=== PATIENT | male | born 1965 | race African-American/Black ===

== ENCOUNTER 2023-06-02 10:10 | Inpatient (IN) | payer OTHER, SELFPAY ==
[2023-06-02] VITALS (14 sets, daily range): BP systolic 104–148; BP diastolic 61–82; PULSE 98–107; RESP 15–21; TEMP 36.7–36.8; O2SAT 100; BMI 34.0
--- NOTE | ~2023-06-02 | CT_ITS ---
CT Scan of the Chest without Contrast: Clinical Indication: Aspiration Technique: Contiguous sections were acquired throughout the chest without intravenous contrast. Dose reduction technique was used on this scan by utilizing automated exposure control and iterative recon struction technique. The dose-length product (DLP) was 802.48 mGy-cm. Findings: There is no evidence of any significant mediastinal, hilar or axillary lymphadenopathy. The mediastin al soft tissues appear normal. There is no evidence of pleural or pericardial effusion. The lungs are clear. No pulmonary nodules or infiltrates are noted. Images through the upper abdomen reveal no abnormalities. Impression: No significant abnormalities seen. Reviewed, dictated and finalized at location . BUSTER HELPER Impression: No significant abnormalities seen.
--- NOTE | ~2023-06-02 | CT_ITS ---
EXAMINATION: CT abdomen pelvis w con DATE: 06/02/2023 14:28 INDICATION: Vomiting . Transaminitis. TECHNIQUE: Computed tomography (CT) of the abdomen and pelvis was performed with 100 mL Omnipaque-350 intravenous contrast. Automated exposure control and iterative reconstruction technique were employe d. The dose-length product was 1647.87 mGy-cm. COMPARISON: None FINDINGS: Lung bases are clear. Mild cardiomegaly. Atherosclerotic coronary artery calcification. No pericardia l or pleural effusion. Ventriculoperitoneal shunt extends caudally along the visualized anterior righ t chest wall with distal tip in the right lower quadrant. Liver, gallbladder, spleen, pancreas, bilat eral adrenal glands and bilateral kidneys are normal. Bowels including the appendix are normal. Small to moderate-sized fat-containing umbilical hernia. Ill-defined subcutaneous nodules and stranding al lj the anterior abdominal wall with location and appearance suggesting sequela of subcutaneous injec tions. Bladder is normal. No free intraperitoneal gas or fluid. No pathologically enlarged abdominal or pelvic lymphadenopathy. There are there are bridging osteophytes at multiple levels consistent wit h diffuse idiopathic skeletal hyperostosis (DISH). IMPRESSION: 1. No acute intra-abdominal/pelvic process. 2. Distal tip of a ventriculoperitoneal shunt in the right lower quadrant. 2. Small to moderate-sized fat-containing umbilical hernia. Reviewed, dictated and finalized at location A. INSPECTOR
--- NOTE | ~2023-06-02 | XR_ITS ---
XR chest 1V portable 06/02/2023 10:53 Indication: Weakness Procedure: AP portable chest Comparison: No prior studies for comparison. Findings: Heart size normal. No focal air space disease, pulmonary edema, pleural effusion or suspect ed pneumothorax. There is a catheter overlying the right chest wall. Impression: 1: No acute cardiopulmonary disease. Reviewed, dictated and finalized at location L. R RUNNER Impression: 1: No acute cardiopulmonary disease.
--- NOTE | ~2023-06-02 | XR_ITS ---
EXAMINATION: XR chest 1V portable DATE: 06/03/2023 21:32 INDICATION: Increased shortness of breath. TECHNIQUE: A single frontal view of the chest was obtained. COMPARISON: Chest single view 06/02/2023, chest CT 06/02/2023 FINDINGS: There are airspace opacities at left lung base. No pleural effusion or pneumothorax. The he art size is normal. A right-sided ventriculoperitoneal shunt is noted. A gastrostomy tube is noted. IMPRESSION: 1. Worsened airspace opacities at left lung base, consistent with atelectasis versus pneumonia. Reviewed, dictated and finalized at location E. DING SERVICES COORDINATOR IMPRESSION: 1. Worsened airspace opacities at left lung base, consistent with atelectasis v ersus pneumonia.
--- NOTE | ~2023-06-02 | CT_ITS ---
EXAMINATION: CT brain wo con DATE: 06/02/2023 10:59 INDICATION: Altered mental status. TECHNIQUE: Computed tomography (CT) of the head was performed without intravenous contrast. The dose- length product was 605.33 mGy-cm. Automated exposure control and iterative reconstruction technique w ere employed. COMPARISON: None FINDINGS: Generalized atrophy. There is a right posterior parietal ventriculostomy catheter, tip of t he catheter at the midline of the ventricles. Adjacent to the catheter tract there is a geographic ar ea of hypodensity which may relate to encephalomalacia or infarction, age indeterminate. There are sc attered moderate periventricular and subcortical white matter changes, most likely related to small v essel ischemic disease (microangiopathy). There is a chronic right frontal lobe infarction. There is intracranial atherosclerosis. There is a chronic left occipital lobe infarction. There is a chronic r ight lacunar infarction. IMPRESSION: 1. Geographic hypodensity along the right posterior parietal ventriculostomy tract which may relate t o encephalomalacia or age-indeterminate infarction. Recommend comparison to previous outside CT exami nations if available. 2: Chronic right frontal lobe, right lacunar and left occipital lobe infarctions. 3: Chronic age-related findings. 4: Mild sinus disease. Reviewed, dictated and finalized at location L. E OPERATOR IMPRESSION: 1. Geographic hypodensity along the right posterior parietal ventriculostomy tr act which may relate to encephalomalacia or age-indeterminate infarction. Recom mend comparison to previous outside CT examinations if available. 2: Chronic right frontal lobe, right lacunar and left occipital lobe infarction s. 3: Chronic age-related findings. 4: Mild sinus disease.
--- NOTE | ~2023-06-02 | XR_ITS ---
EXAMINATION: XR chest 2V Exam Date/Time: 06/06/2023 17:10 CREEL OPERATOR HISTORY: F/U on portable chest x-ray, rule out pneumonia Comparison: 06/03/2023. RESULT: Lines, tubes, and devices: None. Lungs and pleura: Nondiagnostic lateral views, limited by difficulty positioning, low volumes, and p ortable technique. Increased left basilar/retrocardiac opacities. Cardiomediastinal silhouette: Stable. Other: No acute osseous or upper abdominal finding. IMPRESSION: Increasing left basilar airspace disease may represent increasing atelectasis or pneumonia. Reviewed, dictated and finalized at location K. L OPERATOR IMPRESSION: Increasing left basilar airspace disease may represent increasing atelectasis o r pneumonia.
--- NOTE | 2023-06-02 10:22 | ECG_ITS ---
Measurements Intervals [place] Rate: 96 P: 42 WV: 140 QRS: 31 QRSD: 101 T: 27 QT: 343 QTc: 435 Interpretive Statements SINUS RHYTHM CONSIDER INFERIOR INFARCT, AGE INDETERMINATE BORDERLINE T WAVE ABNORMALITY- HIGH LATERAL LEADS ABNORMAL ECG NO PREVIOUS ECG AVAILABLE FOR COMPARISON Electronically Signed On 06-02-2023 11:25:39 ANESTHESIOLOGISTS' ASSISTANT by Ferdinand Begum D.O.
--- NOTE | 2023-06-02 10:41 | ED.GENADULT ---
HPI - General Adult General Chief complaint: Unspecified <Veronika Thakkar PA-C - Last Filed: 06/02/23 15:59> Stated complaint: weak <Veronika Thakkar PA-C - Last Filed: 06/02/23 15:59> Time Seen by Provider: 06/02/23 10:21 <Veronika Thakkar PA-C - Last Filed: 06/02/23 15:59> Source: family and EMS <Veronika Thakkar PA-C - Last Filed: 06/02/23 15:59> Mode of arrival: EMS <Veronika Thakkar PA-C - Last Filed: 06/02/23 15:59> Limitations: other (history of CVA, patient is nonverbal) <Veronika Thakkar PA-C - Last Filed: 06/02/23 15:59> History of Present Illness HPI narrative: This is a 57-year-old male that presents to the emergency department for altered mental status. Patient has history of CVA and is nonverbal. Reported the patient communicates by blinking and nodding yes or no. He has been more lethargic since last night and is no longer doing this. He also vomited this morning. <Veronika Thakkar PA-C - Last Filed: 06/02/23 15:59> Related Data Allergies/adverse reactions: Allergies Allergy/AdvReac Type Severity Reaction Status Date / Time No Known Allergies Allergy Verified 06/02/23 10:48 <Veronika Thakkar PA-C - Last Filed: 06/02/23 15:59> Review of Systems Review of Systems: ROS unobtainable: Yes unobtainable due to medical condition <Veronika Thakkar PA-C - Last Filed: 06/02/23 15:59> [facility] Past Medical History Medical History: Medical History (Updated 06/02/23 @ 15:54 by Veronika Thakkar PA-C) History of CVA (cerebrovascular accident) History of diabetes mellitus History of hypertension <Veronika Thakkar PA-C - Last Filed: 06/02/23 15:59> Social History Social History: Social History (Updated 06/02/23 @ 10:44 by Veronika Thakkar PA-C) Substance use: never <Veronika Thakkar PA-C - Last Filed: 06/02/23 15:59> Exam Narrative: GENERAL: Lethargic, well-nourished, and in no acute distress. HEAD: Normocephalic, atraumatic. EYES: PERRLA ENT: Nares clear, no rhinorrhea or epistaxis. Mucous membranes dry. Oropharynx without tonsillar hypertrophy exudate or other lesions. Bilateral TMs pearly lynch non-bulging NECK: Supple. No adenopathy or masses. CHEST: No respiratory distress. Expiratory wheezing. No rales or rhonchi HEART: Regular rate and rhythm. No murmur heard. Normal peripheral pulses. ABDOMEN: Soft, nontender, nondistended, normal active bowel sounds. EXTREMITIES: No edema. SKIN: Warm, dry, no rash. NEURO: Lethargic. Oriented x1. Will open eyes when his name is said. Quadriplegia PSYCH: Normal mood and affect RECTAL: Hemoccult negative <Veronika Thakkar PA-C - Last Filed: 06/02/23 15:59> Course PROGRAM MANAGEMENT SPECIALIST/PA Physician Supervision For this patient encounter, I reviewed the PROGRAM MANAGEMENT SPECIALIST or PA documentation, treatment plan, and medical decision making; and I had [id number] time with this patient. <Fidel Vila MD - Last Filed: 06/02/23 18:02> Consultations Consultation #1: Spoke with Dr. Harris about patient and workup, U stroke. Recommends obtaining MRI. If this shows any abnormalities they are happy to take the patient <Veronika Thakkar PA-C - Last Filed: 06/02/23 15:59> Date: 06/02/23 <Veronika Thakkar PA-C - Last Filed: 06/02/23 15:59> Consultation #2: Spoke with hospitalist about patient and workup who accepts admission <Veronika Thakkar PA-C - Last Filed: 06/02/23 15:59> Date: 06/02/23 <Veronika Thakkar PA-C - Last Filed: 06/02/23 15:59> Vital Signs Vital signs: Vital Signs Temperature 98.1 F 06/02/23 10:08 Pulse Rate 106 H 06/02/23 10:08 Respiratory Rate 21 H 06/02/23 10:08 Blood Pressure 123/82 06/02/23 10:08 Pulse Oximetry 100 06/02/23 10:08 Temperature 98.3 F 06/02/23 17:47 Pulse Rate 102 H 06/02/23 17:47 Respiratory Rate 18 06/02/23 17:47 Blood Pressure 148/72 H 06/02/23 17:47 Pulse Oximetry 100 06/02/23 17:47 <Veronika Thakkar PA-C - Last Filed: 0
[2023-06-02] MEDS: IPRATROPIUM 0.5 MG/ALBUTEROL SULFATE 2.5 MG AMPUL.NEB 3 ML INHALATION (11:02)
[2023-06-02 11:03] LABS: Basophils Percent Auto 0.2 % (0.2-1.2); Eosinophils Absolute Auto 0.1 K/mm3 (0-0.3); Eosinophils Percent Auto 0.9 % (0-4.4); Hemoglobin 9.3 g/dL (14.0-18.0); Immature Granulocyte Absolute 0.06 K/mm3 (0.00-0.031); Immature Granulocyte Percent A 0.6 % (0-0.5); Lymphocytes Absolute Auto 2.44 K/mm3 (0.9-3.2); Lymphocytes Percent Auto 23.8 % (18.3-44.2); Mean Corpuscular Hemoglobin 28.8 pg (26-34); Mean Platelet Volume 9.2 fl (7.4-10.4); Monocytes Absolute Auto 1.2 K/mm3 (0.1-0.6); Monocytes Percent Auto 11.2 % (2.6-8.5); Neutrophils Absolute Auto 6.5 K/mm3 (1.3-6.7); Neutrophils Percent Auto 63.3 % (45.5-73.1); Platelet Count Result 286 k/mm3 (150-375); Red Blood Count 3.23 M/mm3 (4.6-6.20); Red Cell Distribution Width 17.2 % (11.5-14.5); White Blood Count 10.3 K/mm3 (4.5-10.0)
[2023-06-02] MEDS: ONDANSETRON INJ 4 MG/2 ML VIAL IV PUSH (11:07)
[2023-06-02 11:12] LABS: INR 1.1; Lactic Acid Reflex 1.7 mmol/L (0.7-2.0); Prothrombin Time 15.1 Seconds (11.1-14.7)
[2023-06-02 11:13] LABS: Partial Thromboplastin Time 34.2 SECONDS (22.3-36.8)
[2023-06-02 11:14] LABS: Alanine Aminotransferase 225 U/L (6-50); Albumin Level 3.5 g/dL (3.5-5.1); Alkaline Phosphatase 104 U/L (38-126); Anion Gap 7 mmol/L (8-16); Aspartate Amino Transferase 137 U/L (17-59); Bilirubin,Total 0.6 mg/dL (0.2-1.3); Blood Urea Nitrogen 62 mg/dL (9-20); Calcium 9.5 mg/dL (8.4-10.2); Carbon Dioxide 32 mmol/L (22-30); Chloride 106 mmol/L (98-107); Estimated CRCL calculation 74 ml/min; Estimated Glomerular Filt Rate > 60; Glucose 202 mg/dL (65-110); Potassium 5.2 mmol/L (3.4-5.0); Sodium 145 mmol/L (137-145)
[2023-06-02 12:02] LABS: Lipase 156 U/L (23-300)
[2023-06-02 12:05] LABS: CRP 22.9 mg/dL (<1.0)
[2023-06-02 12:06] LABS: Influenza A QL RT-PCR Negative (Negative); Influenza B QL RT-PCR Negative (Negative); RSV RNA, RT-PCR Negative (Negative); SARS-CoV-2 RNA PCR Negative (Negative)
[2023-06-02 14:22] LABS: Appearance Urine Cloudy (Clear); Bacteria Urine 1+ /hpf; Bilirubin Urine Negative (Negative); Blood Urine Negative (Negative); Color Urine Yellow (Yellow); Glucose Urine UA Negative (Negative); Ketones Urine Negative (Negative); Leukocyte Esterase Ur 3+ LEU/UL (Negative); Nitrate Urine Negative (Negative); Non Pathogenic Casts 0-2; Protein Urine 1+ mg/dL (Negative); RBC Urine 0-2 /hpf (0-2); Specific Grav Ur 1.018 (1.001-1.035); Squamous Epithelial Cell Urine None seen /hpf (Few); WBC Urine >100 /hpf; pH Urine 7.5 (5.0-9.0)
[2023-06-02 14:28] LABS: Add Urine Microscopic? YES
[2023-06-02] MEDS: SODIUM CHLORIDE 0.9% IV 500 ML 999 ML IV CONT (15:53)
--- NOTE | 2023-06-02 19:21 | PM.IMHP ---
H&P: HPI History of Present Illness Date/Time: 06/02/23 19:30 Chief Complaint: Vomiting. 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 He is unable to provide much in the way of history history and he has never been seen at this facility before and he thus a majority of the following is obtained via a review of his EMR and records obtained from [facility] from his stay in March 2023 with hemorrhagic stroke. He was discharged to [place] on 04/27/2023 and has been at a local nursing facility for less than a week. Staff reports that he was more lethargic last night and he had an episode of vomiting this morning and thus they brought him here for evaluation. He was afebrile on arrival with stable blood pressures. Labs were significant for a hemoglobin of 9.3 (a bit lower than what he had been running), sodium 145, potassium 5.2, carbon dioxide 32, BUN 62, AST 137, ALT 225, CRP 22.9, total protein 9.0. Urine was positive for 3+ leukocyte esterase, greater than 100 wbc's, and 1+ bacteria. He tested negative for influenza, RSV, and COVID. Brain CT showed geographic hypodensity along the right posterior parietal ventriculostomy tract which may be related to encephalomalacia or age-indeterminate infarction. ED provider spoke with the stroke team at [facility] who recommended admitting him at this facility for MRI and if anything new is seen he can be transferred there. In the interim he has been started on IV antibiotics for a urinary tract infection and he is being admitted in this setting. At the time my evaluation he will open his eyes on occasion but does not attempt to track or follow commands. Review of Systems Review of Systems: Unable to obtain given clinical condition. 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 History of cardiac catheterization History of coronary artery stent placement History of percutaneous endoscopic gastrostomy History of tracheostomy Status post ventriculo-peritoneal shunt placement Family History Family History (Updated 06/02/23 @ 19:26 by Kym Holman PA-C) Other Family history unknown Social History Social History (Updated 06/02/23 @ 19:27 by Kym Holman PA-C) Social History: Healthcare power of disability attorney: Ivory Hassan, sister. Code status: Full code. Smoking status: Never smoker Alcohol intake: unknown Substance use: unknown Spiritual care concerns: No Meds Home Medications and Allergies Home Medications Medication Instructions Recorded Confirmed Type Novolog FlexPen U-100 Insulin 10 units subcut TID 06/02/23 06/02/23 History acetaminophen 500 mg capsule 1,000 mg feeding tube Q6H PRN Pain 06/02/23 06/02/23 History artificial tears solution eye drops 1 drp ophthalmic (eye) TID 06/02/23 06/02/23 History aspirin 325 mg tablet 325 mg feeding tube DAILY 06/02/23 06/02/23 History atorvastatin 80 mg tablet 80 mg feeding tube HS 06/02/23 06/02/23 History bisacodyl 10 mg rectal suppository 10 mg RECTAL DAILY PRN Constipation 06/02/23 06/02/23 History carboxymethylcellulose sodium 0.5 1 drp EACH EYE QID 06/02/23 06/02/23 History % eye drops carvedilol 25 mg tablet 50 mg feeding tube BID 06/02/23 06/02/23 History clonidine HCl 0.3 mg tablet 0.3 mg feeding tube TID 06/02/23 06/02/23 History cyclopentolate 1 % eye drops 1 drp EACH EYE BID 06/02/23
[2023-06-02 20:48] LABS: Hematocrit 30.7 % (42.0-52.0)
[2023-06-02 21:16] LABS: Anion Gap 7 mmol/L (8-16); Blood Urea Nitrogen 62 mg/dL (9-20); Calcium 9.2 mg/dL (8.4-10.2); Carbon Dioxide 33 mmol/L (22-30); Chloride 107 mmol/L (98-107); Creatine Kinase 1556 U/L (55-170); Estimated CRCL calculation 77 ml/min; Estimated Glomerular Filt Rate > 60; Glucose 201 mg/dL (65-110); Magnesium 2.5 mg/dL (1.6-2.3); Potassium 5.2 mmol/L (3.4-5.0); Sodium 147 mmol/L (137-145)
[2023-06-02 21:41] LABS: Hemoglobin A1C 7.4 % (<5.7)
[2023-06-02 21:46] LABS: Hepatitis B Surface Antigen Negative (Negative)
[2023-06-02 21:51] LABS: HAV RESULT Negative (Negative); Hepatitis B Core IgM Result Negative (Negative)
[2023-06-02 21:58] LABS: Glucose Point of Care 196 mg/dl (65-105)
[2023-06-02 22:03] LABS: Hepatitis C Virus Antibody Negative (Negative)
[2023-06-02] MEDS: DEXTROSE 5%/0.45% SOD CHL 1,000 ML 100 ML IV CONT (22:42)
[2023-06-02] MEDS: carvediloL 25 MG TABLET 50 MG FEED TUBE (22:49)
[2023-06-02] MEDS: INSULIN GLARGINE (*BKC) 100 UNITS/ML 30 UNITS SUB-Q (22:49)
[2023-06-02] MEDS: SCOPOLAMINE 1 MG PATCH 1 PATCH TRANSDERM (23:03)
[2023-06-03] VITALS (25 sets, daily range): BP systolic 104–135; BP diastolic 50–86; PULSE 95–111; RESP 18–24; TEMP 36.4–38.2; O2SAT 89–98; BMI 34.8
[2023-06-03 00:08] LABS: Glucose Point of Care 218 mg/dl (65-105)
[2023-06-03] MEDS: ACETAMINOPHEN 500 MG TABLET 1000 MG FEED TUBE ×2 (02:21→18:05)
[2023-06-03 05:56] LABS: Alanine Aminotransferase 187 U/L (6-50); Albumin Level 3.3 g/dL (3.5-5.1); Alkaline Phosphatase 81 U/L (38-126); Anion Gap 8 mmol/L (8-16); Aspartate Amino Transferase 100 U/L (17-59); Bilirubin,Total 0.8 mg/dL (0.2-1.3); Blood Urea Nitrogen 70 mg/dL (9-20); Carbon Dioxide 27 mmol/L (22-30); Chloride 108 mmol/L (98-107); Creatine Kinase 1122 U/L (55-170); Estimated CRCL calculation 77 ml/min; Estimated Glomerular Filt Rate > 60; Glucose 234 mg/dL (65-110); Potassium 5.5 mmol/L (3.4-5.0); Sodium 143 mmol/L (137-145)
[2023-06-03 05:58] LABS: Hematocrit 29.9 % (42.0-52.0); Hemoglobin 8.6 g/dL (14.0-18.0); Mean Corpuscular HGB Conc 28.8 g/dl (32-36); Mean Corpuscular Hemoglobin 28.3 pg (26-34); Mean Corpuscular Volume 98.4 fl (80-100); Mean Platelet Volume 9.4 fl (7.4-10.4); Platelet Count Result 261 k/mm3 (150-375); Red Blood Count 3.04 M/mm3 (4.6-6.20); Red Cell Distribution Width 17.2 % (11.5-14.5); White Blood Count 7.5 K/mm3 (4.5-10.0)
[2023-06-03 06:03] LABS: Glucose Point of Care 219 mg/dl (65-105)
[2023-06-03] MEDS: ALBUTEROL SULFATE NEB 2.5 MG/3 ML INH 1.25 MG INHALATION (06:24)
[2023-06-03] MEDS: carvediloL 25 MG TABLET 50 MG FEED TUBE ×2 (09:40→20:18)
[2023-06-03] MEDS: cloNIDine HCL 0.1 MG TABLET 0.3 MG FEED TUBE ×3 (09:40→17:56)
[2023-06-03] MEDS: ASPIRIN 325 MG TABLET FEED TUBE (09:40)
[2023-06-03] MEDS: TAMSULOSIN HCL 0.4 MG CAPSULE 0.8 MG PO (09:46)
[2023-06-03 09:58] LABS: Glucose Point of Care 214 mg/dl (65-105)
[2023-06-03] MEDS: INSULIN ASPART (*BKC) 100 UNITS/ML 10 UNITS SUB-Q ×3 (10:00→18:45)
[2023-06-03] MEDS: INSULIN GLARGINE (*BKC) 100 UNITS/ML 30 UNITS SUB-Q ×2 (10:01→20:26)
[2023-06-03] MEDS: polyethylene glycoL 3350 17 GM POWD.PACK FEED TUBE ×2 (10:02→17:56)
--- NOTE | 2023-06-03 10:02 | WPDNEURCNPN ---
Assessment and Plan Assessment and plan (1) Azotemia: Code(s): R79.89 - Other specified abnormal findings of blood chemistry Status: Acute (2) Abnormal brain CT: Code(s): R90.89 - Other abnormal findings on diagnostic imaging of central nervous system Status: Acute (3) Type 2 diabetes mellitus: Code(s): E11.9 - Type 2 diabetes mellitus without complications Status: Acute (4) Hypertension: Code(s): I10 - Essential (primary) hypertension Status: Acute (5) Acute UTI: Code(s): N39.0 - Urinary tract infection, site not specified Status: Acute Plan 1. UTI as documented and is being treated with the antibiotics 2. Dehydration 3. Status post ventriculostomy with chronic changes around the tract 4. Needs to be treated medically for the general medical problems as documented, no need for the MRI we can always repeat a CT scan of the head later on if necessary. Consult date: 06/03/23 HPI: Mendel Kelly is a 57 year old maleAdmitted to the hospital through the emergency room for the complaints of change in the mental status in addition to the history of him being nonverbal as well as having had previous cerebrovascular accident patient reportedly communicates only by blinking and nodding yes or no. Reportedly he has been lethargic since the last night and has also been vomiting at times. He is not allergic to any medication. He has history of cerebrovascular accident in the past, diabetes mellitus, and hypertension. On initial evaluation his vital signs were with normal temperature pulse of 106 respiration 21 blood pressure 123/82 his CBC was normal basic metabolic panel with blood sugar of 202 and BUN of 62 the creatinine 1.20 routine labs otherwise was negative including the UA and he was also negative for the influenza a influenza B RSV and COVID. Chest x-ray was negative, CT scan of the head documented hypodensity along the right posterior parietal ventriculostomy tract with encephalomalacia and chronic right frontal lobe lacunar and left occipital lobe infarction with mild sinus disease, chest x-ray negative abdomen and pelvic CT scan documenting distal tip of the ventriculoperitoneal shunt in the right lower quadrant with small to moderate size fat containing umbilical hernia. 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 History of cardiac catheterization History of coronary artery stent placement History of percutaneous endoscopic gastrostomy History of tracheostomy Status post ventriculo-peritoneal shunt placement Family History Family History Other Family history unknown Social History Social History Social History: Healthcare power of real estate associate attorney: Ivory Hassan, sister. Code status: Full code. Smoking status: Never smoker Alcohol intake: unknown Substance use: unknown Spiritual care concerns: No Meds Home Medications and Allergies Home Medications Medication Instructions Recorded Confirmed Type Novolog FlexPen U-100 Insulin 10 units subcut TID 06/02/23 06/02/23 History acetaminophen 500 mg capsule 1,000 mg feeding tube Q6H PRN Pain 06/02/23 06/02/23 History artificial tears solution eye drops 1 drp ophthalmic (eye) TID 06/02/23 06/02/23 History aspirin 325 mg tablet 325 mg feeding tube DAILY 06/02/23 06/02/23 History atorvastatin 80 mg tablet 80 mg feeding tube HS 06/02/23
[2023-06-03] MEDS: ARTIFICIAL TEARS OPHTH SOLN 15 ML BOTTLE 1 DROP EACH EYE ×3 (10:03→17:56)
[2023-06-03] MEDS: prednisoLONE ACETATE 1% OPHTH 5 ML 1 DROP RIGHT EYE ×4 (10:03→20:22)
--- NOTE | 2023-06-03 11:46 | PM.IMPN ---
Progress Note: A&P Assessment and Plan (1) Urinary tract infection: Code(s): N39.0 - Urinary tract infection, site not specified Status: Acute Assessment and Plan: Continue Ceftriaxone (2) Abnormal brain CT: Code(s): R90.89 - Other abnormal findings on diagnostic imaging of central nervous system Status: Acute Assessment and Plan: MRI brain on hold due to intra-cranial shunt (3) Altered mental status: Qualifiers: Altered mental status type: unspecified Qualified Code(s): R41.82 - Altered mental status, unspecified Code(s): R41.82 - Altered mental status, unspecified Status: Acute Assessment and Plan: Seems to be baseline Neurology states that the MRI brain is not urgent Will need to be transferred to [facility] for MRI if necessary (4) Azotemia: Code(s): R79.89 - Other specified abnormal findings of blood chemistry Status: Acute (5) Hyperkalemia: Code(s): E87.5 - Hyperkalemia Status: Acute (6) Anemia: Code(s): D64.9 - Anemia, unspecified Status: Acute (7) Type 2 diabetes mellitus: Code(s): E11.9 - Type 2 diabetes mellitus without complications Status: Acute (8) Benign prostatic hyperplasia: Code(s): N40.0 - Benign prostatic hyperplasia without lower urinary tract symptoms Status: Acute (9) Hypertension: Code(s): I10 - Essential (primary) hypertension Status: Acute (10) Rhabdomyolysis: Code(s): M62.82 - Rhabdomyolysis Status: Acute Assessment and Plan: IVFs Plan The patient presented to the emergency department from a local nursing facility for evaluation of vomiting as detailed in HPI. Labs, imaging, EKG, and all reports were personally reviewed. It is my understanding that he had only 1 episode of emesis and that has not recurred since admission. Abdominal exam was benign. He is also reportedly less interactive than he has been for the last 3 days that he has been at that facility though that is difficult to say. Preliminary workup in the ED revealed evidence of urinary tract infection for which he has been started on ceftriaxone, pending urine culture. He looks quite dry on exam and by labs with elevated BUN and mild electrolyte abnormalities. He received a liter of normal saline in the ED with an increase in his sodium thus he has been changed to D5 half-normal saline. He has been started on scheduled free water flushes as well. AST and ALT were elevated and a subsequent CK came back elevated 1556. Urine is already alkalotic thus will continue current IV fluids and trend CK. It is likely the UTI and dehydration are the cause of his change in mental status however brain CT showed an area around the ventriculostomy tract which could represent encephalomalacia for age-indeterminate infarction. [facility] stroke team was consulted by the ED provider and they recommended admitting him here at [place] for brain MRI which has been ordered. Blood pressures were reviewed and they are stable. His antihypertensives will be reviewed and resumed as appropriate. Glucose needs to be monitored closely while receiving half-normal saline with dextrose. Continue basal insulin. Initiate sliding scale insulin, Accu-Cheks, and hypoglycemic protocol. Check hemoglobin A1c. His home medications will be reviewed and resumed as appropriate. Subjective Date/time seen: 06/03/23 11:47 Interval history: Seen and examined; non-verbal; not in painful or respiratory distress Follows commands by nodding or shaking head. Review of Systems Review of Systems: Unable to obtain given clinical condition. Non-verbal Exam Narrative: General: Chronically ill-appearing gentleman in the semi-Najera position in bed. Weight: 13.8 kg. BMI: 34.0. HEENT: PERRL, EOMI. Sclera anicteric. Conjunctiva mildly injected. Dry mucous membranes. Neck: Supple. No obvious br
--- NOTE | 2023-06-03 11:53 | WPDNEUROPN ---
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 with resultant chronic changes on the CT scan at present receiving all his medication as such including ceftriaxone for the UTI and on clinical examination his neuro examination remains essentially unchanged he will be continued on the same treatment Objective Data Vital Signs Vital Signs: Vital Signs - 24 hr 06/02/23 12:16 06/02/23 12:31 06/02/23 12:46 Temperature Pulse Rate 103 H 102 H 102 H Respiratory Rate 15 18 15 Blood Pressure 110/61 104/63 115/71 Pulse Oximetry 100 Oxygen Delivery 06/02/23 13:01 06/02/23 17:47 06/02/23 19:06 Temperature 36.8 C Pulse Rate 104 H 102 H Respiratory Rate 18 18 Blood Pressure 117/63 148/72 H Pulse Oximetry 100 100 Oxygen Delivery Room Air 06/02/23 20:00 06/02/23 20:00 06/02/23 22:49 Temperature Pulse Rate 105 H 107 H Respiratory Rate Blood Pressure Pulse Oximetry Oxygen Delivery Room Air 06/02/23 22:53 06/03/23 00:00 06/03/23 02:13 Temperature 37.8 C H Pulse Rate 102 H Respiratory Rate Blood Pressure 131/73 Pulse Oximetry Oxygen Delivery 06/03/23 02:21 06/03/23 02:15 06/03/23 03:21 Temperature 37.8 C H 37.9 C H Pulse Rate Respiratory Rate Blood Pressure Pulse Oximetry Oxygen Delivery Room Air 06/03/23 04:00 06/03/23 05:44 06/03/23 06:26 Temperature 37.3 C Pulse Rate 101 H 103 H 103 H Respiratory Rate 24 H 18 Blood Pressure 126/69 Pulse Oximetry 95 Oxygen Delivery 06/03/23 09:40 Temperature Pulse Rate 109 H Respiratory Rate Blood Pressure Pulse Oximetry Oxygen Delivery Intake/Output Intake/Output: Intake & Output 05/31/23 06/01/23 06/02/23 06/03/23 23:59 23:59 23:59 23:59 Intake Total 150 150 Output Total 650 625 Balance -500 -475 Meds/Results Medications: Active Medications Generic Name Dose Route Start Last Admin Trade Name Freq PRN Reason Stop Dose Admin Acetaminophen 1,000 mg 06/02/23 21:56 06/03/23 02:21 Acetaminophen 500 Mg Tablet FEED TUBE 1,000 mg Q6H PRN Administration Pain or Fever Artificial Tears 1 drop 06/03/23 09:00 06/03/23 10:03 Artificial Tears Ophth Soln 15 Ml Bottle EACH EYE 1 drop TID RICHARD Administration Aspirin 325 mg 06/03/23 08:00 06/03/23 09:40 Aspirin 325 Mg Tablet FEED TUBE 325 mg DAILY@0800 RICHARD Administration Bisacodyl 10 mg 06/02/23 21:56 Bisacodyl 10 Mg Suppository RECTAL DAILY PRN Constipation Carvedilol 50 mg 06/02/23 22:10 06/03/23 09:40 Carvedilol 25 Mg Tablet FEED TUBE 50 mg Q12HR RICHARD Administration Clonidine HCl 0.3 mg 06/03/23 09:00 06/03/23 09:40 Clonidine Hcl 0.1 Mg Tablet FEED TUBE 0.3 mg TID RICHARD Administration Dextrose 12.5 gm 06/02/23 21:54 Dextrose 50% 25 Gm/50 Ml Syringe IV PUSH PRN PRN Hypoglycemia Protocol Glucagon 1 mg 06/02/23 21:54 Glucagon For Inj 1 Mg Vial IM PRN PRN Hypoglycemia Protocol Glucose 15 gm 06/02/23 21:54 Glucose Oral Gel 15 Gm Of Glucse In 37.5 Gm Tube PO PRN PRN Hypoglycemia Protocol Guaifenesin 200 mg 06/02/23 21:56 Guaifenesin 200 Mg/10 Ml Udc PO Q4H PRN Cough Dextrose 1,000 mls @ 100 mls/hr 06/02/23 21:54 Dextrose 5% 1,000 Ml IVPB PRN PRN Hypoglycemia Protocol Ceftriaxone Sodium 1 gm in 50 mls @ 100 mls/hr 06/03/23 16:00 Rocephin 1 Gm/Ns 50 Ml IVPB Q24H RICHARD Insulin Aspart 10 units 06/03/23 08:00 06/03/23 10:00 Insulin Aspart (*Bkc) 100 Units/Ml SUB-Q 10 units TIDWM RICHARD Administration Insulin Glargine 30 units 06/02/23 22:00 06/03/23 10:01 Insulin Glargine (*Bkc) 100 Units/Ml SUB-Q 30 units Q12HR RICHARD Administration Miconazole Nitrate 1 applic 06/03/23 09:00 06/03/23 10:02 Miconazo
[2023-06-03 12:35] LABS: Glucose Point of Care 211 mg/dl (65-105)
[2023-06-03] MEDS: IPRATROPIUM 0.5 MG/ALBUTEROL SULFATE 2.5 MG AMPUL.NEB 3 ML (16:00)
[2023-06-03 17:29] LABS: Glucose Point of Care 153 mg/dl (65-105)
[2023-06-03] MEDS: SENNA/DOCUSATE SODIUM TABLET 2 TAB PO (20:18)
[2023-06-03] MEDS: IPRATROPIUM 0.5 MG/ALBUTEROL SULFATE 2.5 MG AMPUL.NEB 3 ML INHALATION (20:38)
[2023-06-03 20:47] LABS: Glucose Point of Care 147 mg/dl (65-105)
[2023-06-03] MEDS: SODIUM CHLORIDE 0.9% IV 1,000 ML 500 ML IV CONT (21:23)
[2023-06-03] MEDS: KETOROLAC 15 MG/ML VIAL (*BKC) IV PUSH (21:25)
[2023-06-03] MEDS: PIPERACILLN/TAZ 3.375GM/NS50ML 3.375 GM/50 ML BAG IVPB (21:29)
[2023-06-03] MEDS: VANCOMYCIN 1,250 MG/NS 250 ML 1,250 MG/250 ML BAG 166.67 MG IVPB ×2 (22:01→23:31)
[2023-06-03 22:07] LABS: Basophils Percent Auto 0.3 % (0.2-1.2); Eosinophils Absolute Auto 0.2 K/mm3 (0-0.3); Eosinophils Percent Auto 2.9 % (0-4.4); Hematocrit 27.2 % (42.0-52.0); Hemoglobin 7.8 g/dL (14.0-18.0); Immature Granulocyte Absolute 0.04 K/mm3 (0.00-0.031); Immature Granulocyte Percent A 0.5 % (0-0.5); Lymphocytes Absolute Auto 2.53 K/mm3 (0.9-3.2); Lymphocytes Percent Auto 34.6 % (18.3-44.2); Mean Corpuscular HGB Conc 28.7 g/dl (32-36); Mean Corpuscular Hemoglobin 28.1 pg (26-34); Mean Corpuscular Volume 97.8 fl (80-100); Mean Platelet Volume 9.1 fl (7.4-10.4); Monocytes Percent Auto 13.3 % (2.6-8.5); Neutrophils Absolute Auto 3.5 K/mm3 (1.3-6.7); Neutrophils Percent Auto 48.4 % (45.5-73.1); Nucleated Red Blood Cells Perc 0.3 % (0.0-0.2); Platelet Count Result 234 k/mm3 (150-375); Red Blood Count 2.78 M/mm3 (4.6-6.20); Red Cell Distribution Width 17.1 % (11.5-14.5); White Blood Count 7.3 K/mm3 (4.5-10.0)
[2023-06-03 22:19] LABS: Anion Gap 6 mmol/L (8-16); Blood Urea Nitrogen 78 mg/dL (9-20); Calcium 9.1 mg/dL (8.4-10.2); Carbon Dioxide 31 mmol/L (22-30); Chloride 109 mmol/L (98-107); Estimated CRCL calculation 48 ml/min; Estimated Glomerular Filt Rate 42; Glucose 128 mg/dL (65-110); Lactic Acid Reflex 1.6 mmol/L (0.7-2.0); Potassium 4.6 mmol/L (3.4-5.0); Sodium 146 mmol/L (137-145)
[2023-06-03 22:21] LABS: Anisocytosis 2+ (NORMAL); Hypochromasia 1+ (NORMAL); Platelet Estimate Adequate (Adequate); Schistocytes None Seen (NORMAL)
--- NOTE | 2023-06-03 23:36 | P.PNCROSS_ITS ---
Event Note Event Note Event Note: I was called to come and see this patient admitted UTI and rhabdomyolysis with altered mental status who is said to appear more altered. He is getting Rocephin for UTI and today is day 2, however he continued to spike temperature with most recent 100.7. Patient is on tube feed, bedbound hospice Kin[place] catheter. He is said to be supposed to be using BiPAP machine however he does not have symptoms that [facility] facility., Examination revealed an adult opens eyes with touch, localizes pain and only mumbles. He has good air entry bilaterally however there are transmitted sounds from upper airway secretions, appear dehydrated - has dry oral mucosa, abdomen is obese and nontender gastrostomy tube intact and functional. Based on these findings, CBC, BMP, lactic acid, chest x-ray, when ordered, antibiotic was broadened to vancomycin and Zosyn pending results of inve stigations. 1 L bolus of normal size. Reviewed lab results showed a hemoglobin of 7.8 which is a drop from prior hemoglobin of 8.6 today, creatinine rise from 1.2-2.0 did drop in GFR from some 77 to 48. CK was greater than 1100 initial. Her CO2 level is 31 as it is 27 in the morning. Chest x-ray showed airspace opacity on left lower zone. will repeat CK level and also get ABG. review results and make necessary plans based on finding. ABG and CK level reviewed, no significant finding except mild hypoxemia. CK is trending down, patient said to have made only 250 cc of urine since fire claims adjuster took over. Will bolus 500 mL of NS more and continue on maintenance at 125 ml/hr,. continue close observation.
[2023-06-04] VITALS (18 sets, daily range): BP systolic 109–157; BP diastolic 51–67; PULSE 95–103; RESP 16–22; TEMP 36.9–37.2; O2SAT 98–100
[2023-06-04] LABS: Alveolar/Arterial O2 Gradient 36.1 mmHg; Base Excess ABG 1.1 mEq/l (+/-2.0); Fractional Inspired Oxygen 21 %; Oxygen Content ABG 10.7 %vol (16.0-22.0); Oxygen Saturation ABG 94.8 % (95.0-100.0); Oxyhemoglobin 92.1 % THb (90.0-100.0); PCO2 ABG 36.6 mmHg (35.0-45.0); PO2 ABG 69.8 mmHg (80.0-100.0); PO2 FiO2 Ratio Arterial Blood 3.32 %; Total Hemoglobin 8.2 g/dL (12.0-18.0); pH ABG 7.452 (7.350-7.450)
[2023-06-04 00:01] LABS: Device ROOM AIR; Modified Allen's Test Pass; Site Drawn RIGHT RADIAL
[2023-06-04 00:32] LABS: Glucose Point of Care 97 mg/dl (65-105)
[2023-06-04] MEDS: SODIUM CHLORIDE 0.9% IV 500 ML IV CONT (00:42)
[2023-06-04] MEDS: ACETAMINOPHEN 500 MG TABLET 1000 MG FEED TUBE (00:43)
[2023-06-04] MEDS: SODIUM CHLORIDE 0.9% IV 1,000 ML 125 ML IV CONT (00:44)
[2023-06-04 00:55] LABS: Creatine Kinase 896 U/L (55-170); Phosphorus 5.8 mg/dL (2.5-4.5)
[2023-06-04] MEDS: ALBUTEROL SULFATE NEB 2.5 MG/3 ML INH INHALATION ×3 (01:23→20:37)
[2023-06-04] MEDS: DORNASE ALFA INH SOLN 1 MG/ML 2.5 ML AMP 2.5 MG INHALATION ×3 (01:23→20:38)
[2023-06-04] MEDS: PIPERACILLN/TAZ 3.375GM/NS50ML 3.375 GM/50 ML BAG IVPB ×3 (03:31→15:13)
[2023-06-04 05:56] LABS: Glucose Point of Care 160 mg/dl (65-105)
[2023-06-04 06:18] LABS: Basophils Percent Auto 0.2 % (0.2-1.2); Eosinophils Absolute Auto 0.4 K/mm3 (0-0.3); Eosinophils Percent Auto 5.2 % (0-4.4); Hematocrit 25.2 % (42.0-52.0); Hemoglobin 7.4 g/dL (14.0-18.0); Immature Granulocyte Absolute 0.08 K/mm3 (0.00-0.031); Lymphocytes Absolute Auto 1.96 K/mm3 (0.9-3.2); Mean Corpuscular HGB Conc 29.4 g/dl (32-36); Mean Corpuscular Volume 98.8 fl (80-100); Mean Platelet Volume 9.8 fl (7.4-10.4); Monocytes Absolute Auto 0.8 K/mm3 (0.1-0.6); Monocytes Percent Auto 9.6 % (2.6-8.5); Neutrophils Absolute Auto 4.9 K/mm3 (1.3-6.7); Nucleated Red Blood Cells Perc 0.2 % (0.0-0.2); Platelet Count Result 244 k/mm3 (150-375); Red Blood Count 2.55 M/mm3 (4.6-6.20); Red Cell Distribution Width 17.3 % (11.5-14.5); White Blood Count 8.2 K/mm3 (4.5-10.0)
[2023-06-04 06:28] LABS: Alanine Aminotransferase 296 U/L (6-50); Albumin Level 2.9 g/dL (3.5-5.1); Alkaline Phosphatase 93 U/L (38-126); Anion Gap 9 mmol/L (8-16); Aspartate Amino Transferase 226 U/L (17-59); Bilirubin,Total 0.5 mg/dL (0.2-1.3); Blood Urea Nitrogen 81 mg/dL (9-20); Calcium 8.4 mg/dL (8.4-10.2); Carbon Dioxide 25 mmol/L (22-30); Chloride 111 mmol/L (98-107); Creatine Kinase 850 U/L (55-170); Estimated CRCL calculation 42 ml/min; Estimated Glomerular Filt Rate 35; Glucose 157 mg/dL (65-110); Potassium 4.9 mmol/L (3.4-5.0); Sodium 145 mmol/L (137-145)
[2023-06-04 06:44] LABS: Hypochromasia 1+ (NORMAL); Platelet Estimate Adequate (Adequate); Schistocytes None Seen (NORMAL)
[2023-06-04 08:23] LABS: Glucose Point of Care 187 mg/dl (65-105)
[2023-06-04] MEDS: cloNIDine HCL 0.1 MG TABLET 0.3 MG FEED TUBE ×3 (08:26→16:41)
[2023-06-04] MEDS: carvediloL 25 MG TABLET 50 MG FEED TUBE ×2 (08:26→20:26)
[2023-06-04] MEDS: TAMSULOSIN HCL 0.4 MG CAPSULE 0.8 MG PO (08:26)
[2023-06-04] MEDS: ASPIRIN 325 MG TABLET FEED TUBE (08:29)
[2023-06-04] MEDS: ARTIFICIAL TEARS OPHTH SOLN 15 ML BOTTLE 1 DROP EACH EYE ×3 (08:29→16:41)
[2023-06-04] MEDS: prednisoLONE ACETATE 1% OPHTH 5 ML 1 DROP RIGHT EYE ×4 (08:30→20:21)
[2023-06-04] MEDS: INSULIN GLARGINE (*BKC) 100 UNITS/ML 30 UNITS SUB-Q ×2 (08:37→20:29)
[2023-06-04] MEDS: SODIUM CHLORIDE 0.9% IV 1,000 ML 150 ML IV CONT ×2 (09:35→17:27)
[2023-06-04 12:01] LABS: Glucose Point of Care 186 mg/dl (65-105)
[2023-06-04] MEDS: INSULIN ASPART (*BKC) 100 UNITS/ML 10 UNITS SUB-Q (12:13)
--- NOTE | 2023-06-04 13:25 | PC.NURSE ---
On 06/04/23, the student, [Michelle Rodriguez], provided care and completed [facility] documentation on this patient. I have reviewed the student's documentation and agree with the findings.
--- NOTE | 2023-06-04 13:35 | PM.IMPN ---
Progress Note: A&P Assessment and Plan (1) Urinary tract infection: Code(s): N39.0 - Urinary tract infection, site not specified Status: Acute Assessment and Plan: Continue Zosyn (2) Abnormal brain CT: Code(s): R90.89 - Other abnormal findings on diagnostic imaging of central nervous system Status: Acute Assessment and Plan: MRI brain on hold due to intra-cranial shunt (3) Altered mental status: Qualifiers: Altered mental status type: unspecified Qualified Code(s): R41.82 - Altered mental status, unspecified Code(s): R41.82 - Altered mental status, unspecified Status: Acute Assessment and Plan: Seems to be baseline Neurology states that the MRI brain is not urgent Will need to be transferred to [facility] for MRI if necessary (4) Hyperkalemia: Code(s): E87.5 - Hyperkalemia Status: Acute Assessment and Plan: Improving; Will monitor (5) Anemia: Code(s): D64.9 - Anemia, unspecified Status: Acute (6) Type 2 diabetes mellitus: Code(s): E11.9 - Type 2 diabetes mellitus without complications Status: Acute (7) Benign prostatic hyperplasia: Code(s): N40.0 - Benign prostatic hyperplasia without lower urinary tract symptoms Status: Acute (8) Hypertension: Code(s): I10 - Essential (primary) hypertension Status: Acute (9) Rhabdomyolysis: Code(s): M62.82 - Rhabdomyolysis Status: Acute Assessment and Plan: IVFs (10) IVY (acute kidney injury): Code(s): N17.9 - Acute kidney failure, unspecified Status: Acute Assessment and Plan: On IVFs; will monitor and consult Nephrology if failure to improve. Plan The patient presented to the emergency department from a local nursing facility for evaluation of vomiting as detailed in HPI. Labs, imaging, EKG, and all reports were personally reviewed. It is my understanding that he had only 1 episode of emesis and that has not recurred since admission. Abdominal exam was benign. He is also reportedly less interactive than he has been for the last 3 days that he has been at that facility though that is difficult to say. Preliminary workup in the ED revealed evidence of urinary tract infection for which he has been started on ceftriaxone, pending urine culture. He looks quite dry on exam and by labs with elevated BUN and mild electrolyte abnormalities. He received a liter of normal saline in the ED with an increase in his sodium thus he has been changed to D5 half-normal saline. He has been started on scheduled free water flushes as well. AST and ALT were elevated and a subsequent CK came back elevated 1556. Urine is already alkalotic thus will continue current IV fluids and trend CK. It is likely the UTI and dehydration are the cause of his change in mental status however brain CT showed an area around the ventriculostomy tract which could represent encephalomalacia for age-indeterminate infarction. [facility] stroke team was consulted by the ED provider and they recommended admitting him here at [place] for brain MRI which has been ordered. Blood pressures were reviewed and they are stable. His antihypertensives will be reviewed and resumed as appropriate. Glucose needs to be monitored closely while receiving half-normal saline with dextrose. Continue basal insulin. Initiate sliding scale insulin, Accu-Cheks, and hypoglycemic protocol. Check hemoglobin A1c. His home medications will be reviewed and resumed as appropriate. Nutrition: PEG tube nutrition VTE Prophylaxis. Time Spent With Patient Time with patient: 25 - 35 minutes Subjective Date/time seen: 06/04/23 13:35 Interval history: Seen and examined; non-verbal; not in painful or respiratory distress Follows commands by nodding or shaking head. Review of Systems Review of Systems: Unable to obtain given clinical condition. Non-verbal
[2023-06-04] MEDS: CEFEPIME 1 GM/NS 50 ML 1 GM/50 ML BAG IVPB ×2 (15:45→23:11)
[2023-06-04 16:54] LABS: Glucose Point of Care 153 mg/dl (65-105)
[2023-06-04 20:28] LABS: Glucose Point of Care 140 mg/dl (65-105)
[2023-06-05] VITALS (13 sets, daily range): BP systolic 131–164; BP diastolic 56–69; PULSE 79–105; RESP 16–20; TEMP 36.1–36.7; O2SAT 97–98
[2023-06-05 05:45] LABS: Basophils Percent Auto 0.2 % (0.2-1.2); Eosinophils Absolute Auto 0.6 K/mm3 (0-0.3); Eosinophils Percent Auto 5.5 % (0-4.4); Hematocrit 26.1 % (42.0-52.0); Hemoglobin 7.8 g/dL (14.0-18.0); Immature Granulocyte Absolute 0.12 K/mm3 (0.00-0.031); Immature Granulocyte Percent A 1.1 % (0-0.5); Lymphocytes Absolute Auto 1.92 K/mm3 (0.9-3.2); Lymphocytes Percent Auto 17.7 % (18.3-44.2); Mean Corpuscular HGB Conc 29.9 g/dl (32-36); Mean Corpuscular Hemoglobin 28.7 pg (26-34); Mean Platelet Volume 9.2 fl (7.4-10.4); Monocytes Absolute Auto 0.9 K/mm3 (0.1-0.6); Monocytes Percent Auto 8.2 % (2.6-8.5); Neutrophils Absolute Auto 7.3 K/mm3 (1.3-6.7); Neutrophils Percent Auto 67.3 % (45.5-73.1); Nucleated Red Blood Cells Perc 0.3 % (0.0-0.2); Platelet Count Result 244 k/mm3 (150-375); Red Blood Count 2.72 M/mm3 (4.6-6.20); White Blood Count 10.9 K/mm3 (4.5-10.0)
[2023-06-05 06:17] LABS: Alanine Aminotransferase 268 U/L (6-50); Alkaline Phosphatase 107 U/L (38-126); Anion Gap 8 mmol/L (8-16); Aspartate Amino Transferase 138 U/L (17-59); Bilirubin,Total 0.4 mg/dL (0.2-1.3); Blood Urea Nitrogen 62 mg/dL (9-20); Calcium 8.7 mg/dL (8.4-10.2); Carbon Dioxide 26 mmol/L (22-30); Chloride 114 mmol/L (98-107); Estimated CRCL calculation 60 ml/min; Estimated Glomerular Filt Rate 54; Glucose 160 mg/dL (65-110); Potassium 4.4 mmol/L (3.4-5.0); Sodium 148 mmol/L (137-145)
[2023-06-05 06:27] LABS: Hypochromasia 1+ (NORMAL); Platelet Estimate Adequate (Adequate); Schistocytes None Seen (NORMAL)
[2023-06-05] MEDS: ALBUTEROL SULFATE NEB 2.5 MG/3 ML INH INHALATION ×2 (07:48→21:28)
[2023-06-05 08:15] LABS: Glucose Point of Care 157 mg/dl (65-105)
[2023-06-05 08:54] LABS: Procalcitonin 0.3 ng/mL
[2023-06-05] MEDS: carvediloL 25 MG TABLET 50 MG FEED TUBE ×2 (09:55→20:28)
[2023-06-05] MEDS: ASPIRIN 325 MG TABLET FEED TUBE (09:55)
[2023-06-05] MEDS: cloNIDine HCL 0.1 MG TABLET 0.3 MG FEED TUBE ×3 (09:55→18:35)
[2023-06-05] MEDS: INSULIN GLARGINE (*BKC) 100 UNITS/ML 30 UNITS SUB-Q (09:56)
[2023-06-05] MEDS: prednisoLONE ACETATE 1% OPHTH 5 ML 1 DROP RIGHT EYE ×4 (09:57→20:29)
[2023-06-05] MEDS: SCOPOLAMINE 1 MG PATCH 1 PATCH TRANSDERM (09:58)
--- NOTE | 2023-06-05 09:59 | PCNFU ---
Nutrition Follow-Up Complete: Swallowing Difficulties as related to CVA as evidenced by PEG tube feedings. Goal:Meet estimated nutritional needs. Pt is meeting goal. continue with same goal. Pt current nutrition is Tube feedings: Glucerna 1.2 @ 70ml/hr. Nutrition recommendation: Continue with current plan of care. Last recorded weight is 119.2 kg. Bowel Motility: +BM 06/04 Labs Reviewed: Hgb:7.8, HCT:26.1, Alb:3.0, NA:148, GFR:54, BUN:62, Cr:1.6, Glu:160 Meds Noted: dulcolax, lantus, novolog Skin: friction to buttocks Additional Notes: Pt continues on same tube feeding of Glucerna 1.2 @ 70ml/hr, goal rate. Tube feeding providing 1848 kcals/92 gms protein/1240 ml water. Flush 75 ml q 4 hours. This is sufficient to meet estimated needs. Agree with orders. Will montior weight, labs, meds, tube tube feeding tolerance every Thursday and Thursday.
[2023-06-05] MEDS: ARTIFICIAL TEARS OPHTH SOLN 15 ML BOTTLE 1 DROP EACH EYE ×3 (10:00→18:45)
[2023-06-05] MEDS: INSULIN ASPART (*BKC) 100 UNITS/ML 10 UNITS SUB-Q ×2 (10:00→12:54)
[2023-06-05 12:06] LABS: Glucose Point of Care 151 mg/dl (65-105)
--- NOTE | 2023-06-05 12:29 | PM.IMPN ---
Progress Note: A&P Assessment and Plan (1) Urinary tract infection: Code(s): N39.0 - Urinary tract infection, site not specified Status: Acute Assessment and Plan: Continue Zosyn (2) Abnormal brain CT: Code(s): R90.89 - Other abnormal findings on diagnostic imaging of central nervous system Status: Acute Assessment and Plan: MRI brain on hold due to intra-cranial shunt (3) Altered mental status: Qualifiers: Altered mental status type: unspecified Qualified Code(s): R41.82 - Altered mental status, unspecified Code(s): R41.82 - Altered mental status, unspecified Status: Acute Assessment and Plan: Seems to be baseline Neurology states that the MRI brain is not urgent Will need to be transferred to [facility] for MRI if necessary (4) Hyperkalemia: Code(s): E87.5 - Hyperkalemia Status: Acute Assessment and Plan: Improving; Will monitor (5) Anemia: Code(s): D64.9 - Anemia, unspecified Status: Acute (6) Type 2 diabetes mellitus: Code(s): E11.9 - Type 2 diabetes mellitus without complications Status: Acute (7) Benign prostatic hyperplasia: Code(s): N40.0 - Benign prostatic hyperplasia without lower urinary tract symptoms Status: Acute (8) Hypertension: Code(s): I10 - Essential (primary) hypertension Status: Acute (9) Rhabdomyolysis: Code(s): M62.82 - Rhabdomyolysis Status: Acute Assessment and Plan: IVFs (10) IVY (acute kidney injury): Code(s): N17.9 - Acute kidney failure, unspecified Status: Acute Assessment and Plan: On IVFs; will monitor and consult Nephrology if failure to improve. Plan The patient presented to the emergency department from a local nursing facility for evaluation of vomiting as detailed in HPI. Labs, imaging, EKG, and all reports were personally reviewed. It is my understanding that he had only 1 episode of emesis and that has not recurred since admission. Abdominal exam was benign. He is also reportedly less interactive than he has been for the last 3 days that he has been at that facility though that is difficult to say. Preliminary workup in the ED revealed evidence of urinary tract infection for which he has been started on ceftriaxone, pending urine culture. He looks quite dry on exam and by labs with elevated BUN and mild electrolyte abnormalities. He received a liter of normal saline in the ED with an increase in his sodium thus he has been changed to D5 half-normal saline. He has been started on scheduled free water flushes as well. AST and ALT were elevated and a subsequent CK came back elevated 1556. Urine is already alkalotic thus will continue current IV fluids and trend CK. It is likely the UTI and dehydration are the cause of his change in mental status however brain CT showed an area around the ventriculostomy tract which could represent encephalomalacia for age-indeterminate infarction. [facility] stroke team was consulted by the ED provider and they recommended admitting him here at [place] for brain MRI which has been ordered. Blood pressures were reviewed and they are stable. His antihypertensives will be reviewed and resumed as appropriate. Glucose needs to be monitored closely while receiving half-normal saline with dextrose. Continue basal insulin. Initiate sliding scale insulin, Accu-Cheks, and hypoglycemic protocol. Check hemoglobin A1c. His home medications will be reviewed and resumed as appropriate. Work-up findings: Influenza, COVID, and RSV screens are negative. UA: +LE; +bacteria; >WBC CT head wo contrast: T brain shows a hypodensity along the right posterior parietal ventriculostomy trach which may relate to encephalomalacia versus age-indeterminate infarct. MRI recommended but there is an intracranial shunt; fears of it needing reseting after MRI arose; Neurology was consul
[2023-06-05] MEDS: CEFEPIME 1 GM/NS 50 ML 1 GM/50 ML BAG IVPB ×2 (12:51→23:50)
[2023-06-05 17:09] LABS: Glucose Point of Care 87 mg/dl (65-105)
[2023-06-05] MEDS: SENNA/DOCUSATE SODIUM TABLET 2 TAB PO (20:29)
[2023-06-05 20:56] LABS: Glucose Point of Care 87 mg/dl (65-105)
[2023-06-05] MEDS: DORNASE ALFA INH SOLN 1 MG/ML 2.5 ML AMP 2.5 MG INHALATION (21:29)
[2023-06-06] VITALS (16 sets, daily range): BP systolic 114–154; BP diastolic 64–76; PULSE 90–103; RESP 18–22; TEMP 36.6–37.3; O2SAT 93–99
[2023-06-06 00:04] LABS: Glucose Point of Care 110 mg/dl (65-105)
[2023-06-06 05:15] LABS: Basophils Percent Auto 0.4 % (0.2-1.2); Eosinophils Absolute Auto 0.5 K/mm3 (0-0.3); Eosinophils Percent Auto 4.4 % (0-4.4); Hematocrit 27.4 % (42.0-52.0); Hemoglobin 7.8 g/dL (14.0-18.0); Immature Granulocyte Absolute 0.19 K/mm3 (0.00-0.031); Immature Granulocyte Percent A 1.7 % (0-0.5); Lymphocytes Absolute Auto 2.32 K/mm3 (0.9-3.2); Lymphocytes Percent Auto 21.4 % (18.3-44.2); Mean Corpuscular HGB Conc 28.5 g/dl (32-36); Mean Corpuscular Hemoglobin 28.6 pg (26-34); Mean Corpuscular Volume 100.4 fl (80-100); Monocytes Percent Auto 8.9 % (2.6-8.5); Neutrophils Absolute Auto 6.9 K/mm3 (1.3-6.7); Neutrophils Percent Auto 63.2 % (45.5-73.1); Nucleated Red Blood Cells Perc 0.4 % (0.0-0.2); Platelet Count Result 275 k/mm3 (150-375); Red Blood Count 2.73 M/mm3 (4.6-6.20); Red Cell Distribution Width 17.2 % (11.5-14.5); White Blood Count 10.9 K/mm3 (4.5-10.0)
[2023-06-06 05:42] LABS: Anisocytosis 1+ (NORMAL); Platelet Estimate Adequate (Adequate)
[2023-06-06 05:43] LABS: Macrocytosis 1+ (NORMAL); Schistocytes Rare (NORMAL)
[2023-06-06 05:47] LABS: Glucose Point of Care 149 mg/dl (65-105)
[2023-06-06 06:53] LABS: Alanine Aminotransferase 222 U/L (6-50); Albumin Level 2.9 g/dL (3.5-5.1); Alkaline Phosphatase 109 U/L (38-126); Anion Gap 9 mmol/L (8-16); Aspartate Amino Transferase 96 U/L (17-59); Bilirubin,Total 0.4 mg/dL (0.2-1.3); Blood Urea Nitrogen 46 mg/dL (9-20); Calcium 8.9 mg/dL (8.4-10.2); Carbon Dioxide 27 mmol/L (22-30); Chloride 115 mmol/L (98-107); Estimated CRCL calculation 80 ml/min; Estimated Glomerular Filt Rate > 60; Glucose 149 mg/dL (65-110); Potassium 4.9 mmol/L (3.4-5.0); Sodium 151 mmol/L (137-145)
[2023-06-06] MEDS: ALBUTEROL SULFATE NEB 2.5 MG/3 ML INH INHALATION ×2 (08:24→20:34)
[2023-06-06] MEDS: DORNASE ALFA INH SOLN 1 MG/ML 2.5 ML AMP 2.5 MG INHALATION ×2 (08:40→20:34)
[2023-06-06] MEDS: ACETAMINOPHEN 500 MG TABLET 1000 MG FEED TUBE (09:09)
[2023-06-06] MEDS: ASPIRIN 325 MG TABLET FEED TUBE (09:10)
[2023-06-06] MEDS: carvediloL 25 MG TABLET 50 MG FEED TUBE ×2 (09:10→22:22)
[2023-06-06] MEDS: prednisoLONE ACETATE 1% OPHTH 5 ML 1 DROP RIGHT EYE ×4 (09:14→22:32)
[2023-06-06] MEDS: ARTIFICIAL TEARS OPHTH SOLN 15 ML BOTTLE 1 DROP EACH EYE ×3 (09:14→18:29)
[2023-06-06] MEDS: cloNIDine HCL 0.1 MG TABLET 0.3 MG FEED TUBE ×3 (09:15→18:29)
[2023-06-06] MEDS: INSULIN GLARGINE (*BKC) 100 UNITS/ML 30 UNITS SUB-Q ×2 (09:27→22:23)
[2023-06-06] MEDS: DEXTROSE 5% 1,000 ML 1,000 ML 50 ML IV CONT (11:43)
[2023-06-06 12:12] LABS: Glucose Point of Care 217 mg/dl (65-105)
[2023-06-06] MEDS: CEFEPIME 1 GM/NS 50 ML 1 GM/50 ML BAG IVPB (13:10)
[2023-06-06] MEDS: INSULIN ASPART (*BKC) 100 UNITS/ML SUB-Q ×2 (13:10→18:29)
[2023-06-06 18:00] LABS: Glucose Point of Care 204 mg/dl (65-105)
[2023-06-06] MEDS: AZITHROMYCIN 500 MG/NS 250 ML 500 MG/250 ML BAG 250 MG IVPB (18:29)
[2023-06-06 21:20] LABS: Glucose Point of Care 215 mg/dl (65-105)
[2023-06-06] MEDS: SENNA/DOCUSATE SODIUM TABLET 2 TAB PO (22:22)
[2023-06-06 23:44] LABS: Glucose Point of Care 211 mg/dl (65-105)
[2023-06-07] VITALS (15 sets, daily range): BP systolic 141–158; BP diastolic 68–78; PULSE 84–106; RESP 18–20; TEMP 36.4–36.9; O2SAT 98–100
[2023-06-07] MEDS: CEFEPIME 1 GM/NS 50 ML 1 GM/50 ML BAG IVPB ×3 (00:59→23:57)
[2023-06-07] MEDS: INSULIN ASPART (*BKC) 100 UNITS/ML SUB-Q ×5 (01:01→23:58)
[2023-06-07 05:50] LABS: Basophils Percent Auto 0.3 % (0.2-1.2); Eosinophils Absolute Auto 0.3 K/mm3 (0-0.3); Eosinophils Percent Auto 2.2 % (0-4.4); Hematocrit 26.9 % (42.0-52.0); Hemoglobin 7.9 g/dL (14.0-18.0); Immature Granulocyte Percent A 1.6 % (0-0.5); Lymphocytes Absolute Auto 2.07 K/mm3 (0.9-3.2); Lymphocytes Percent Auto 16.4 % (18.3-44.2); Mean Corpuscular HGB Conc 29.4 g/dl (32-36); Mean Corpuscular Hemoglobin 28.6 pg (26-34); Mean Corpuscular Volume 97.5 fl (80-100); Mean Platelet Volume 9.8 fl (7.4-10.4); Monocytes Percent Auto 7.7 % (2.6-8.5); Neutrophils Percent Auto 71.8 % (45.5-73.1); Nucleated Red Blood Cells Absolute Auto 0.1 K/mm3 (0.0-0.012); Nucleated Red Blood Cells Perc 0.5 % (0.0-0.2); Platelet Count Result 281 k/mm3 (150-375); Red Blood Count 2.76 M/mm3 (4.6-6.20); Red Cell Distribution Width 17.1 % (11.5-14.5); White Blood Count 12.6 K/mm3 (4.5-10.0)
[2023-06-07 06:04] LABS: Alanine Aminotransferase 202 U/L (6-50); Albumin Level 3.3 g/dL (3.5-5.1); Alkaline Phosphatase 108 U/L (38-126); Anion Gap 9 mmol/L (8-16); Aspartate Amino Transferase 92 U/L (17-59); Bilirubin,Total 0.5 mg/dL (0.2-1.3); Blood Urea Nitrogen 37 mg/dL (9-20); Calcium 9.2 mg/dL (8.4-10.2); Carbon Dioxide 26 mmol/L (22-30); Chloride 112 mmol/L (98-107); Estimated CRCL calculation 109 ml/min; Estimated Glomerular Filt Rate > 60; Glucose 247 mg/dL (65-110); Potassium 4.8 mmol/L (3.4-5.0); Sodium 147 mmol/L (137-145)
[2023-06-07 06:18] LABS: Glucose Point of Care 218 mg/dl (65-105)
[2023-06-07 06:41] LABS: Hypochromasia 1+ (NORMAL); Platelet Estimate Adequate (Adequate); Schistocytes None Seen (NORMAL)
[2023-06-07] MEDS: ALBUTEROL SULFATE NEB 2.5 MG/3 ML INH INHALATION ×2 (10:10→22:19)
[2023-06-07] MEDS: DORNASE ALFA INH SOLN 1 MG/ML 2.5 ML AMP 2.5 MG INHALATION ×2 (10:10→22:20)
[2023-06-07] MEDS: INSULIN GLARGINE (*BKC) 100 UNITS/ML 30 UNITS SUB-Q ×2 (10:44→20:52)
[2023-06-07] MEDS: carvediloL 25 MG TABLET 50 MG FEED TUBE ×2 (10:45→20:48)
[2023-06-07] MEDS: ARTIFICIAL TEARS OPHTH SOLN 15 ML BOTTLE 1 DROP EACH EYE ×3 (10:45→17:47)
[2023-06-07] MEDS: ASPIRIN 325 MG TABLET FEED TUBE (10:46)
[2023-06-07] MEDS: prednisoLONE ACETATE 1% OPHTH 5 ML 1 DROP RIGHT EYE ×4 (10:46→20:54)
[2023-06-07] MEDS: cloNIDine HCL 0.1 MG TABLET 0.3 MG FEED TUBE ×3 (10:46→17:46)
[2023-06-07 12:05] LABS: Glucose Point of Care 228 mg/dl (65-105)
[2023-06-07] MEDS: DEXTROSE 5% 50 ML IV CONT (12:35)
--- NOTE | 2023-06-07 14:17 | PC.NURSE ---
Spoke with pharmacy about order for tamsulosin and if other form available to give through g-tube; as per label comment, capsule form is not to be opened.
--- NOTE | 2023-06-07 16:02 | PM.IMPN ---
Progress Note: A&P Assessment and Plan (1) Urinary tract infection: Code(s): N39.0 - Urinary tract infection, site not specified Status: Acute Assessment and Plan: Continue Zosyn (2) Abnormal brain CT: Code(s): R90.89 - Other abnormal findings on diagnostic imaging of central nervous system Status: Acute Assessment and Plan: Patient seen and evaluated by Neurology MRI brain on hold due to intra-cranial shunt as per neurology (3) Altered mental status: Qualifiers: Altered mental status type: unspecified Qualified Code(s): R41.82 - Altered mental status, unspecified Code(s): R41.82 - Altered mental status, unspecified Status: Acute Assessment and Plan: Seems to be baseline Neurology states that the MRI brain is not urgent Will need to be transferred to [facility] for MRI if necessary (4) Hyperkalemia: Code(s): E87.5 - Hyperkalemia Status: Acute Assessment and Plan: Resolved, continue to monitor (5) Anemia: Code(s): D64.9 - Anemia, unspecified Status: Acute (6) Type 2 diabetes mellitus: Code(s): E11.9 - Type 2 diabetes mellitus without complications Status: Acute (7) Benign prostatic hyperplasia: Code(s): N40.0 - Benign prostatic hyperplasia without lower urinary tract symptoms Status: Acute (8) Hypertension: Code(s): I10 - Essential (primary) hypertension Status: Acute (9) Rhabdomyolysis: Code(s): M62.82 - Rhabdomyolysis Status: Acute Assessment and Plan: IVFs (10) IVY (acute kidney injury): Code(s): N17.9 - Acute kidney failure, unspecified Status: Acute Assessment and Plan: On IVFs; will monitor and consult Nephrology if failure to improve. Plan The patient presented to the emergency department from a local nursing facility for evaluation of vomiting as detailed in HPI. Labs, imaging, EKG, and all reports were personally reviewed. It is my understanding that he had only 1 episode of emesis and that has not recurred since admission. Abdominal exam was benign. He is also reportedly less interactive than he has been for the last 3 days that he has been at that facility though that is difficult to say. Preliminary workup in the ED revealed evidence of urinary tract infection for which he has been started on ceftriaxone, pending urine culture. He looks quite dry on exam and by labs with elevated BUN and mild electrolyte abnormalities. He received a liter of normal saline in the ED with an increase in his sodium thus he has been changed to D5 half-normal saline. He has been started on scheduled free water flushes as well. AST and ALT were elevated and a subsequent CK came back elevated 1556. Urine is already alkalotic thus will continue current IV fluids and trend CK. It is likely the UTI and dehydration are the cause of his change in mental status however brain CT showed an area around the ventriculostomy tract which could represent encephalomalacia for age-indeterminate infarction. [facility] stroke team was consulted by the ED provider and they recommended admitting him here at [place] for brain MRI which has been ordered. Blood pressures were reviewed and they are stable. His antihypertensives will be reviewed and resumed as appropriate. Glucose needs to be monitored closely while receiving half-normal saline with dextrose. Continue basal insulin. Initiate sliding scale insulin, Accu-Cheks, and hypoglycemic protocol. Check hemoglobin A1c. His home medications will be reviewed and resumed as appropriate. Work-up findings: Influenza, COVID, and RSV screens are negative. UA: +LE; +bacteria; >WBC CT head wo contrast: T brain shows a hypodensity along the right posterior parietal ventriculostomy trach which may relate to encephalomalacia versus age-indeterminate infarct. MRI recommended but there is an intracranial shunt; fe
[2023-06-07 17:30] LABS: Glucose Point of Care 230 mg/dl (65-105)
[2023-06-07] MEDS: AZITHROMYCIN 500 MG/NS 250 ML 500 MG/250 ML BAG 250 MG IVPB (17:46)
[2023-06-07] MEDS: SENNA/DOCUSATE SODIUM TABLET 2 TAB PO (20:48)
[2023-06-07 21:34] LABS: Glucose Point of Care 220 mg/dl (65-105)
[2023-06-08] VITALS (14 sets, daily range): BP systolic 165–170; BP diastolic 58–74; PULSE 60–97; RESP 12–20; TEMP 36.1–36.9; O2SAT 98–99
[2023-06-08 00:05] LABS: Glucose Point of Care 241 mg/dl (65-105)
[2023-06-08] MEDS: INSULIN ASPART (*BKC) 100 UNITS/ML SUB-Q ×2 (05:33→14:10)
[2023-06-08 05:44] LABS: Glucose Point of Care 225 mg/dl (65-105)
[2023-06-08 08:27] LABS: Basophils Absolute Auto 0.1 K/mm3 (0.0-0.1); Basophils Percent Auto 0.4 % (0.2-1.2); Eosinophils Absolute Auto 0.4 K/mm3 (0-0.3); Eosinophils Percent Auto 2.7 % (0-4.4); Hematocrit 26.4 % (42.0-52.0); Immature Granulocyte Percent A 1.6 % (0-0.5); Lymphocytes Absolute Auto 1.79 K/mm3 (0.9-3.2); Lymphocytes Percent Auto 14.1 % (18.3-44.2); Mean Corpuscular HGB Conc 26.5 g/dl (32-36); Mean Corpuscular Hemoglobin 27.6 pg (26-34); Mean Corpuscular Volume 103.9 fl (80-100); Mean Platelet Volume 9.7 fl (7.4-10.4); Monocytes Absolute Auto 0.9 K/mm3 (0.1-0.6); Monocytes Percent Auto 6.9 % (2.6-8.5); Neutrophils Absolute Auto 9.5 K/mm3 (1.3-6.7); Neutrophils Percent Auto 74.3 % (45.5-73.1); Nucleated Red Blood Cells Absolute Auto 0.1 K/mm3 (0.0-0.012); Nucleated Red Blood Cells Perc 0.5 % (0.0-0.2); Platelet Count Result 260 k/mm3 (150-375); Red Blood Count 2.54 M/mm3 (4.6-6.20); White Blood Count 12.7 K/mm3 (4.5-10.0)
[2023-06-08] MEDS: ALBUTEROL SULFATE NEB 2.5 MG/3 ML INH INHALATION (08:30)
[2023-06-08] MEDS: DORNASE ALFA INH SOLN 1 MG/ML 2.5 ML AMP 2.5 MG INHALATION ×2 (08:30→20:44)
[2023-06-08 08:31] LABS: Alanine Aminotransferase 159 U/L (6-50); Alkaline Phosphatase 98 U/L (38-126); Anion Gap 7 mmol/L (8-16); Aspartate Amino Transferase 69 U/L (17-59); Bilirubin,Total 0.5 mg/dL (0.2-1.3); Blood Urea Nitrogen 32 mg/dL (9-20); Calcium 8.6 mg/dL (8.4-10.2); Carbon Dioxide 26 mmol/L (22-30); Chloride 106 mmol/L (98-107); Estimated CRCL calculation 136 ml/min; Estimated Glomerular Filt Rate > 60; Glucose 237 mg/dL (65-110); Potassium 4.5 mmol/L (3.4-5.0); Sodium 139 mmol/L (137-145)
[2023-06-08] MEDS: ASPIRIN 325 MG TABLET FEED TUBE (09:08)
[2023-06-08] MEDS: carvediloL 25 MG TABLET 50 MG FEED TUBE ×2 (09:08→21:35)
[2023-06-08] MEDS: TAMSULOSIN HCL 0.4 MG CAPSULE 0.8 MG PO (09:08)
[2023-06-08] MEDS: cloNIDine HCL 0.1 MG TABLET 0.3 MG FEED TUBE ×3 (09:08→17:19)
[2023-06-08] MEDS: ARTIFICIAL TEARS OPHTH SOLN 15 ML BOTTLE 1 DROP EACH EYE ×3 (09:09→17:19)
[2023-06-08] MEDS: prednisoLONE ACETATE 1% OPHTH 5 ML 1 DROP RIGHT EYE ×4 (09:10→21:37)
[2023-06-08] MEDS: SCOPOLAMINE 1 MG PATCH 1 PATCH TRANSDERM (09:10)
[2023-06-08] MEDS: INSULIN GLARGINE (*BKC) 100 UNITS/ML 30 UNITS SUB-Q ×2 (09:10→21:36)
[2023-06-08] MEDS: guaiFENesin 200 MG/10 ML UDC PO (09:11)
[2023-06-08] MEDS: CEFEPIME 1 GM/NS 50 ML 1 GM/50 ML BAG IVPB (13:40)
[2023-06-08 14:09] LABS: Glucose Point of Care 221 mg/dl (65-105)
[2023-06-08] MEDS: levoFLOXacin 750 MG TABLET PO (15:15)
[2023-06-08 18:43] LABS: Glucose Point of Care 172 mg/dl (65-105)
[2023-06-08] MEDS: IPRATROPIUM 0.5 MG/ALBUTEROL SULFATE 2.5 MG AMPUL.NEB 3 ML INHALATION (20:44)
[2023-06-08] MEDS: SENNA/DOCUSATE SODIUM TABLET 2 TAB PO (21:35)
[2023-06-08 22:52] LABS: Glucose Point of Care 187 mg/dl (65-105)
[2023-06-09] VITALS (13 sets, daily range): BP systolic 132–153; BP diastolic 63–69; PULSE 64–96; RESP 12–18; TEMP 36.1–36.2; O2SAT 98–100
[2023-06-09 00:08] LABS: Glucose Point of Care 197 mg/dl (65-105)
[2023-06-09] MEDS: INSULIN ASPART (*BKC) 100 UNITS/ML SUB-Q ×2 (05:37→12:32)
[2023-06-09 06:02] LABS: Alanine Aminotransferase 143 U/L (6-50); Alkaline Phosphatase 108 U/L (38-126); Anion Gap 8 mmol/L (8-16); Aspartate Amino Transferase 50 U/L (17-59); Bilirubin,Total 0.5 mg/dL (0.2-1.3); Blood Urea Nitrogen 27 mg/dL (9-20); Carbon Dioxide 23 mmol/L (22-30); Chloride 106 mmol/L (98-107); Estimated CRCL calculation 140 ml/min; Estimated Glomerular Filt Rate > 60; Glucose 208 mg/dL (65-110); Potassium 4.7 mmol/L (3.4-5.0); Sodium 137 mmol/L (137-145)
[2023-06-09 06:11] LABS: Iron 39 ug/dL (49-181)
[2023-06-09 06:14] LABS: Glucose Point of Care 225 mg/dl (65-105)
[2023-06-09 06:20] LABS: Percent Iron Saturation 25 % (20-50)
[2023-06-09 06:52] LABS: Basophils Percent Auto 0.2 % (0.2-1.2); Eosinophils Absolute Auto 0.4 K/mm3 (0-0.3); Eosinophils Percent Auto 3.3 % (0-4.4); Hemoglobin 7.4 g/dL (14.0-18.0); Immature Granulocyte Absolute 0.24 K/mm3 (0.00-0.031); Immature Granulocyte Percent A 2.1 % (0-0.5); Lymphocytes Absolute Auto 1.83 K/mm3 (0.9-3.2); Mean Corpuscular HGB Conc 29.6 g/dl (32-36); Mean Corpuscular Hemoglobin 28.2 pg (26-34); Mean Corpuscular Volume 95.4 fl (80-100); Mean Platelet Volume 9.4 fl (7.4-10.4); Monocytes Absolute Auto 0.7 K/mm3 (0.1-0.6); Monocytes Percent Auto 5.9 % (2.6-8.5); Neutrophils Absolute Auto 8.3 K/mm3 (1.3-6.7); Neutrophils Percent Auto 72.5 % (45.5-73.1); Nucleated Red Blood Cells Absolute Auto 0.1 K/mm3 (0.0-0.012); Nucleated Red Blood Cells Perc 0.6 % (0.0-0.2); Platelet Count Result 278 k/mm3 (150-375); Red Blood Count 2.62 M/mm3 (4.6-6.20); Red Cell Distribution Width 16.5 % (11.5-14.5); White Blood Count 11.4 K/mm3 (4.5-10.0)
[2023-06-09] MEDS: prednisoLONE ACETATE 1% OPHTH 5 ML 1 DROP RIGHT EYE ×4 (08:17→21:57)
[2023-06-09] MEDS: ARTIFICIAL TEARS OPHTH SOLN 15 ML BOTTLE 1 DROP EACH EYE ×3 (08:17→17:52)
[2023-06-09] MEDS: ASPIRIN 325 MG TABLET FEED TUBE (08:17)
[2023-06-09] MEDS: INSULIN GLARGINE (*BKC) 100 UNITS/ML 30 UNITS SUB-Q ×2 (08:17→21:56)
[2023-06-09] MEDS: carvediloL 25 MG TABLET 50 MG FEED TUBE ×2 (08:17→21:56)
[2023-06-09] MEDS: TAMSULOSIN HCL 0.4 MG CAPSULE 0.8 MG PO (08:17)
[2023-06-09] MEDS: guaiFENesin 200 MG/10 ML UDC PO (08:17)
[2023-06-09] MEDS: cloNIDine HCL 0.1 MG TABLET 0.3 MG FEED TUBE ×3 (08:17→17:52)
[2023-06-09] MEDS: polyethylene glycoL 3350 17 GM POWD.PACK FEED TUBE (08:18)
[2023-06-09] MEDS: DORNASE ALFA INH SOLN 1 MG/ML 2.5 ML AMP 2.5 MG INHALATION ×2 (09:58→20:02)
[2023-06-09] MEDS: IPRATROPIUM 0.5 MG/ALBUTEROL SULFATE 2.5 MG AMPUL.NEB 3 ML INHALATION (09:58)
--- NOTE | 2023-06-09 11:42 | PCNFU ---
Nutrition Follow-Up Complete: Swallowing Difficulties as related to CVA as evidenced by PEG tube feedings. goal: Meet estimated nutritional needs. patient is meeting current goal. No new goal. Pt current nutrition is Glucerna 1.2 at 70 ml/hr. Last recorded weight is 137 kg, up from 116.5 kg on admit. unsure of bed scale accuracy. Bowel Motility:+BM reported 06/04-discussed with nurse. Patient is receiving Miralax. Labs Reviewed:Glu 208, BUN 27, Alb 3.0,Hct 25.0,Hgb 7.4 Meds Noted:NovoLog, Lantus, Miralax Skin: Friction noted on left buttock. Additional Notes: patient remains on PEG tube feedings of Glucerna 1.2. at 70 ml/hr and tolerating per nursing. Flush 150 ml q 4hours. Total Nutrition: 1848 kcals/92 gms protein/1240 ml water. Noted last BM 06/04-nursing is aware and monitoring. Agree with diet orders. Will monitor weight, labs, meds, tube tube feeding tolerance every Thursday and Thursday.
[2023-06-09 11:49] LABS: Glucose Point of Care 204 mg/dl (65-105)
--- NOTE | 2023-06-09 13:21 | P.CDI_ITS ---
Yes ... UTI is associated with chronic indwelling catheter. CDI Query Clarification Request Urine culture from 06/02/23 grew > 100,000 Enterobacter cloacae complex. Chronic indwelling catheter documented. Patient started on Cefepime 1 gm Q 12hrs. Currently receiving Levaquin 750 mg daily Clarification request - UTI has been documented, chronic indwelling arshad catheter documented. Please clarify if UTI is: * due to/associated with chronic indwelling arshad catheter * not due to/associated with chronic indwelling arshad catheter * unable to determine
--- NOTE | 2023-06-09 13:21 | WPDCDIQUERY2 ---
CDI Query Clarification Request Urine culture from 06/02/23 grew > 100,000 Enterobacter cloacae complex. Chronic indwelling catheter documented. Patient started on Cefepime 1 gm Q 12hrs. Currently receiving Levaquin 750 mg daily Clarification request - UTI has been documented, chronic indwelling arshad catheter documented. Please clarify if UTI is: due to/associated with chronic indwelling arshad catheter not due to/associated with chronic indwelling arshad catheter unable to determine
--- NOTE | 2023-06-09 13:25 | P.CDI_ITS ---
Patient with metabolic encephalopathy superimposed on residual altered mental due to previous CVA. Pt is s/p ventriculostomy with chronic changes around the right posterior parietal ventriculostomy tract. CDI Query Clarification Request Documentation in the medical record indicates that this patient has been diagnosed as having the symptoms of Altered Mental Status. Additional findings also documented in the medical record Fever noted on 06/03/23 Infection : UTI Dehydration Urine culture from 06/02/23 positive ( Enterobacter cloacae complex) Patient started on cefepime 1 gm Q 12hrs and is currently on Levaquin 750 mg daily. Based on your medical judgement , can you further clarify in the progress notes if known, if these findings associated with altered mental status are due to a definite or suspected underlying neurologic cause such as: * Metabolic Encephalopathy * Toxic Encephalopathy * Altered mental status without encephalopathy * Other condition (please specify) * None of the above/ Not applicable
[2023-06-09] MEDS: levoFLOXacin 750 MG TABLET PO (13:31)
[2023-06-09 18:38] LABS: Glucose Point of Care 180 mg/dl (65-105)
[2023-06-09] MEDS: ALBUTEROL SULFATE NEB 2.5 MG/3 ML INH INHALATION (20:01)
[2023-06-09] MEDS: SENNA/DOCUSATE SODIUM TABLET 2 TAB PO (21:55)
[2023-06-09] MEDS: IRON SUCROSE COMPLEX 300 MG in SODIUM CHLORIDE 0.9% IV 250 ML 176.67 MG IVPB (21:55)
[2023-06-09 22:18] LABS: Glucose Point of Care 183 mg/dl (65-105)
[2023-06-09 23:48] LABS: Glucose Point of Care 182 mg/dl (65-105)
[2023-06-10] VITALS (15 sets, daily range): BP systolic 110–157; BP diastolic 49–69; PULSE 73–104; RESP 14–20; TEMP 36.1–36.9; O2SAT 96–99
[2023-06-10] MEDS: INSULIN ASPART (*BKC) 100 UNITS/ML SUB-Q ×2 (05:29→14:58)
[2023-06-10 05:32] LABS: Glucose Point of Care 206 mg/dl (65-105)
[2023-06-10 06:30] LABS: Hemoglobin 7.8 g/dL (14.0-18.0)
[2023-06-10] MEDS: IRON SUCROSE COMPLEX 300 MG in SODIUM CHLORIDE 0.9% IV 250 ML 176.67 MG IVPB (08:24)
[2023-06-10] MEDS: carvediloL 25 MG TABLET 50 MG FEED TUBE ×2 (08:25→20:29)
[2023-06-10] MEDS: TAMSULOSIN HCL 0.4 MG CAPSULE 0.8 MG PO (08:25)
[2023-06-10] MEDS: ASPIRIN 325 MG TABLET FEED TUBE (08:25)
[2023-06-10] MEDS: guaiFENesin 200 MG/10 ML UDC PO (08:25)
[2023-06-10] MEDS: cloNIDine HCL 0.1 MG TABLET 0.3 MG FEED TUBE ×3 (08:25→18:01)
[2023-06-10] MEDS: ARTIFICIAL TEARS OPHTH SOLN 15 ML BOTTLE 1 DROP EACH EYE ×3 (08:26→18:01)
[2023-06-10] MEDS: prednisoLONE ACETATE 1% OPHTH 5 ML 1 DROP RIGHT EYE ×3 (08:26→18:01)
[2023-06-10] MEDS: INSULIN GLARGINE (*BKC) 100 UNITS/ML 30 UNITS SUB-Q ×2 (08:38→20:50)
[2023-06-10] MEDS: ALBUTEROL SULFATE NEB 2.5 MG/3 ML INH INHALATION ×2 (08:49→20:42)
[2023-06-10] MEDS: DORNASE ALFA INH SOLN 1 MG/ML 2.5 ML AMP 2.5 MG INHALATION ×2 (08:49→20:42)
[2023-06-10] MEDS: IPRATROPIUM 0.5 MG/ALBUTEROL SULFATE 2.5 MG AMPUL.NEB 3 ML INHALATION (08:49)
[2023-06-10 11:53] LABS: IFOB Positive Control Positive; Immunochemical Fecal Occult Bl Positive (N)
[2023-06-10] MEDS: ACETAMINOPHEN 500 MG TABLET 1000 MG FEED TUBE (13:04)
[2023-06-10 14:07] LABS: Glucose Point of Care 214 mg/dl (65-105)
[2023-06-10] MEDS: levoFLOXacin 750 MG TABLET PO (14:58)
[2023-06-10 18:56] LABS: Glucose Point of Care 185 mg/dl (65-105)
[2023-06-10 20:16] LABS: Glucose Point of Care 202 mg/dl (65-105)
[2023-06-10] MEDS: SENNA/DOCUSATE SODIUM TABLET 2 TAB PO (20:29)
[2023-06-11] VITALS (14 sets, daily range): BP systolic 135–158; BP diastolic 63–81; PULSE 96–125; RESP 18; TEMP 36.7–37.3; O2SAT 100
[2023-06-11 00:01] LABS: Glucose Point of Care 196 mg/dl (65-105)
[2023-06-11] MEDS: prednisoLONE ACETATE 1% OPHTH 5 ML 1 DROP RIGHT EYE ×5 (00:20→21:43)
--- NOTE | 2023-06-11 04:34 | PC.NURSE ---
CALLED DURING THE EVENING WITH MULTIPLE QUESTIONS. CONCERNED ABOUT CREAM WE ARE USING FOR BUTTOCKS. NEW CONSULT FOR WOUND CARE TO COME SEE PT.
[2023-06-11] MEDS: INSULIN ASPART (*BKC) 100 UNITS/ML SUB-Q ×3 (06:16→18:08)
[2023-06-11 06:48] LABS: Glucose Point of Care 218 mg/dl (65-105)
[2023-06-11] MEDS: IPRATROPIUM 0.5 MG/ALBUTEROL SULFATE 2.5 MG AMPUL.NEB 3 ML INHALATION (08:52)
[2023-06-11] MEDS: DORNASE ALFA INH SOLN 1 MG/ML 2.5 ML AMP 2.5 MG INHALATION ×2 (08:53→20:35)
[2023-06-11] MEDS: INSULIN GLARGINE (*BKC) 100 UNITS/ML 30 UNITS SUB-Q (09:10)
[2023-06-11] MEDS: ARTIFICIAL TEARS OPHTH SOLN 15 ML BOTTLE 1 DROP EACH EYE ×3 (09:12→18:29)
[2023-06-11] MEDS: SCOPOLAMINE 1 MG PATCH 1 PATCH TRANSDERM (09:12)
[2023-06-11] MEDS: ASPIRIN 325 MG TABLET FEED TUBE (09:13)
[2023-06-11] MEDS: carvediloL 25 MG TABLET 50 MG FEED TUBE ×2 (09:13→21:41)
[2023-06-11] MEDS: cloNIDine HCL 0.1 MG TABLET 0.3 MG FEED TUBE ×3 (09:13→18:11)
[2023-06-11 10:31] LABS: Basophils Percent Auto 0.2 % (0.2-1.2); Eosinophils Absolute Auto 0.2 K/mm3 (0-0.3); Eosinophils Percent Auto 1.7 % (0-4.4); Hematocrit 27.4 % (42.0-52.0); Hemoglobin 8.1 g/dL (14.0-18.0); Immature Granulocyte Absolute 0.22 K/mm3 (0.00-0.031); Immature Granulocyte Percent A 1.7 % (0-0.5); Lymphocytes Absolute Auto 1.77 K/mm3 (0.9-3.2); Lymphocytes Percent Auto 13.7 % (18.3-44.2); Mean Corpuscular HGB Conc 29.6 g/dl (32-36); Mean Corpuscular Hemoglobin 27.9 pg (26-34); Mean Corpuscular Volume 94.5 fl (80-100); Mean Platelet Volume 9.5 fl (7.4-10.4); Monocytes Absolute Auto 0.7 K/mm3 (0.1-0.6); Neutrophils Percent Auto 77.7 % (45.5-73.1); Nucleated Red Blood Cells Perc 0.2 % (0.0-0.2); Platelet Count Result 356 k/mm3 (150-375); Red Cell Distribution Width 16.6 % (11.5-14.5); White Blood Count 12.9 K/mm3 (4.5-10.0)
[2023-06-11 10:42] LABS: Anion Gap 8 mmol/L (8-16); Blood Urea Nitrogen 28 mg/dL (9-20); Carbon Dioxide 27 mmol/L (22-30); Chloride 102 mmol/L (98-107); Estimated CRCL calculation 138 ml/min; Estimated Glomerular Filt Rate > 60; Glucose 245 mg/dL (65-110); Potassium 5.1 mmol/L (3.4-5.0); Sodium 137 mmol/L (137-145)
[2023-06-11] MEDS: IRON SUCROSE COMPLEX 300 MG in SODIUM CHLORIDE 0.9% IV 250 ML 177 MG IVPB (10:46)
[2023-06-11 12:13] LABS: Glucose Point of Care 230 mg/dl (65-105)
[2023-06-11 13:32] LABS: Hypochromasia 1+ (NORMAL); Platelet Estimate Adequate (Adequate); Schistocytes None Seen (NORMAL)
--- NOTE | 2023-06-11 14:08 | WPDGICN ---
Assessment and Plan Assessment and plan (1) Acute on chronic anemia: Code(s): D64.9 - Anemia, unspecified Status: Acute Assessment and Plan: family would like to know source of anemia, no overt gib but noted occult blood in stools we will proceed with egd and colonoscopy he already had egd when G-tube placed last year (2) Occult blood in stools: Code(s): R19.5 - Other fecal abnormalities Status: Acute Assessment and Plan: ? perianal but will proceed with scopes (3) Encephalopathy: Code(s): G93.40 - Encephalopathy, unspecified Status: Acute Assessment and Plan: on admission ? close to baseline now (4) Urinary tract infection: Code(s): N39.0 - Urinary tract infection, site not specified Status: Acute (5) Type 2 diabetes mellitus: Code(s): E11.9 - Type 2 diabetes mellitus without complications Status: Acute (6) Abnormal brain CT: Code(s): R90.89 - Other abnormal findings on diagnostic imaging of central nervous system Status: Acute (7) Hemorrhagic stroke: Onset Date: 03/2023 Code(s): I61.9 - Nontraumatic intracerebral hemorrhage, unspecified Status: Acute GI Consult Note Consult date/time: 06/11/23 14:08 Reason for consult: anemia, fobt HPI: Mendel Kelly is a 57 year old male with history of hemorrhagic stroke in March 2023 and seizures now he has G-tube in place and underwent ANODE ADJUSTER shunt, coronary artery disease with history of stents, hypertension, hyperlipidemia, type 2 diabetes mellitus, and anemia who presented to the emergency department via EMS from a local [facility] for evaluation of vomiting few days ago, also diagnosed with UTI and encephalopathy. CT scan reviewed, ?No acute intra-abdominal/pelvic process. Distal tip of a ventriculoperitoneal shunt in the right lower quadrant. Small to moderate-sized fat-containing umbilical hernia. He also had anemia with hgb 7-8, no obvious GIB with normal stool but occult blood. I talked to BERTHA and she would like to find out reason, agreeable for endoscopy. She could not tell me if he ever had colonoscopy. His tube feeding is working ok now. Review of Systems Review of Systems: ROS unobtainable: Yes unobtainable due to mental status PMFSH Past Medical History Medical History (Updated 06/11/23 @ 14:16 by Jarred Ackerman MD) Acute on chronic anemia Benign prostatic hyperplasia Coronary artery disease Encephalopathy Hemorrhagic stroke (03/2023) Hypertension Intracranial hemorrhage Occult blood in stools Seizure Type 2 diabetes mellitus Vascular dementia Surgical History Surgical History 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 History of cardiac catheterization History of coronary artery stent placement History of percutaneous endoscopic gastrostomy History of tracheostomy Status post ventriculo-peritoneal shunt placement Family History Family History Other Family history unknown Social History Social History Social History: Healthcare power of senior trial attorney: Ivory Hassan, sister. Code status: Full code. Smoking status: Never smoker Alcohol intake: unknown Substance use: unknown Spiritual care concerns: No Meds Home Medications and Allergies Home Medications Medication Instructions Recorded Confirmed Type Novolog FlexPen U-100 Insulin 10 units subcut TID 06/02/23 06/02/23 History acetaminophen 500 mg capsule 1,000 mg feeding tube Q6H PRN Pain 06/02/23 06/02/23 History artificial tears solution eye drops 1 drp ophthalmic (eye) TID 06/02/23 06/02/23 History aspirin 325 mg tablet 325 mg feeding tube DAILY 06/02/23 06/02/23 History atorvastatin 80 mg tablet 80 mg feeding tube HS 06/02/23 06/02/23 History bisacodyl 10 mg rectal suppository 10 mg RECTAL
--- NOTE | 2023-06-11 17:00 | P.PNIM_ITS ---
Progress Note: A&P Assessment and Plan (1) Urinary tract infection: Code(s): N39.0 - Urinary tract infection, site not specified Status: Acute Assessment and Plan: Continue Zosyn (2) Abnormal brain CT: Code(s): R90.89 - Other abnormal findings on diagnostic imaging of central nervous system Status: Acute Assessment and Plan: Patient seen and evaluated by Neurology MRI brain on hold due to intra-cranial shunt as per neurology (3) Altered mental status: Qualifiers: Altered mental status type: unspecified Qualified Code(s): R41.82 - Altered mental status, unspecified Code(s): R41.82 - Altered mental status, unspecified Status: Acute Assessment and Plan: Seems to be baseline Neurology states that the MRI brain is not urgent Will need to be transferred [facility] MRI if necessary (4) Hyperkalemia: Code(s): E87.5 - Hyperkalemia Status: Acute Assessment and Plan: Resolved, continue to monitor (5) Anemia: Code(s): D64.9 - Anemia, unspecified Status: Acute (6) Type 2 diabetes mellitus: Code(s): E11.9 - Type 2 diabetes mellitus without complications Status: Acute (7) Benign prostatic hyperplasia: Code(s): N40.0 - Benign prostatic hyperplasia without lower urinary tract symptoms Status: Acute (8) Hypertension: Code(s): I10 - Essential (primary) hypertension Status: Acute (9) Rhabdomyolysis: Code(s): M62.82 - Rhabdomyolysis Status: Acute Assessment and Plan: IVFs (10) IVY (acute kidney injury): Code(s): N17.9 - Acute kidney failure, unspecified Status: Acute Assessment and Plan: On IVFs; will monitor and consult Nephrology if failure to improve. Plan The patient presented to the emergency department from a local nursing facility for evaluation of vomiting as detailed in HPI. Labs, imaging, EKG, and all reports were personally reviewed. It is my understanding that he had only 1 episode of emesis and that has not recurred since admission. Abdominal exam was benign. He is also reportedly less interactive than he has been for the last 3 days that he has been at that facility though that is difficult to say. Preliminary workup in the ED revealed evidence of urinary tract infection for which he has been started on ceftriaxone, pending urine culture. He looks quite dry on exam and by labs with elevated BUN and mild electrolyte abnormalities. He received a liter of normal saline in the ED with an increase in his sodium thus he has been changed to D5 half-normal saline. He has been started on scheduled free water flushes as well. AST and ALT were elevated and a subsequent CK came back elevated 1556. Urine is already alkalotic thus will continue current IV fluids and trend CK. It is likely the UTI and dehydration are the cause of his change in mental status however brain CT showed an area around the ventriculostomy tract which could represent encephalomalacia for age-indeterminate infarction. [facility] stroke team was consulted by the ED provider and they recommended admitting him here at [facility] for brain MRI which has been ordered. Blood pressures were reviewed and they are stable. His antihypertensives will be reviewed and resumed as appropriate. Glucose needs to be monitored closely while receiving half-normal saline with dextrose. Continue basal insulin. Initiate sliding scale insulin, Accu-Cheks, and hypoglycemic protocol. Check hemoglobin A1c. His home medications will be reviewed an
[2023-06-11 18:11] LABS: Glucose Point of Care 233 mg/dl (65-105)
[2023-06-11] MEDS: BISACODYL 10 MG SUPPOSITORY RECTAL (18:16)
[2023-06-11] MEDS: SODIUM CHLORIDE 0.9% IVPB (18:29)
[2023-06-11] MEDS: IRON SUCROSE COMPLEX IVPB (18:29)
[2023-06-11] MEDS: polyethylene glycoL 3350 238 GM BOTTLE FEED TUBE (20:00)
[2023-06-11] MEDS: ALBUTEROL SULFATE NEB 2.5 MG/3 ML INH INHALATION (20:35)
[2023-06-11 21:20] LABS: Glucose Point of Care 180 mg/dl (65-105)
[2023-06-11] MEDS: INSULIN GLARGINE (*BKC) 100 UNITS/ML 10 UNITS SUB-Q (21:40)
[2023-06-11] MEDS: SENNA/DOCUSATE SODIUM TABLET 2 TAB PO (21:41)
[2023-06-12] VITALS (17 sets, daily range): BP systolic 107–150; BP diastolic 51–81; PULSE 89–107; RESP 16–21; TEMP 35.7–36.8; O2SAT 97–100
[2023-06-12 00:16] LABS: Glucose Point of Care 212 mg/dl (65-105)
[2023-06-12] MEDS: INSULIN ASPART (*BKC) 100 UNITS/ML SUB-Q (00:38)
[2023-06-12] MEDS: MAGNESIUM CITRATE 300 ML BTL PO (01:59)
[2023-06-12 05:25] LABS: Basophils Percent Auto 0.2 % (0.2-1.2); Eosinophils Absolute Auto 0.2 K/mm3 (0-0.3); Eosinophils Percent Auto 1.8 % (0-4.4); Hemoglobin 8.1 g/dL (14.0-18.0); Immature Granulocyte Absolute 0.23 K/mm3 (0.00-0.031); Lymphocytes Absolute Auto 1.77 K/mm3 (0.9-3.2); Lymphocytes Percent Auto 15.6 % (18.3-44.2); Mean Corpuscular Volume 93.4 fl (80-100); Mean Platelet Volume 9.5 fl (7.4-10.4); Monocytes Absolute Auto 0.8 K/mm3 (0.1-0.6); Monocytes Percent Auto 7.4 % (2.6-8.5); Neutrophils Absolute Auto 8.3 K/mm3 (1.3-6.7); Nucleated Red Blood Cells Absolute Auto 0.1 K/mm3 (0.0-0.012); Nucleated Red Blood Cells Perc 0.6 % (0.0-0.2); Platelet Count Result 360 k/mm3 (150-375); Red Blood Count 2.89 M/mm3 (4.6-6.20); Red Cell Distribution Width 16.8 % (11.5-14.5); White Blood Count 11.4 K/mm3 (4.5-10.0)
[2023-06-12 05:38] LABS: Anion Gap 7 mmol/L (8-16); Blood Urea Nitrogen 25 mg/dL (9-20); Calcium 9.2 mg/dL (8.4-10.2); Carbon Dioxide 25 mmol/L (22-30); Chloride 102 mmol/L (98-107); Estimated CRCL calculation 138 ml/min; Estimated Glomerular Filt Rate > 60; Glucose 217 mg/dL (65-110); Potassium 4.6 mmol/L (3.4-5.0); Sodium 134 mmol/L (137-145)
[2023-06-12 06:50] LABS: Glucose Point of Care 207 mg/dl (65-105)
[2023-06-12] MEDS: ALBUTEROL SULFATE NEB 2.5 MG/3 ML INH INHALATION (07:56)
[2023-06-12] MEDS: DORNASE ALFA INH SOLN 1 MG/ML 2.5 ML AMP 2.5 MG INHALATION (07:59)
[2023-06-12] MEDS: prednisoLONE ACETATE 1% OPHTH 5 ML 1 DROP RIGHT EYE ×3 (09:48→22:07)
[2023-06-12] MEDS: ASPIRIN 325 MG TABLET FEED TUBE (09:48)
[2023-06-12] MEDS: ARTIFICIAL TEARS OPHTH SOLN 15 ML BOTTLE 1 DROP EACH EYE ×2 (09:48→18:38)
[2023-06-12] MEDS: carvediloL 25 MG TABLET 50 MG FEED TUBE ×2 (09:48→22:05)
[2023-06-12] MEDS: cloNIDine HCL 0.1 MG TABLET 0.3 MG FEED TUBE ×2 (09:49→18:37)
--- NOTE | 2023-06-12 10:24 | PCNFU ---
Nutrition Follow-Up Complete: Swallowing Difficulties as related to CVA as evidenced by PEG tube feedings. Goal:Meet estimated nutritional needs. Pt current nutrition is Tube feeding - on hold today for endoscopy and colonoscopy. Nutrition recommendation: resume tube feeds when appropriate Last recorded weight is 132.1 kg. Bowel Motility: +BM 2/2 Labs Reviewed: Hgb:8.1, HCt:27, NA:134, BUN:25, Glu:217 Meds Noted: dulcolax, novolog, lantus, miralax Skin: friction to buttocks Additional Notes: Pt was on tube feedings: Glucerna 1.2. at 70 ml/hr and tolerating per nursing. Flush 150 ml q 4hours. Total Nutrition: 1848 kcals/92 gms protein/1240 ml water. Tube feedings on hold today for GI procedures. Resume tube feeds post procedures. Will montior weight, labs, meds, tube tube feeding tolerance every Thursday and Thursday.
[2023-06-12 12:05] LABS: Glucose Point of Care 171 mg/dl (65-105)
[2023-06-12 14:13] LABS: Glucose Point of Care 156 mg/dl (65-105)
[2023-06-12] MEDS: LACTATED RINGERS 1,000 ML 150 ML IV CONT (14:27)
--- NOTE | 2023-06-12 14:45 | WPDANESEPPF ---
Anes - Initial Pre Proc Eval Procedure: Operation Date: 06/12/23 15:00 Proposed Procedures p Esophagogastroduodenoscopy & Colonoscopy - Jarred Ackerman MD Date/Time: 06/12/23 14:45 Surgeon: Esau Barnett MD Pre Op Diagnosis: ams.uti Patient Data Age: 57 Gender: M Height: 1.83 m Weight: 132.1 kg Last Vital Signs Temp 96.2 F L 06/12/23 14:22 Pulse 91 06/12/23 14:22 Resp 16 06/12/23 14:22 BP 118/69 06/12/23 14:22 Pulse Ox 100 06/12/23 14:22 O2 Del Method Room Air 06/12/23 14:22 Allergies Allergy/AdvReac Type Severity Reaction Status Date / Time No Known Allergies Allergy Verified 06/12/23 14:16 Home Medications Medication Instructions Recorded Confirmed Type Novolog FlexPen U-100 Insulin 10 units subcut TID 06/02/23 06/02/23 History acetaminophen 500 mg capsule 1,000 mg feeding tube Q6H PRN Pain 06/02/23 06/02/23 History artificial tears solution eye drops 1 drp ophthalmic (eye) TID 06/02/23 06/02/23 History aspirin 325 mg tablet 325 mg feeding tube DAILY 06/02/23 06/02/23 History atorvastatin 80 mg tablet 80 mg feeding tube HS 06/02/23 06/02/23 History bisacodyl 10 mg rectal suppository 10 mg RECTAL DAILY PRN Constipation 06/02/23 06/02/23 History carboxymethylcellulose sodium 0.5 1 drp EACH EYE QID 06/02/23 06/02/23 History % eye drops carvedilol 25 mg tablet 50 mg feeding tube BID 06/02/23 06/02/23 History clonidine HCl 0.3 mg tablet 0.3 mg feeding tube TID 06/02/23 06/02/23 History cyclopentolate 1 % eye drops 1 drp EACH EYE BID 06/02/23 06/02/23 History guaifenesin 100 mg/5 mL oral liquid 200 mg PO Q4H PRN Cough 06/02/23 06/02/23 History insulin glargine 100 unit/mL 30 unit subcut Q12H 06/02/23 06/02/23 History subcutaneous solution magnesium hydroxide 400 mg/5 mL 30 ml feeding tube HS PRN 06/02/23 06/02/23 History oral suspension (Milk of Magnesia) Constipation ondansetron HCl 4 mg tablet 4 mg feeding tube Q6-8H nausea 06/02/23 06/02/23 History polyethylene glycol 1 ea miscellaneous BID Constipation 06/02/23 06/02/23 History prednisolone acetate 1 % eye 1 drp RIGHT EYE QID 06/02/23 06/02/23 History drops,suspension scopolamine base 1 mg over 3 days 1 patch transdermal Q3D 06/02/23 06/02/23 History transdermal patch senna-docusate sodium tablet 2 tablet PO HS 06/02/23 06/02/23 History tamsulosin 0.4 mg capsule (Flomax) 0.8 mg PO DAILY 06/02/23 06/02/23 History Laboratory Tests 06/11/23 06/11/23 06/12/23 18:06 21:08 00:10 WBC RBC Hgb Hct MCV MCH MCHC RDW Plt Count MPV Immature Gran % (Auto) Neut % (Auto) Lymph % (Auto) [place] % (Auto) Eos % (Auto) Baso % (Auto) Lymph # (Auto) [place] # (Auto) Eos # (Auto) Baso # (Auto) Abs Immat Gran (auto) Absolute Neuts (auto) Absolute Nucleated RBC Nucleated RBC % Sodium Potassium Chloride Carbon Dioxide Anion Gap BUN Creatinine Estim Creat Clear Calc Estimated GFR Glucose POC Capillary Glucose 233 H mg/dl 180 H mg/dl 212 H mg/dl (65-105) (65-105) (65-105) Calcium 06/12/23 06/12/23 06/12/23 05:10 06:29 11:47 WBC 11.4 H K/mm3 (4.5-10.0) RBC 2.89 L M/mm3 (4.6-6.20) Hgb 8.1 L g/dL (14.0-18.0) Hct 27.0 L % (42.0-52.0) MCV 93.4 fl (80-100) MCH 28.0 pg (26-34) MCHC 30.0 L g/dl (32-36) RDW 16.8 H % (11.5-14.5) Plt Count 360 k/mm3 (150-375) MPV 9.5 fl (7.4-10.4) Immature Gran % (Auto) 2.0 H % (0-0.5) Neut % (Auto) 73.0 % (45.5-73.1) L
--- NOTE | 2023-06-12 15:17 | SUR.OPER ---
EGD: [id number] COLON: Start 1519
[2023-06-12 15:50] LABS: Glucose Point of Care 130 mg/dl (65-105)
[2023-06-12 17:36] LABS: Glucose Point of Care 169 mg/dl (65-105)
[2023-06-12] MEDS: SODIUM CHLORIDE 1 GM TABLET PO (18:37)
[2023-06-12 21:01] LABS: Glucose Point of Care 163 mg/dl (65-105)
[2023-06-12] MEDS: SENNA/DOCUSATE SODIUM TABLET 2 TAB PO (22:05)
[2023-06-12] MEDS: INSULIN GLARGINE (*BKC) 100 UNITS/ML 30 UNITS SUB-Q (22:08)
[2023-06-12 23:49] LABS: Glucose Point of Care 183 mg/dl (65-105)
[2023-06-13] VITALS (11 sets, daily range): BP systolic 102–137; BP diastolic 56–63; PULSE 91–102; RESP 16–20; TEMP 36.7–36.8; O2SAT 92–100
[2023-06-13 06:18] LABS: Glucose Point of Care 193 mg/dl (65-105)
[2023-06-13 07:20] LABS: Basophils Percent Auto 0.4 % (0.2-1.2); Eosinophils Absolute Auto 0.2 K/mm3 (0-0.3); Eosinophils Percent Auto 2.8 % (0-4.4); Hemoglobin 8.5 g/dL (14.0-18.0); Immature Granulocyte Absolute 0.15 K/mm3 (0.00-0.031); Immature Granulocyte Percent A 1.8 % (0-0.5); Lymphocytes Absolute Auto 1.49 K/mm3 (0.9-3.2); Lymphocytes Percent Auto 17.6 % (18.3-44.2); Mean Corpuscular HGB Conc 29.3 g/dl (32-36); Mean Corpuscular Hemoglobin 28.1 pg (26-34); Mean Platelet Volume 9.4 fl (7.4-10.4); Monocytes Absolute Auto 0.6 K/mm3 (0.1-0.6); Monocytes Percent Auto 6.7 % (2.6-8.5); Neutrophils Percent Auto 70.7 % (45.5-73.1); Nucleated Red Blood Cells Perc 0.4 % (0.0-0.2); Platelet Count Result 363 k/mm3 (150-375); Red Blood Count 3.02 M/mm3 (4.6-6.20); Red Cell Distribution Width 17.2 % (11.5-14.5); White Blood Count 8.5 K/mm3 (4.5-10.0)
[2023-06-13 07:28] LABS: Anion Gap 6 mmol/L (8-16); Blood Urea Nitrogen 23 mg/dL (9-20); Calcium 9.3 mg/dL (8.4-10.2); Carbon Dioxide 30 mmol/L (22-30); Chloride 102 mmol/L (98-107); Estimated CRCL calculation 137 ml/min; Estimated Glomerular Filt Rate > 60; Glucose 204 mg/dL (65-110); Potassium 4.5 mmol/L (3.4-5.0); Sodium 138 mmol/L (137-145)
[2023-06-13] MEDS: ALBUTEROL SULFATE NEB 2.5 MG/3 ML INH INHALATION ×2 (08:14→20:43)
[2023-06-13] MEDS: DORNASE ALFA INH SOLN 1 MG/ML 2.5 ML AMP 2.5 MG INHALATION ×2 (08:14→20:43)
[2023-06-13] MEDS: ASPIRIN 325 MG TABLET FEED TUBE (08:29)
[2023-06-13] MEDS: ARTIFICIAL TEARS OPHTH SOLN 15 ML BOTTLE 1 DROP EACH EYE ×3 (08:29→17:23)
[2023-06-13] MEDS: cloNIDine HCL 0.1 MG TABLET 0.3 MG FEED TUBE ×3 (08:29→17:23)
[2023-06-13] MEDS: carvediloL 25 MG TABLET 50 MG FEED TUBE ×2 (08:29→20:40)
[2023-06-13] MEDS: SODIUM CHLORIDE 1 GM TABLET PO (08:29)
[2023-06-13] MEDS: TAMSULOSIN HCL 0.4 MG CAPSULE 0.8 MG PO (08:29)
[2023-06-13] MEDS: prednisoLONE ACETATE 1% OPHTH 5 ML 1 DROP RIGHT EYE ×4 (08:30→20:40)
[2023-06-13] MEDS: INSULIN GLARGINE (*BKC) 100 UNITS/ML 30 UNITS SUB-Q ×2 (08:31→20:40)
[2023-06-13 08:45] LABS: Anisocytosis 1+ (NORMAL); Hypochromasia 1+ (NORMAL); Large Platelets Present; Platelet Estimate Adequate (Adequate); Schistocytes None Seen (NORMAL)
--- NOTE | 2023-06-13 10:16 | PM.IMPN ---
Progress Note: A&P Assessment and Plan (1) Abnormal brain CT: Code(s): R90.89 - Other abnormal findings on diagnostic imaging of central nervous system Status: Acute Assessment and Plan: Patient seen and evaluated by Neurology MRI brain on hold due to intra-cranial shunt as per neurology (2) Altered mental status: Qualifiers: Altered mental status type: unspecified Qualified Code(s): R41.82 - Altered mental status, unspecified Code(s): R41.82 - Altered mental status, unspecified Status: Acute Assessment and Plan: Seems to be baseline Neurology states that the MRI brain is not urgent Will need to be transferred to [facility] for MRI if necessary (3) Anemia: Code(s): D64.9 - Anemia, unspecified Status: Acute (4) Type 2 diabetes mellitus: Code(s): E11.9 - Type 2 diabetes mellitus without complications Status: Acute (5) Benign prostatic hyperplasia: Code(s): N40.0 - Benign prostatic hyperplasia without lower urinary tract symptoms Status: Acute Assessment and Plan: Kinney catheter and tamsulosin (6) Hypertension: Code(s): I10 - Essential (primary) hypertension Status: Chronic (7) Rhabdomyolysis: Code(s): M62.82 - Rhabdomyolysis Status: Resolved (8) Hyperkalemia: Code(s): E87.5 - Hyperkalemia Status: Resolved Assessment and Plan: Resolved, continue to monitor (9) IVY (acute kidney injury): Code(s): N17.9 - Acute kidney failure, unspecified Status: Resolved (10) Urinary tract infection: Code(s): N39.0 - Urinary tract infection, site not specified Status: Resolved Plan The patient presented to the emergency department from a local nursing facility for evaluation of vomiting as detailed in HPI. Labs, imaging, EKG, and all reports were personally reviewed. It is my understanding that he had only 1 episode of emesis and that has not recurred since admission. Abdominal exam was benign. He is also reportedly less interactive than he has been for the last 3 days that he has been at that facility though that is difficult to say. Preliminary workup in the ED revealed evidence of urinary tract infection for which he has been started on ceftriaxone, pending urine culture. He looks quite dry on exam and by labs with elevated BUN and mild electrolyte abnormalities. He received a liter of normal saline in the ED with an increase in his sodium thus he has been changed to D5 half-normal saline. He has been started on scheduled free water flushes as well. AST and ALT were elevated and a subsequent CK came back elevated 1556. Urine is already alkalotic thus will continue current IV fluids and trend CK. It is likely the UTI and dehydration are the cause of his change in mental status however brain CT showed an area around the ventriculostomy tract which could represent encephalomalacia for age-indeterminate infarction. [facility] stroke team was consulted by the ED provider and they recommended admitting him here at [facility] for brain MRI which has been ordered. Blood pressures were reviewed and they are stable. His antihypertensives will be reviewed and resumed as appropriate. Glucose needs to be monitored closely while receiving half-normal saline with dextrose. Continue basal insulin. Initiate sliding scale insulin, Accu-Cheks, and hypoglycemic protocol. Check hemoglobin A1c. His home medications will be reviewed and resumed as appropriate. Work-up findings: Influenza, COVID, and RSV screens are negative. UA: +LE; +bacteria; >WBC CT head wo contrast: T brain shows a hypodensity along the right posterior parietal ventriculostomy trach which may relate to encephalomalacia versus age-indeterminate infarct. MRI recommended but there is an intracranial shunt; fears of it needing reseting after MRI arose; Neurology was consulted; advised MRI not urgent, transfer
--- NOTE | 2023-06-13 10:45 | WPDNEUROPN ---
Progress Note: A&P Assessment and Plan (1) Altered mental status: Qualifiers: Altered mental status type: unspecified Qualified Code(s): R41.82 - Altered mental status, unspecified Code(s): R41.82 - Altered mental status, unspecified Status: Acute (2) History of intracranial hemorrhage: Code(s): Z86.79 - Personal history of other diseases of the circulatory system Status: Acute Plan Mr. 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 Work-up was significant for UTI for which he was treated during the admission. Also treated for dehydration with IV fluids. CT head showed hypodensity in the R posterior parietal ventriculostomy tract suggesting encephalomalacia vs age indeterminate infarction. Unfortunatey unable to do MRI brain during this admission due to his shunt. Patient seems to be back to his baseline, so he was not transferred emergently for imaging. I would still recommend MRI brain as outpatient at a facility that can accommodate his shunt, to rule out new infarct, especially since he has had prior infarcts as noted on the CT head. Subjective Date/time seen: 06/13/23 10:45 Interval history: Mr. 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 Work-up was significant for UTI for which he was treated during the admission. Also treated for dehydration with IV fluids. CT head showed hypodensity in the R posterior parietal ventriculostomy tract suggesting encephalomalacia vs age indeterminate infarction, as well as chronic R frontal, R lacunar, and L occipital infarcts. MRI brain was ordered initially but could not be done due to his shunt. It seems that his mental status has improved with treatment of his underlying UTI. Course complicated by anemia, possibly due to GI bleeding (stool guaiac positive). Son is at bedside this morning. He feels that patient is pretty much at baseline currently. Patient had the brain bleed in March 2023. [facility] He is non verbal now, but can nod yes or no to questions when asked. Review of Systems Review of Systems: ROS unobtainable: Yes unobtainable due to medical condition Exam Const: General: comfortable and no acute distress HENMT: Mouth: Yes moist mucous membranes Eyes: Pupils: Equal, round and reactive pupils present Other: dysconjugate gaze Resp: Effort & Inspection: normal respiratory effort Skin: General skin exam: normal color Neuro: Other: Pupils equal and reactive bilaterally, dysconjugate gaze, face symmetric, No spontaneous movements of the extremities, did not follow commands. Objective Data Vital Signs Vital Signs: Vital Signs - 24 hr 06/12/23 14:22 06/12/23 15:31 06/12/23 15:41 Temperature 35.7 C L Pulse Rate 91 89 89 Respiratory Rate 16 21 H 18 Blood Pressure 118/69 124/80 129/79 Pulse Oximetry 100 99 100 Oxygen Delivery Room Air Room Air Room Air 06/12/23 15:51 06/12/23 16:26 06/12/23 12:00 Temperature 35.8 C L Pulse Rate 92 94 95 Respiratory Rate 17 18 Blood Pressure 143/79 H 150/77 H Pulse Oximetry 99 97 Oxygen Delivery Room Air 06/12/23 16:00 06/12/23 20:05 06/12/23 22:05 Temperature 36.6 C Pulse Rate 92 93 93 Respiratory Rate 18 Blood Pressure 142/81 H Pulse Oximetry 99 Oxygen Delivery 06/12/23 20:00 06/12/23 20:00 06/13/23 00:00 Temperature Pulse Rate 93 91 Respiratory Rate Blood Pressure Pulse Oximetry Oxygen Delivery Room Air 06/13/23 04:00 06/13/23 05:50 06/13/23 08:15 Temperature 36.7 C Pulse Rate 95 98 102 H Respiratory Rate 16 20 Blood Pressure 137/63 Pulse Oximetry 100 Oxygen Delivery 06/13/23 08:32 06/13/23 08:00 Temperature Pulse Rate 101 H Respiratory Rate 20 B
[2023-06-13 12:32] LABS: Glucose Point of Care 168 mg/dl (65-105)
[2023-06-13 17:26] LABS: Glucose Point of Care 160 mg/dl (65-105)
[2023-06-13] MEDS: SENNA/DOCUSATE SODIUM TABLET 2 TAB PO (20:40)
[2023-06-13 21:41] LABS: Glucose Point of Care 153 mg/dl (65-105)
[2023-06-14 00:45] LABS: Glucose Point of Care 156 mg/dl (65-105)
[2023-06-14 05:21] LABS: Glucose Point of Care 171 mg/dl (65-105)
[2023-06-14 05:25] VITALS: BP 146/70; PULSE 105; RESP 18; TEMP 36.6; O2SAT 100
[2023-06-14 06:03] LABS: Basophils Percent Auto 0.3 % (0.2-1.2); Eosinophils Absolute Auto 0.3 K/mm3 (0-0.3); Eosinophils Percent Auto 2.6 % (0-4.4); Hematocrit 26.8 % (42.0-52.0); Hemoglobin 7.9 g/dL (14.0-18.0); Immature Granulocyte Absolute 0.13 K/mm3 (0.00-0.031); Immature Granulocyte Percent A 1.4 % (0-0.5); Lymphocytes Absolute Auto 1.94 K/mm3 (0.9-3.2); Lymphocytes Percent Auto 20.3 % (18.3-44.2); Mean Corpuscular HGB Conc 29.5 g/dl (32-36); Mean Corpuscular Hemoglobin 28.1 pg (26-34); Mean Corpuscular Volume 95.4 fl (80-100); Mean Platelet Volume 9.4 fl (7.4-10.4); Monocytes Absolute Auto 0.7 K/mm3 (0.1-0.6); Monocytes Percent Auto 7.5 % (2.6-8.5); Neutrophils Absolute Auto 6.5 K/mm3 (1.3-6.7); Neutrophils Percent Auto 67.9 % (45.5-73.1); Nucleated Red Blood Cells Perc 0.3 % (0.0-0.2); Platelet Count Result 383 k/mm3 (150-375); Red Blood Count 2.81 M/mm3 (4.6-6.20); Red Cell Distribution Width 17.3 % (11.5-14.5); White Blood Count 9.6 K/mm3 (4.5-10.0)
[2023-06-14 06:17] LABS: Alanine Aminotransferase 50 U/L (6-50); Alkaline Phosphatase 101 U/L (38-126); Anion Gap 4 mmol/L (8-16); Aspartate Amino Transferase 34 U/L (17-59); Bilirubin,Total 0.5 mg/dL (0.2-1.3); Blood Urea Nitrogen 23 mg/dL (9-20); Calcium 9.3 mg/dL (8.4-10.2); Carbon Dioxide 29 mmol/L (22-30); Chloride 102 mmol/L (98-107); Estimated CRCL calculation 137 ml/min; Estimated Glomerular Filt Rate > 60; Glucose 181 mg/dL (65-110); Potassium 4.6 mmol/L (3.4-5.0); Sodium 135 mmol/L (137-145)
[2023-06-14 06:44] LABS: Anisocytosis 1+ (NORMAL); Hypochromasia 1+ (NORMAL); Platelet Estimate Adequate (Adequate); Schistocytes None Seen (NORMAL)
--- NOTE | 2023-06-14 07:49 | PM.DS ---
DS: Admitting Diagnosis Discharge Date 06/14/2023 Admitting Diagnosis urinary tract infection, abnormal brain CT, altered mental status, azotemia, hyperkalemia, anemia, type 2 diabetes mellitus, BPH, hypertension DS: Discharge Diagnosis Discharge Diagnosis (1) Abnormal brain CT: Code(s): R90.89 - Other abnormal findings on diagnostic imaging of central nervous system Status: Acute (2) Altered mental status: Qualifiers: Altered mental status type: unspecified Qualified Code(s): R41.82 - Altered mental status, unspecified Code(s): R41.82 - Altered mental status, unspecified Status: Acute (3) Anemia: Code(s): D64.9 - Anemia, unspecified Status: Acute (4) Type 2 diabetes mellitus: Code(s): E11.9 - Type 2 diabetes mellitus without complications Status: Acute (5) Benign prostatic hyperplasia: Code(s): N40.0 - Benign prostatic hyperplasia without lower urinary tract symptoms Status: Acute (6) Hypertension: Code(s): I10 - Essential (primary) hypertension Status: Chronic (7) Rhabdomyolysis: Code(s): M62.82 - Rhabdomyolysis Status: Resolved (8) Hyperkalemia: Code(s): E87.5 - Hyperkalemia Status: Resolved (9) IVY (acute kidney injury): Code(s): N17.9 - Acute kidney failure, unspecified Status: Resolved (10) Urinary tract infection: Code(s): N39.0 - Urinary tract infection, site not specified Status: Resolved DS: Summary Hospital Course Reason for hospitalization: altered LOC and UTI, N/V Hospital Course: Mr. 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 Work-up was significant for UTI for which he was treated during the admission. Also treated for dehydration with IV fluids. CT head showed hypodensity in the R posterior parietal ventriculostomy tract suggesting encephalomalacia vs age indeterminate infarction, as well as chronic R frontal, R lacunar, and L occipital infarcts. MRI brain was ordered initially but could not be done due to his shunt. It seems that his mental status has improved with treatment of his underlying UTI. Course complicated by anemia, possibly due to GI bleeding (stool guaiac positive). Son is at bedside this morning. He feels that patient is pretty much at baseline currently. Patient had the brain bleed in March 2023. [facility] He is non verbal now, but can nod yes or no to questions when asked. Status at Discharge Cognitive/behavioral status at discharge: awake, shakes head yes/no but non verbal Functional status at discharge: bed bound (spastic quadriplegia) Time Spent with Patient Time attestation: Total time spent providing and/or coordinating discharge services: 50 minutes Time spent: Greater than 30 minutes Specific discharge activities: medication reconciliation and chart review for safe discharge Exam Narrative: General: Chronically ill-appearing gentleman in the semi-Najera position in bed. HEENT: PERRL, EOMI. Sclera anicteric. Conjunctiva mildly injected. Dry mucous membranes. Eyes open to voice with dysconjugate gaze that appears chronic Neck: Supple. No obvious bruits, thyromegaly, or JVD. Prior tracheostomy. Respiratory: Respirations are nonlabored. Clear lung sounds to auscultation Cardiovascular: Regular rate and rhythm with S1-S2. Gastrointestinal: Abdomen is soft, obese, nontender, and nondistended with positive bowel sounds. Skin: Warm and dry. Small shallow the buttocks. Extremities: No cyanosis, clubbing, or significant edema. Radial and pedal pulses intact. Neurological: Alert. Does not speak or answer questions. Cranial nerves 2-12 are grossly intact. No obvious facial asymmetry. Shakes head yes/no Psychiatric: Unable to assess accurately. DS: Data Data Completed and Pending Completed studies during hos
[2023-06-14 07:57] VITALS: PULSE 107; RESP 18
[2023-06-14] MEDS: ALBUTEROL SULFATE NEB 2.5 MG/3 ML INH INHALATION (07:57)
[2023-06-14] MEDS: DORNASE ALFA INH SOLN 1 MG/ML 2.5 ML AMP 2.5 MG INHALATION (08:01)
[2023-06-14 08:09] LABS: Glucose Point of Care 198 mg/dl (65-105)
[2023-06-14 08:13] VITALS: PULSE 105; RESP 18
[2023-06-14] MEDS: carvediloL 25 MG TABLET 50 MG FEED TUBE (08:30)
[2023-06-14] MEDS: SODIUM CHLORIDE 1 GM TABLET PO (08:31)
[2023-06-14] MEDS: INSULIN GLARGINE (*BKC) 100 UNITS/ML 30 UNITS SUB-Q (08:31)
[2023-06-14] MEDS: ASPIRIN 325 MG TABLET FEED TUBE (08:31)
[2023-06-14] MEDS: prednisoLONE ACETATE 1% OPHTH 5 ML 1 DROP RIGHT EYE ×2 (08:31→11:56)
[2023-06-14] MEDS: TAMSULOSIN HCL 0.4 MG CAPSULE 0.8 MG PO (08:31)
[2023-06-14] MEDS: SCOPOLAMINE 1 MG PATCH 1 PATCH TRANSDERM (08:31)
[2023-06-14] MEDS: cloNIDine HCL 0.1 MG TABLET 0.3 MG FEED TUBE ×2 (08:31→11:55)
[2023-06-14] MEDS: ARTIFICIAL TEARS OPHTH SOLN 15 ML BOTTLE 1 DROP EACH EYE ×2 (08:31→11:56)
[2023-06-14 11:52] LABS: Glucose Point of Care 169 mg/dl (65-105)
--- NOTE | 2023-06-14 13:42 | PC.NURSE ---
this nurse attempted to called report 4 times. When calling from personal phone facility picked up and stated i have to check to see if pt can still come back, can i get a number and call you back . This nurse gave a phone number for them to call and care coordination was notified. Care coordination called back and told the community arts officer that they just wanted to see if we could send tube feeding with the patient. This nurse attempted to call report again to the facility with no one answering again. Charge nurse made aware, as well as [facility] Ambulance to be notified to transport patient.
[2023-06-14 14:00] VITALS: BP 150/73; PULSE 94; RESP 12; TEMP 36.6; O2SAT 100
[2023-06-14 16:55] LABS: Glucose Point of Care 228 mg/dl (65-105)
== END 2023-06-14 17:15 | DRG 466 ==
LOC: ANHED 15:54 → ANH2MED 16:22
PROVIDERS: Family Medicine; Internal Medicine Gastroenterology; Physician Assistant; Student in an Organized Health Care Education/Training Program; Admitting Provider Internal Medicine; Emergency Provider Physician Assistant; PCP Internal Medicine; Visit Provider Nurse Practitioner
PROC: 0DJ08ZZ Inspection of Upper Intestinal Tract, Via Natural or Artificial Opening Endoscopic (ICD-10-PCS; CPT 43235; principal; 2023-06-12 15:00)
DX: T83.511A Infection and inflammatory reaction due to indwelling urethral catheter, initial encounter (principal); N39.0 Urinary tract infection, site not specified; B96.89 Other specified bacterial agents as the cause of diseases classified elsewhere; I69.320 Aphasia following cerebral infarction; I69.365 Other paralytic syndrome following cerebral infarction, bilateral; G82.50 Quadriplegia, unspecified; D64.9 Anemia, unspecified; E87.5 Hyperkalemia; E11.9 Type 2 diabetes mellitus without complications; E66.9 Obesity, unspecified; E86.0 Dehydration; E78.5 Hyperlipidemia, unspecified; F01.50 Vascular dementia, unspecified severity, without behavioral disturbance, psychotic disturbance, mood disturbance, and anxiety; I10 Essential (primary) hypertension; I25.10 Atherosclerotic heart disease of native coronary artery without angina pectoris; M62.82 Rhabdomyolysis; N40.0 Benign prostatic hyperplasia without lower urinary tract symptoms; R56.9 Unspecified convulsions; Z11.52 Encounter for screening for COVID-19; Z89.422 Acquired absence of other left toe(s); Z93.0 Tracheostomy status; Z98.2 Presence of cerebrospinal fluid drainage device; Z79.4 Long term (current) use of insulin; Z79.82 Long term (current) use of aspirin; Z74.01 Bed confinement status; Z95.5 Presence of coronary angioplasty implant and graft; Z68.35 Body mass index [BMI] 35.0-35.9, adult; Z93.1 Gastrostomy status; N17.9 Acute kidney failure, unspecified; J18.9 Pneumonia, unspecified organism; G93.41 Metabolic encephalopathy; K92.1 Melena; K21.00 Gastro-esophageal reflux disease with esophagitis, without bleeding; K64.8 Other hemorrhoids
CPT/HCPCS: 36415; 36600; 70450; 71045; 71046; 71250; 74177; 80048; 80053; 80074; 81001; 82274; 82550; 82728; 82805; 82948; 83036; 83540; 83550; 83605; 83690; 83735; 84100; 84145; 85014; 85018; 85025; 85027; 85610; 85730; 86140; 87040; 87077; 87086; 87088; 87186; 87637; 93005; 94640; 94669; 96361; 96365; 96366; 96367; 96375; 99285; A9270; G0378; G0379; J0456; J0692; J0696; J1756; J1815; J1885; J2001; J2405; J2543; J2704; J3370; J7030; J7040; J7050; J7070; J7120; Q9967

== ENCOUNTER 2023-06-15 07:18 | Inpatient (IN) | payer OTHER, SELFPAY ==
[2023-06-15] VITALS (17 sets, daily range): BP systolic 108–205; BP diastolic 58–101; PULSE 108–130; RESP 16–23; TEMP 36.4–36.8; O2SAT 92–100; BMI 37.7
--- NOTE | ~2023-06-15 | CT_ITS ---
EXAMINATION: CTA chest PE protocol DATE: 06/21/2023 00:28 INDICATION: Pneumonia. TECHNIQUE: Computed tomography angiography (CTA) of the chest was performed with 100 mL Omnipaque-350 intravenous contrast timed to evaluate the pulmonary arteries. Coronal maximum intensity projection 3D-reconstructions were created by the technologist. Automated exposure control and iterative reconst ruction technique were employed. The dose-length product was 1060.00 mGy-cm. COMPARISON: Chest CT 06/15/2023 FINDINGS: There is centrilobular nodules and airspace opacities in the lower lobes and lingula. No pl eural effusion. Cardiomegaly is noted. The central pulmonary arteries are enlarged, consistent with p ulmonary arterial hypertension. There is no pulmonary embolus. There are gallstones in the gallbladde r, which is normal in size. There are bridging endplate osteophytes at multiple levels in the spine, consistent with diffuse idiopathic skeletal hyperostosis (DISH). IMPRESSION: 1. No pulmonary embolus. Sensitivity is moderately decreased by motion artifact. 2. Centrilobular nodules and airspace opacities in the lower lobes and lingula, stable from 06/15/2023, consistent with pneumonia. Reviewed, dictated and finalized at location A. UME TECHNICIAN IMPRESSION: 1. No pulmonary embolus. Sensitivity is moderately decreased by motion artifact . 2. Centrilobular nodules and airspace opacities in the lower lobes and lingula, stable from 06/15/2023, consistent with pneumonia.
--- NOTE | ~2023-06-15 | XR_ITS ---
XR chest 1V portable DATE: 06/15/2023 15:50 INDICATION: Tachycardia TECHNIQUE: Portable AP chest on June 15, 2023 at 1545 hours COMPARISON: 06/06/2023 2 view chest FINDINGS: There is pulmonary vascular redistribution compared to 06/06/2023 suggesting mild pulmonary venous hypertension. Heart size is not optimally evaluated on AP projection because of magnification. Patchy bilateral lower lobe pulmonary infiltrate, left greater than right, not appreciably changed si nce 06/06/2023. No pleural effusion or pneumothorax. Right-sided ventriculoperitoneal shunt catheter tubing. IMPRESSION: Persistent bilateral lower lobe infiltrate or atelectasis Interval pulmonary vascular redistribution suggesting development of pulmonary venous hypertension si nce 06/06/2023 Reviewed, dictated and finalized at location B. STRIAL TRUCK MECHANIC IMPRESSION: Persistent bilateral lower lobe infiltrate or atelectasis Interval pulmonary vascular redistribution suggesting development of pulmonary venous hypertension since 06/06/2023
--- NOTE | ~2023-06-15 | CT_ITS ---
EXAMINATION: CT brain wo con DATE: 06/15/2023 18:54 INDICATION: ams . TECHNIQUE: Computed tomography (CT) of the head was performed without intravenous contrast. The mA wa s adjusted according to patient size. Iterative reconstruction technique was employed. The dose-lengt h product was 681.00 mGy-cm. COMPARISON: 06/02/2023. FINDINGS: No acute intracranial hemorrhage or extra-axial fluid collection. No hydrocephalus, mass, or herniation. No acute ischemic infarct. Unremarkable dural venous sinus attenuation. No acute osseous abnormality. Bilateral maxillary and ethmoid mucosal thickening, the remaining aerated spaces are clear. Mild atrophy and chronic white matter change. Atherosclerotic intracranial calcification. Stable righ t parietal approach FACILITIES SPECIALIST shunt terminating at the midline. Right frontal encephalomalacia, old shunt tr act. Small focus of left medial occipital encephalomalacia. Old focal right thalamic lacunar infarct. IMPRESSION: No acute intracranial process. Reviewed, dictated and finalized at location K. OR PLANT TECHNICIAN
--- NOTE | ~2023-06-15 | US_ITS ---
EXAMINATION: US venous doppler [facility] DATE: 06/16/2023 18:53 INDICATION: tachycarddic, tachypneic . TECHNIQUE: Grayscale images without and with compression and Doppler images of the bilateral lower ex tremity veins were obtained. COMPARISON: None FINDINGS: The right common femoral vein, profunda (deep) femoral vein, femoral vein, popliteal vein, peroneal v ein, posterior tibial veins, greater saphenous vein are patent. The left deep femoral vein is distended by intraluminal clot, noncompressible, and demonstrates minim al flow. The left common femoral vein, femoral vein, popliteal vein, peroneal vein, posterior tibial veins, gastrocnemius vein, and greater saphenous vein are patent. IMPRESSION: Likely acute nearly occlusive thrombus involving the left deep femoral vein. Otherwise patent bilateral lower extremity veins. Reviewed, dictated and finalized at location K. RACKER
--- NOTE | ~2023-06-15 | CT_ITS ---
EXAMINATION: CT chest abdomen pelvis wo con DATE: 06/15/2023 16:01 INDICATION: Tachycardia. Elevated d-dimer. TECHNIQUE: Computed tomography (CT) of the chest, abdomen and pelvis no thoracic aortic aneurysm. Was performed without intravenous contrast. Automated exposure control and iterative reconstruction tech [employer] were employed. Exam dose: 1934.40 mGy-cm total exam DLP. COMPARISON: June 15, 2023 portable AP chest June 02, 2023 CTA chest FINDINGS: Since 06/02/2023 Bilateral patchy pulmonary infiltrates, most prominent in the left lower lobe, particularly the poste rior basilar area. There is mild infiltrate or atelectasis in the posterior basilar right lower lobe. Bilateral pneumonia or aspiration pneumonitis should be considered. Cardiomegaly. No pericardial or pleural effusion. No hilar or mediastinal mass lesion or lymphadenopathy is detected. Right ventriculoperitoneal shunt catheter. The gallbladder is present. Ultrasound would be more sensitive for detection of cholelithiasis. No pe richolecystic fluid or fat stranding. No bile duct or pancreatic duct dilatation. No hepatic, splenic, pancreatic, and adrenal or renal space-occupying mass lesion is evident on this limited noncontrast examination. No urinary tract calculus or hydroureteronephrosis. Normal caliber of the abdominal aorta. No intraperitoneal or retroperitoneal or pelvic mass lesion or adenopathy or ascites. There is a Kinney catheter in the urinary bladder. Urinary bladder wall appears relatively thick but i s not certain as to whether this is due to the evacuated state or other cause. There is no inflammati on surrounding the urinary bladder. Gastrostomy tube in stomach. Small sliding hiatal hernia. No bowel obstruction, bowel wall thickening, pneumatosis or intraperitoneal free air is detected. Normal caliber of the abdominal aorta. No intraperitoneal or retroperitoneal or pelvic mass lesion or adenopathy or ascites. Up to 2.9 cm wide fat-containing umbilical hernia. No suspicious osteolytic or osteoblastic lesions are noted. Prominent degenerative disc disease in lower cervical spine. Degenerative change spurring of the thor acic and lumbar spine. Bilateral hip osteoarthritis. IMPRESSION: This examination is not sensitive for detection of pulmonary emboli without the use of i odinated contrast material Bilateral lower lobe infiltrates, left greater than right, suggesting bilateral pneumonia or aspirati on pneumonitis Gastrostomy tube in stomach Small sliding hiatal hernia Nonspecific thickening of the urinary bladder wall; Kinney catheter in bladder, with bladder evacuatio n, limiting evaluation Right ventriculoperitoneal shunt Reviewed, dictated and finalized at Location A. Reviewed, dictated and finalized at location B. S TIE CUTTER IMPRESSION: This examination is not sensitive for detection of pulmonary embol i without the use of iodinated contrast material Bilateral lower lobe infiltrates, left greater than right, suggesting bilateral pneumonia or aspiration pneumonitis Gastrostomy tube in stomach Small sliding hiatal hernia Nonspecific thickening of the urinary bladder wall; Kinney catheter in bladder, with bladder evacuation, limiting evaluation Right ventriculoperitoneal shunt
--- NOTE | ~2023-06-15 | NM_ITS ---
EXAMINATION: NM lung vent and perfusion DATE: 06/16/2023 13:52 INDICATION: Tachycardia. TECHNIQUE: 22.7 mCi Xenon-133 was administered for ventilation images. 5.3 mCi Tc-99m MAA was adminis tered intravenously for perfusion images. Scintigraphic images of the chest were obtained. COMPARISON: Chest single view 06/15/2023, chest CT 06/15/2023 FINDINGS: Ventilation images demonstrate small defects at the lung bases. Washout images demonstrate diffuse re tention bilaterally. Perfusion images show large matched defects in the lower lobes. IMPRESSION: 1. Intermediate probability for pulmonary embolism. Reviewed, dictated and finalized at location A. R MECHANIC
--- NOTE | 2023-06-15 07:34 | ED.GENADULT ---
HPI - General Adult General Chief complaint: Nausea/Vomiting/Diarrhea Stated complaint: htn, elevated BS, n/v Time Seen by Provider: 06/15/23 07:19 History of Present Illness HPI narrative: 57-year-old male that is quadriplegic and stays in a care facility presented to the emergency department for evaluation of hyperglycemia, hypertension with nausea and vomiting. Patient did receive Lantus but initially the care facility was unsure if he had received his morning medications or not. After recalling they state that he actually did take his morning medications. Related Data Home Medications Medication Instructions Recorded Confirmed Novolog FlexPen U-100 Insulin 10 units subcut TID 06/02/23 06/02/23 acetaminophen 500 mg capsule 1,000 mg feeding tube Q6H PRN Pain 06/02/23 06/02/23 artificial tears solution eye drops 1 drp ophthalmic (eye) TID 06/02/23 06/02/23 aspirin 325 mg tablet 325 mg feeding tube DAILY 06/02/23 06/02/23 atorvastatin 80 mg tablet 80 mg feeding tube HS 06/02/23 06/02/23 bisacodyl 10 mg rectal suppository 10 mg RECTAL DAILY PRN Constipation 06/02/23 06/02/23 carboxymethylcellulose sodium 0.5 1 drp EACH EYE QID 06/02/23 06/02/23 % eye drops carvedilol 25 mg tablet 50 mg feeding tube BID 06/02/23 06/02/23 clonidine HCl 0.3 mg tablet 0.3 mg feeding tube TID 06/02/23 06/02/23 cyclopentolate 1 % eye drops 1 drp EACH EYE BID 06/02/23 06/02/23 guaifenesin 100 mg/5 mL oral liquid 200 mg PO Q4H PRN Cough 06/02/23 06/02/23 insulin glargine 100 unit/mL 30 unit subcut Q12H 06/02/23 06/02/23 subcutaneous solution magnesium hydroxide 400 mg/5 mL 30 ml feeding tube HS PRN 06/02/23 06/02/23 oral suspension (Milk of Magnesia) Constipation ondansetron HCl 4 mg tablet 4 mg feeding tube Q6-8H nausea 06/02/23 06/02/23 polyethylene glycol 1 ea miscellaneous BID Constipation 06/02/23 06/02/23 prednisolone acetate 1 % eye 1 drp RIGHT EYE QID 06/02/23 06/02/23 drops,suspension scopolamine base 1 mg over 3 days 1 patch transdermal Q3D 06/02/23 06/02/23 transdermal patch senna-docusate sodium tablet 2 tablet PO HS 06/02/23 06/02/23 tamsulosin 0.4 mg capsule (Flomax) 0.8 mg PO DAILY 06/02/23 06/02/23 Allergies Allergy/AdvReac Type Severity Reaction Status Date / Time No Known Allergies Allergy Verified 06/12/23 14:16 Review of Systems Review of Systems: All systems reviewed & are unremarkable except as noted in HPI and below PMFSH Past Medical History Medical History (Updated 06/15/23 @ 18:31 by Fidel Vila MD) Acute on chronic anemia Benign prostatic hyperplasia Coronary artery disease Encephalopathy Hemorrhagic stroke (03/2023) Hypertension Intracranial hemorrhage Occult blood in stools Seizure Type 2 diabetes mellitus Vascular dementia Surgical History Surgical History 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 History of cardiac catheterization History of coronary artery stent placement History of percutaneous endoscopic gastrostomy History of tracheostomy Status post ventriculo-peritoneal shunt placement Family History Family History Other Family history unknown Social History Social History Social History: Healthcare power of trademark attorney: Ivory Hassan, sister. Code status: Full code. Smoking status: Never smoker Alcohol intake: unknown Substance use: unknown Spiritual care concerns: No Exam Narrative: APPEARANCE: Well appearing, and is baseline HEAD: normocephalic, atraumatic. EYES: PERRLA/EOMI, conjunctivae clear. NOSE: Normal no drainage NECK: Supple. No adenopathy, no masses. RESPIRATORY: Airway patent, respirations nonlabored. Clear to auscultation bilaterally, no rales, rhonchi, wheezing. CARDIOVASCULAR: Regular rate and rhythm without murmurs rubs or gallops. ABDOMINAL: Soft, nontender, nondistended, n
[2023-06-15 07:43] LABS: Basophils Percent Auto 0.3 % (0.2-1.2); Eosinophils Absolute Auto 0.2 K/mm3 (0-0.3); Eosinophils Percent Auto 1.7 % (0-4.4); Hematocrit 30.1 % (42.0-52.0); Hemoglobin 8.9 g/dL (14.0-18.0); Lymphocytes Absolute Auto 1.75 K/mm3 (0.9-3.2); Lymphocytes Percent Auto 17.2 % (18.3-44.2); Mean Corpuscular HGB Conc 29.6 g/dl (32-36); Mean Corpuscular Hemoglobin 28.2 pg (26-34); Mean Corpuscular Volume 95.3 fl (80-100); Mean Platelet Volume 8.9 fl (7.4-10.4); Monocytes Absolute Auto 0.5 K/mm3 (0.1-0.6); Monocytes Percent Auto 5.3 % (2.6-8.5); Neutrophils Absolute Auto 7.6 K/mm3 (1.3-6.7); Neutrophils Percent Auto 74.5 % (45.5-73.1); Nucleated Red Blood Cells Perc 0.2 % (0.0-0.2); Platelet Count Result 424 k/mm3 (150-375); Red Blood Count 3.16 M/mm3 (4.6-6.20); Red Cell Distribution Width 17.7 % (11.5-14.5); White Blood Count 10.2 K/mm3 (4.5-10.0)
[2023-06-15 07:54] LABS: Alanine Aminotransferase 55 U/L (6-50); Albumin Level 3.3 g/dL (3.5-5.1); Alkaline Phosphatase 104 U/L (38-126); Anion Gap 5 mmol/L (8-16); Aspartate Amino Transferase 39 U/L (17-59); Bilirubin,Total 0.5 mg/dL (0.2-1.3); Blood Urea Nitrogen 21 mg/dL (9-20); Calcium 9.5 mg/dL (8.4-10.2); Carbon Dioxide 31 mmol/L (22-30); Chloride 102 mmol/L (98-107); Estimated CRCL calculation 120 ml/min; Estimated Glomerular Filt Rate > 60; Glucose 217 mg/dL (65-110); Potassium 4.8 mmol/L (3.4-5.0); Sodium 138 mmol/L (137-145)
[2023-06-15 08:17] LABS: Hypochromasia 1+ (NORMAL); Platelet Estimate Adequate (Adequate); Schistocytes None Seen (NORMAL)
[2023-06-15 08:57] LABS: Influenza A QL RT-PCR Negative (Negative); Influenza B QL RT-PCR Negative (Negative); RSV RNA, RT-PCR Negative (Negative); SARS-CoV-2 RNA PCR Negative (Negative)
--- NOTE | 2023-06-15 09:09 | PC.NURSE ---
This RN called [facility] and spoke swati Menchaca RN and she confirmed pt had received all of his morning medications.
[2023-06-15] MEDS: SODIUM CHLORIDE 0.9% IV 500 ML 999 ML IV CONT ×2 (09:16→11:25)
[2023-06-15] MEDS: METOCLOPRAMIDE HCL INJ 10 MG/2 ML VIAL IV PUSH (09:42)
[2023-06-15] MEDS: hydrALAZINE HCL 20 MG/ML VIAL 10 MG IV PUSH ×2 (10:05→11:26)
[2023-06-15 10:26] LABS: Appearance Urine Clear (Clear); Bacteria Urine None Seen /hpf; Bilirubin Urine Negative (Negative); Blood Urine Negative (Negative); Color Urine Yellow (Yellow); Glucose Urine UA Negative (Negative); Ketones Urine Negative (Negative); Leukocyte Esterase Ur Negative LEU/UL (Negative); Nitrate Urine Negative (Negative); Non Pathogenic Casts 0-2; Protein Urine 2+ mg/dL (Negative); RBC Urine 0-2 /hpf (0-2); Specific Grav Ur 1.018 (1.001-1.035); Squamous Epithelial Cell Urine None seen /hpf (Few); Urobilinogen Urine 0.2 mg/dL (<2.0); WBC Urine 0-5 /hpf; pH Urine 8.5 (5.0-9.0)
[2023-06-15 10:37] LABS: Add Urine Microscopic? YES
[2023-06-15] MEDS: METOPROLOL TARTRATE INJ 5 MG/5 ML VIAL IV PUSH (11:39)
[2023-06-15] MEDS: METOPROLOL TARTRATE 25 MG TABLET PO (12:43)
--- NOTE | 2023-06-15 15:25 | ECG_ITS ---
Measurements Intervals [place] Rate: 127 P: 55 [place]: 137 QRS: 49 QRSD: 112 T: 67 QT: 324 QTc: 471 Interpretive Statements SINUS TACHYCARDIA MODERATE INTRAVENTRICULAR CONDUCTION DELAY [110+ ms QRS DURATION] NONSPECIFIC T-WAVE ABNORMALITY ABNORMAL RHYTHM ECG COMPARED TO ECG 06/02/2023 11:06:28 NO SIGNIFICANT DIFFERENCE Electronically Signed On 06-15-2023 17:06:28 WORKER'S COMPENSATION CLAIMS EXAMINER by Jarred Murry M.D.
[2023-06-15 15:50] LABS: NT Pro B Type Natriuretic Pept 2450 pg/mL (19.9-100)
[2023-06-15 15:53] LABS: D Dimer 1.42 ug/mL (<0.48)
--- NOTE | 2023-06-15 16:53 | PC.NURSE ---
Pt presented to ED w/ PEG tube and arshad catheter in place upon arrival to ED.
[2023-06-15] MEDS: AZITHROMYCIN 500 MG/NS 250 ML 500 MG/250 ML BAG 250 MG IVPB (18:14)
--- NOTE | 2023-06-15 18:35 | PM.IMHP ---
H&P: HPI History of Present Illness Date/Time: 06/15/23 18:35 Chief Complaint: AMS Narrative: Patient is confused, history is taken from ER physician 57-year-old male with history of quadriplegic, hypertension, hyperlipidemia, COPD, brought to ED because of nausea vomiting. Per ER physician report, patient received morning medications, and patient was noticed to have nausea vomiting. Patient is nonverbal. Patient also noticed to have uncontrolled hypertension. Patient was brought to ED for evaluation and treatment. Patient had no abdominal tenderness to palpation.?Patient was negative for influenza RSV and for COVID.? Upon arrival in ED, patient was afebrile, but the patient was found have uncontrolled hypertension blood pressure 205 / 101 tachycardia heart rate 130, tachypnea 22, labs reviewed, patient had mild leukocytosis white blood cell 10.2, hemoglobin 8.9 D-dimer positive, IV BUN creatinine ratio 21/0.7, uncontrolled glucose 270. CT abdomen chest pelvis showed multifocal pneumonia involving both lower lobes, suspected aspiration pneumonia. UA unremarkable. Patient received hydralazine, antibiotics in the ED, V/Q scan was ordered. We admit patient for further issues and management Review of Systems Review of Systems: ROS negative, except above PMFSH Past Medical History Medical History (Updated 06/15/23 @ 18:42 by Pete Bhat MD) Acute on chronic anemia Benign prostatic hyperplasia Coronary artery disease Encephalopathy Hemorrhagic stroke (03/2023) Hypertension Intracranial hemorrhage Occult blood in stools Seizure Type 2 diabetes mellitus Vascular dementia Surgical History Surgical History 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 History of cardiac catheterization History of coronary artery stent placement History of percutaneous endoscopic gastrostomy History of tracheostomy Status post ventriculo-peritoneal shunt placement Family History Family History Other Family history unknown Social History Social History Social History: Healthcare power of consumer attorney: Ivory Hassan, sister. Code status: Full code. Smoking status: Never smoker Alcohol intake: unknown Substance use: unknown Spiritual care concerns: No Meds Home Medications and Allergies Home Medications Medication Instructions Recorded Confirmed Type Novolog FlexPen U-100 Insulin 10 units subcut TID 06/02/23 06/02/23 History acetaminophen 500 mg capsule 1,000 mg feeding tube Q6H PRN Pain 06/02/23 06/02/23 History artificial tears solution eye drops 1 drp ophthalmic (eye) TID 06/02/23 06/02/23 History aspirin 325 mg tablet 325 mg feeding tube DAILY 06/02/23 06/02/23 History atorvastatin 80 mg tablet 80 mg feeding tube HS 06/02/23 06/02/23 History bisacodyl 10 mg rectal suppository 10 mg RECTAL DAILY PRN Constipation 06/02/23 06/02/23 History carboxymethylcellulose sodium 0.5 1 drp EACH EYE QID 06/02/23 06/02/23 History % eye drops carvedilol 25 mg tablet 50 mg feeding tube BID 06/02/23 06/02/23 History clonidine HCl 0.3 mg tablet 0.3 mg feeding tube TID 06/02/23 06/02/23 History cyclopentolate 1 % eye drops 1 drp EACH EYE BID 06/02/23 06/02/23 History guaifenesin 100 mg/5 mL oral liquid 200 mg PO Q4H PRN Cough 06/02/23 06/02/23 History insulin glargine 100 unit/mL 30 unit subcut Q12H 06/02/23 06/02/23 History subcutaneous solution magnesium hydroxide 400 mg/5 mL 30 ml feeding tube HS PRN 06/02/23 06/02/23 History oral suspension (Milk of Magnesia) Constipation ondansetron HCl 4 mg tablet 4 mg feeding tube Q6-8H nausea 06/02/23 06/02/23 History polyethylene glycol 1 ea miscellaneous BID Constipation 06/02/23 06/02/23 History prednisolone acetate 1 % eye 1 drp RIGHT EYE QID 06/02/23 06/02/23 History drops,suspension scopolamine base 1 mg over
--- NOTE | 2023-06-15 19:15 | PC.NURSE ---
This RN attempted to call [facility] to update pt is being admitted to hospital. Unable to get into contact w/anyone at facility at this time.
--- NOTE | 2023-06-15 19:15 | PC.NURSE ---
Nurse report given to Duyen KEY
[2023-06-15] MEDS: cefTRIAXone 2 GM/NS 100 ML 2 GM/100 ML BAG IVPB (19:32)
[2023-06-15] MEDS: SODIUM CHLORIDE 0.9% IV 1,000 ML 100 ML IV CONT (19:32)
[2023-06-15 19:58] LABS: Glucose Point of Care 185 mg/dl (65-105)
[2023-06-15 20:15] LABS: Amphetamine Screen Urine Negative (Negative); Barbiturate Screen Urine Negative (Negative); Benzodiazepines Screen Urine Negative (Negative); Cannabinoid Screen Urine Negative (Negative); Cocaine Screen Urine Negative (Negative); Methadone Screen Urine Negative (Negative); Opiate Screen Urine Negative (Negative); Phencyclidine Screen Urine Negative (Negative)
[2023-06-15] MEDS: metroNIDAZOLE 500 MG/ISO 100ML 500 MG/100 ML BAG 100 MG IVPB (20:44)
[2023-06-15] MEDS: carvediloL 25 MG TABLET 50 MG PO (22:43)
--- NOTE | 2023-06-15 23:27 | ADMGEN ---
This patient, Mendel Kelly, was admitted to IMU Room 205-02. Patient/family oriented to hospital policies and general routines including ID bracelet, bed and alarms, visiting hours, pain management, procedures, bathroom and other care routines, personal items, smoking policy, room service/diet, and visiting hours. Information on how to activate the Rapid Response Team has been discussed. Patient/Family are encouraged to report perceived risks to care and to ask questions if they do not understand what they are told or what they should do.
[2023-06-16] VITALS (20 sets, daily range): BP systolic 94–151; BP diastolic 50–85; PULSE 95–131; RESP 18–22; TEMP 36.1–37.1; O2SAT 97–100; BMI 38.0
--- NOTE | 2023-06-16 | ECHO_ITS ---
Name: Mendel Kelly Age: 57 years : 1965 Gender: Male Ht: 68 in Wt: 250 lbs BSA: 2.38 m? BP: 151 / 85 mmHg HR: 118 bpm Heart Rhythm: Tachycardia Exam Date: 06/16/2023 8:22 AM Admit Date: 06/16/2023 Exam Location: Echo Lab Patient Status: Inpatient Exam Type: CA echo dop color flow w con Technical Quality: Good Gel Coater: Isabela Madsen RDCS Ordering Physician: ePte Bhat MD Attending Provider: Pete Bhat MD Study Info Indications Code Description dizziness Procedure(s) Complete two-dimensional, color flow and Doppler transthoracic echocardiogram is performed with contrast to opacify the left ventricle and to improve the deliniation of the left ventricle endocardial borders. Contrast/Agitated Saline Contrast/Ag. Saline Amount Administered By Existing IV Access IV Access Condition New IV Access Site Condition Summary 1. Left ventricular chamber dimension is normal. 2. Left ventricular systolic function is hyperdynamic, estimated at >70%. 3. There is severely increased left ventricular wall thickness. 4. Right ventricular systolic function is normal. 5. There is trace mitral valve regurgitation. 6. There is trace tricuspid valve regurgitation. 7. There is trivial pericardial effusion. Left Ventricle Left ventricular chamber dimension is normal. Left ventricular systolic function is hyperdynamic, estimated at >70%. There is severely increased left ventricular wall thickness. Right Ventricle Right ventricular chamber dimension is normal. Right ventricular systolic function is normal. Left Atria Left atrial chamber dimension is normal. Right Atria Right atrial chamber dimension is normal. Atrial Septum Intact interatrial septum visualized by color flow imaging. Aortic Valve The aortic valve is trileaflet. There is no aortic valve stenosis. There is no aortic valve regurgitation. There is mild aortic valve calcification. Mitral Valve There is trace mitral valve regurgitation. Tricuspid Valve There is trace tricuspid valve regurgitation. Pulmonic Valve The pulmonic valve is not well visualized. Aorta The aortic root size at the sinus of Valsalva is normal. Inferior Vena Cava Inferior vena cava is not well visualized. Pericardium/Pleural There is trivial pericardial effusion. Ventricles Definity 3.00 ml Isabela Madsen RDCS Yes patent with no signs of infiltration Name Value Normal Name Value Normal LV Dimensions 2D/MM IVS Diastolic Thickness (2D) 1.70 cm 0.60-1.00 LVOT Diameter 2.19 cm LVID Diastole (2D) 4.45 cm 4.20-5.80 LV Mass (2D Cubed) 324.79 g 88.00-224.00 LVIW Diastolic Thickness (2D) 1.67 cm 0.60-1.00 LV Mass Index (2D Cubed) 0.01 g/cm2 0.00-0.01 LVID Systole (2D) 2.73 cm 2.50-4.00 Relative Wall Thickness (2D) 0.75 LV Fractional Shortening/Ejection Fraction 2D/MM LV Fractional Shortening (2D) 39 % 25-43 LV Diastolic Volume Index (BP MOD) 0.03 l/m? 0.03-0.07 LV EF (2D Teicholz) 69 % 52-72 LV Systolic Volume (BP MOD) 19.07 ml 21.00-61.00 LV Diastolic Volume (4C MOD) 92.00 ml LV Systolic Volume Index (BP MOD) 0.01 l/m? 0.01-0.03 LV EF (4C MOD) 84 % LV EF (BP MOD) 75 % 52-72 LV Diastolic Volume (2C MOD) 65.81 ml LV Diastolic Length (4C) 8.88 cm LV EF (2C MOD) 68 % LV Systolic Length (4C) 6.26 cm LV Diastolic Volume (BP MOD) 77.64 ml 62.00-150.00 LV Stroke Volume (4C MOD) 77.36 ml Atria Name Value Normal Name Value Normal LA Dimensions LA Dimension (MM) 4.22 cm 3.00-4.10 LA Volume (BP A-L) 33.73 ml LA Volume (4C A-L) 39.90 ml RA Dimensions RA Area (4C) 8.65 cm? .18.00 Left Ventricular Outflow Tract Name Value Normal Name Value Normal LVOT 2D LVOT Diameter 2.19 cm LVOT Doppler LVOT Peak Gradient 3 mmHg LVOT Stroke Volume 51.90 ml LVO
[2023-06-16] MEDS: IPRATROPIUM 0.5 MG/ALBUTEROL SULFATE 2.5 MG AMPUL.NEB 3 ML INHALATION (01:30)
[2023-06-16] MEDS: SODIUM CHLORIDE 0.9% IV 1,000 ML 100 ML IV CONT (05:18)
[2023-06-16] MEDS: metroNIDAZOLE 500 MG/ISO 100ML 500 MG/100 ML BAG 100 MG IVPB (05:23)
[2023-06-16 08:35] LABS: Glucose Point of Care 212 mg/dl (65-105)
[2023-06-16] MEDS: PERFLUTREN LIPID MICROSPHERES 1.5 ML VIAL DILUTED TO 10 ML TOTAL VOLUME IV PUSH (09:00)
[2023-06-16] MEDS: carvediloL 25 MG TABLET 50 MG PO ×2 (09:41→20:40)
[2023-06-16] MEDS: INSULIN ASPART (*BKC) 100 UNITS/ML SUB-Q (09:42)
[2023-06-16] MEDS: cloNIDine HCL 0.1 MG TABLET 0.3 MG PO ×3 (09:42→17:32)
[2023-06-16] MEDS: INSULIN GLARGINE (*BKC) 100 UNITS/ML 20 UNITS SUB-Q ×2 (09:43→20:42)
[2023-06-16 09:51] LABS: Basophils Percent Auto 0.2 % (0.2-1.2); Eosinophils Percent Auto 0.3 % (0-4.4); Hemoglobin 8.5 g/dL (14.0-18.0); Immature Granulocyte Absolute 0.08 K/mm3 (0.00-0.031); Immature Granulocyte Percent A 0.7 % (0-0.5); Lymphocytes Absolute Auto 1.09 K/mm3 (0.9-3.2); Mean Corpuscular HGB Conc 30.4 g/dl (32-36); Mean Corpuscular Hemoglobin 28.4 pg (26-34); Mean Corpuscular Volume 93.6 fl (80-100); Mean Platelet Volume 8.6 fl (7.4-10.4); Monocytes Absolute Auto 0.8 K/mm3 (0.1-0.6); Monocytes Percent Auto 6.4 % (2.6-8.5); Neutrophils Absolute Auto 10.1 K/mm3 (1.3-6.7); Neutrophils Percent Auto 83.4 % (45.5-73.1); Platelet Count Result 385 k/mm3 (150-375); Red Blood Count 2.99 M/mm3 (4.6-6.20); Red Cell Distribution Width 18.2 % (11.5-14.5); White Blood Count 12.1 K/mm3 (4.5-10.0)
[2023-06-16] MEDS: AMPICILLIN SULB 3 GM/NS 100 ML 3 GM/100 ML VIAL IVPB ×3 (09:57→20:40)
[2023-06-16 10:02] LABS: Alanine Aminotransferase 40 U/L (6-50); Albumin Level 3.3 g/dL (3.5-5.1); Alkaline Phosphatase 94 U/L (38-126); Anion Gap 3 mmol/L (8-16); Aspartate Amino Transferase 29 U/L (17-59); Bilirubin,Total 0.5 mg/dL (0.2-1.3); Blood Urea Nitrogen 18 mg/dL (9-20); Calcium 9.1 mg/dL (8.4-10.2); Carbon Dioxide 30 mmol/L (22-30); Chloride 104 mmol/L (98-107); Estimated CRCL calculation 120 ml/min; Estimated Glomerular Filt Rate > 60; Glucose 211 mg/dL (65-110); Magnesium 1.8 mg/dL (1.6-2.3); Phosphorus 3.6 mg/dL (2.5-4.5); Sodium 137 mmol/L (137-145)
[2023-06-16 10:34] LABS: Procalcitonin 0.1 ng/mL
[2023-06-16 11:54] LABS: Glucose Point of Care 188 mg/dl (65-105)
--- NOTE | 2023-06-16 12:04 | IVDEFINITY ---
Prior to administration of IV Definity the patient was educated on the risks and benefits of the imaging enhancing agent including potential adverse side effects. The patient verbalized understanding. Allergies were verified. No exclusion criteria were identified and at least one of the following inclusion criteria were met: 1) physician request, 2) patient technically difficult to image (per the [place] [employer]ocardi[employer] guidelines of two or more segments not discernable within the apical view), or 3) questionable left ventricular function. ?
[2023-06-16 12:11] LABS: MRSA (PCR) NOT DETECTED (NOT DETECTE)
--- NOTE | 2023-06-16 16:20 | PM.IMPN ---
Progress Note: A&P Assessment and Plan (1) Acute encephalopathy: Code(s): G93.40 - Encephalopathy, unspecified Status: Acute Assessment and Plan: Patient was hospitalized here from 06/02 to 06/14 for vomiting. EGD 06/12 showing reflux esophagitis. Colonoscopy showing internal hemorrhoids. He had a UTI that was treated. He was discharged 06/14. Patietn returns the following day due to n/v. Unclear but may have had altered mental status as well. Head CT showing no acute process. Can not get MR brain due to shunt. Suspect metabolic related to PNA and sepsis Check b12, TSH Continue to monitor (2) Multifocal pneumonia: Code(s): J18.9 - Pneumonia, unspecified organism Status: Acute Assessment and Plan: Patient was negative for influenza, RSV and for COVID.? Upon arrival in ED, patient was afebrile and WBC was 10.2 UA [address]able. BCx collected. CT Ch/A/P showing bilateral lower lobe infiltrates concerning for multifocal pneumonia with suspected aspiration pneumonia. Patient has been having n/v. He was started on abx. (3) Sepsis: Code(s): A41.9 - Sepsis, unspecified organism Status: Acute Assessment and Plan: Sepsis present on admission with tachycardia, tachypnea and leukocytosis Related to above. Monitor WBC. (4) Hypertensive urgency: Code(s): I16.0 - Hypertensive urgency Status: Acute Assessment and Plan: Patient noted to have uncontrolled hypertension on admission. His blood pressure was 205 /101. Patient received hydralazine in [facility] ED Echo showing EF 70% with severely increased LV wall thickness and minimal valve disease. Continue carvedilol 50 mg BID and clonidine 0.3 mg TID Hydralazine IV with parameters BP much better controlled and even soft at times. Follow and adjust medications as needed. (5) Chronic anemia: Code(s): D64.9 - Anemia, unspecified Status: Acute Assessment and Plan: Hgb 8.9 on admission and this runs within his baseline 7-9 range. Iron 39, TIBC 156 with TSat 25% and Ferritin normal. Consistent with anemia of chronic disease. Check B12/folate for completeness. (6) Type 2 diabetes mellitus: Code(s): E11.9 - Type 2 diabetes mellitus without complications Status: Acute Assessment and Plan: The patient's blood glucose was reviewed on 06/16 Glucose reasonably well controlled. Continue AccuCheks covering with sliding scale. Hypoglycemia protocol available as needed. Continue lantus but decrease dose Plan COPD - stable. Continue DuoNeb q.4 hours as needed Positive D-dimer - Patient with tachycardia and tachypnea. VQ scan ordered showing intermedicate probability of PE. Check LE venous dopplers. DVT prophylaxis - SCDs Code status - full Subjective Date/time seen: 06/16/23 16:20 Interval history: 57yo male with hx of quadriplegia, HTN, dysphagia with GTube, hemorrhagic stroke and nonverbal, seizure, DM, chronic encephalopathy and CAD here for altered mental status. Patient with eye open but unable to provide hx. Review of Systems Review of Systems: ROS unobtainable: Yes unobtainable due to mental status Exam Narrative: AF 98.2 116/60 114 18 97% ra Gen - NARD Chest - clear anteriorly and in the flanks, nmlRR CV - RRR S1/S2. Tele showing no acute findings. Abd - Soft, obese, GTube secured with dressing that Ext - No pedal edema Neuro - awake, nonverbal. paralyzed Psych - unable to assess Skin - Warm and dry Objective Data Vital Signs Vital Signs: Vital Signs - 24 hr 06/15/23 17:25 06/15/23 18:42 06/15/23 21:31 Temperature Pulse Rate 130 H 130 H 130 H Respiratory Rate 16 23 H 19 Blood Pressure 141/78 H 108/58 L 154/85 H Pulse Oximetry 96 94 94 Oxygen Delivery 06/15/23 22:15 06/15/23 22:43 06/15/23 22:00 Temperature 98.3 F Pulse Rate 127 H 125 H 124 H Respiratory Rate 20 Blood Pressure 129/61 Puls
[2023-06-16 16:53] LABS: Glucose Point of Care 171 mg/dl (65-105)
[2023-06-16] MEDS: SCOPOLAMINE 1 MG PATCH 1 PATCH TRANSDERM (17:31)
[2023-06-16 20:36] LABS: Glucose Point of Care 165 mg/dl (65-105)
[2023-06-16] MEDS: ATORVASTATIN 40 MG TABLET 80 MG FEED TUBE (20:40)
[2023-06-16] MEDS: SENNA/DOCUSATE SODIUM TABLET 2 TAB FEED TUBE (20:40)
[2023-06-16] MEDS: ARTIFICIAL TEARS OPHTH SOLN 15 ML BOTTLE 1 DROP EACH EYE (20:41)
[2023-06-16] MEDS: prednisoLONE ACETATE 1% OPHTH 5 ML 1 DROP RIGHT EYE (20:41)
[2023-06-17] VITALS (23 sets, daily range): BP systolic 84–166; BP diastolic 38–81; PULSE 84–104; RESP 18–23; TEMP 36.4–36.8; O2SAT 97–100
[2023-06-17] MEDS: AMPICILLIN SULB 3 GM/NS 100 ML 3 GM/100 ML VIAL IVPB ×4 (04:05→20:40)
[2023-06-17 05:29] LABS: Basophils Percent Auto 0.3 % (0.2-1.2); Eosinophils Absolute Auto 0.3 K/mm3 (0-0.3); Hematocrit 26.5 % (42.0-52.0); Hemoglobin 7.7 g/dL (14.0-18.0); Immature Granulocyte Absolute 0.05 K/mm3 (0.00-0.031); Immature Granulocyte Percent A 0.5 % (0-0.5); Lymphocytes Absolute Auto 2.13 K/mm3 (0.9-3.2); Lymphocytes Percent Auto 21.1 % (18.3-44.2); Mean Corpuscular HGB Conc 29.1 g/dl (32-36); Mean Corpuscular Hemoglobin 28.2 pg (26-34); Mean Corpuscular Volume 97.1 fl (80-100); Mean Platelet Volume 8.9 fl (7.4-10.4); Monocytes Absolute Auto 0.9 K/mm3 (0.1-0.6); Monocytes Percent Auto 8.8 % (2.6-8.5); Neutrophils Absolute Auto 6.7 K/mm3 (1.3-6.7); Neutrophils Percent Auto 66.3 % (45.5-73.1); Platelet Count Result 329 k/mm3 (150-375); Red Blood Count 2.73 M/mm3 (4.6-6.20); Red Cell Distribution Width 18.5 % (11.5-14.5); White Blood Count 10.1 K/mm3 (4.5-10.0)
[2023-06-17 06:05] LABS: Anisocytosis 1+ (NORMAL); Hypochromasia 1+ (NORMAL); Ovalocytes 1+ (NORMAL); Platelet Estimate Adequate (Adequate); Schistocytes None Seen (NORMAL)
[2023-06-17 06:37] LABS: Anion Gap 6 mmol/L (8-16); Blood Urea Nitrogen 25 mg/dL (9-20); Calcium 8.7 mg/dL (8.4-10.2); Carbon Dioxide 27 mmol/L (22-30); Chloride 107 mmol/L (98-107); Estimated CRCL calculation 96 ml/min; Estimated Glomerular Filt Rate > 60; Glucose 200 mg/dL (65-110); Potassium 3.7 mmol/L (3.4-5.0); Sodium 140 mmol/L (137-145)
[2023-06-17 08:00] LABS: Glucose Point of Care 170 mg/dl (65-105)
[2023-06-17] MEDS: carvediloL 25 MG TABLET 50 MG PO ×2 (09:26→20:40)
[2023-06-17] MEDS: ASPIRIN 325 MG TABLET FEED TUBE (09:27)
[2023-06-17] MEDS: cloNIDine HCL 0.1 MG TABLET 0.3 MG PO ×3 (09:27→17:13)
[2023-06-17] MEDS: prednisoLONE ACETATE 1% OPHTH 5 ML 1 DROP RIGHT EYE ×4 (09:31→20:41)
[2023-06-17] MEDS: ARTIFICIAL TEARS OPHTH SOLN 15 ML BOTTLE 1 DROP EACH EYE ×3 (09:31→17:12)
[2023-06-17] MEDS: INSULIN GLARGINE (*BKC) 100 UNITS/ML 20 UNITS SUB-Q ×2 (09:32→20:43)
[2023-06-17] MEDS: TAMSULOSIN HCL 0.4 MG CAPSULE 0.8 MG PO (09:37)
[2023-06-17] MEDS: SODIUM CHLORIDE 1 GM TABLET FEED TUBE (09:38)
[2023-06-17 10:55] LABS: Folic Acid 11.8 ng/mL (2.76->20)
[2023-06-17 11:52] LABS: Glucose Point of Care 190 mg/dl (65-105)
[2023-06-17 16:54] LABS: Glucose Point of Care 183 mg/dl (65-105)
--- NOTE | 2023-06-17 17:09 | PM.IMPN ---
Progress Note: A&P Assessment and Plan (1) Acute encephalopathy: Code(s): G93.40 - Encephalopathy, unspecified Status: Acute Assessment and Plan: Patient was hospitalized here from 06/02 to 06/14 for vomiting. EGD 06/12 showing reflux esophagitis. Colonoscopy showing internal hemorrhoids. He had a UTI that was treated. He was discharged 06/14. Patietn returns the following day due to n/v. Unclear but may have had altered mental status as well. Head CT showing no acute process. Can not get MR brain due to shunt. Suspect metabolic related to PNA and sepsis Check b12, TSH Continue to monitor (2) Multifocal pneumonia: Code(s): J18.9 - Pneumonia, unspecified organism Status: Acute Assessment and Plan: Patient was negative for influenza, RSV and for COVID.? Upon arrival in ED, patient was afebrile and WBC was 10.2 UA unremarkable. BCx collected. CT Ch/A/P showing bilateral lower lobe infiltrates concerning for multifocal pneumonia with suspected aspiration pneumonia. Patient has been having n/v. He was started on abx. (3) Sepsis: Code(s): A41.9 - Sepsis, unspecified organism Status: Acute Assessment and Plan: Sepsis present on admission with tachycardia, tachypnea and leukocytosis Related to above. Monitor WBC. (4) Hypertensive urgency: Code(s): I16.0 - Hypertensive urgency Status: Acute Assessment and Plan: Patient noted to have uncontrolled hypertension on admission. His blood pressure was 205 /101. Patient received hydralazine in [facility] ED Echo showing EF 70% with severely increased LV wall thickness and minimal valve disease. Continue carvedilol 50 mg BID and clonidine 0.3 mg TID Hydralazine IV with parameters BP much better controlled and even soft at times. Follow and adjust medications as needed. (5) Chronic anemia: Code(s): D64.9 - Anemia, unspecified Status: Acute Assessment and Plan: Hgb 8.9 on admission and this runs within his baseline 7-9 range. Iron 39, TIBC 156 with TSat 25% and Ferritin normal. Consistent with anemia of chronic disease. Check B12/folate for completeness. (6) Type 2 diabetes mellitus: Code(s): E11.9 - Type 2 diabetes mellitus without complications Status: Acute Assessment and Plan: The patient's blood glucose was reviewed on 06/16 Glucose reasonably well controlled. Continue AccuCheks covering with sliding scale. Hypoglycemia protocol available as needed. Continue lantus but decrease dose Plan COPD - stable. Continue DuoNeb q.4 hours as needed Positive D-dimer - Patient with tachycardia and tachypnea. VQ scan ordered showing intermedicate probability of PE. Check LE venous dopplers. DVT prophylaxis - SCDs Code status - full Disposition: May DC tomorrow Time Spent With Patient Time with patient: 25 - 35 minutes Subjective Date/time seen: 06/17/23 17:09 Interval history: 57yo male with hx of quadriplegia, HTN, dysphagia with GTube, hemorrhagic stroke and nonverbal, seizure, DM, chronic encephalopathy and CAD here for altered mental status. Patient with eye open but unable to provide hx. Review of Systems Review of Systems: ROS negative, except above ROS unobtainable: Yes unobtainable due to mental status Exam Narrative: AF 98.2 116/60 114 18 97% ra Gen - NARD Chest - clear anteriorly and in the flanks, nmlRR CV - RRR S1/S2. Tele showing no acute findings. Abd - Soft, obese, GTube secured with dressing that Ext - No pedal edema Neuro - awake, nonverbal. paralyzed Psych - unable to assess Skin - Warm and dry Objective Data Vital Signs Vital Signs: Vital Signs - 24 hr 06/16/23 18:00 06/16/23 19:52 06/16/23 20:40 Temperature 98.8 F Pulse Rate 95 100 118 H Respiratory Rate 20 Blood Pressure 110/57 L Pulse Oximetry 99 Oxygen Delivery 06/16/23 20:00 06/16/23 20:00 06/16/23 21:52 Temp
[2023-06-17 20:20] LABS: Glucose Point of Care 163 mg/dl (65-105)
[2023-06-17] MEDS: SENNA/DOCUSATE SODIUM TABLET 2 TAB FEED TUBE (20:39)
[2023-06-17] MEDS: ATORVASTATIN 40 MG TABLET 80 MG FEED TUBE (20:40)
[2023-06-18] VITALS (17 sets, daily range): BP systolic 123–180; BP diastolic 51–86; PULSE 88–104; RESP 18–24; TEMP 36.1–37.3; O2SAT 97–100
[2023-06-18] MEDS: AMPICILLIN SULB 3 GM/NS 100 ML 3 GM/100 ML VIAL IVPB ×3 (02:50→15:44)
[2023-06-18] MEDS: IPRATROPIUM 0.5 MG/ALBUTEROL SULFATE 2.5 MG AMPUL.NEB 3 ML INHALATION (03:10)
[2023-06-18 06:04] LABS: Basophils Percent Auto 0.4 % (0.2-1.2); Eosinophils Absolute Auto 0.4 K/mm3 (0-0.3); Eosinophils Percent Auto 3.6 % (0-4.4); Hematocrit 25.6 % (42.0-52.0); Hemoglobin 7.5 g/dL (14.0-18.0); Lymphocytes Absolute Auto 1.83 K/mm3 (0.9-3.2); Lymphocytes Percent Auto 18.4 % (18.3-44.2); Mean Corpuscular HGB Conc 29.3 g/dl (32-36); Mean Corpuscular Hemoglobin 28.3 pg (26-34); Mean Corpuscular Volume 96.6 fl (80-100); Monocytes Percent Auto 9.6 % (2.6-8.5); Neutrophils Absolute Auto 6.7 K/mm3 (1.3-6.7); Nucleated Red Blood Cells Perc 0.2 % (0.0-0.2); Platelet Count Result 315 k/mm3 (150-375); Red Blood Count 2.65 M/mm3 (4.6-6.20); Red Cell Distribution Width 18.4 % (11.5-14.5)
[2023-06-18 06:19] LABS: Alanine Aminotransferase 29 U/L (6-50); Albumin Level 2.8 g/dL (3.5-5.1); Alkaline Phosphatase 101 U/L (38-126); Anion Gap 5 mmol/L (8-16); Aspartate Amino Transferase 22 U/L (17-59); Bilirubin,Total 0.4 mg/dL (0.2-1.3); Blood Urea Nitrogen 26 mg/dL (9-20); Calcium 8.5 mg/dL (8.4-10.2); Carbon Dioxide 29 mmol/L (22-30); Chloride 106 mmol/L (98-107); Estimated CRCL calculation 107 ml/min; Estimated Glomerular Filt Rate > 60; Glucose 172 mg/dL (65-110); Sodium 140 mmol/L (137-145)
[2023-06-18 07:22] LABS: Anisocytosis 1+ (NORMAL); Platelet Estimate Adequate (Adequate); Polychromasia 1+ (NORMAL)
[2023-06-18 07:23] LABS: Hypochromasia 1+ (NORMAL); Poikilocytosis 1+ (NORMAL); Schistocytes None Seen (NORMAL)
[2023-06-18 08:52] LABS: Glucose Point of Care 166 mg/dl (65-105)
[2023-06-18] MEDS: carvediloL 25 MG TABLET 50 MG PO ×2 (08:52→20:54)
[2023-06-18] MEDS: TAMSULOSIN HCL 0.4 MG CAPSULE 0.8 MG PO (08:53)
[2023-06-18] MEDS: ASPIRIN 325 MG TABLET FEED TUBE (08:53)
[2023-06-18] MEDS: hydrALAZINE HCL 20 MG/ML VIAL 10 MG IV PUSH (08:53)
[2023-06-18] MEDS: SODIUM CHLORIDE 1 GM TABLET FEED TUBE (08:53)
[2023-06-18] MEDS: cloNIDine HCL 0.1 MG TABLET 0.3 MG PO ×3 (08:53→17:25)
[2023-06-18] MEDS: ARTIFICIAL TEARS OPHTH SOLN 15 ML BOTTLE 1 DROP EACH EYE ×3 (08:54→17:25)
[2023-06-18] MEDS: prednisoLONE ACETATE 1% OPHTH 5 ML 1 DROP RIGHT EYE ×4 (08:54→20:54)
[2023-06-18] MEDS: INSULIN GLARGINE (*BKC) 100 UNITS/ML 20 UNITS SUB-Q ×2 (08:54→21:57)
[2023-06-18 12:07] LABS: Glucose Point of Care 163 mg/dl (65-105)
--- NOTE | 2023-06-18 15:20 | PM.IMPN ---
Progress Note: A&P Assessment and Plan (1) Acute encephalopathy: Code(s): G93.40 - Encephalopathy, unspecified Status: Acute Assessment and Plan: Patient was hospitalized here from 06/02 to 06/14 for vomiting. EGD 06/12 showing reflux esophagitis. Colonoscopy showing internal hemorrhoids. He had a UTI that was treated. He was discharged 06/14. Patietn returns the following day due to n/v. Unclear but may have had altered mental status as well. Head CT showing no acute process. Can not get MR brain due to shunt. Suspect metabolic related to PNA and sepsis Check b12, TSH Continue to monitor (2) Multifocal pneumonia: Code(s): J18.9 - Pneumonia, unspecified organism Status: Acute Assessment and Plan: Patient was negative for influenza, RSV and for COVID.? Upon arrival in ED, patient was afebrile and WBC was 10.2 UA unremarkable. BCx collected. CT Ch/A/P showing bilateral lower lobe infiltrates concerning for multifocal pneumonia with suspected aspiration pneumonia. Patient has been having n/v. on Unasyn and Doxycycline monitor cultures (3) Sepsis: Code(s): A41.9 - Sepsis, unspecified organism Status: Acute Assessment and Plan: Sepsis present on admission with tachycardia, tachypnea and leukocytosis Related to above. Monitor WBC. (4) Hypertensive urgency: Code(s): I16.0 - Hypertensive urgency Status: Acute Assessment and Plan: Patient noted to have uncontrolled hypertension on admission. His blood pressure was 205 /101. Patient received hydralazine in [facility] ED Echo showing EF 70% with severely increased LV wall thickness and minimal valve disease. Continue carvedilol 50 mg BID, tamsulosin and clonidine 0.3 mg TID started on amlodipine 5mg and monitor blood pressure Hydralazine IV with parameters monitor BP Follow and adjust medications as needed. (5) Chronic anemia: Code(s): D64.9 - Anemia, unspecified Status: Acute Assessment and Plan: Hgb 8.9 on admission, 7.5 and this runs within his baseline 7-9 range. Iron 39, TIBC 156 with TSat 25% and Ferritin normal. Consistent with anemia of chronic disease. Check B12/folate for completeness. (6) Type 2 diabetes mellitus: Code(s): E11.9 - Type 2 diabetes mellitus without complications Status: Acute Assessment and Plan: The patient's blood glucose was reviewed on 06/16 Glucose reasonably well controlled. Continue AccuCheks covering with sliding scale. Hypoglycemia protocol available as needed. Continue lantus but decrease dose Plan COPD - stable. Continue DuoNeb q.4 hours as needed Positive D-dimer - Patient with tachycardia and tachypnea. VQ scan ordered showing intermedicate probability of PE. Check LE venous dopplers. DVT prophylaxis - SCDs Code status - full Disposition: May DC tomorrow Subjective Date/time seen: 06/18/23 15:20 Interval history: 57yo male with hx of quadriplegia, HTN, dysphagia with GTube, hemorrhagic stroke and nonverbal, seizure, DM, chronic encephalopathy and CAD here for altered mental status. Patient with eye open but unable to provide hx. Review of Systems Review of Systems: ROS negative, except above ROS unobtainable: Yes unobtainable due to mental status Exam Narrative: AF 98.2 116/60 114 18 97% ra Gen - NARD Chest - clear anteriorly and in the flanks, nmlRR CV - RRR S1/S2. Tele showing no acute findings. Abd - Soft, obese, GTube secured with dressing that Ext - No pedal edema Neuro - awake, nonverbal. paralyzed Psych - unable to assess Skin - Warm and dry Objective Data Vital Signs Vital Signs: Vital Signs - 24 hr 06/17/23 15:42 06/17/23 16:00 06/17/23 16:00 Temperature 98.0 F Pulse Rate 89 91 Respiratory Rate 23 H Blood Pressure 129/60 Pulse Oximetry 100 Oxygen Delivery Room Air 06/17/23 18:00 06/17/23 19:26 06/17/23 20:40 Temperat
[2023-06-18 16:57] LABS: Glucose Point of Care 144 mg/dl (65-105)
[2023-06-18] MEDS: ATORVASTATIN 40 MG TABLET 80 MG FEED TUBE (20:53)
[2023-06-18] MEDS: AMOXICILLIN/CLAVULANATE K 875-125 MG TAB 1 TABLET PO (20:54)
[2023-06-18] MEDS: DOXYCYCLINE HYCLATE 100 MG TABLET PO (20:54)
[2023-06-18] MEDS: SENNA/DOCUSATE SODIUM TABLET 2 TAB FEED TUBE (20:54)
[2023-06-18 23:45] LABS: Iron 37 ug/dL (49-181)
[2023-06-18 23:54] LABS: Percent Iron Saturation 22 % (20-50)
[2023-06-19] VITALS (11 sets, daily range): BP systolic 129–178; BP diastolic 57–92; PULSE 80–96; RESP 14–21; TEMP 36.1–36.6; O2SAT 99–100
[2023-06-19] LABS: Glucose Point of Care 137 mg/dl (65-105)
[2023-06-19 06:52] LABS: Basophils Absolute Auto 0.1 K/mm3 (0.0-0.1); Basophils Percent Auto 0.6 % (0.2-1.2); Eosinophils Absolute Auto 0.4 K/mm3 (0-0.3); Eosinophils Percent Auto 4.2 % (0-4.4); Hematocrit 25.2 % (42.0-52.0); Hemoglobin 7.5 g/dL (14.0-18.0); Immature Granulocyte Absolute 0.07 K/mm3 (0.00-0.031); Immature Granulocyte Percent A 0.8 % (0-0.5); Lymphocytes Absolute Auto 2.05 K/mm3 (0.9-3.2); Lymphocytes Percent Auto 24.7 % (18.3-44.2); Mean Corpuscular HGB Conc 29.8 g/dl (32-36); Mean Corpuscular Hemoglobin 28.6 pg (26-34); Mean Corpuscular Volume 96.2 fl (80-100); Mean Platelet Volume 8.8 fl (7.4-10.4); Monocytes Absolute Auto 0.9 K/mm3 (0.1-0.6); Monocytes Percent Auto 11.1 % (2.6-8.5); Neutrophils Absolute Auto 4.9 K/mm3 (1.3-6.7); Neutrophils Percent Auto 58.6 % (45.5-73.1); Platelet Count Result 307 k/mm3 (150-375); Red Blood Count 2.62 M/mm3 (4.6-6.20); Red Cell Distribution Width 18.6 % (11.5-14.5); White Blood Count 8.3 K/mm3 (4.5-10.0)
[2023-06-19 07:04] LABS: Lactic Acid Reflex 1.3 mmol/L (0.7-2.0)
[2023-06-19 07:09] LABS: Alanine Aminotransferase 29 U/L (6-50); Albumin Level 2.7 g/dL (3.5-5.1); Alkaline Phosphatase 88 U/L (38-126); Anion Gap 3 mmol/L (8-16); Aspartate Amino Transferase 32 U/L (17-59); Bilirubin,Total 0.4 mg/dL (0.2-1.3); Blood Urea Nitrogen 24 mg/dL (9-20); Calcium 8.5 mg/dL (8.4-10.2); Carbon Dioxide 28 mmol/L (22-30); Chloride 108 mmol/L (98-107); Estimated CRCL calculation 121 ml/min; Estimated Glomerular Filt Rate > 60; Glucose 132 mg/dL (65-110); Potassium 4.2 mmol/L (3.4-5.0); Sodium 139 mmol/L (137-145)
[2023-06-19 08:19] LABS: Glucose Point of Care 153 mg/dl (65-105)
[2023-06-19] MEDS: carvediloL 25 MG TABLET 50 MG PO ×2 (09:22→20:58)
[2023-06-19] MEDS: cloNIDine HCL 0.1 MG TABLET 0.3 MG PO ×3 (09:22→16:51)
[2023-06-19] MEDS: DOXYCYCLINE HYCLATE 100 MG TABLET PO ×2 (09:22→20:58)
[2023-06-19] MEDS: SODIUM CHLORIDE 1 GM TABLET FEED TUBE (09:23)
[2023-06-19] MEDS: AMOXICILLIN/CLAVULANATE K 875-125 MG TAB 1 TABLET PO ×2 (09:23→20:58)
[2023-06-19] MEDS: TAMSULOSIN HCL 0.4 MG CAPSULE 0.8 MG PO (09:23)
[2023-06-19] MEDS: INSULIN GLARGINE (*BKC) 100 UNITS/ML 20 UNITS SUB-Q ×2 (09:23→21:05)
[2023-06-19] MEDS: amLODIPine BESYLATE 5 MG TABLET PO (09:23)
[2023-06-19] MEDS: ASPIRIN 325 MG TABLET FEED TUBE (09:23)
[2023-06-19] MEDS: prednisoLONE ACETATE 1% OPHTH 5 ML 1 DROP RIGHT EYE ×4 (09:24→20:58)
[2023-06-19] MEDS: ARTIFICIAL TEARS OPHTH SOLN 15 ML BOTTLE 1 DROP EACH EYE ×3 (09:24→16:51)
--- NOTE | 2023-06-19 12:09 | PCNFU ---
Nutrition Follow-Up Complete: Swallowing Difficulties as related to CVA as evidenced by PEG tube feedings. Goal: Meet estimated needs Patient is meeting current goal. No new goal. Pt current nutrition is Glucerna 1.2 at 70 ml/hr. Last recorded weight is 116.5 kg, up from 113 kg on admit. Bowel Motility:No BM reported, nursing is aware, Miralax is ordered PRN. Labs Reviewed:Glu 132,BUN 24, Alb 2.7 Meds Noted: Lantus, NovoLog,Miralax, Lipitor. Skin: unstageable on saccum. Additional Notes: Patient current with PEG tube feedings of Glucerna 1.2 at 70 ml/hr and tolerating per nursing. Flush 30 mlm q 4 hours. Tube feedings providing 1848 kcals/92 gms protein/1240 ml water. Meeting 100% of kcal and protein needs. Agree with diet orders. Monitor tube feedings, tolerance, wt, labs. Follow up every Thursday and Thursday.
[2023-06-19] MEDS: polyethylene glycoL 3350 17 GM POWD.PACK FEED TUBE (12:14)
[2023-06-19 12:34] LABS: Glucose Point of Care 147 mg/dl (65-105)
--- NOTE | 2023-06-19 14:15 | PM.IMPN ---
Progress Note: A&P Assessment and Plan (1) Acute encephalopathy: Code(s): G93.40 - Encephalopathy, unspecified Status: Acute Assessment and Plan: Patient was hospitalized here from 06/02 to 06/14 for vomiting. EGD 06/12 showing reflux esophagitis. Colonoscopy showing internal hemorrhoids. He had a UTI that was treated. He was discharged 06/14. Patilawrencen returns the following day due to n/v. Unclear but may have had altered mental status as well. Head CT showing no acute process. Can not get MR brain due to shunt. Suspect metabolic related to PNA and sepsis Check b12, TSH Continue to monitor (2) Multifocal pneumonia: Code(s): J18.9 - Pneumonia, unspecified organism Status: Acute Assessment and Plan: Patient was negative for influenza, RSV and for COVID.? Upon arrival in ED, patient was afebrile and WBC was 10.2 UA unremarkable. BCx collected. CT Ch/A/P showing bilateral lower lobe infiltrates concerning for multifocal pneumonia with suspected aspiration pneumonia. Patient has been having n/v. on Unasyn and Doxycycline monitor cultures Currently switched to Augmentin doxycycline (3) Sepsis: Code(s): A41.9 - Sepsis, unspecified organism Status: Acute Assessment and Plan: Sepsis present on admission with tachycardia, tachypnea and leukocytosis Related to above. Monitor WBC. (4) Hypertensive urgency: Code(s): I16.0 - Hypertensive urgency Status: Acute Assessment and Plan: Patient noted to have uncontrolled hypertension on admission. His blood pressure was 205 /101. Patient received hydralazine in [facility] ED Echo showing EF 70% with severely increased LV wall thickness and minimal valve disease. Continue carvedilol 50 mg BID, tamsulosin and clonidine 0.3 mg TID started on amlodipine 5mg and monitor blood pressure Hydralazine IV with parameters monitor BP Follow and adjust medications as needed. (5) Chronic anemia: Code(s): D64.9 - Anemia, unspecified Status: Acute Assessment and Plan: Hgb 8.9 on admission, 7.5 and this runs within his baseline 7-9 range. Iron 39, TIBC 156 with TSat 25% and Ferritin normal. Consistent with anemia of chronic disease. Check B12/folate for completeness. (6) Type 2 diabetes mellitus: Code(s): E11.9 - Type 2 diabetes mellitus without complications Status: Acute Assessment and Plan: The patient's blood glucose was reviewed on 06/16 Glucose reasonably well controlled. Continue AccuCheks covering with sliding scale. Hypoglycemia protocol available as needed. Continue lantus but decrease dose Plan COPD - stable. Continue DuoNeb q.4 hours as needed Positive D-dimer - Patient with tachycardia and tachypnea. VQ scan ordered showing intermediate probability of PE. Lower extremity Doppler with possible acute left deep femoral vein thrombus Discussed with the family with recent intracranial bleed he might not be a candidate for chronic anticoagulation. Will consult General surgery for potential IVC filter placement. 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 Patient with eye open but unable to provide hx. Discussed with nursing staff. Review of Systems Review of Systems: ROS unobtainable: Yes unobtainable due to mental status Exam Narrative: Gen - NARD Chest - clear anteriorly and in the flanks, nmlRR CV - RRR S1/S2. Tele showing no acute findings. Abd - Soft, obese, GTube secured with dressing th
[2023-06-19] MEDS: SCOPOLAMINE 1 MG PATCH 1 PATCH TRANSDERM (16:53)
[2023-06-19 17:33] LABS: Glucose Point of Care 166 mg/dl (65-105)
[2023-06-19] MEDS: SENNA/DOCUSATE SODIUM TABLET 2 TAB FEED TUBE (20:58)
[2023-06-19] MEDS: ATORVASTATIN 40 MG TABLET 80 MG FEED TUBE (20:58)
[2023-06-19 21:55] LABS: Glucose Point of Care 172 mg/dl (65-105)
[2023-06-20] VITALS (12 sets, daily range): BP systolic 135–154; BP diastolic 71–75; PULSE 85–95; RESP 14–20; TEMP 36.5–36.6; O2SAT 98–100
[2023-06-20 05:56] LABS: Basophils Percent Auto 0.4 % (0.2-1.2); Eosinophils Absolute Auto 0.5 K/mm3 (0-0.3); Eosinophils Percent Auto 5.9 % (0-4.4); Hematocrit 26.3 % (42.0-52.0); Hemoglobin 7.8 g/dL (14.0-18.0); Immature Granulocyte Absolute 0.08 K/mm3 (0.00-0.031); Lymphocytes Absolute Auto 1.71 K/mm3 (0.9-3.2); Lymphocytes Percent Auto 21.8 % (18.3-44.2); Mean Corpuscular HGB Conc 29.7 g/dl (32-36); Mean Corpuscular Hemoglobin 28.3 pg (26-34); Mean Corpuscular Volume 95.3 fl (80-100); Mean Platelet Volume 8.8 fl (7.4-10.4); Monocytes Absolute Auto 0.6 K/mm3 (0.1-0.6); Monocytes Percent Auto 8.2 % (2.6-8.5); Neutrophils Absolute Auto 4.9 K/mm3 (1.3-6.7); Neutrophils Percent Auto 62.7 % (45.5-73.1); Nucleated Red Blood Cells Perc 0.4 % (0.0-0.2); Platelet Count Result 296 k/mm3 (150-375); Red Blood Count 2.76 M/mm3 (4.6-6.20); Red Cell Distribution Width 18.3 % (11.5-14.5); White Blood Count 7.8 K/mm3 (4.5-10.0)
[2023-06-20 06:26] LABS: Alanine Aminotransferase 41 U/L (6-50); Albumin Level 3.1 g/dL (3.5-5.1); Alkaline Phosphatase 91 U/L (38-126); Anion Gap 5 mmol/L (8-16); Aspartate Amino Transferase 47 U/L (17-59); Bilirubin,Total 0.6 mg/dL (0.2-1.3); Blood Urea Nitrogen 24 mg/dL (9-20); Calcium 8.7 mg/dL (8.4-10.2); Carbon Dioxide 29 mmol/L (22-30); Chloride 103 mmol/L (98-107); Estimated CRCL calculation 140 ml/min; Estimated Glomerular Filt Rate > 60; Glucose 183 mg/dL (65-110); Potassium 4.8 mmol/L (3.4-5.0); Sodium 137 mmol/L (137-145)
[2023-06-20 07:05] LABS: Hypochromasia 1+ (NORMAL); Platelet Estimate Adequate (Adequate); Schistocytes Rare (NORMAL)
[2023-06-20 07:06] LABS: Anisocytosis 1+ (NORMAL); Poikilocytosis 1+ (NORMAL)
[2023-06-20] MEDS: ENOXAPARIN 40 MG/0.4 ML SYRINGE SUB-Q (09:35)
[2023-06-20] MEDS: ASPIRIN 325 MG TABLET FEED TUBE (09:35)
[2023-06-20] MEDS: amLODIPine BESYLATE 5 MG TABLET PO (09:35)
[2023-06-20] MEDS: DOXYCYCLINE HYCLATE 100 MG TABLET PO ×2 (09:35→20:46)
[2023-06-20] MEDS: AMOXICILLIN/CLAVULANATE K 875-125 MG TAB 1 TABLET PO ×2 (09:35→20:45)
[2023-06-20] MEDS: cloNIDine HCL 0.1 MG TABLET 0.3 MG PO ×3 (09:35→18:01)
[2023-06-20] MEDS: SODIUM CHLORIDE 1 GM TABLET FEED TUBE (09:35)
[2023-06-20] MEDS: carvediloL 25 MG TABLET 50 MG PO ×2 (09:36→20:46)
[2023-06-20] MEDS: TAMSULOSIN HCL 0.4 MG CAPSULE 0.8 MG PO (09:36)
[2023-06-20] MEDS: INSULIN GLARGINE (*BKC) 100 UNITS/ML 20 UNITS SUB-Q ×2 (10:11→20:47)
[2023-06-20] MEDS: prednisoLONE ACETATE 1% OPHTH 5 ML 1 DROP RIGHT EYE ×4 (10:11→20:45)
[2023-06-20] MEDS: ARTIFICIAL TEARS OPHTH SOLN 15 ML BOTTLE 1 DROP EACH EYE ×3 (10:11→18:03)
--- NOTE | 2023-06-20 11:06 | PM.CNGS ---
Assessment and Plan Assessment and plan (1) Left femoral vein DVT: Code(s): I82.412 - Acute embolism and thrombosis of left femoral vein Status: Acute Assessment and Plan: Patient has a left femoral DVT. CTA of the chest has not been performed, but probably should be before making any further decisions. He is 3 months out from a hemorrhagic stroke which seems likely to be safe for anticoagulation, but I would recommend checking with neurosurgeon prior to initiating any anticoagulation. He is quadriplegic and bed ridden which makes him high risk for recurrent DVTs or PEs. Placing IVC filter will not treat the current DVT or prevent future DVTs, it will only prevent large clots from propagating to the lungs. If hospitalist speaks with neurosurgeon and they do not feel it is safe to anticoagulate, then I could plan to proceed with IVC filter on Thursday. (2) Hypertensive urgency: Code(s): I16.0 - Hypertensive urgency Status: Acute (3) History of intracranial hemorrhage: Code(s): Z86.79 - Personal history of other diseases of the circulatory system Status: Acute (4) Encephalopathy: Code(s): G93.40 - Encephalopathy, unspecified Status: Acute History of Present Illness Consult details Consult date: 06/20/23 Reason for consult: other (DVT/PE) Requesting physician: David Montalvo MD Narrative: This is 57-year-old man who asked to see for possible IVC filter placement. He has encephalopathy after a hemorrhagic stroke therefore history is obtained from the chart. He was admitted to the hospital on 06/15/2023 with hypertensive urgency and pneumonia. He has a history of hemorrhagic stroke in March of 2023. On workup during this hospitalization, he was noted to have a DVT and V/Q scan suggests possible PE. Due to his history of hemorrhagic stroke, hospitalist asked me to see patient for possible IVC filter. Review of Systems Review of Systems: ROS unobtainable: Yes unobtainable due to medical condition and unobtainable due to mental status [facility] Past Medical History Medical History (Updated 06/20/23 @ 11:16 by Santosh Pisano DO) Acute on chronic anemia Benign prostatic hyperplasia Coronary artery disease Encephalopathy Hemorrhagic stroke (03/2023) Hypertension Intracranial hemorrhage Occult blood in stools Seizure Type 2 diabetes mellitus Vascular dementia Surgical History Surgical History 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 History of cardiac catheterization History of coronary artery stent placement History of percutaneous endoscopic gastrostomy History of tracheostomy Status post ventriculo-peritoneal shunt placement Family History Family History Other Family history unknown Social History Social History Social History: Healthcare power of estate attorney: Ivory Hassan, sister. Code status: Full code. Smoking status: Never smoker Alcohol intake: never Substance use: never Substance use type: does not use Spiritual care concerns: No Meds Home Medications and Allergies Home Medications Medication Instructions Recorded Confirmed Type Novolog FlexPen U-100 Insulin 10 units subcut TIDWM 06/02/23 06/15/23 History acetaminophen 500 mg capsule 1,000 mg feeding tube Q6H PRN Pain 06/02/23 06/15/23 History artificial tears solution eye drops 1 drp ophthalmic (eye) TID 06/02/23 06/15/23 History aspirin 325 mg tablet 325 mg feeding tube DAILY 06/02/23 06/15/23 History atorvastatin 80 mg tablet 80 mg feeding tube HS 06/02/23 06/15/23 History bisacodyl 10 mg rectal suppository 10 mg RECTAL DAILY PRN Constipation 06/02/23 06/15/23 History carboxymethylcellulose sodium 0.5 1 drp EACH EYE QID 06/02/23 06/15/23 History % eye drops carvedilol 25 mg tablet 50 mg feeding tube BID
[2023-06-20 11:31] LABS: Glucose Point of Care 191 mg/dl (65-105)
--- NOTE | 2023-06-20 14:33 | PM.IMPN ---
Progress Note: A&P Assessment and Plan (1) Acute encephalopathy: Code(s): G93.40 - Encephalopathy, unspecified Status: Acute Assessment and Plan: Patient was hospitalized here from 06/02 to 06/14 for vomiting. EGD 06/12 showing reflux esophagitis. Colonoscopy showing internal hemorrhoids. He had a UTI that was treated. He was discharged 06/14. Patilawrencen returns the following day due to n/v. Unclear but may have had altered mental status as well. Head CT showing no acute process. Can not get MR brain due to shunt. Suspect metabolic related to PNA and sepsis Check b12, TSH Continue to monitor (2) Multifocal pneumonia: Code(s): J18.9 - Pneumonia, unspecified organism Status: Acute Assessment and Plan: Patient was negative for influenza, RSV and for COVID.? Upon arrival in ED, patient was afebrile and WBC was 10.2 UA unremarkable. BCx collected. CT Ch/A/P showing bilateral lower lobe infiltrates concerning for multifocal pneumonia with suspected aspiration pneumonia. Patient has been having n/v. on Unasyn and Doxycycline monitor cultures Currently switched to Augmentin doxycycline (3) Sepsis: Code(s): A41.9 - Sepsis, unspecified organism Status: Acute Assessment and Plan: Sepsis present on admission with tachycardia, tachypnea and leukocytosis Related to above. Monitor WBC. (4) Hypertensive urgency: Code(s): I16.0 - Hypertensive urgency Status: Acute Assessment and Plan: Patient noted to have uncontrolled hypertension on admission. His blood pressure was 205 /101. Patient received hydralazine in [facility] ED Echo showing EF 70% with severely increased LV wall thickness and minimal valve disease. Continue carvedilol 50 mg BID, tamsulosin and clonidine 0.3 mg TID started on amlodipine 5mg and monitor blood pressure Hydralazine IV with parameters monitor BP Follow and adjust medications as needed. (5) Chronic anemia: Code(s): D64.9 - Anemia, unspecified Status: Acute Assessment and Plan: Hgb 8.9 on admission, 7.5 and this runs within his baseline 7-9 range. Iron 39, TIBC 156 with TSat 25% and Ferritin normal. Consistent with anemia of chronic disease. Check B12/folate for completeness. (6) Type 2 diabetes mellitus: Code(s): E11.9 - Type 2 diabetes mellitus without complications Status: Acute Assessment and Plan: The patient's blood glucose was reviewed on 06/16 Glucose reasonably well controlled. Continue AccuCheks covering with sliding scale. Hypoglycemia protocol available as needed. Continue lantus but decrease dose Plan COPD - stable. Continue DuoNeb q.4 hours as needed Positive D-dimer - Patient with tachycardia and tachypnea. VQ scan ordered showing intermediate probability of PE. Lower extremity Doppler with possible acute left deep femoral vein thrombus Discussed with the family with recent intracranial bleed he might not be a candidate for chronic anticoagulation. Will consult General surgery for potential IVC filter placement. 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 Discussed neurosurgery and suggest to resume anticoagulation if needed for DVT/PE. Also suggested if only DVT be present to proceed with IVC filter placement. Will further evaluate this with CTA to conform PE DVT prophylaxis - SCDs will initiate prophylactic Lovenox discussed with family power energy attorney will switch to full-dose anticoagulation Code status - full Disposition: Await medical stability Subjective Date/time seen: 06/20/23 14:33 Interval history: 57yo male with hx of quadriplegia, HTN, dysphagia with GTube, hemorrhagic stroke and nonverbal, seizure, DM
[2023-06-20 14:34] LABS: Glucose Point of Care 172 mg/dl (65-105)
[2023-06-20 17:55] LABS: Glucose Point of Care 171 mg/dl (65-105)
--- NOTE | 2023-06-20 19:43 | PC.NURSE ---
On 06/20/23, the student, Jaziel Joseph, provided care and completed [facility] documentation on this patient. I have reviewed the student's documentation and agree with the findings.
[2023-06-20] MEDS: ENOXAPARIN 120 MG/0.8 ML SYRINGE 117 MG SUB-Q (20:46)
[2023-06-20] MEDS: SENNA/DOCUSATE SODIUM TABLET 2 TAB FEED TUBE (20:46)
[2023-06-20] MEDS: ATORVASTATIN 40 MG TABLET 80 MG FEED TUBE (20:46)
[2023-06-21] VITALS (11 sets, daily range): BP systolic 131–143; BP diastolic 59–75; PULSE 85–91; RESP 16–20; TEMP 36.3–36.6; O2SAT 95–96
[2023-06-21 00:10] LABS: Glucose Point of Care 173 mg/dl (65-105)
[2023-06-21 06:10] LABS: Basophils Percent Auto 0.5 % (0.2-1.2); Eosinophils Absolute Auto 0.4 K/mm3 (0-0.3); Eosinophils Percent Auto 4.5 % (0-4.4); Hematocrit 26.2 % (42.0-52.0); Hemoglobin 7.9 g/dL (14.0-18.0); Immature Granulocyte Percent A 1.2 % (0-0.5); Lymphocytes Absolute Auto 2.48 K/mm3 (0.9-3.2); Lymphocytes Percent Auto 29.4 % (18.3-44.2); Mean Corpuscular HGB Conc 30.2 g/dl (32-36); Mean Corpuscular Hemoglobin 28.6 pg (26-34); Mean Corpuscular Volume 94.9 fl (80-100); Mean Platelet Volume 8.8 fl (7.4-10.4); Monocytes Absolute Auto 0.8 K/mm3 (0.1-0.6); Monocytes Percent Auto 9.4 % (2.6-8.5); Neutrophils Absolute Auto 4.7 K/mm3 (1.3-6.7); Nucleated Red Blood Cells Perc 0.4 % (0.0-0.2); Platelet Count Result 278 k/mm3 (150-375); Red Blood Count 2.76 M/mm3 (4.6-6.20); Red Cell Distribution Width 18.2 % (11.5-14.5); White Blood Count 8.4 K/mm3 (4.5-10.0)
[2023-06-21 06:24] LABS: Alanine Aminotransferase 37 U/L (6-50); Albumin Level 2.8 g/dL (3.5-5.1); Alkaline Phosphatase 90 U/L (38-126); Anion Gap 4 mmol/L (8-16); Aspartate Amino Transferase 36 U/L (17-59); Bilirubin,Total 0.4 mg/dL (0.2-1.3); Blood Urea Nitrogen 23 mg/dL (9-20); Carbon Dioxide 30 mmol/L (22-30); Chloride 103 mmol/L (98-107); Estimated CRCL calculation 122 ml/min; Estimated Glomerular Filt Rate > 60; Glucose 177 mg/dL (65-110); Magnesium 1.9 mg/dL (1.6-2.3); Potassium 4.5 mmol/L (3.4-5.0); Sodium 137 mmol/L (137-145)
[2023-06-21 06:34] LABS: Glucose Point of Care 166 mg/dl (65-105)
[2023-06-21] MEDS: ENOXAPARIN 120 MG/0.8 ML SYRINGE 117 MG SUB-Q ×2 (08:12→21:26)
[2023-06-21] MEDS: ASPIRIN 325 MG TABLET FEED TUBE (08:12)
[2023-06-21] MEDS: amLODIPine BESYLATE 5 MG TABLET PO (08:13)
[2023-06-21] MEDS: cloNIDine HCL 0.1 MG TABLET 0.3 MG PO ×3 (08:13→17:57)
[2023-06-21] MEDS: carvediloL 25 MG TABLET 50 MG PO ×2 (08:14→21:26)
[2023-06-21] MEDS: AMOXICILLIN/CLAVULANATE K 875-125 MG TAB 1 TABLET PO ×2 (08:15→21:27)
[2023-06-21] MEDS: SODIUM CHLORIDE 1 GM TABLET FEED TUBE (08:15)
[2023-06-21] MEDS: TAMSULOSIN HCL 0.4 MG CAPSULE 0.8 MG PO (08:16)
[2023-06-21] MEDS: ARTIFICIAL TEARS OPHTH SOLN 15 ML BOTTLE 1 DROP EACH EYE ×3 (08:16→17:58)
[2023-06-21] MEDS: INSULIN GLARGINE (*BKC) 100 UNITS/ML 20 UNITS SUB-Q ×2 (08:17→21:25)
[2023-06-21] MEDS: prednisoLONE ACETATE 1% OPHTH 5 ML 1 DROP RIGHT EYE ×4 (08:17→21:26)
[2023-06-21 12:33] LABS: Glucose Point of Care 157 mg/dl (65-105)
--- NOTE | 2023-06-21 12:33 | P.PNIM_ITS ---
Progress Note: A&P Assessment and Plan (1) Acute encephalopathy: Code(s): G93.40 - Encephalopathy, unspecified Status: Acute Assessment and Plan: Patient was hospitalized here from 06/02 to 06/14 for vomiting. EGD 06/12 showing reflux esophagitis. Colonoscopy showing internal hemorrhoids. He had a UTI that was treated. He was discharged 06/14. Patilawrencen returns the following day due to n/v. Unclear but may have had altered mental status as well. Head CT showing no acute process. Can not get MR brain due to shunt. Suspect metabolic related to PNA and sepsis Check b12, TSH Continue to monitor (2) Multifocal pneumonia: Code(s): J18.9 - Pneumonia, unspecified organism Status: Acute Assessment and Plan: Patient was negative for influenza, RSV and for COVID.? Upon arrival in ED, patient was afebrile and WBC was 10.2 UA unremarkable. BCx collected. CT Ch/A/P showing bilateral lower lobe infiltrates concerning for multifocal pneumonia with suspected aspiration pneumonia. Patient has been having n/v. on Unasyn and Doxycycline monitor cultures Currently switched to Augmentin doxycycline (3) Sepsis: Code(s): A41.9 - Sepsis, unspecified organism Status: Acute Assessment and Plan: Sepsis present on admission with tachycardia, tachypnea and leukocytosis Related to above. Monitor WBC. (4) Hypertensive urgency: Code(s): I16.0 - Hypertensive urgency Status: Acute Assessment and Plan: Patient noted to have uncontrolled hypertension on admission. His blood pressure was 205 /101. Patient received hydralazine in [facility] ED Echo showing EF 70% with severely increased LV wall thickness and minimal valve disease. Continue carvedilol 50 mg BID, tamsulosin and clonidine 0.3 mg TID started on amlodipine 5mg and monitor blood pressure Hydralazine IV with parameters monitor BP Follow and adjust medications as needed. (5) Chronic anemia: Code(s): D64.9 - Anemia, unspecified Status: Acute Assessment and Plan: Hgb 8.9 on admission, 7.5 and this runs within his baseline 7-9 range. Iron 39, TIBC 156 with TSat 25% and Ferritin normal. Consistent with anemia of chronic disease. Check B12/folate for completeness. (6) Type 2 diabetes mellitus: Code(s): E11.9 - Type 2 diabetes mellitus without complications Status: Acute Assessment and Plan: The patient's blood glucose was reviewed on 06/16 Glucose reasonably well controlled. Continue AccuCheks covering with sliding scale. Hypoglycemia protocol available as needed. Continue lantus but decrease dose Plan COPD - stable. Continue DuoNeb q.4 hours as needed Positive D-dimer - Patient with tachycardia and tachypnea. VQ scan ordered showing intermediate probability of PE. Lower extremity Doppler with possible acute left deep femoral vein thrombus Discussed with the family with recent intracranial bleed he might not be a candidate for chronic anticoagulation. Will consult General surgery for potential IVC filter placement. 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 Centrilobular nodules and airspace opacities in the lower lung lobes and lingula stable from 06/15/2023 consistent with pneumonia. Discussed with general surgery who suggest to reach out to Neurosurgery if he would be a candidate for resumption of anticoagulation. Discussed neurosurgery and suggest to resume anticoagulation if needed for
[2023-06-21] MEDS: PANTOPRAZOLE SODIUM IV 40 MG VIAL IV PUSH ×2 (12:38→21:26)
--- NOTE | 2023-06-21 12:52 | PM.PNGS ---
Progress Note: A&P Assessment and Plan (1) Left femoral vein DVT: Code(s): I82.412 - Acute embolism and thrombosis of left femoral vein Status: Acute Assessment and Plan: I discussed treatment options with Ivory, patient's power of deputy commonwealth's attorney. He is far enough out from his prior intracranial hemorrhage to be safe to initiate anticoagulation. In general, he is at high risk for future blood clots and anticoagulation would be favorable. There is also however some slight risk of recurrent intracranial hemorrhage or other sources of bleeding. IVC filter placement would prevent a large blood clot from his leg from propagating to his lungs, but would not treat or prevent any recurrent blood clot. There are also risks associated with IVC filter placement including filter migration, IVC thrombosis and small thrombi passing through the filter. This was all discussed with the POA and she will discuss with her family and make a decision together. IVC filter placement can be performed tomorrow or the next day, but would recommend continuing anticoagulation at this time. Continue watching H&H and monitoring for any signs of bleeding. Aspirin could be decreased down to 81 mg at the hospitalist discretion. Will continue GI prophylaxis with Protonix. (2) Chronic anemia: Code(s): D64.9 - Anemia, unspecified Status: Acute (3) Hypertensive urgency: Code(s): I16.0 - Hypertensive urgency Status: Acute (4) History of intracranial hemorrhage: Code(s): Z86.79 - Personal history of other diseases of the circulatory system Status: Acute (5) Encephalopathy: Code(s): G93.40 - Encephalopathy, unspecified Status: Acute Subjective Subjective Date/Time Seen: 06/21/23 12:52 Interval history: No significant changes. Exam GI: Inspection: non-distended, Pannus present and obesity Extrem: General: no pedal edema Objective Data Vital Signs Vital Signs: Vital Signs - 24 hr 06/20/23 13:14 06/20/23 16:13 06/20/23 16:00 Temperature 36.6 C 36.5 C Pulse Rate 89 88 88 Respiratory Rate 14 16 Blood Pressure 148/75 H 150/73 H Pulse Oximetry 100 100 Oxygen Delivery 06/20/23 20:40 06/20/23 20:46 06/20/23 20:00 Temperature 36.6 C Pulse Rate 87 90 91 Respiratory Rate 20 Blood Pressure 135/73 Pulse Oximetry 100 Oxygen Delivery 06/20/23 20:00 06/21/23 00:00 06/21/23 04:00 Temperature Pulse Rate 90 86 85 Respiratory Rate 20 Blood Pressure Pulse Oximetry 100 Oxygen Delivery Room Air 06/21/23 06:11 06/21/23 08:14 06/21/23 08:00 Temperature 36.6 C Pulse Rate 87 91 88 Respiratory Rate 20 Blood Pressure 131/72 Pulse Oximetry 96 Oxygen Delivery 06/21/23 08:00 Temperature Pulse Rate Respiratory Rate Blood Pressure Pulse Oximetry Oxygen Delivery Room Air Intake/Output Intake/Output: Intake & Output 06/18/23 06/19/23 06/20/23 06/21/23 23:59 23:59 23:59 23:59 Intake Total 971 291 7783 787 Output Total 875 7410 1250 950 Balance -675 -1000 -197 -163 Meds/Results Medications: Active Medications Generic Name Dose Route Start Last Admin Trade Name Freq PRN Reason Stop Dose Admin Acetaminophen 1,000 mg 06/16/23 16:56 Acetaminophen 500 Mg Tablet FEED TUBE Q6H PRN Pain Albuterol/Ipratropium 3 ml 06/15/23 18:56 06/18/23 03:10 Ipratropium 0.5 Mg/Albuterol Sulfate 2.5 Mg Ampul.Neb 3 Ml INHALATION 3 ml Q6HRT PRN Administration Wheezing Amlodipine Besylate 5 mg 06/19/23 09:00 06/21/23 08:13 Amlodipine Besylate 5 Mg Tablet PO 5 mg QAM RICHARD Administration Amoxicillin/Clavulanate Potassium 1 tablet 06/18/23 23:00 06/21/23 08:15 Amoxicillin/Clavulanate K 875-125 Mg Tab PO 06/22/23 21:01 1 tablet Q12HR RICHARD Administration Artificial Tears 1 drop 06/16/23 18:00 06/21/23 12:38 Artificial Tears Ophth Soln 15 Ml Bottle EACH EYE 1 drop TID RICHARD Administra
--- NOTE | 2023-06-21 18:24 | PC.NURSE ---
On 06/21/23, the student, Jaziel Joseph, provided care and completed [facility] documentation on this patient. I have reviewed the student's documentation and agree with the findings.
[2023-06-21 18:36] LABS: Glucose Point of Care 150 mg/dl (65-105)
--- NOTE | 2023-06-21 19:18 | PC.NURSE ---
On 06/21/23, the student, Jaziel Joseph, provided care and completed [facility] documentation on this patient. I have reviewed the student's documentation and agree with the findings.
[2023-06-21] MEDS: SENNA/DOCUSATE SODIUM TABLET 2 TAB FEED TUBE (21:27)
[2023-06-21] MEDS: ATORVASTATIN 40 MG TABLET 80 MG FEED TUBE (21:27)
[2023-06-22] VITALS (11 sets, daily range): BP systolic 138–151; BP diastolic 73–89; PULSE 80–97; RESP 18–21; TEMP 36.2–37.1; O2SAT 100
[2023-06-22 03:04] LABS: Glucose Point of Care 128 mg/dl (65-105)
[2023-06-22 05:53] LABS: Basophils Percent Auto 0.5 % (0.2-1.2); Eosinophils Absolute Auto 0.3 K/mm3 (0-0.3); Eosinophils Percent Auto 3.8 % (0-4.4); Hematocrit 27.1 % (42.0-52.0); Immature Granulocyte Absolute 0.13 K/mm3 (0.00-0.031); Immature Granulocyte Percent A 1.7 % (0-0.5); Lymphocytes Absolute Auto 2.09 K/mm3 (0.9-3.2); Lymphocytes Percent Auto 26.8 % (18.3-44.2); Mean Corpuscular HGB Conc 29.5 g/dl (32-36); Mean Corpuscular Hemoglobin 28.3 pg (26-34); Mean Corpuscular Volume 95.8 fl (80-100); Mean Platelet Volume 8.8 fl (7.4-10.4); Monocytes Absolute Auto 0.8 K/mm3 (0.1-0.6); Neutrophils Absolute Auto 4.5 K/mm3 (1.3-6.7); Neutrophils Percent Auto 57.2 % (45.5-73.1); Nucleated Red Blood Cells Perc 0.4 % (0.0-0.2); Platelet Count Result 274 k/mm3 (150-375); Red Blood Count 2.83 M/mm3 (4.6-6.20); Red Cell Distribution Width 18.1 % (11.5-14.5); White Blood Count 7.8 K/mm3 (4.5-10.0)
[2023-06-22 06:11] LABS: Alanine Aminotransferase 66 U/L (6-50); Alkaline Phosphatase 96 U/L (38-126); Anion Gap 3 mmol/L (8-16); Aspartate Amino Transferase 71 U/L (17-59); Bilirubin,Total 0.4 mg/dL (0.2-1.3); Blood Urea Nitrogen 21 mg/dL (9-20); Calcium 9.1 mg/dL (8.4-10.2); Carbon Dioxide 30 mmol/L (22-30); Chloride 104 mmol/L (98-107); Estimated CRCL calculation 108 ml/min; Estimated Glomerular Filt Rate > 60; Glucose 122 mg/dL (65-110); Potassium 4.3 mmol/L (3.4-5.0); Sodium 137 mmol/L (137-145)
[2023-06-22 06:19] LABS: Hypochromasia 2+ (NORMAL); Platelet Estimate Adequate (Adequate); Polychromasia 1+ (NORMAL); Schistocytes None Seen (NORMAL)
[2023-06-22 08:44] LABS: Glucose Point of Care 106 mg/dl (65-105)
[2023-06-22] MEDS: amLODIPine BESYLATE 5 MG TABLET PO (09:06)
[2023-06-22] MEDS: carvediloL 25 MG TABLET 50 MG PO ×2 (09:07→21:47)
[2023-06-22] MEDS: TAMSULOSIN HCL 0.4 MG CAPSULE 0.8 MG PO (09:07)
[2023-06-22] MEDS: ASPIRIN 81 MG CHEWABLE TABLET FEED TUBE (09:07)
[2023-06-22] MEDS: SODIUM CHLORIDE 1 GM TABLET FEED TUBE (09:07)
[2023-06-22] MEDS: AMOXICILLIN/CLAVULANATE K 875-125 MG TAB 1 TABLET PO ×2 (09:07→21:47)
[2023-06-22] MEDS: cloNIDine HCL 0.1 MG TABLET 0.3 MG PO ×3 (09:07→18:06)
[2023-06-22] MEDS: ARTIFICIAL TEARS OPHTH SOLN 15 ML BOTTLE 1 DROP EACH EYE ×3 (09:08→18:06)
[2023-06-22] MEDS: prednisoLONE ACETATE 1% OPHTH 5 ML 1 DROP RIGHT EYE ×4 (09:08→21:48)
--- NOTE | 2023-06-22 12:25 | PC.NURSE ---
Spoke with pt's POA, Ivory, regarding the family's decision to move forward with IVC filter vs. anticoagulation. Ivory states she decided to move forward with anticoagulation. Updated Dr. Pisano and Dr. Montalvo on her decision.
[2023-06-22 12:32] LABS: Glucose Point of Care 96 mg/dl (65-105)
--- NOTE | 2023-06-22 13:24 | PM.IMPN ---
Progress Note: A&P Assessment and Plan (1) Acute encephalopathy: Code(s): G93.40 - Encephalopathy, unspecified Status: Acute Assessment and Plan: Patient was hospitalized here from 06/02 to 06/14 for vomiting. EGD 06/12 showing reflux esophagitis. Colonoscopy showing internal hemorrhoids. He had a UTI that was treated. He was discharged 06/14. Patilawrencen returns the following day due to n/v. Unclear but may have had altered mental status as well. Head CT showing no acute process. Can not get MR brain due to shunt. Suspect metabolic related to PNA and sepsis Check b12, TSH Continue to monitor (2) Multifocal pneumonia: Code(s): J18.9 - Pneumonia, unspecified organism Status: Acute Assessment and Plan: Patient was negative for influenza, RSV and for COVID.? Upon arrival in ED, patient was afebrile and WBC was 10.2 UA unremarkable. BCx collected. CT Ch/A/P showing bilateral lower lobe infiltrates concerning for multifocal pneumonia with suspected aspiration pneumonia. Patient has been having n/v. on Unasyn and Doxycycline monitor cultures Currently switched to Augmentin doxycycline (3) Sepsis: Code(s): A41.9 - Sepsis, unspecified organism Status: Acute Assessment and Plan: Sepsis present on admission with tachycardia, tachypnea and leukocytosis Related to above. Monitor WBC. (4) Hypertensive urgency: Code(s): I16.0 - Hypertensive urgency Status: Acute Assessment and Plan: Patient noted to have uncontrolled hypertension on admission. His blood pressure was 205 /101. Patient received hydralazine in [facility] ED Echo showing EF 70% with severely increased LV wall thickness and minimal valve disease. Continue carvedilol 50 mg BID, tamsulosin and clonidine 0.3 mg TID started on amlodipine 5mg and monitor blood pressure Hydralazine IV with parameters monitor BP Follow and adjust medications as needed. (5) Chronic anemia: Code(s): D64.9 - Anemia, unspecified Status: Acute Assessment and Plan: Hgb 8.9 on admission, 7.5 and this runs within his baseline 7-9 range. Iron 39, TIBC 156 with TSat 25% and Ferritin normal. Consistent with anemia of chronic disease. Check B12/folate for completeness. (6) Type 2 diabetes mellitus: Code(s): E11.9 - Type 2 diabetes mellitus without complications Status: Acute Assessment and Plan: The patient's blood glucose was reviewed on 06/16 Glucose reasonably well controlled. Continue AccuCheks covering with sliding scale. Hypoglycemia protocol available as needed. Continue lantus but decrease dose Plan COPD - stable. Continue DuoNeb q.4 hours as needed Positive D-dimer - Patient with tachycardia and tachypnea. VQ scan ordered showing intermediate probability of PE. Lower extremity Doppler with possible acute left deep femoral vein thrombus Discussed with the family with recent intracranial bleed he might not be a candidate for chronic anticoagulation. Will consult General surgery for potential IVC filter placement. 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 Centrilobular nodules and airspace opacities in the lower lung lobes and lingula stable from 06/15/2023 consistent with pneumonia. Discussed with general surgery who suggest to reach out to Neurosurgery if he would be a candidate for resumption of anticoagulation. Discussed neurosurgery and suggest to resume anticoagulation if needed for DVT/PE. Also suggested if only DVT be present to proceed with IVC filter placement. Currently anticoagulation in place and will plan to switch to Eliquis And adjunctive treatment with placement of IVC filter to be considered with his high risk of recurrent DVT and potential embolization that would be poorly tolerated in case he might need to be off anticoagulation due to risk of bleeding
[2023-06-22] MEDS: ENOXAPARIN 120 MG/0.8 ML SYRINGE 117 MG SUB-Q (13:33)
[2023-06-22] MEDS: PANTOPRAZOLE SODIUM IV 40 MG VIAL IV PUSH ×2 (13:50→21:48)
[2023-06-22 17:20] LABS: Glucose Point of Care 115 mg/dl (65-105)
[2023-06-22] MEDS: SCOPOLAMINE 1 MG PATCH 1 PATCH TRANSDERM (18:06)
[2023-06-22] MEDS: MAGNESIUM HYDROXIDE SUSP 30 ML UDC FEED TUBE (18:06)
[2023-06-22] MEDS: APIXABAN 5 MG TABLET 10 MG PO (21:47)
[2023-06-22] MEDS: SENNA/DOCUSATE SODIUM TABLET 2 TAB FEED TUBE (21:47)
[2023-06-22] MEDS: INSULIN GLARGINE (*BKC) 100 UNITS/ML 20 UNITS SUB-Q (21:47)
[2023-06-22] MEDS: ATORVASTATIN 40 MG TABLET 80 MG FEED TUBE (21:47)
[2023-06-23] VITALS (9 sets, daily range): BP systolic 131–144; BP diastolic 62–84; PULSE 84–96; RESP 18–20; TEMP 36.2–37.1; O2SAT 98–99
[2023-06-23 06:59] LABS: Basophils Percent Auto 0.6 % (0.2-1.2); Eosinophils Absolute Auto 0.2 K/mm3 (0-0.3); Eosinophils Percent Auto 3.3 % (0-4.4); Hematocrit 27.4 % (42.0-52.0); Hemoglobin 8.1 g/dL (14.0-18.0); Immature Granulocyte Absolute 0.09 K/mm3 (0.00-0.031); Immature Granulocyte Percent A 1.3 % (0-0.5); Lymphocytes Absolute Auto 1.85 K/mm3 (0.9-3.2); Lymphocytes Percent Auto 26.4 % (18.3-44.2); Mean Corpuscular HGB Conc 29.6 g/dl (32-36); Mean Corpuscular Hemoglobin 28.2 pg (26-34); Mean Corpuscular Volume 95.5 fl (80-100); Mean Platelet Volume 9.3 fl (7.4-10.4); Monocytes Absolute Auto 0.7 K/mm3 (0.1-0.6); Monocytes Percent Auto 9.7 % (2.6-8.5); Neutrophils Absolute Auto 4.1 K/mm3 (1.3-6.7); Neutrophils Percent Auto 58.7 % (45.5-73.1); Nucleated Red Blood Cells Perc 0.3 % (0.0-0.2); Platelet Count Result 304 k/mm3 (150-375); Red Blood Count 2.87 M/mm3 (4.6-6.20); Red Cell Distribution Width 18.1 % (11.5-14.5)
[2023-06-23 07:00] LABS: Glucose Point of Care 171 mg/dl (65-105)
[2023-06-23 07:11] LABS: Alanine Aminotransferase 74 U/L (6-50); Albumin Level 3.1 g/dL (3.5-5.1); Alkaline Phosphatase 102 U/L (38-126); Anion Gap 4 mmol/L (8-16); Aspartate Amino Transferase 63 U/L (17-59); Bilirubin,Total 0.4 mg/dL (0.2-1.3); Blood Urea Nitrogen 21 mg/dL (9-20); Calcium 8.8 mg/dL (8.4-10.2); Carbon Dioxide 30 mmol/L (22-30); Chloride 103 mmol/L (98-107); Estimated CRCL calculation 122 ml/min; Estimated Glomerular Filt Rate > 60; Glucose 195 mg/dL (65-110); Magnesium 2.1 mg/dL (1.6-2.3); Potassium 4.5 mmol/L (3.4-5.0); Sodium 137 mmol/L (137-145)
[2023-06-23 08:08] LABS: Platelet Estimate Adequate (Adequate)
[2023-06-23 08:09] LABS: Anisocytosis 1+ (NORMAL); Hypochromasia 1+ (NORMAL); Macrocytosis 1+ (NORMAL); Polychromasia 1+ (NORMAL); Schistocytes None Seen (NORMAL)
[2023-06-23] MEDS: SODIUM CHLORIDE 1 GM TABLET FEED TUBE (08:57)
[2023-06-23] MEDS: amLODIPine BESYLATE 5 MG TABLET PO (08:57)
[2023-06-23] MEDS: ASPIRIN 81 MG CHEWABLE TABLET FEED TUBE (08:57)
[2023-06-23] MEDS: carvediloL 25 MG TABLET 50 MG PO (08:57)
[2023-06-23] MEDS: APIXABAN 5 MG TABLET 10 MG PO (08:57)
[2023-06-23] MEDS: cloNIDine HCL 0.1 MG TABLET 0.3 MG PO (08:57)
[2023-06-23] MEDS: ARTIFICIAL TEARS OPHTH SOLN 15 ML BOTTLE 1 DROP EACH EYE ×3 (08:59→17:32)
[2023-06-23] MEDS: PANTOPRAZOLE SODIUM IV 40 MG VIAL IV PUSH (08:59)
[2023-06-23] MEDS: prednisoLONE ACETATE 1% OPHTH 5 ML 1 DROP RIGHT EYE ×3 (09:18→17:36)
[2023-06-23] MEDS: INSULIN GLARGINE (*BKC) 100 UNITS/ML 20 UNITS SUB-Q (09:23)
[2023-06-23] MEDS: BISACODYL 10 MG SUPPOSITORY RECTAL (09:30)
--- NOTE | 2023-06-23 10:25 | PC.NURSE ---
All AM meds given by tube feed route. Patient does not take anything by mouth. Dr. Montalvo aware and order received to change medications to tube feed route.
--- NOTE | 2023-06-23 10:30 | PCNFU ---
Nutrition Follow-Up Complete: Swallowing Difficulties as related to CVA as evidenced by PEG tube feedings. Goal: Meet estimated needs Patient is meeting current goal. No new goal. Pt current nutrition is Glucerna 1.2 at 70 ml/hr. Last recorded weight is 117.3 kg, up from 113 kg on admit. Bowel Motility: No BM reported, discussed with nursing today. Suppository has been ordered PRN. Labs Reviewed:Glu 195, Alb 3.1,BUN 21, Hct 27.4,Hgb 8.1 Meds Noted: Lantus, NovoLog, Milk of Mg, Lipitor, Miralax, Senokot Skin: unstageable-pressure ulcer saccum. Additional Notes: Patient remains on PEG tube feedings of Glucerna 1.2 at 70 ml/hr and tolerating per nursing. Tube feedings providing 1848 kcals/92 gms protein/1240 ml water. Meeting 100% kcal needs at 16 kcal/kg ABW and 81% protein needs at 1.0 gm/kg of IBW. Flush 30 ml q 4 hours. Discussed no bowel movements reported x 8 days. Suppository ordered PRN. Agree with diet orders. Monitor tube feedings, tolerance, wt, labs. Follow up every Thursday and Thursday
[2023-06-23] MEDS: cloNIDine HCL 0.1 MG TABLET 0.3 MG FEED TUBE ×2 (12:22→17:32)
[2023-06-23 12:33] LABS: Glucose Point of Care 191 mg/dl (65-105)
--- NOTE | 2023-06-23 12:42 | P.PNIM_ITS ---
Progress Note: A&P Assessment and Plan (1) Acute encephalopathy: Code(s): G93.40 - Encephalopathy, unspecified Status: Acute Assessment and Plan: Patient was hospitalized here from 06/02 to 06/14 for vomiting. EGD 06/12 showing reflux esophagitis. Colonoscopy showing internal hemorrhoids. He had a UTI that was treated. He was discharged 06/14. Patilawrencen returns the following day due to n/v. Unclear but may have had altered mental status as well. Head CT showing no acute process. Can not get MR brain due to shunt. Suspect metabolic related to PNA and sepsis Check b12, TSH Continue to monitor (2) Multifocal pneumonia: Code(s): J18.9 - Pneumonia, unspecified organism Status: Acute Assessment and Plan: Patient was negative for influenza, RSV and for COVID.? Upon arrival in ED, patient was afebrile and WBC was 10.2 UA unremarkable. BCx collected. CT Ch/A/P showing bilateral lower lobe infiltrates concerning for multifocal pneumonia with suspected aspiration pneumonia. Patient has been having n/v. on Unasyn and Doxycycline monitor cultures Currently switched to Augmentin doxycycline Finished the course of antibiotics (3) Sepsis: Code(s): A41.9 - Sepsis, unspecified organism Status: Acute Assessment and Plan: Sepsis present on admission with tachycardia, tachypnea and leukocytosis Related to above. Monitor WBC. (4) Hypertensive urgency: Code(s): I16.0 - Hypertensive urgency Status: Acute Assessment and Plan: Patient noted to have uncontrolled hypertension on admission. His blood pressure was 205 /101. Patient received hydralazine in [facility] ED Echo showing EF 70% with severely increased LV wall thickness and minimal valve disease. Continue carvedilol 50 mg BID, tamsulosin and clonidine 0.3 mg TID started on amlodipine 5mg and monitor blood pressure Hydralazine IV with parameters monitor BP Follow and adjust medications as needed. (5) Chronic anemia: Code(s): D64.9 - Anemia, unspecified Status: Acute Assessment and Plan: Hgb 8.9 on admission, 7.5 and this runs within his baseline 7-9 range. Iron 39, TIBC 156 with TSat 25% and Ferritin normal. Consistent with anemia of chronic disease. Check B12/folate for completeness. (6) Type 2 diabetes mellitus: Code(s): E11.9 - Type 2 diabetes mellitus without complications Status: Acute Assessment and Plan: The patient's blood glucose was reviewed on 06/16 Glucose reasonably well controlled. Continue AccuCheks covering with sliding scale. Hypoglycemia protocol available as needed. Continue lantus but decrease dose Plan COPD - stable. Continue DuoNeb q.4 hours as needed Positive D-dimer - Patient with tachycardia and tachypnea. VQ scan ordered showing intermediate probability of PE. Lower extremity Doppler with possible acute left deep femoral vein thrombus Discussed with the family with recent intracranial bleed he might not be a candidate for chronic anticoagulation. Will consult General surgery for potential IVC filter placement. 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 Centrilobular nodules and airspace opacities in the lower lung lobes and lingula stable from 06/15/2023 consistent with pneumonia. Discussed with general surgery who suggest to reach out to Neurosurgery if he would be a candidate for resumption of anticoagulation. Discussed neurosurgery and suggest
--- NOTE | 2023-06-23 13:33 | PCCCNOTE ---
On 06/23/23, the student, [Nereida Rodríguez ], provided care and completed [facility] documentation on this patient. I have reviewed the student's documentation and agree with the findings.
--- NOTE | 2023-06-23 15:25 | PM.DS ---
DS: Admitting Diagnosis Discharge Date 06/23/2023 Admitting Diagnosis Sepsis DS: Discharge Diagnosis Discharge Diagnosis (1) Acute encephalopathy: Code(s): G93.40 - Encephalopathy, unspecified Status: Acute (2) Multifocal pneumonia: Code(s): J18.9 - Pneumonia, unspecified organism Status: Acute (3) Sepsis: Code(s): A41.9 - Sepsis, unspecified organism Status: Acute (4) Hypertensive urgency: Code(s): I16.0 - Hypertensive urgency Status: Acute (5) Chronic anemia: Code(s): D64.9 - Anemia, unspecified Status: Acute (6) Type 2 diabetes mellitus: Code(s): E11.9 - Type 2 diabetes mellitus without complications Status: Acute DS: Summary Hospital Course Hospital Course: # acute encephalopathy: patient was hospitalized here from 06/02 to 06/14 for vomiting. EGD 06/12 showing reflux esophagitis. Colonoscopy showing internal hemorrhoids. He had a UTI that was treated. He was discharged 06/14. Patietn returns the following day due to n/v. Unclear but may have had altered mental status as well. Head CT showing no acute process. Can not get MR brain due to shunt. Suspect metabolic related to PNA and sepsis # Multifocal pneumonia with sepsis: Patient was negative for influenza, RSV and for COVID.?? Upon arrival in ED, patient was afebrile and WBC was 10.2 UA unremarkable.? BCx collected. CT Ch/A/P showing bilateral lower lobe infiltrates concerning for multifocal pneumonia with suspected aspiration pneumonia.? Patient has been having n/v. Started on Unasyn and Doxycycline monitor cultures Currently switched to Augmentin doxycycline Finished the course of antibiotics during the hospital stay # Sepsis: Sepsis present on admission with tachycardia, tachypnea and leukocytosis Related to above. Monitor WBC. # hypertensive urgency: Patient noted to have uncontrolled hypertension on admission.? His blood pressure was 205 /101. Patient received hydralazine in [facility] ED Echo showing EF 70% with severely increased LV wall thickness and minimal valve disease. Continue carvedilol 50 mg BID, tamsulosin? and clonidine 0.3 mg TID started on amlodipine 5mg and monitor blood pressure Hydralazine IV with parameters monitor BP Follow and adjust medications as needed. # chronic anemia: Hgb 8.9 on admission, 7.5 and this runs within his baseline 7-9 range. Iron 39, TIBC 156 with TSat 25% and Ferritin normal. Consistent with anemia of chronic disease. Check B12/folate for completeness. # type 2 diabetes mellitus: Glucose reasonably well controlled.? Continue AccuCheks covering with sliding scale.? Hypoglycemia protocol available as needed.? Continue lantus but decrease dose # cOPD - stable. Continue DuoNeb q.4 hours as needed # positive D-dimer - Patient with tachycardia and tachypnea. VQ scan ordered showing intermediate probability of PE.? Lower extremity Doppler with possible acute left deep femoral vein thrombus # acute left deep femoral vein thrombosis: Discussed with the family with recent intracranial bleed he might not be a candidate for chronic anticoagulation.? Consulted General surgery for potential IVC filter placement.? 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 Centrilobular nodules and airspace opacities in the lower lung lobes and lingula stable from 06/15/2023 consistent with pneumonia. Discussed with general surgery who suggest to reach out to Neurosurgery if he would be a candidate for resumption of anticoagulation. Discussed neurosurgery and suggest to resume anticoagulation if needed for DVT/PE.? Also suggested if only DVT be present to consider IVC filter placement. Anticoagulation was started at that point with [facility] General surgery discussed risk and benefit with family and decision was made to not have the IVC filter placed. He was then switched to Eliquis
[2023-06-23 18:38] LABS: Glucose Point of Care 176 mg/dl (65-105)
[2023-07-08 12:24] LABS: Glucose Point of Care 214 mg/dl (65-105)
== END 2023-06-23 19:15 | DRG 720 ==
LOC: ANHED 10:44 → ANHIMU 18:31 → ANH3MED 06-18 18:25
PROVIDERS: Internal Medicine; Admitting Provider Hospitalist; Emergency Provider Emergency Medicine; PCP Internal Medicine; Visit Provider Hospitalist
DX: A41.9 Sepsis, unspecified organism (principal); J18.9 Pneumonia, unspecified organism; I82.412 Acute embolism and thrombosis of left femoral vein; G93.41 Metabolic encephalopathy; G82.50 Quadriplegia, unspecified; I16.0 Hypertensive urgency; D64.9 Anemia, unspecified; E11.9 Type 2 diabetes mellitus without complications; E78.5 Hyperlipidemia, unspecified; J44.9 Chronic obstructive pulmonary disease, unspecified; I69.16 Other paralytic syndrome following nontraumatic intracerebral hemorrhage; I69.191 Dysphagia following nontraumatic intracerebral hemorrhage; I69.120 Aphasia following nontraumatic intracerebral hemorrhage; I25.10 Atherosclerotic heart disease of native coronary artery without angina pectoris; Z95.5 Presence of coronary angioplasty implant and graft; Z89.422 Acquired absence of other left toe(s); Z98.2 Presence of cerebrospinal fluid drainage device; Z93.1 Gastrostomy status
CPT/HCPCS: 36415; 70450; 71045; 71250; 71275; 74176; 78582; 80048; 80053; 80307; 81001; 82607; 82728; 82746; 82948; 83540; 83550; 83605; 83735; 83880; 84100; 84145; 84443; 85025; 85380; 87040; 87637; 87641; 93005; 93970; 94640; 96361; 96365; 96367; 96375; 96376; 99285; A9270; A9540; A9558; C8929; C9113; G0378; G0379; J0295; J0360; J0456; J0696; J1650; J1815; J1836; J2765; J7030; J7040; Q9957; Q9967

== ENCOUNTER 2023-07-28 06:00 | Emergency (ER) | payer OTHER, SELFPAY ==
[2023-07-28] VITALS (13 sets, daily range): BP systolic 130–146; BP diastolic 86–95; PULSE 119–125; RESP 16–20; TEMP 36.2; O2SAT 98–100
[2023-07-28 07:44] LABS: Basophils Percent Auto 0.2 % (0.2-1.2); Eosinophils Percent Auto 0.1 % (0-4.4); Hematocrit 34.3 % (42.0-52.0); Hemoglobin 10.6 g/dL (14.0-18.0); Immature Granulocyte Absolute 0.04 K/mm3 (0.00-0.031); Immature Granulocyte Percent A 0.4 % (0-0.5); Lymphocytes Absolute Auto 1.66 K/mm3 (0.9-3.2); Mean Corpuscular HGB Conc 30.9 g/dl (32-36); Mean Corpuscular Hemoglobin 27.7 pg (26-34); Mean Corpuscular Volume 89.8 fl (80-100); Mean Platelet Volume 8.8 fl (7.4-10.4); Monocytes Absolute Auto 0.6 K/mm3 (0.1-0.6); Neutrophils Percent Auto 77.3 % (45.5-73.1); Platelet Count Result 354 k/mm3 (150-375); Red Blood Count 3.82 M/mm3 (4.6-6.20); Red Cell Distribution Width 17.4 % (11.5-14.5); White Blood Count 10.4 K/mm3 (4.5-10.0)
[2023-07-28] MEDS: ONDANSETRON INJ 4 MG/2 ML VIAL IV PUSH ×2 (07:57→11:03)
[2023-07-28 09:40] LABS: Lactic Acid Reflex 1.2 mmol/L (0.7-2.0)
[2023-07-28 09:41] LABS: Alanine Aminotransferase 25 U/L (6-50); Albumin Level 3.9 g/dL (3.5-5.1); Alkaline Phosphatase 113 U/L (38-126); Anion Gap 7 mmol/L (8-16); Aspartate Amino Transferase 29 U/L (17-59); Bilirubin,Total 0.7 mg/dL (0.2-1.3); Blood Urea Nitrogen 14 mg/dL (9-20); Carbon Dioxide 30 mmol/L (22-30); Chloride 102 mmol/L (98-107); Estimated CRCL calculation 142 ml/min; Estimated Glomerular Filt Rate > 60; Glucose 261 mg/dL (65-110); Lipase 42 U/L (23-300); Potassium 4.2 mmol/L (3.4-5.0); Sodium 139 mmol/L (137-145)
--- NOTE | 2023-07-28 09:55 | ED.GENADULT ---
HPI - General Adult General Chief complaint: Nausea/Vomiting/Diarrhea Stated complaint: vomiting Time Seen by Provider: 07/28/23 07:02 History of Present Illness HPI narrative: 57-year-old male presenting to the emergency department for evaluation nausea and vomiting. Patient had episode of emesis at the care facility. Upon arrival emergency department patient has no further emesis and is resting comfortably. Patient is nonverbal but is able to communicate with yes is and goes. Patient denied any abdominal pain or complaint. Related Data Home Medications Medication Instructions Recorded Confirmed Novolog FlexPen U-100 Insulin 10 units subcut TIDWM 06/02/23 06/15/23 acetaminophen 500 mg capsule 1,000 mg feeding tube Q6H PRN Pain 06/02/23 06/15/23 artificial tears solution eye drops 1 drp ophthalmic (eye) TID 06/02/23 06/15/23 atorvastatin 80 mg tablet 80 mg feeding tube HS 06/02/23 06/15/23 bisacodyl 10 mg rectal suppository 10 mg RECTAL DAILY PRN Constipation 06/02/23 06/15/23 carboxymethylcellulose sodium 0.5 1 drp EACH EYE QID 06/02/23 06/15/23 % eye drops carvedilol 25 mg tablet 50 mg feeding tube BID 06/02/23 06/15/23 clonidine HCl 0.3 mg tablet 0.3 mg feeding tube TID 06/02/23 06/15/23 cyclopentolate 1 % eye drops 1 drp EACH EYE BID 06/02/23 06/15/23 guaifenesin 100 mg/5 mL oral liquid 200 mg PO Q4H PRN Cough 06/02/23 06/15/23 insulin glargine 100 unit/mL 30 unit subcut Q12H 06/02/23 06/15/23 subcutaneous solution magnesium hydroxide 400 mg/5 mL 30 ml feeding tube HS PRN 06/02/23 06/15/23 oral suspension (Milk of Magnesia) Constipation ondansetron HCl 4 mg tablet 4 mg feeding tube Q6-8H nausea 06/02/23 06/15/23 prednisolone acetate 1 % eye 1 drp RIGHT EYE QID 06/02/23 06/15/23 drops,suspension scopolamine base 1 mg over 3 days 1 patch transdermal Q3D 06/02/23 06/15/23 transdermal patch tamsulosin 0.4 mg capsule (Flomax) 0.8 mg PO DAILY 06/02/23 06/15/23 Senna Plus (senna-docusate) 2 tab-cap feeding tube HS 06/15/23 06/15/23 insulin aspart U-100 100 unit/mL 10 unit subcut HS 06/15/23 06/15/23 (3 mL) subcutaneous pen (Novolog FlexPen U-100 Insulin aspart) polyethylene glycol 3350 17 17 g feeding tube DAILY PRN 06/15/23 06/15/23 gram/dose oral powder Constipation sodium chloride 1,000 mg soluble 1,000 mg feeding tube DAILY 06/15/23 06/15/23 tablet Allergies Allergy/AdvReac Type Severity Reaction Status Date / Time No Known Allergies Allergy Verified 06/15/23 19:50 Review of Systems Review of Systems: All systems reviewed & are unremarkable except as noted in HPI and below PMFSH Past Medical History Medical History (Updated 07/28/23 @ 09:59 by Fdiel Vila MD) Acute on chronic anemia Benign prostatic hyperplasia Coronary artery disease Encephalopathy Hemorrhagic stroke (03/2023) Hypertension Intracranial hemorrhage Occult blood in stools Seizure Type 2 diabetes mellitus Vascular dementia Surgical History Surgical History 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 History of cardiac catheterization History of coronary artery stent placement History of percutaneous endoscopic gastrostomy History of tracheostomy Status post ventriculo-peritoneal shunt placement Family History Family History Other Family history unknown Social History Social History Social History: Healthcare power of contract attorney: Ivory Hassan, sister. Code status: Full code. Smoking status: Never smoker Alcohol intake: never Substance use: never Substance use type: does not use Spiritual care concerns: No Exam Narrative: APPEARANCE: Well appearing, no pain, no distress, well-nourished. HEAD: normocephalic, atraumatic. EYES: PERRLA/EOMI, conjunctivae clear. NOSE: Normal no drainage EARS:TMS clear with good light reflex. THR
== END 2023-07-28 11:23 ==
PROVIDERS: Emergency Provider Emergency Medicine; PCP Internal Medicine
DX: R11.2 Nausea with vomiting, unspecified (principal); I25.10 Atherosclerotic heart disease of native coronary artery without angina pectoris; I10 Essential (primary) hypertension; F01.50 Vascular dementia, unspecified severity, without behavioral disturbance, psychotic disturbance, mood disturbance, and anxiety; E11.9 Type 2 diabetes mellitus without complications; N40.0 Benign prostatic hyperplasia without lower urinary tract symptoms; D64.9 Anemia, unspecified; Z95.5 Presence of coronary angioplasty implant and graft; Z86.73 Personal history of transient ischemic attack (TIA), and cerebral infarction without residual deficits; Z79.4 Long term (current) use of insulin; Z89.422 Acquired absence of other left toe(s)
CPT/HCPCS: 36415; 80053; 83605; 83690; 85025; 96374; 96375; 99284; J2405

== ENCOUNTER 2023-08-02 18:02 | Inpatient (IN) | payer OTHER, SELFPAY ==
--- NOTE | ~2023-08-02 | XR_ITS ---
EXAMINATION: XR chest 1V portable DATE: 08/02/2023 22:05 INDICATION: Leukocytosis. TECHNIQUE: A single frontal view of the chest was obtained. COMPARISON: Chest single view 06/15/2023, CT abdomen and pelvis 08/02/2023 FINDINGS: The lung volumes are small. There is mild atelectasis in left lower lobe. No pleural effusi on or pneumothorax. The heart size is normal. A right-sided ventriculoperitoneal shunt is noted. Ther e is a gastrostomy tube in expected position. IMPRESSION: 1. Small lung volumes with mild atelectasis in left lower lobe. Reviewed, dictated and finalized at location E.
--- NOTE | ~2023-08-02 | XR_ITS ---
XR chest 1V portable 08/03/2023 11:39 Indication: Aspiration Procedure: AP portable chest Comparison: 08/02/2023 Findings: Heart size normal. Mild interstitial edema. Right-sided ventriculostomy catheter. No signif icant effusion. No pneumothorax. Impression: 1: Mild interstitial edema. Reviewed, dictated and finalized at location B. Impression: 1: Mild interstitial edema.
--- NOTE | ~2023-08-02 | CT_ITS ---
EXAMINATION: CT abdomen pelvis w con DATE: 08/02/2023 19:53 INDICATION: abd pain, vomiting TECHNIQUE: Computed tomography (CT) of the abdomen and pelvis was performed with 100 mL Omnipaque-350 intravenous contrast. Automated exposure control and iterative reconstruction technique were employe d. The dose-length product was 1439.38 mGy-cm. COMPARISON: 06/15/2023. FINDINGS: Study limited by beam hardening artifact from body habitus and arm positioning. Lower thorax: Bilateral dependent atelectasis. Coronary artery calcifications. Liver: Normal. Biliary/Gallbladder: Gallbladder is normal. No bile duct dilation. Pancreas: No mass or duct dilation. Spleen: Normal. Adrenals:No mass. Kidneys: No suspicious mass, obstructing stone, or hydronephrosis. GI tract: G-tube, in good position. No small or large bowel dilation. Normal appendix. Mesentery/Peritoneum: No ascites, mass, or free air. Retroperitoneum: No mass. Pelvis: Pelvic organs are within normal limits. Soft Tissues: Large sacral soft tissue defect that appears to be filled with packing material, no nikki p osseous involvement. Fat-containing, uncomplicated umbilical hernia. Bones: No acute osseous finding. IMPRESSION: No acute abdominopelvic process detected. Sacral decubitus ulcer, without CT evidence of deep osseous involvement. Reviewed, dictated and finalized at location K.
[2023-08-02 18:03] VITALS: BP 152/84; PULSE 114; RESP 20; TEMP 36.3; O2SAT 100
--- NOTE | 2023-08-02 18:15 | ED.NAVMDI ---
HPI - Nausea/Vomiting/Diarrhea General Chief complaint: Nausea/Vomiting/Diarrhea Stated complaint: vomiting Time Seen by Provider: 08/02/23 18:07 Source: EMS Mode of arrival: EMS Limitations: other (patient is nonverbal due to history of CVA) History of Present Illness HPI Narrative: This is a 57 year old male that presents to the ER for nausea and vomiting. Patient with history of hemorrhagic stroke, is nonverbal. Unable to obtain any history from him. He was sent in for evaluation from his facility for several episodes of nausea and vomiting today. Related Data Home Medications Medication Instructions Recorded Confirmed Novolog FlexPen U-100 Insulin 10 units subcut TIDWM 06/02/23 06/15/23 acetaminophen 500 mg capsule 1,000 mg feeding tube Q6H PRN Pain 06/02/23 06/15/23 artificial tears solution eye drops 1 drp ophthalmic (eye) TID 06/02/23 06/15/23 atorvastatin 80 mg tablet 80 mg feeding tube HS 06/02/23 06/15/23 bisacodyl 10 mg rectal suppository 10 mg RECTAL DAILY PRN Constipation 06/02/23 06/15/23 carboxymethylcellulose sodium 0.5 1 drp EACH EYE QID 06/02/23 06/15/23 % eye drops carvedilol 25 mg tablet 50 mg feeding tube BID 06/02/23 06/15/23 clonidine HCl 0.3 mg tablet 0.3 mg feeding tube TID 06/02/23 06/15/23 cyclopentolate 1 % eye drops 1 drp EACH EYE BID 06/02/23 06/15/23 guaifenesin 100 mg/5 mL oral liquid 200 mg PO Q4H PRN Cough 06/02/23 06/15/23 insulin glargine 100 unit/mL 30 unit subcut Q12H 06/02/23 06/15/23 subcutaneous solution magnesium hydroxide 400 mg/5 mL 30 ml feeding tube HS PRN 06/02/23 06/15/23 oral suspension (Milk of Magnesia) Constipation ondansetron HCl 4 mg tablet 4 mg feeding tube Q6-8H nausea 06/02/23 06/15/23 prednisolone acetate 1 % eye 1 drp RIGHT EYE QID 06/02/23 06/15/23 drops,suspension scopolamine base 1 mg over 3 days 1 patch transdermal Q3D 06/02/23 06/15/23 transdermal patch tamsulosin 0.4 mg capsule (Flomax) 0.8 mg PO DAILY 06/02/23 06/15/23 Senna Plus (senna-docusate) 2 tab-cap feeding tube HS 06/15/23 06/15/23 insulin aspart U-100 100 unit/mL 10 unit subcut HS 06/15/23 06/15/23 (3 mL) subcutaneous pen (Novolog FlexPen U-100 Insulin aspart) polyethylene glycol 3350 17 17 g feeding tube DAILY PRN 06/15/23 06/15/23 gram/dose oral powder Constipation sodium chloride 1,000 mg soluble 1,000 mg feeding tube DAILY 06/15/23 06/15/23 tablet Allergies Allergy/AdvReac Type Severity Reaction Status Date / Time No Known Allergies Allergy Verified 06/15/23 19:50 Review of Systems Review of Systems: ROS unobtainable: Yes unobtainable due to medical condition [facility] Past Medical History Medical History (Updated 08/02/23 @ 21:03 by Veronika Thakkar PA-C) Acute on chronic anemia Benign prostatic hyperplasia Coronary artery disease Encephalopathy Hemorrhagic stroke (03/2023) Hypertension Intracranial hemorrhage Occult blood in stools Seizure Type 2 diabetes mellitus Vascular dementia Surgical History Surgical History 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 History of cardiac catheterization History of coronary artery stent placement History of percutaneous endoscopic gastrostomy History of tracheostomy Status post ventriculo-peritoneal shunt placement Family History Family History Other Family history unknown Social History Social History Social History: Healthcare power of deputy county attorney: Ivory Hassan, sister. Code status: Full code. Smoking status: Never smoker Alcohol intake: never Substance use: never Substance use type: does not use Spiritual care concerns: No Exam Narrative: GENERAL: Chronically ill-appearing, well-nourished, and in no acute distress. HEAD: Normocephalic, atraumatic. EYES: EOMI. CHEST: Clear to auscultation. No respiratory distress. No wheezes ral
--- NOTE | 2023-08-02 18:16 | ECG_ITS ---
Measurements Intervals [place] Rate: 108 P: 28 FL: 124 QRS: 44 QRSD: 105 T: 134 QT: 338 QTc: 454 Interpretive Statements SINUS TACHYCARDIA MINIMAL Q WAVES- INFERIOR LEADS BORDERLINE ST-T WAVE ABNORMALITY- DIFFUSE LEADS ABNORMAL ECG COMPARED TO ECG 06/15/2023 15:48:10 NO SIGNIFICANT CHANGES Electronically Signed On 08-02-2023 21:04:36 CDT by Ferdinand Begum D.O.
[2023-08-02] MEDS: FAMOTIDINE 20 MG/2 ML VIAL IV PUSH (18:34)
[2023-08-02] MEDS: ONDANSETRON INJ 4 MG/2 ML VIAL IV PUSH (18:34)
[2023-08-02] MEDS: SODIUM CHLORIDE 0.9% IV 500 ML 999 ML IV CONT ×2 (18:34→20:11)
[2023-08-02 18:54] LABS: Basophils Percent Auto 0.3 % (0.2-1.2); Eosinophils Absolute Auto 0.1 K/mm3 (0-0.3); Eosinophils Percent Auto 1.2 % (0-4.4); Hematocrit 31.7 % (42.0-52.0); Hemoglobin 9.6 g/dL (14.0-18.0); Immature Granulocyte Absolute 0.07 K/mm3 (0.00-0.031); Immature Granulocyte Percent A 0.6 % (0-0.5); Lymphocytes Absolute Auto 1.76 K/mm3 (0.9-3.2); Lymphocytes Percent Auto 15.1 % (18.3-44.2); Mean Corpuscular HGB Conc 30.3 g/dl (32-36); Mean Corpuscular Hemoglobin 27.4 pg (26-34); Mean Corpuscular Volume 90.6 fl (80-100); Mean Platelet Volume 8.4 fl (7.4-10.4); Monocytes Absolute Auto 0.7 K/mm3 (0.1-0.6); Monocytes Percent Auto 6.3 % (2.6-8.5); Neutrophils Absolute Auto 8.9 K/mm3 (1.3-6.7); Neutrophils Percent Auto 76.5 % (45.5-73.1); Platelet Count Result 332 k/mm3 (150-375); Red Cell Distribution Width 17.7 % (11.5-14.5); White Blood Count 11.7 K/mm3 (4.5-10.0)
[2023-08-02 19:06] LABS: Alanine Aminotransferase 15 U/L (6-50); Albumin Level 3.6 g/dL (3.5-5.1); Alkaline Phosphatase 97 U/L (38-126); Anion Gap 8 mmol/L (8-16); Aspartate Amino Transferase 22 U/L (17-59); Bilirubin,Total 0.6 mg/dL (0.2-1.3); Blood Urea Nitrogen 18 mg/dL (9-20); Calcium 9.4 mg/dL (8.4-10.2); Carbon Dioxide 26 mmol/L (22-30); Chloride 104 mmol/L (98-107); Estimated Glomerular Filt Rate > 60; Glucose 188 mg/dL (65-110); Lipase 96 U/L (23-300); Potassium 3.8 mmol/L (3.4-5.0); Sodium 138 mmol/L (137-145)
[2023-08-02 19:16] VITALS: BP 159/96; PULSE 117; RESP 20; O2SAT 99
[2023-08-02 19:20] LABS: Appearance Urine Clear (Clear); Color Urine Yellow (Yellow); Glucose Urine UA Negative (Negative); Ketones Urine Trace mg/dL (Negative); Protein Urine 2+ mg/dL (Negative)
[2023-08-02 19:21] LABS: Add Urine Microscopic? YES; Bilirubin Urine Negative (Negative); Blood Urine Trace-intact (Negative); Leukocyte Esterase Ur Negative LEU/UL (Negative); Nitrate Urine Negative (Negative)
[2023-08-02 19:28] LABS: Bacteria Urine None Seen /hpf; Non Pathogenic Casts 0-2; RBC Urine 0-2 /hpf (0-2); Squamous Epithelial Cell Urine None Seen /hpf (Few); WBC Urine 0-5 /hpf (0-3)
[2023-08-02 19:29] LABS: Urobilinogen Urine 0.2 mg/dL (<2.0)
[2023-08-02 21:09] VITALS: PULSE 106
[2023-08-02 21:30] VITALS: BP 170/98; PULSE 110; RESP 24; O2SAT 100
--- NOTE | 2023-08-02 21:56 | PC.NURSE ---
pt had another episode of emesis prior to EMS transport back to nursing facility. pt to be admitted.
[2023-08-02] MEDS: PROCHLORPERAZINE EDISYLATE 10 MG/2 ML VIAL IV PUSH (22:18)
[2023-08-02 22:28] LABS: Lactic Acid Reflex 1.1 mmol/L (0.7-2.0)
--- NOTE | 2023-08-02 23:09 | PC.NURSE ---
Report received from YESI Simon. Assumed care of patient at this time.
[2023-08-02 23:25] VITALS: BP 117/89; PULSE 112; RESP 14; O2SAT 97
[2023-08-02 23:41] VITALS: PULSE 112; RESP 16
--- NOTE | 2023-08-02 23:48 | PM.IMHP ---
H&P: HPI History of Present Illness Date/Time: 08/02/23 23:48 Chief Complaint: vomiting Narrative: This is a 57-year-old male residential resident, past medical history significant for hemo right stroke, hypertension, COPD, insulin-dependent diabetes mellitus, peg tube in place. patient is bed ridden, in vegetative state, was brought due to concerns patient had several episodes of vomiting at the residential . patient had another episode of vomiting in the emergency room and became tachycardic. Placed in observation for further evaluation management and treatment. EXAMINATION: CT abdomen pelvis w con DATE: 08/02/2023 19:53 INDICATION: abd pain, vomiting TECHNIQUE: Computed tomography (CT) of the abdomen and pelvis was performed with 100 mL Omnipaque-350 intravenous contrast. Automated exposure control and iterative reconstruction technique were employed. The dose-length product was 1439.38 mGy-cm. COMPARISON: 06/15/2023. FINDINGS: Study limited by beam hardening artifact from body habitus and arm positioning. Lower thorax: Bilateral dependent atelectasis. Coronary artery calcifications. Liver: Normal.? Biliary/Gallbladder: Gallbladder is normal. No bile duct dilation. Pancreas: No mass or duct dilation. Spleen: Normal. Adrenals:No mass. Kidneys: No suspicious mass, obstructing stone, or hydronephrosis. GI tract: G-tube, in good position. No small or large bowel dilation. Normal appendix. Mesentery/Peritoneum: No ascites, mass, or free air. Retroperitoneum: No mass. Pelvis: Pelvic organs are within normal limits. Soft Tissues: Large sacral soft tissue defect that appears to be filled with packing material, no deep osseous involvement. Fat-containing, uncomplicated umbilical hernia. Bones:? No acute osseous finding. IMPRESSION: No acute abdominopelvic process detected. Sacral decubitus ulcer, without CT evidence of deep osseous involvement. Review of Systems Review of Systems: ROS unobtainable: Yes unobtainable due to medical condition ( Persistent vegetative stage) [facility] Past Medical History Medical History (Updated 08/06/23 @ 13:19 by Luz Vigil APRN) Acute on chronic anemia Benign prostatic hyperplasia Coronary artery disease Encephalopathy Hemorrhagic stroke (03/2023) Hypertension Intracranial hemorrhage Occult blood in stools Seizure Type 2 diabetes mellitus Vascular dementia Surgical History Surgical History 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 History of cardiac catheterization History of coronary artery stent placement History of percutaneous endoscopic gastrostomy History of tracheostomy Status post ventriculo-peritoneal shunt placement Family History Family History Other Family history unknown Social History Social History Social History: Healthcare power of assistant city attorney: Ivory Hassan, sister. Code status: Full code. Smoking status: Never smoker Alcohol intake: never Substance use: never Substance use type: does not use Spiritual care concerns: No Meds Home Medications and Allergies Home Medications Medication Instructions Recorded Confirmed Type acetaminophen 500 mg capsule 1,000 mg feeding tube Q6H PRN Pain 06/02/23 08/03/23 History (Scale Score 1-3) atorvastatin 80 mg tablet 80 mg feeding tube HS 06/02/23 08/03/23 History bisacodyl 10 mg rectal suppository 10 mg RECTAL DAILY PRN Constipation 06/02/23 08/03/23 History carvedilol 25 mg tablet 50 mg feeding tube BID 06/02/23 08/03/23 History clonidine HCl 0.3 mg tablet 0.3 mg feeding tube TID 06/02/23 08/03/23 History insulin glargine 100 unit/mL 31 unit subcut DAILY 06/02/23 08/03/23 History subcutaneous solution magnesium hydroxide 400 mg/5 mL 30 ml feeding tube HS PRN 06/02/23 08/03/23 History oral suspension (Milk of Magnesi
[2023-08-03] VITALS (20 sets, daily range): BP systolic 152–197; BP diastolic 83–97; PULSE 90–132; RESP 13–30; TEMP 36.1–36.6; O2SAT 84–100; BMI 36.5
--- NOTE | 2023-08-03 01:06 | ADMGEN ---
This patient, Mendel Kelly, was admitted to Medical Room 349-01. Patient/family oriented to hospital policies and general routines including ID bracelet, bed and alarms, visiting hours, pain management, procedures, bathroom and other care routines, personal items, smoking policy, room service/diet, and visiting hours. Information on how to activate the Rapid Response Team has been discussed. Patient/Family are encouraged to report perceived risks to care and to ask questions if they do not understand what they are told or what they should do.
[2023-08-03] MEDS: AZITHROMYCIN 500 MG/NS 250 ML 500 MG/250 ML BAG 250 MG IVPB (03:07)
--- NOTE | 2023-08-03 09:05 | P.PNIM_ITS ---
Progress Note: A&P Assessment and Plan (1) Aspiration pneumonia: Code(s): J69.0 - Pneumonitis due to inhalation of food and vomit Status: Acute Assessment and Plan: Witnessed vomiting in the ED with poor airway protection given quadriplegia * Diminished breath sounds * Leukocytosis of 11 on presentation---> 8.1 this morning after antibiotics in the ED * Started on Unasyn and doxycycline for aspiration pneumonia concerns * afebrile thus far * PRN albuterol for SOB, wheezing (2) Nausea and vomiting: Qualifiers: Vomiting type: unspecified Qualified Code(s): R11.2 - Nausea with vomiting, unspecified Code(s): R11.2 - Nausea with vomiting, unspecified Status: Acute Assessment and Plan: Recurrent nausea and vomiting * NPO * IVF with LR at 75 ml per hour * Medications switched to IV * Scheduled Reglan IV Q 6 hours * He seems to a lot of secretions, added scopolamine patch * scheduled Protonix IV daily * G-tube to gravity bag * CT abdomen and pelvis with no acute process detected * Recent EGD and colonoscopy from June of this year with no acute findings (3) Persistent vegetative state: Code(s): R40.3 - Persistent vegetative state Status: Acute Assessment and Plan: Quadriplegia s/p hemorrhagic stroke 03/2023 * He is alert but nonverbal * Intermittently seems to nod his head to commands (4) Type 2 diabetes mellitus: Code(s): E11.9 - Type 2 diabetes mellitus without complications Status: Acute Assessment and Plan: Hemoglobin A1c 7.4% most recently checked in May of this year * Q.6 Accu-Cheks given NPO * Hypoglycemia protocol ordered * Low-dose sliding scale for NPO ordered * Blood sugar 190 this morning (5) Hypertension: Code(s): I10 - Essential (primary) hypertension Status: Chronic Assessment and Plan: Hypertension on multiple agents including amlodipine 10 mg, carvedilol 50 mg, clonidine 0.3 mg t.i.d. * Blood pressures ranging 150s to 170s systolic * Heart rate in the 90s to 120s * On telemetry * Started on metoprolol 5 mg IV push q.4 scheduled * Ordered clonidine 0.3 mg patch to start today. Change weekly. (6) Decubital ulcer: Code(s): L89.90 - Pressure ulcer of unspecified site, unspecified stage Status: Acute Assessment and Plan: Sacral decubitus ulcer present * Wound care consult ordered and recommendations appreciated * Kinney placed (7) Pulmonary embolism: Code(s): I26.99 - Other pulmonary embolism without acute cor pulmonale Status: Acute Assessment and Plan: Last admission with [facility] in June there were concerns for a small pulmonary embolism on V/Q scan. CTA was negative for PE. Family declined IVC filter placement. He was still started on Eliquis therapeutic treatment. I spoke with his sister, Ivory STONE who reports that Eliquis was stopped at a [facility] admission [facility] due to high risk of recurrent hemorrhagic stroke. * Continue to hold anticoagulation * SCDs for DVT prophylaxis Subjective Date/time seen: 08/03/23 09:05 Interval history: This is a 57-year-old male with past medical history of quadriplegia, hypertension, hyperlipidemia, and COPD who is a resident of a skilled nursing he brought and after having several episodes of vomiting. Patient is nonverbal at baseline. He presented to the ER overnight with complaints of nausea and vomiting. He underwent CT abdomen pelvis which showed no acute abdominal pelvic process to explain symptoms. He was going to be discharged back to
--- NOTE | 2023-08-03 09:05 | PM.IMPN ---
Progress Note: A&P Assessment and Plan (1) Aspiration pneumonia: Code(s): J69.0 - Pneumonitis due to inhalation of food and vomit Status: Acute Assessment and Plan: Witnessed vomiting in the ED with poor airway protection given quadriplegia Diminished breath sounds Leukocytosis of 11 on presentation---> 8.1 this morning after antibiotics in the ED Started on Unasyn and doxycycline for aspiration pneumonia concerns afebrile thus far PRN albuterol for SOB, wheezing (2) Nausea and vomiting: Qualifiers: Vomiting type: unspecified Qualified Code(s): R11.2 - Nausea with vomiting, unspecified Code(s): R11.2 - Nausea with vomiting, unspecified Status: Acute Assessment and Plan: Recurrent nausea and vomiting NPO IVF with LR at 75 ml per hour Medications switched to IV Scheduled Reglan IV Q 6 hours He seems to a lot of secretions, added scopolamine patch scheduled Protonix IV daily G-tube to gravity bag CT abdomen and pelvis with no acute process detected Recent EGD and colonoscopy from June of this year with no acute findings (3) Persistent vegetative state: Code(s): R40.3 - Persistent vegetative state Status: Acute Assessment and Plan: Quadriplegia s/p hemorrhagic stroke 03/2023 He is alert but nonverbal Intermittently seems to nod his head to commands (4) Type 2 diabetes mellitus: Code(s): E11.9 - Type 2 diabetes mellitus without complications Status: Acute Assessment and Plan: Hemoglobin A1c 7.4% most recently checked in May of this year Q.6 Accu-Cheks given NPO Hypoglycemia protocol ordered Low-dose sliding scale for NPO ordered Blood sugar 190 this morning (5) Hypertension: Code(s): I10 - Essential (primary) hypertension Status: Chronic Assessment and Plan: Hypertension on multiple agents including amlodipine 10 mg, carvedilol 50 mg, clonidine 0.3 mg t.i.d. Blood pressures ranging 150s to 170s systolic Heart rate in the 90s to 120s On telemetry Started on metoprolol 5 mg IV push q.4 scheduled Ordered clonidine 0.3 mg patch to start today. Change weekly. (6) Decubital ulcer: Code(s): L89.90 - Pressure ulcer of unspecified site, unspecified stage Status: Acute Assessment and Plan: Sacral decubitus ulcer present Wound care consult ordered and recommendations appreciated Nirmal placed (7) Pulmonary embolism: Code(s): I26.99 - Other pulmonary embolism without acute cor pulmonale Status: Acute Assessment and Plan: Last admission with [facility] in June there were concerns for a small pulmonary embolism on V/Q scan. CTA was negative for PE. Family declined IVC filter placement. He was still started on Eliquis therapeutic treatment. I spoke with his sister, Ivory STONE who reports that Eliquis was stopped at a recent admission at [facility] due to high risk of recurrent hemorrhagic stroke. Continue to hold anticoagulation SCDs for DVT prophylaxis Subjective Date/time seen: 08/03/23 09:05 Interval history: This is a 57-year-old male with past medical history of quadriplegia, hypertension, hyperlipidemia, and COPD who is a resident of a skilled nursing he brought and after having several episodes of vomiting. Patient is nonverbal at baseline. He presented to the ER overnight with complaints of nausea and vomiting. He underwent CT abdomen pelvis which showed no acute abdominal pelvic process to explain symptoms. He was going to be discharged back to his skilled nursing but he started vomiting again. There were concerns for aspiration pneumonia so he was admitted for further evaluation. A rapid response was called this morning with concerns for labored breathing, low O2 saturation, and tachycardia after what appeared to be another vomiting episode. Respiratory therapy provided NT suction with good response. He was placed on 2 L nasal cannula for
[2023-08-03 09:59] LABS: Basophils Percent Auto 0.5 % (0.2-1.2); Eosinophils Absolute Auto 0.1 K/mm3 (0-0.3); Eosinophils Percent Auto 1.2 % (0-4.4); Hematocrit 31.6 % (42.0-52.0); Hemoglobin 9.6 g/dL (14.0-18.0); Immature Granulocyte Absolute 0.05 K/mm3 (0.00-0.031); Immature Granulocyte Percent A 0.6 % (0-0.5); Lymphocytes Absolute Auto 1.42 K/mm3 (0.9-3.2); Lymphocytes Percent Auto 17.5 % (18.3-44.2); Mean Corpuscular HGB Conc 30.4 g/dl (32-36); Mean Corpuscular Hemoglobin 27.5 pg (26-34); Mean Corpuscular Volume 90.5 fl (80-100); Mean Platelet Volume 8.7 fl (7.4-10.4); Monocytes Absolute Auto 0.9 K/mm3 (0.1-0.6); Monocytes Percent Auto 10.9 % (2.6-8.5); Neutrophils Absolute Auto 5.6 K/mm3 (1.3-6.7); Neutrophils Percent Auto 69.3 % (45.5-73.1); Platelet Count Result 345 k/mm3 (150-375); Red Blood Count 3.49 M/mm3 (4.6-6.20); Red Cell Distribution Width 17.5 % (11.5-14.5); White Blood Count 8.1 K/mm3 (4.5-10.0)
[2023-08-03 10:14] LABS: Alanine Aminotransferase 14 U/L (6-50); Albumin Level 3.6 g/dL (3.5-5.1); Alkaline Phosphatase 90 U/L (38-126); Anion Gap 9 mmol/L (8-16); Aspartate Amino Transferase 22 U/L (17-59); Bilirubin,Total 0.6 mg/dL (0.2-1.3); Blood Urea Nitrogen 15 mg/dL (9-20); Carbon Dioxide 26 mmol/L (22-30); Chloride 102 mmol/L (98-107); Estimated Glomerular Filt Rate > 60; Glucose 182 mg/dL (65-110); Magnesium 1.7 mg/dL (1.6-2.3); Potassium 3.6 mmol/L (3.4-5.0); Sodium 137 mmol/L (137-145)
--- NOTE | 2023-08-03 10:25 | PC.NURSE ---
RN was rounding on patient. Noticed patient was having difficulty breathing, abdominal breathing, increased secretions, diaphoretic, decreased oxygen saturations, and increased heart rate. It appeared that patient had possibly aspirated. Rapid Response was called. RRTeam arrived. Iza BUSINESS DEVELOPMENT ENGINEER gave new orders (see orders). Medications were ordered and administered (see MAR). Respiratory Therapist Celsa deep suctioned patient. Vitals improved (see vitals). Patient's breathing improved after deep suction and medication administration.
[2023-08-03] MEDS: ONDANSETRON INJ 4 MG/2 ML VIAL IV PUSH (10:54)
[2023-08-03] MEDS: AMPICILLIN SULB 1.5 GM/NS 50ML 1.5 GM/50 ML VIAL IVPB ×3 (10:56→18:50)
[2023-08-03 11:02] LABS: Glucose Point of Care 190 mg/dl (65-105)
[2023-08-03] MEDS: DOXYCYCLINE 100 MG/NS 100 ML 100 MG/100 ML BAG IVPB ×2 (11:49→21:47)
[2023-08-03] MEDS: METOCLOPRAMIDE HCL INJ 10 MG/2 ML VIAL IV PUSH ×2 (11:51→18:50)
[2023-08-03] MEDS: METOPROLOL TARTRATE INJ 5 MG/5 ML VIAL IV PUSH ×3 (11:52→21:47)
[2023-08-03] MEDS: PANTOPRAZOLE SODIUM IV 40 MG VIAL IV PUSH (11:53)
--- NOTE | 2023-08-03 11:58 | PCDIET ---
Tube feeding recommendations: Glucerna 1.2 @ 70 ml/h goal rate. (1848 kcal, 92 g protein, 1240 ml water at goal) Start at 20 ml /h and advance 10 ml q hours as tolerated. Flush 100 ml water q 4 hours.
[2023-08-03] MEDS: LACTATED RINGERS 1,000 ML 75 ML IV CONT (12:05)
[2023-08-03] MEDS: cloNIDine 0.3 MG/24 HR PATCH 1 PATCH TRANSDERM (12:14)
[2023-08-03] MEDS: SOD HYPOCHLORITE 1/4 STRENGTH 473 ML 1 APPLIC TOPICAL ×2 (12:14→21:48)
[2023-08-03 12:42] LABS: Glucose Point of Care 184 mg/dl (65-105)
--- NOTE | 2023-08-03 13:28 | PC.NURSE ---
RN spoke with medical secretary on [facility] medical Sherrell and asked her to request all of the medical records. Sherrell verbalized she would.
[2023-08-03 18:50] LABS: Glucose Point of Care 187 mg/dl (65-105)
[2023-08-03] MEDS: FLUTICASONE PROPIONATE 0.05% NA SPR 16 GM BTL (*BKC) 1 SPRAY NASAL (18:51)
[2023-08-03] MEDS: SCOPOLAMINE 1 MG PATCH 1 PATCH TRANSDERM (18:53)
[2023-08-04] VITALS (14 sets, daily range): BP systolic 136–187; BP diastolic 80–97; PULSE 93–123; RESP 20; TEMP 36.1–36.4; O2SAT 97–99
[2023-08-04] MEDS: AMPICILLIN SULB 1.5 GM/NS 50ML 1.5 GM/50 ML VIAL IVPB ×2 (00:23→05:30)
[2023-08-04] MEDS: METOCLOPRAMIDE HCL INJ 10 MG/2 ML VIAL IV PUSH ×4 (00:24→17:35)
[2023-08-04] MEDS: METOPROLOL TARTRATE INJ 5 MG/5 ML VIAL IV PUSH ×2 (01:10→05:29)
[2023-08-04] MEDS: LACTATED RINGERS 1,000 ML 75 ML IV CONT (05:28)
[2023-08-04 06:19] LABS: Basophils Percent Auto 0.2 % (0.2-1.2); Eosinophils Absolute Auto 0.1 K/mm3 (0-0.3); Eosinophils Percent Auto 0.4 % (0-4.4); Hematocrit 30.7 % (42.0-52.0); Hemoglobin 9.3 g/dL (14.0-18.0); Immature Granulocyte Absolute 0.07 K/mm3 (0.00-0.031); Immature Granulocyte Percent A 0.6 % (0-0.5); Lymphocytes Absolute Auto 1.75 K/mm3 (0.9-3.2); Lymphocytes Percent Auto 15.7 % (18.3-44.2); Mean Corpuscular HGB Conc 30.3 g/dl (32-36); Mean Corpuscular Hemoglobin 27.4 pg (26-34); Mean Corpuscular Volume 90.6 fl (80-100); Mean Platelet Volume 8.8 fl (7.4-10.4); Monocytes Percent Auto 8.5 % (2.6-8.5); Neutrophils Absolute Auto 8.3 K/mm3 (1.3-6.7); Neutrophils Percent Auto 74.6 % (45.5-73.1); Platelet Count Result 355 k/mm3 (150-375); Red Blood Count 3.39 M/mm3 (4.6-6.20); Red Cell Distribution Width 17.8 % (11.5-14.5); White Blood Count 11.2 K/mm3 (4.5-10.0)
[2023-08-04 06:28] LABS: Alanine Aminotransferase 14 U/L (6-50); Albumin Level 3.6 g/dL (3.5-5.1); Alkaline Phosphatase 87 U/L (38-126); Anion Gap 7 mmol/L (8-16); Aspartate Amino Transferase 19 U/L (17-59); Bilirubin,Total 0.6 mg/dL (0.2-1.3); Blood Urea Nitrogen 13 mg/dL (9-20); Calcium 9.2 mg/dL (8.4-10.2); Carbon Dioxide 29 mmol/L (22-30); Chloride 103 mmol/L (98-107); Estimated CRCL calculation 117 ml/min; Estimated Glomerular Filt Rate > 60; Glucose 177 mg/dL (65-110); Magnesium 1.6 mg/dL (1.6-2.3); Potassium 3.4 mmol/L (3.4-5.0); Sodium 139 mmol/L (137-145)
--- NOTE | 2023-08-04 08:02 | PC.NURSE ---
RN gave update to Ivory via telephone.
[2023-08-04 08:35] LABS: Glucose Point of Care 189 mg/dl (65-105)
--- NOTE | 2023-08-04 08:35 | P.PNIM_ITS ---
Progress Note: A&P Assessment and Plan (1) Aspiration pneumonia: Code(s): J69.0 - Pneumonitis due to inhalation of food and vomit Status: Acute Assessment and Plan: Witnessed vomiting in the ED with poor airway protection given quadriplegia * Diminished breath sounds * Leukocytosis of 11 on presentation---> 8.1 this morning after antibiotics in the ED * Started on Unasyn and doxycycline for aspiration pneumonia concerns * afebrile thus far * PRN albuterol for SOB, wheezing 08/03: * Less likely concerned for a bacterial asa pna as it appears he has more of a difficulty with managing his secretions. Suspect his secretions are stimulating his gag reflex and causing him to look like he is vomiting. No actual emesis has been witnessed but clear secretions reported. Started on scopolamine patch yesterday to help with secretions. * Stopping IV antibiotics * Needs frequent oral care and Q 2-3 hour suctioning. (2) Nausea and vomiting: Qualifiers: Vomiting type: unspecified Qualified Code(s): R11.2 - Nausea with vomiting, unspecified Code(s): R11.2 - Nausea with vomiting, unspecified Status: Acute Assessment and Plan: Recurrent nausea and vomiting * NPO * IVF with LR at 75 ml per hour * Medications switched to IV * Scheduled Reglan IV Q 6 hours * He seems to have a lot of secretions, added scopolamine patch * scheduled Protonix IV daily * G-tube to gravity bag * CT abdomen and pelvis with no acute process detected * Recent EGD and colonoscopy from June of this year with no acute findings 08/03: Will resume his tube feeding today. Start with Glucerna 1.2 at 10 mils an hour. Increase tube feeding by 20 mils every 4 hours. Goal feeding will be 50 mils an hour. Free water flush 200 mL every 6 hours. Once he is tolerating his tube feed at this continuous rate we can transition to bolus feeds. He was previously on 300 mils 4 times a day. (3) Persistent vegetative state: Code(s): R40.3 - Persistent vegetative state Status: Acute Assessment and Plan: Quadriplegia s/p hemorrhagic stroke 03/2023 * He is alert but nonverbal * Intermittently seems to nod his head to commands (4) Type 2 diabetes mellitus: Code(s): E11.9 - Type 2 diabetes mellitus without complications Status: Acute Assessment and Plan: Hemoglobin A1c 7.4% most recently checked in May of this year * Q.6 Accu-Cheks given NPO * Hypoglycemia protocol ordered * Low-dose sliding scale for NPO ordered * Blood sugar 190 this morning 08/03: Starting Lantus at 50% dose reduction tonight. He will receive 16 units. As he tolerates his tube feeds we can increase Lantus dose. Blood sugars today ranging 189-173. (5) Hypertension: Code(s): I10 - Essential (primary) hypertension Status: Chronic Assessment and Plan: Hypertension on multiple agents including amlodipine 10 mg, carvedilol 50 mg, clonidine 0.3 mg t.i.d. * Blood pressures ranging 150s to 170s systolic * Heart rate in the 90s to 120s * On telemetry * Started on metoprolol 5 mg IV push q.4 scheduled * Ordered clonidine 0.3 mg patch to start today. Change weekly. 08/03: * Coreg decreased to 25 mg b.i.d. as this is max dose. Restarted his oral agents except I left his clonidine on as a patch. I wanted to make sure he did not have any more vomiting before removing the patch in starting his oral dosing. (6) Decubital ulcer: Code(s): L89.90 - Pressure ulcer of unspecified site, unspecified stage Status: Acute Assessm
--- NOTE | 2023-08-04 08:35 | PM.IMPN ---
Progress Note: A&P Assessment and Plan (1) Aspiration pneumonia: Code(s): J69.0 - Pneumonitis due to inhalation of food and vomit Status: Acute Assessment and Plan: Witnessed vomiting in the ED with poor airway protection given quadriplegia Diminished breath sounds Leukocytosis of 11 on presentation---> 8.1 this morning after antibiotics in the ED Started on Unasyn and doxycycline for aspiration pneumonia concerns afebrile thus far PRN albuterol for SOB, wheezing 08/03: Less likely concerned for a bacterial asa pna as it appears he has more of a difficulty with managing his secretions. Suspect his secretions are stimulating his gag reflex and causing him to look like he is vomiting. No actual emesis has been witnessed but clear secretions reported. Started on scopolamine patch yesterday to help with secretions. Stopping IV antibiotics Needs frequent oral care and Q 2-3 hour suctioning. (2) Nausea and vomiting: Qualifiers: Vomiting type: unspecified Qualified Code(s): R11.2 - Nausea with vomiting, unspecified Code(s): R11.2 - Nausea with vomiting, unspecified Status: Acute Assessment and Plan: Recurrent nausea and vomiting NPO IVF with LR at 75 ml per hour Medications switched to IV Scheduled Reglan IV Q 6 hours He seems to have a lot of secretions, added scopolamine patch scheduled Protonix IV daily G-tube to gravity bag CT abdomen and pelvis with no acute process detected Recent EGD and colonoscopy from June of this year with no acute findings 08/03: Will resume his tube feeding today. Start with Glucerna 1.2 at 10 mils an hour. Increase tube feeding by 20 mils every 4 hours. Goal feeding will be 50 mils an hour. Free water flush 200 mL every 6 hours. Once he is tolerating his tube feed at this continuous rate we can transition to bolus feeds. He was previously on 300 mils 4 times a day. (3) Persistent vegetative state: Code(s): R40.3 - Persistent vegetative state Status: Acute Assessment and Plan: Quadriplegia s/p hemorrhagic stroke 03/2023 He is alert but nonverbal Intermittently seems to nod his head to commands (4) Type 2 diabetes mellitus: Code(s): E11.9 - Type 2 diabetes mellitus without complications Status: Acute Assessment and Plan: Hemoglobin A1c 7.4% most recently checked in May of this year Q.6 Accu-Cheks given NPO Hypoglycemia protocol ordered Low-dose sliding scale for NPO ordered Blood sugar 190 this morning 08/03: Starting Lantus at 50% dose reduction tonight. He will receive 16 units. As he tolerates his tube feeds we can increase Lantus dose. Blood sugars today ranging 189-173. (5) Hypertension: Code(s): I10 - Essential (primary) hypertension Status: Chronic Assessment and Plan: Hypertension on multiple agents including amlodipine 10 mg, carvedilol 50 mg, clonidine 0.3 mg t.i.d. Blood pressures ranging 150s to 170s systolic Heart rate in the 90s to 120s On telemetry Started on metoprolol 5 mg IV push q.4 scheduled Ordered clonidine 0.3 mg patch to start today. Change weekly. 08/03: Coreg decreased to 25 mg b.i.d. as this is max dose. Restarted his oral agents except I left his clonidine on as a patch. I wanted to make sure he did not have any more vomiting before removing the patch in starting his oral dosing. (6) Decubital ulcer: Code(s): L89.90 - Pressure ulcer of unspecified site, unspecified stage Status: Acute Assessment and Plan: Sacral decubitus ulcer present Wound care consult ordered and recommendations appreciated Nirmal cadet 08/03: Underwent surgical debridement on 07/20 with surgery at [facility]. No osteomyelitis or abscess seen. He completed a 2 week treatment of Cipro and Flagyl. (7) Pulmonary embolism: Code(s): I26.99 - Other pulmonary embolism without acute cor pulmonale Status: Acut
[2023-08-04] MEDS: POTASSIUM CHLORIDE INJ 40 MEQ in SODIUM CHLORIDE 0.9% IV 500 ML 130 MEQ IVPB (10:20)
[2023-08-04] MEDS: MAGNESIUM SULF 2 GM/WATER 50ML 2 GM/50 ML BAG IVPB (10:22)
[2023-08-04] MEDS: TAMSULOSIN HCL 0.4 MG CAPSULE 0.8 MG PO (10:23)
[2023-08-04] MEDS: ASPIRIN 81 MG CHEWABLE TABLET FEED TUBE (10:23)
[2023-08-04] MEDS: PANTOPRAZOLE SODIUM IV 40 MG VIAL IV PUSH (10:23)
[2023-08-04] MEDS: amLODIPine BESYLATE 5 MG TABLET 10 MG FEED TUBE (10:23)
[2023-08-04] MEDS: DOXYCYCLINE 100 MG/NS 100 ML 100 MG/100 ML BAG IVPB (10:23)
[2023-08-04] MEDS: FLUTICASONE PROPIONATE 0.05% NA SPR 16 GM BTL (*BKC) 1 SPRAY NASAL ×2 (10:26→16:49)
[2023-08-04] MEDS: SOD HYPOCHLORITE 1/4 STRENGTH 473 ML 1 APPLIC TOPICAL (10:26)
[2023-08-04] MEDS: carvediloL 25 MG TABLET 50 MG FEED TUBE (10:37)
--- NOTE | 2023-08-04 11:07 | PCNFU ---
Nutrition Follow-Up Complete: Inability to meet estimated nutrition needs by mouth related to dysphagia, CVA as evidenced by need for full enteral nutrition support Meet estimated nutrition needs - Not meeting needs. Tube feeding on hold Goal: Pt current nutrition is NPO, tube feeds on hold. Nutrition recommendation: Restart tube feeding when able. Recommend Glucerna 1.2 @ goal rate 70 ml/h: 1848 kcal, 92 g protein, 1240 ml free water. Flush 100 ml water q 4 hours. Last recorded weight is 109 kg. Bowel Motility: +1 08/03/23 Labs Reviewed: Hgb 9.3, Hct 30.7, Glu 189 Meds Noted: LR, Reglan, protonix Skin: Unstageable pressure injury to coccyx Additional Notes: Remains NPO, due to vomiting. Notes say on previous visit to another hospital, it was thought he might be lactose intolerant; however the standard tube feeding formulas like Glucerna are all lactose free, although they can contain whey proteins derived from dairy. Please consult dietitian if needed Monitoring tube feeding orders, plan of care, weights, labs Follow up Thursday and Thursday per policy
[2023-08-04 12:23] LABS: Glucose Point of Care 173 mg/dl (65-105)
[2023-08-04 13:58] LABS: CRP 6.4 mg/dL (<1.0)
[2023-08-04 14:14] LABS: Procalcitonin 0.1 ng/mL
[2023-08-04 17:20] LABS: Glucose Point of Care 165 mg/dl (65-105)
[2023-08-04] MEDS: ATORVASTATIN 40 MG TABLET 80 MG FEED TUBE (20:32)
[2023-08-04] MEDS: INSULIN GLARGINE (*BKC) 100 UNITS/ML 16 UNITS SUB-Q (20:32)
[2023-08-04] MEDS: carvediloL 25 MG TABLET FEED TUBE (20:32)
[2023-08-05] VITALS (10 sets, daily range): BP systolic 164–170; BP diastolic 59–89; PULSE 92–102; RESP 18–20; TEMP 36.4–36.6; O2SAT 98–99
[2023-08-05 00:20] LABS: Glucose Point of Care 160 mg/dl (65-105)
[2023-08-05] MEDS: METOCLOPRAMIDE HCL INJ 10 MG/2 ML VIAL IV PUSH ×5 (01:31→23:56)
[2023-08-05 04:33] LABS: Glucose Point of Care 190 mg/dl (65-105)
[2023-08-05 07:19] LABS: Basophils Percent Auto 0.3 % (0.2-1.2); Eosinophils Absolute Auto 0.2 K/mm3 (0-0.3); Eosinophils Percent Auto 2.1 % (0-4.4); Hemoglobin 8.8 g/dL (14.0-18.0); Immature Granulocyte Absolute 0.08 K/mm3 (0.00-0.031); Immature Granulocyte Percent A 1.1 % (0-0.5); Lymphocytes Percent Auto 19.8 % (18.3-44.2); Mean Corpuscular HGB Conc 30.3 g/dl (32-36); Mean Corpuscular Hemoglobin 27.7 pg (26-34); Mean Corpuscular Volume 91.2 fl (80-100); Mean Platelet Volume 8.3 fl (7.4-10.4); Monocytes Absolute Auto 0.9 K/mm3 (0.1-0.6); Monocytes Percent Auto 11.5 % (2.6-8.5); Neutrophils Absolute Auto 4.9 K/mm3 (1.3-6.7); Neutrophils Percent Auto 65.2 % (45.5-73.1); Platelet Count Result 288 k/mm3 (150-375); Red Blood Count 3.18 M/mm3 (4.6-6.20); Red Cell Distribution Width 17.8 % (11.5-14.5); White Blood Count 7.6 K/mm3 (4.5-10.0)
[2023-08-05 07:27] LABS: Alanine Aminotransferase 15 U/L (6-50); Albumin Level 3.1 g/dL (3.5-5.1); Alkaline Phosphatase 83 U/L (38-126); Anion Gap 3 mmol/L (4-12); Aspartate Amino Transferase 24 U/L (17-59); Bilirubin,Total 0.4 mg/dL (0.2-1.3); Blood Urea Nitrogen 13 mg/dL (9-20); Calcium 8.8 mg/dL (8.4-10.2); Carbon Dioxide 31 mmol/L (22-30); Chloride 105 mmol/L (98-107); Estimated CRCL calculation 117 ml/min; Estimated Glomerular Filt Rate > 60; Glucose 188 mg/dL (65-110); Magnesium 1.9 mg/dL (1.6-2.3); Potassium 3.8 mmol/L (3.4-5.0); Sodium 139 mmol/L (137-145)
[2023-08-05 08:08] LABS: Glucose Point of Care 163 mg/dl (65-105)
[2023-08-05] MEDS: amLODIPine BESYLATE 5 MG TABLET 10 MG FEED TUBE (08:23)
[2023-08-05] MEDS: carvediloL 25 MG TABLET FEED TUBE ×2 (08:23→20:54)
[2023-08-05] MEDS: ASPIRIN 81 MG CHEWABLE TABLET FEED TUBE (08:23)
[2023-08-05] MEDS: PANTOPRAZOLE SODIUM IV 40 MG VIAL IV PUSH (08:23)
[2023-08-05] MEDS: FLUTICASONE PROPIONATE 0.05% NA SPR 16 GM BTL (*BKC) 1 SPRAY NASAL ×2 (08:24→17:20)
[2023-08-05 12:40] LABS: Glucose Point of Care 206 mg/dl (65-105)
[2023-08-05] MEDS: INSULIN ASPART (*BKC) 100 UNITS/ML SUB-Q ×2 (12:40→17:34)
--- NOTE | 2023-08-05 15:21 | PM.IMPN ---
Progress Note: A&P Assessment and Plan (1) Aspiration pneumonia: Code(s): J69.0 - Pneumonitis due to inhalation of food and vomit Status: Acute Assessment and Plan: Less likely concerned for a bacterial asa pna as it appears he has more of a difficulty with managing his secretions. Suspect his secretions are stimulating his gag reflex and causing him to look like he is vomiting. No actual emesis has been witnessed but clear secretions reported. Started on scopolamine patch to help with secretions. Needs frequent oral care and Q 2-3 hour suctioning. (2) Nausea and vomiting: Qualifiers: Vomiting type: unspecified Qualified Code(s): R11.2 - Nausea with vomiting, unspecified Code(s): R11.2 - Nausea with vomiting, unspecified Status: Acute Assessment and Plan: resumed his tube feeding Start with Glucerna 1.2 at 10 mils an hour. Increase tube feeding by 20 mils every 4 hours. Goal feeding will be 50 mils an hour. Free water flush 200 mL every 6 hours. Once he is tolerating his tube feed at this continuous rate we can transition to bolus feeds. He was previously on 300 mils 4 times a day. (3) Persistent vegetative state: Code(s): R40.3 - Persistent vegetative state Status: Chronic Assessment and Plan: Quadriplegia s/p hemorrhagic stroke 03/2023 He is alert but nonverbal Intermittently seems to nod his head to commands (4) Type 2 diabetes mellitus: Code(s): E11.9 - Type 2 diabetes mellitus without complications Status: Chronic Assessment and Plan: Hemoglobin A1c 7.4% most recently checked in May of this year Q.6 Accu-Cheks Hypoglycemia protocol Low-dose sliding scale Lantus at 50% dose 16 units. As he tolerates his tube feeds we can increase Lantus dose. (5) Hypertension: Code(s): I10 - Essential (primary) hypertension Status: Chronic Assessment and Plan: Coreg decreased to 25 mg b.i.d. as this is max dose. continue home meds (6) Decubital ulcer: Code(s): L89.90 - Pressure ulcer of unspecified site, unspecified stage Status: Acute Assessment and Plan: Sacral decubitus ulcer present. Underwent surgical debridement on 07/20 with surgery at [facility]. No osteomyelitis or abscess seen. He completed a 2 week treatment of Cipro and Flagyl. Wound care consulted and orders placed Kinney placed (7) Pulmonary embolism: Code(s): I26.99 - Other pulmonary embolism without acute cor pulmonale Status: Acute Assessment and Plan: Last admission with [facility] in June there were concerns for a small pulmonary embolism on V/Q scan. CTA was negative for PE. Doppler 06/16 was positive for left femoral DVT. Family declined IVC filter placement. He was still started on Eliquis therapeutic treatment. I spoke with his sister, Ivory STONE who reports that Eliquis was stopped at a recent admission at [facility] due to high risk of recurrent hemorrhagic stroke. Cinda had a discussion with family about risk and benefits with Eliquis given hemorrhagic stroke. At that time it was decided to stop his Eliquis. They have declined IVC filter. Continue to hold anticoagulation per Maddy Subjective Date/time seen: 08/05/23 15:21 Interval history: Patient opens his eyes to verbal stimulus but does not nod his head to questions. He appears in no acute distress. Tube feedings resumed and frequent suctions. Wound following for sacral ulcer. BC pending but AB d/c yesterday as there is no longer much concern for pneumonia rather than increased secretions. Continue to monitor. Review of Systems Review of Systems: ROS unobtainable: Yes unobtainable due to medical condition ( Persistent vegetative stage) Exam Narrative: General: appears comfortable, well developed, well nourished, appears stated age. HEENT: normocephalic, atraumatic. Mucous membranes moist. Respir
[2023-08-05 17:28] LABS: Glucose Point of Care 216 mg/dl (65-105)
[2023-08-05] MEDS: ATORVASTATIN 40 MG TABLET 80 MG FEED TUBE (20:54)
[2023-08-05] MEDS: INSULIN GLARGINE (*BKC) 100 UNITS/ML 16 UNITS SUB-Q (21:02)
[2023-08-06] VITALS (7 sets, daily range): BP systolic 135–162; BP diastolic 68–83; PULSE 87–94; RESP 18; TEMP 36.2–37.1; O2SAT 97–99
[2023-08-06 00:03] LABS: Glucose Point of Care 212 mg/dl (65-105)
[2023-08-06 00:03] LABS: Glucose Point of Care 199 mg/dl (65-105)
[2023-08-06] MEDS: METOCLOPRAMIDE HCL INJ 10 MG/2 ML VIAL IV PUSH ×2 (05:47→11:56)
[2023-08-06] MEDS: INSULIN ASPART (*BKC) 100 UNITS/ML SUB-Q (06:15)
[2023-08-06 06:45] LABS: Glucose Point of Care 214 mg/dl (65-105)
[2023-08-06 07:59] LABS: Basophils Percent Auto 0.4 % (0.2-1.2); Eosinophils Absolute Auto 0.3 K/mm3 (0-0.3); Eosinophils Percent Auto 3.8 % (0-4.4); Hematocrit 29.2 % (42.0-52.0); Hemoglobin 8.9 g/dL (14.0-18.0); Immature Granulocyte Absolute 0.08 K/mm3 (0.00-0.031); Immature Granulocyte Percent A 1.1 % (0-0.5); Mean Corpuscular HGB Conc 30.5 g/dl (32-36); Mean Corpuscular Hemoglobin 27.7 pg (26-34); Mean Platelet Volume 8.8 fl (7.4-10.4); Monocytes Absolute Auto 0.8 K/mm3 (0.1-0.6); Monocytes Percent Auto 10.4 % (2.6-8.5); Neutrophils Absolute Auto 4.5 K/mm3 (1.3-6.7); Neutrophils Percent Auto 59.3 % (45.5-73.1); Platelet Count Result 299 k/mm3 (150-375); Red Blood Count 3.21 M/mm3 (4.6-6.20); Red Cell Distribution Width 17.7 % (11.5-14.5); White Blood Count 7.6 K/mm3 (4.5-10.0)
[2023-08-06 08:14] LABS: Alanine Aminotransferase 19 U/L (6-50); Albumin Level 3.3 g/dL (3.5-5.1); Alkaline Phosphatase 84 U/L (38-126); Anion Gap 5 mmol/L (4-12); Aspartate Amino Transferase 22 U/L (17-59); Bilirubin,Total 0.4 mg/dL (0.2-1.3); Blood Urea Nitrogen 16 mg/dL (9-20); Calcium 8.8 mg/dL (8.4-10.2); Carbon Dioxide 30 mmol/L (22-30); Chloride 100 mmol/L (98-107); Estimated CRCL calculation 135 ml/min; Estimated Glomerular Filt Rate > 60; Glucose 212 mg/dL (65-110); Magnesium 1.7 mg/dL (1.6-2.3); Potassium 3.7 mmol/L (3.4-5.0); Sodium 135 mmol/L (137-145)
[2023-08-06] MEDS: carvediloL 25 MG TABLET FEED TUBE (09:08)
[2023-08-06] MEDS: PANTOPRAZOLE SODIUM IV 40 MG VIAL IV PUSH (09:08)
[2023-08-06] MEDS: ASPIRIN 81 MG CHEWABLE TABLET FEED TUBE (09:09)
[2023-08-06] MEDS: FLUTICASONE PROPIONATE 0.05% NA SPR 16 GM BTL (*BKC) 1 SPRAY NASAL (09:09)
[2023-08-06] MEDS: amLODIPine BESYLATE 5 MG TABLET 10 MG FEED TUBE (09:09)
[2023-08-06] MEDS: BISACODYL 10 MG SUPPOSITORY RECTAL (09:48)
[2023-08-06 11:52] LABS: Glucose Point of Care 195 mg/dl (65-105)
--- NOTE | 2023-08-06 13:15 | PM.DS ---
DS: Admitting Diagnosis Discharge Date 08/06/23 Admitting Diagnosis vomiting DS: Discharge Diagnosis Discharge Diagnosis (1) Aspiration pneumonia: Code(s): J69.0 - Pneumonitis due to inhalation of food and vomit Status: Ruled-out (2) Nausea and vomiting: Qualifiers: Vomiting type: unspecified Qualified Code(s): R11.2 - Nausea with vomiting, unspecified Code(s): R11.2 - Nausea with vomiting, unspecified Status: Resolved (3) Persistent vegetative state: Code(s): R40.3 - Persistent vegetative state Status: Chronic Assessment and Plan: Quadriplegia s/p hemorrhagic stroke 03/2023 He is alert but nonverbal (4) Type 2 diabetes mellitus: Code(s): E11.9 - Type 2 diabetes mellitus without complications Status: Chronic (5) Hypertension: Code(s): I10 - Essential (primary) hypertension Status: Chronic (6) Decubital ulcer: Code(s): L89.90 - Pressure ulcer of unspecified site, unspecified stage Status: Acute Assessment and Plan: Sacral decubitus ulcer present. Underwent surgical debridement on 07/20 with surgery at [facility]. No osteomyelitis or abscess seen. s/p 2 week treatment of Cipro and Flagyl. Kinney placed (7) Pulmonary embolism: Code(s): I26.99 - Other pulmonary embolism without acute cor pulmonale Status: Acute Assessment and Plan: Last admission with [facility] in June there were concerns for a small pulmonary embolism on V/Q scan. CTA was negative for PE. Doppler 06/16 was positive for left femoral DVT. Family declined IVC filter placement. He was still started on Eliquis therapeutic treatment. I spoke with his sister, Ivory STONE who reports that Eliquis was stopped at a recent admission at [facility] due to high risk of recurrent hemorrhagic stroke. [facility] had a discussion with family about risk and benefits with Eliquis given hemorrhagic stroke. At that time it was decided to stop his Eliquis. They have declined IVC filter. Continue to hold anticoagulation per Maddy DS: Summary Hospital Course Hospital Course: Patient is a 57-year-old male with past medical history of quadriplegia, hypertension, hyperlipidemia, and COPD who is a [facility] and after having several episodes of vomiting. Patient is nonverbal at baseline. He presented to the ER overnight with complaints of nausea and vomiting. He underwent CT abdomen pelvis which showed no acute abdominal pelvic process to explain symptoms. He was going to be discharged back to his [facility] but he started vomiting again. There were concerns for aspiration pneumonia so he was admitted for further evaluation. A rapid response was called this morning with concerns for labored breathing, low O2 saturation, and tachycardia after what appeared to be another vomiting episode. Respiratory therapy provided NT suction with good response. He is now on room air, at his baseline cognition. Treatment for PNA was stopped as imaging does not indicate infection or acute process and his labs have remained stable. His tube feedings have been resumed and he is tolerating well. Secretions are better controlled with Compazine patch. He is stable for d/c back to [facility] today. Time Spent with Patient Time attestation: Total time spent providing and/or coordinating discharge services: Exam Narrative: General: appears comfortable, well developed, well nourished, appears stated age. HEENT: normocephalic, atraumatic. Mucous membranes moist. Respiratory: Diminished to bases per auscultation bilaterally. No rales/rhonic/wheezes. Cardiovascular:Tachycardia and rhythm, normal S1-S2 upon auscultation. Abdomen: Soft, round, non-tender. No rebound, no guarding. Bowel sounds present to all four quadrants. G tube infusing. Dressing and site clean, dry and intact. Extremities: No cyanosis, clubbing, or edema present. Pulses are palpable 2/2. Quadr
== END 2023-08-06 17:13 | DRG 249 ==
LOC: ANHED 21:03 → ANH3MED 08-03 00:28
PROVIDERS: Nurse Practitioner Acute Care; Admitting Provider Internal Medicine; Emergency Provider Physician Assistant; PCP Internal Medicine; Visit Provider Nurse Practitioner
DX: R11.2 Nausea with vomiting, unspecified (principal); I10 Essential (primary) hypertension; L89.150 Pressure ulcer of sacral region, unstageable; N40.0 Benign prostatic hyperplasia without lower urinary tract symptoms; I26.99 Other pulmonary embolism without acute cor pulmonale; I25.10 Atherosclerotic heart disease of native coronary artery without angina pectoris; G93.40 Encephalopathy, unspecified; F01.50 Vascular dementia, unspecified severity, without behavioral disturbance, psychotic disturbance, mood disturbance, and anxiety; I12.9 Hypertensive chronic kidney disease with stage 1 through stage 4 chronic kidney disease, or unspecified chronic kidney disease; E11.22 Type 2 diabetes mellitus with diabetic chronic kidney disease; N18.30 Chronic kidney disease, stage 3 unspecified; E86.0 Dehydration; D64.9 Anemia, unspecified; J44.9 Chronic obstructive pulmonary disease, unspecified; E78.5 Hyperlipidemia, unspecified; I69.165 Other paralytic syndrome following nontraumatic intracerebral hemorrhage, bilateral; G82.50 Quadriplegia, unspecified; R40.3 Persistent vegetative state; E66.9 Obesity, unspecified; Z68.36 Body mass index [BMI] 36.0-36.9, adult; Z89.422 Acquired absence of other left toe(s); Z95.5 Presence of coronary angioplasty implant and graft; Z93.1 Gastrostomy status
CPT/HCPCS: 36415; 71045; 74177; 80053; 81001; 82948; 83605; 83690; 83735; 84145; 85025; 86140; 87040; 93005; 96361; 96365; 96367; 96374; 96375; 99285; A9270; C9113; G0378; J0295; J0456; J0696; J0780; J1815; J2405; J2765; J3475; J3480; J7040; J7120; Q9967

== ENCOUNTER 2023-09-15 03:46 | Emergency (ER) | payer OTHER, SELFPAY ==
[2023-09-15] VITALS (8 sets, daily range): BP systolic 158–168; BP diastolic 81–87; PULSE 100–110; RESP 19–25; TEMP 37.1; O2SAT 94–100
--- NOTE | ~2023-09-15 | XR_ITS ---
EXAMINATION: XR chest 1V portable DATE: 09/15/2023 09:03 INDICATION: Emesis. TECHNIQUE: A single frontal view of the chest was obtained. COMPARISON: Chest single view 08/03/2023, CT abdomen and pelvis 08/02/2023 FINDINGS: There is mild atelectasis in right lower lung zone. No pleural effusion or pneumothorax. Ca rdiomegaly is noted. A right-sided ventriculoperitoneal shunt is noted. IMPRESSION: 1. Mild atelectasis in right lower lung zone. 2. Cardiomegaly. Reviewed, dictated and finalized at location A.
[2023-09-15] MEDS: ONDANSETRON INJ 4 MG/2 ML VIAL IV PUSH (06:34)
[2023-09-15 06:44] LABS: Basophils Percent Auto 0.1 % (0.2-1.2); Eosinophils Percent Auto 0.1 % (0-4.4); Hematocrit 28.1 % (42.0-52.0); Hemoglobin 8.9 g/dL (14.0-18.0); Immature Granulocyte Absolute 0.05 K/mm3 (0.00-0.031); Immature Granulocyte Percent A 0.5 % (0-0.5); Lymphocytes Absolute Auto 1.21 K/mm3 (0.9-3.2); Lymphocytes Percent Auto 12.3 % (18.3-44.2); Mean Corpuscular HGB Conc 31.7 g/dl (32-36); Mean Corpuscular Hemoglobin 27.6 pg (26-34); Mean Platelet Volume 8.8 fl (7.4-10.4); Monocytes Absolute Auto 0.6 K/mm3 (0.1-0.6); Monocytes Percent Auto 5.8 % (2.6-8.5); Neutrophils Percent Auto 81.2 % (45.5-73.1); Platelet Count Result 406 k/mm3 (150-375); Red Blood Count 3.23 M/mm3 (4.6-6.20); Red Cell Distribution Width 17.9 % (11.5-14.5); White Blood Count 9.8 K/mm3 (4.5-10.0)
[2023-09-15 06:51] LABS: Appearance Urine Cloudy (Clear); Bacteria Urine None Seen /hpf; Bilirubin Urine Negative (Negative); Blood Urine Negative (Negative); Color Urine Yellow (Yellow); Glucose Urine UA Negative (Negative); Ketones Urine Negative (Negative); Leukocyte Esterase Ur Negative LEU/UL (Negative); Nitrate Urine Negative (Negative); Non Pathogenic Casts 0-2; Protein Urine 2+ mg/dL (Negative); RBC Urine 0-2 /hpf (0-2); Specific Grav Ur 1.017 (1.001-1.035); Squamous Epithelial Cell Urine None Seen /hpf (Few); WBC Urine 0-5 /hpf (0-3); pH Urine 7.5 (5.0-9.0)
[2023-09-15 07:01] LABS: Alanine Aminotransferase 46 U/L (6-50); Albumin Level 3.9 g/dL (3.5-5.1); Alkaline Phosphatase 120 U/L (38-126); Anion Gap 10 mmol/L (4-12); Aspartate Amino Transferase 54 U/L (17-59); Bilirubin,Total 0.9 mg/dL (0.2-1.3); Blood Urea Nitrogen 21 mg/dL (9-20); Calcium 10.2 mg/dL (8.4-10.2); Carbon Dioxide 26 mmol/L (22-30); Chloride 99 mmol/L (98-107); Estimated CRCL calculation 169 ml/min; Estimated Glomerular Filt Rate > 60; Glucose 257 mg/dL (65-110); Lipase 44 U/L (23-300); Potassium 4.5 mmol/L (3.4-5.0); Sodium 135 mmol/L (137-145)
[2023-09-15 07:32] LABS: Add Urine Microscopic? YES
--- NOTE | 2023-09-15 07:52 | ED.GENADULT ---
HPI - General Adult General Chief complaint: Unspecified Stated complaint: nausea and vomiting Time Seen by Provider: 09/15/23 06:54 History of Present Illness HPI narrative: 58-year-old male that has prior history of CVA and is essentially nonverbal at baseline [facility] for emesis x2. At the jail they are also concerned about his blood pressure. At time of evaluation patient is at his normal baseline. Related Data Home Medications Medication Instructions Recorded Confirmed acetaminophen 500 mg capsule 1,000 mg feeding tube Q6H PRN Pain 06/02/23 08/03/23 (Scale Score 1-3) atorvastatin 80 mg tablet 80 mg feeding tube HS 06/02/23 08/03/23 bisacodyl 10 mg rectal suppository 10 mg RECTAL DAILY PRN Constipation 06/02/23 08/03/23 carvedilol 25 mg tablet 50 mg feeding tube BID 06/02/23 08/03/23 clonidine HCl 0.3 mg tablet 0.3 mg feeding tube TID 06/02/23 08/03/23 insulin glargine 100 unit/mL 31 unit subcut DAILY 06/02/23 08/03/23 subcutaneous solution magnesium hydroxide 400 mg/5 mL 30 ml feeding tube HS PRN 06/02/23 08/03/23 oral suspension (Milk of Magnesia) Constipation ondansetron HCl 4 mg tablet 8 mg feeding tube Q6H PRN nausea 06/02/23 08/03/23 Dakin's Solution 1 applic topical BID 08/03/23 08/03/23 Glucagon (HCl) Emergency Kit 1 ml subcut DAILY PRN .bS less 08/03/23 08/03/23 than 60 amlodipine 5 mg tablet (Norvasc) 10 mg feeding tube QAM 08/03/23 08/03/23 ciprofloxacin HCl 500 mg tablet 500 mg feeding tube Q12H 08/03/23 08/03/23 ferrous sulfate 325 mg feeding tube DAILY 08/03/23 08/03/23 fluticasone propionate 50 1 spray intranasal BID 08/03/23 08/03/23 mcg/actuation nasal spray,suspension insulin lispro 100 unit/mL 2 unit subcut Q4H 08/03/23 08/03/23 subcutaneous solution (Humalog U-100 Insulin) magnesium citrate (Citroma oral 296 ml feeding tube DAILY PRN 08/03/23 08/03/23 solution) constipaton metoclopramide HCl 10 mg tablet 10 mg feeding tube Q6H PRN 08/03/23 08/03/23 nausea/vomiting metronidazole 500 mg tablet 500 mg feeding tube Q12H 08/03/23 08/03/23 omeprazole 20 mg capsule,delayed 20 mg feeding tube DAILY 08/03/23 08/03/23 release Allergies Allergy/AdvReac Type Severity Reaction Status Date / Time No Known Allergies Allergy Verified 09/15/23 03:57 Review of Systems Review of Systems: All systems reviewed & are unremarkable except as noted in HPI and below PMFSH Past Medical History Medical History (Updated 09/15/23 @ 09:49 by Fidel Vila MD) Acute on chronic anemia Benign prostatic hyperplasia Coronary artery disease Encephalopathy Hemorrhagic stroke (03/2023) Hypertension Intracranial hemorrhage Occult blood in stools Seizure Type 2 diabetes mellitus Vascular dementia Surgical History Surgical History 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 History of cardiac catheterization History of coronary artery stent placement History of percutaneous endoscopic gastrostomy History of tracheostomy Status post ventriculo-peritoneal shunt placement Family History Family History Other Family history unknown Social History Social History Social History: Healthcare power of research attorney: Ivory Hassan, sister. Code status: Full code. Smoking status: Never smoker Alcohol intake: never Substance use: never Substance use type: does not use Spiritual care concerns: No Exam Narrative: APPEARANCE: Resting comfortably HEAD: normocephalic, atraumatic. EYES: PERRLA/EOMI, conjunctivae clear. NOSE: Normal no drainage EARS:TMS clear with good light reflex. THROAT: Pharynx clear, no exudate. NECK: Supple. No adenopathy, no masses. RESPIRATORY: Airway patent, respirations nonlabored. Clear to auscultation bilaterally, no
[2023-09-15] MEDS: amLODIPine BESYLATE 5 MG TABLET PO (08:24)
[2023-09-15] MEDS: cloNIDine HCL 0.1 MG TABLET 0.3 MG PO (08:24)
[2023-09-15] MEDS: carvediloL 25 MG TABLET PO (08:24)
--- NOTE | 2023-09-15 10:02 | PC.NURSE ---
called Edwina NOLEN) and gave her an update on pt.
== END 2023-09-15 11:11 ==
PROVIDERS: Emergency Medicine; Emergency Provider Emergency Medicine; PCP Internal Medicine
DX: R11.2 Nausea with vomiting, unspecified (principal); F01.50 Vascular dementia, unspecified severity, without behavioral disturbance, psychotic disturbance, mood disturbance, and anxiety; I69.920 Aphasia following unspecified cerebrovascular disease; I25.10 Atherosclerotic heart disease of native coronary artery without angina pectoris; I10 Essential (primary) hypertension; E11.9 Type 2 diabetes mellitus without complications; D64.9 Anemia, unspecified; N40.0 Benign prostatic hyperplasia without lower urinary tract symptoms; Z95.5 Presence of coronary angioplasty implant and graft; Z98.2 Presence of cerebrospinal fluid drainage device; Z93.1 Gastrostomy status; Z89.422 Acquired absence of other left toe(s); Z79.82 Long term (current) use of aspirin; Z79.4 Long term (current) use of insulin; I51.7 Cardiomegaly
CPT/HCPCS: 36415; 71045; 80053; 81001; 83690; 85025; 96374; 99284; A9270; J2405

== ENCOUNTER 2023-09-28 18:57 | Emergency (ER) | payer OTHER, SELFPAY ==
[2023-09-28 18:58] VITALS: BP 93/61; PULSE 107; RESP 23; TEMP 38.2; O2SAT 97
[2023-09-28 19:07] VITALS: RESP 23; O2SAT 98
[2023-09-28 19:56] VITALS: BP 115/51; PULSE 105; RESP 23; O2SAT 99
[2023-09-28 20:00] VITALS: BP 114/51; PULSE 104; RESP 22; O2SAT 98
--- NOTE | 2023-09-28 21:22 | PC.NURSE ---
Multiple attempts were made to get iv access and labwork drawn, patient has swelling and have had no luck with getting any blood drawn. historically ultrasound needs to be used to get labwork and IV access on this patient, phlebotomy was called and is at bedside now.
--- NOTE | 2023-09-28 21:52 | ED.GENADULT ---
HPI - General Adult General Chief complaint: Unspecified <Kedar Mcdonald MD - Last Filed: 09/28/23 22:04> Stated complaint: IMPROVING WOUND TO COCCYX REGION <Kedar Mcdonald MD - Last Filed: 09/28/23 22:04> Time Seen by Provider: 09/28/23 20:03 <Kedar Mcdonald MD - Last Filed: 09/28/23 22:04> Source: EMS and RN notes reviewed <Kedar Mcdonald MD - Last Filed: 09/28/23 22:04> Mode of arrival: EMS <Kedar Mcdonald MD - Last Filed: 09/28/23 22:04> Limitations: clinical condition <Kedar Mcdonald MD - Last Filed: 09/28/23 22:04> History of Present Illness HPI narrative: 58-year-old with a history of CVA nonverbal, hypertension, hyperlipidemia, type 2 diabetes, CKD, morbid obesity [facility] decub[facility]. As per the nursing staff had no history of any fever or chills. He is under [facility] care at the [facility]. His insisted that he should be brought to the ER for evaluation. wound culture was done on 08/24 grew MRSA <Kedar Mcdonald MD - Last Filed: 09/28/23 22:04> Onset (ago): unknown <Kedar Mcdonald MD - Last Filed: 09/28/23 22:04> Location: back ([facility]) <Kedar Mcdonald MD - Last Filed: 09/28/23 22:04> Related Data Home medications: Home Medications Medication Instructions Recorded Confirmed acetaminophen 500 mg capsule 1,000 mg feeding tube Q6H PRN Pain 06/02/23 08/03/23 (Scale Score 1-3) atorvastatin 80 mg tablet 80 mg feeding tube HS 06/02/23 08/03/23 bisacodyl 10 mg rectal suppository 10 mg RECTAL DAILY PRN Constipation 06/02/23 08/03/23 carvedilol 25 mg tablet 50 mg feeding tube BID 06/02/23 08/03/23 clonidine HCl 0.3 mg tablet 0.3 mg feeding tube TID 06/02/23 08/03/23 insulin glargine 100 unit/mL 31 unit subcut DAILY 06/02/23 08/03/23 subcutaneous solution magnesium hydroxide 400 mg/5 mL 30 ml feeding tube HS PRN 06/02/23 08/03/23 oral suspension (Milk of Magnesia) Constipation ondansetron HCl 4 mg tablet 8 mg feeding tube Q6H PRN nausea 06/02/23 08/03/23 Dakin's Solution 1 applic topical BID 08/03/23 08/03/23 Glucagon (HCl) Emergency Kit 1 ml subcut DAILY PRN .bS less 08/03/23 08/03/23 than 60 amlodipine 5 mg tablet (Norvasc) 10 mg feeding tube QAM 08/03/23 08/03/23 ciprofloxacin HCl 500 mg tablet 500 mg feeding tube Q12H 08/03/23 08/03/23 ferrous sulfate 325 mg feeding tube DAILY 08/03/23 08/03/23 fluticasone propionate 50 1 spray intranasal BID 08/03/23 08/03/23 mcg/actuation nasal spray,suspension insulin lispro 100 unit/mL 2 unit subcut Q4H 08/03/23 08/03/23 subcutaneous solution (Humalog U-100 Insulin) magnesium citrate (Citroma oral 296 ml feeding tube DAILY PRN 08/03/23 08/03/23 solution) constipaton metoclopramide HCl 10 mg tablet 10 mg feeding tube Q6H PRN 08/03/23 08/03/23 nausea/vomiting metronidazole 500 mg tablet 500 mg feeding tube Q12H 08/03/23 08/03/23 omeprazole 20 mg capsule,delayed 20 mg feeding tube DAILY 08/03/23 08/03/23 release <Kedar Mcdonald MD - Last Filed: 09/28/23 22:04> Allergies/adverse reactions: Allergies Allergy/AdvReac Type Severity Reaction Status Date / Time No Known Allergies Allergy Verified 09/15/23 03:57 <Kedar Mcdonald MD - Last Filed: 09/28/23 22:04> Review of Systems Review of Systems: ROS unobtainable: Yes unobtainable due to medical condition <Kedar Mcdonald MD - Last Filed: 09/28/23 22:04> PMFSH Past Medical History Medical History: Medical History Acute on chronic anemia Benign prostatic hyperplasia Coronary artery disease Encephalopathy Hemorrhagic stroke (03/2023) Hypertension Intracranial hemorrhage Occult blood in stools Seizure Type 2 diabetes mellitus Vascular dementia <Kedar Mcdonald MD - Last Filed: 09/28/23 22:04> Surgical History Surgical History: Surgical History History of amputation of t
[2023-09-28 22:00] VITALS: BP 136/75; PULSE 100; RESP 20; O2SAT 100
[2023-09-28 22:00] LABS: Basophils Percent Auto 0.3 % (0.2-1.2); Eosinophils Absolute Auto 0.3 K/mm3 (0-0.3); Eosinophils Percent Auto 2.6 % (0-4.4); Hemoglobin 7.7 g/dL (14.0-18.0); Immature Granulocyte Absolute 0.05 K/mm3 (0.00-0.031); Immature Granulocyte Percent A 0.5 % (0-0.5); Lymphocytes Absolute Auto 1.48 K/mm3 (0.9-3.2); Lymphocytes Percent Auto 15.4 % (18.3-44.2); Mean Corpuscular HGB Conc 30.8 g/dl (32-36); Mean Corpuscular Hemoglobin 27.1 pg (26-34); Mean Platelet Volume 8.9 fl (7.4-10.4); Monocytes Absolute Auto 0.9 K/mm3 (0.1-0.6); Monocytes Percent Auto 9.8 % (2.6-8.5); Neutrophils Absolute Auto 6.8 K/mm3 (1.3-6.7); Neutrophils Percent Auto 71.4 % (45.5-73.1); Platelet Count Result 339 k/mm3 (150-375); Red Blood Count 2.84 M/mm3 (4.6-6.20); Red Cell Distribution Width 17.9 % (11.5-14.5); White Blood Count 9.6 K/mm3 (4.5-10.0)
[2023-09-28 22:10] LABS: Alanine Aminotransferase 105 U/L (6-50); Albumin Level 3.3 g/dL (3.5-5.1); Alkaline Phosphatase 193 U/L (38-126); Anion Gap 5 mmol/L (4-12); Aspartate Amino Transferase 87 U/L (17-59); Bilirubin,Total 0.5 mg/dL (0.2-1.3); Blood Urea Nitrogen 29 mg/dL (9-20); Calcium 8.7 mg/dL (8.4-10.2); Carbon Dioxide 31 mmol/L (22-30); Chloride 99 mmol/L (98-107); Estimated CRCL calculation 127 ml/min; Estimated Glomerular Filt Rate > 60; Glucose 123 mg/dL (65-110); Potassium 4.2 mmol/L (3.4-5.0); Sodium 135 mmol/L (137-145)
[2023-09-28 22:11] LABS: Lactic Acid Reflex 1.2 mmol/L (0.7-2.0)
[2023-09-28] MEDS: ACETAMINOPHEN 325 MG TABLET 650 MG PO (23:31)
[2023-09-28] MEDS: ACETAMINOPHEN 650 MG SUPPOSITORY RECTAL (23:33)
[2023-09-28 23:42] VITALS: BP 131/85; PULSE 103; RESP 18; TEMP 38.1; O2SAT 98
--- NOTE | 2023-09-28 23:47 | PC.NURSE ---
Pt has wound on coccyx that is very deep and has a lot of slough. EDP at bedside looking at wound, cleaning with saline soaked gauze. saline soaked guaze packed into the wound (1 roll) with 4x4 wet guaze on top with an ABD pad taped to cover the wound.
== END 2023-09-29 00:19 ==
PROVIDERS: Family Medicine; Emergency Provider Emergency Medicine; PCP Internal Medicine
DX: L89.154 Pressure ulcer of sacral region, stage 4 (principal); F01.50 Vascular dementia, unspecified severity, without behavioral disturbance, psychotic disturbance, mood disturbance, and anxiety; E11.22 Type 2 diabetes mellitus with diabetic chronic kidney disease; I12.9 Hypertensive chronic kidney disease with stage 1 through stage 4 chronic kidney disease, or unspecified chronic kidney disease; N18.9 Chronic kidney disease, unspecified; E78.5 Hyperlipidemia, unspecified; E66.01 Morbid (severe) obesity due to excess calories; Z68.34 Body mass index [BMI] 34.0-34.9, adult; N40.0 Benign prostatic hyperplasia without lower urinary tract symptoms; D64.9 Anemia, unspecified; Z95.5 Presence of coronary angioplasty implant and graft; Z98.2 Presence of cerebrospinal fluid drainage device; Z86.73 Personal history of transient ischemic attack (TIA), and cerebral infarction without residual deficits; Z89.422 Acquired absence of other left toe(s); Z79.4 Long term (current) use of insulin
CPT/HCPCS: 36415; 80053; 83605; 85025; 87040; 99283; A9270

== ENCOUNTER 2023-10-20 18:36 | Inpatient (IN) | payer OTHER, SELFPAY ==
[2023-10-20] VITALS (14 sets, daily range): BP systolic 115–156; BP diastolic 61–82; PULSE 109–124; RESP 12–30; TEMP 36.2–37.7; O2SAT 93–99
--- NOTE | ~2023-10-20 | XR_ITS ---
EXAMINATION: XR chest 1V portable Exam Date/Time: 10/20/2023 19:40 CDT HISTORY: SOB Comparison: 09/15/2023. RESULT: Lines, tubes, and devices: G-tube over the stomach. ABRASIVE WATER JET CUTTER OPERATOR shunt tubing traverses the right chest. Lungs and pleura: Clear. Cardiomediastinal silhouette: Stable. Other: No acute osseous or upper abdominal finding. IMPRESSION: No acute cardiopulmonary process. Reviewed, dictated and finalized at location K.
[2023-10-20] MEDS: ALBUTEROL SULFATE NEB 2.5 MG/3 ML INH INHALATION (19:27)
[2023-10-20 19:38] LABS: Basophils Percent Auto 0.3 % (0.2-1.2); Eosinophils Percent Auto 0.2 % (0-4.4); Hematocrit 26.8 % (42.0-52.0); Hemoglobin 8.3 g/dL (14.0-18.0); Immature Granulocyte Percent A 0.9 % (0-0.5); Lymphocytes Absolute Auto 1.61 K/mm3 (0.9-3.2); Lymphocytes Percent Auto 14.5 % (18.3-44.2); Mean Corpuscular Hemoglobin 26.9 pg (26-34); Mean Platelet Volume 8.7 fl (7.4-10.4); Monocytes Percent Auto 9.3 % (2.6-8.5); Neutrophils Absolute Auto 8.3 K/mm3 (1.3-6.7); Neutrophils Percent Auto 74.8 % (45.5-73.1); Nucleated Red Blood Cells Perc 0.3 % (0.0-0.2); Platelet Count Result 439 k/mm3 (150-375); Red Blood Count 3.08 M/mm3 (4.6-6.20); Red Cell Distribution Width 18.6 % (11.5-14.5); White Blood Count 11.1 K/mm3 (4.5-10.0)
[2023-10-20 19:47] LABS: Alanine Aminotransferase 37 U/L (6-50); Albumin Level 3.3 g/dL (3.5-5.1); Alkaline Phosphatase 134 U/L (38-126); Anion Gap 6 mmol/L (4-12); Aspartate Amino Transferase 46 U/L (17-59); Bilirubin,Total 0.6 mg/dL (0.2-1.3); Blood Urea Nitrogen 17 mg/dL (9-20); Calcium 8.8 mg/dL (8.4-10.2); Carbon Dioxide 29 mmol/L (22-30); Chloride 97 mmol/L (98-107); Estimated CRCL calculation 129 ml/min; Estimated Glomerular Filt Rate > 60; Glucose 216 mg/dL (65-110); Potassium 4.4 mmol/L (3.4-5.0); Sodium 132 mmol/L (137-145)
[2023-10-20 19:48] LABS: Lactic Acid Reflex 1.8 mmol/L (0.7-2.0)
[2023-10-20 19:49] LABS: INR 1.2; Prothrombin Time 15.8 Seconds (11.1-14.7)
[2023-10-20] MEDS: SODIUM CHLORIDE 0.9% IV 1,000 ML 999 ML IV CONT (19:49)
[2023-10-20] MEDS: ACETAMINOPHEN 500 MG TABLET 1000 MG PO (19:49)
[2023-10-20 19:50] LABS: Partial Thromboplastin Time 39.3 Seconds (22.3-36.8)
[2023-10-20 19:56] LABS: Appearance Urine Cloudy (Clear); Bacteria Urine 4+ /hpf; Bilirubin Urine Negative (Negative); Blood Urine 1+ (Negative); Color Urine Yellow (Yellow); Glucose Urine UA Negative (Negative); Ketones Urine Negative (Negative); Leukocyte Esterase Ur 2+ LEU/UL (Negative); Nitrate Urine Negative (Negative); Non Pathogenic Casts 0-2; Protein Urine 2+ mg/dL (Negative); RBC Urine 21-50 /hpf (0-2); Specific Grav Ur 1.018 (1.001-1.035); Squamous Epithelial Cell Urine None Seen /hpf (Few); WBC Urine 21-50 /hpf (0-3)
[2023-10-20 19:57] LABS: Add Urine Microscopic? YES
[2023-10-20 20:15] LABS: Influenza A QL RT-PCR Negative (Negative); Influenza B QL RT-PCR Negative (Negative); RSV RNA, RT-PCR Negative (Negative); SARS-CoV-2 RNA PCR Negative (Negative)
--- NOTE | 2023-10-20 20:23 | ED.GENADULT ---
HPI - General Adult General Chief complaint: Unspecified Stated complaint: aspiration Time Seen by Provider: 10/20/23 19:05 History of Present Illness HPI narrative: 58-year-old male present to the emergency department for evaluation for possible aspiration pneumonia. Patient was at the [facility] when he had an episode of emesis at approximately 3:00 a.m. and had subsequent hypoxia. Patient does have a prior history of aspiration pneumonia and CVA. Patient is nonverbal at baseline. patient does have congested cough on arrival to the ED. Related Data Home Medications Medication Instructions Recorded Confirmed acetaminophen 500 mg capsule 1,000 mg feeding tube Q6H PRN Pain 06/02/23 08/03/23 (Scale Score 1-3) atorvastatin 80 mg tablet 80 mg feeding tube HS 06/02/23 08/03/23 bisacodyl 10 mg rectal suppository 10 mg RECTAL DAILY PRN Constipation 06/02/23 08/03/23 carvedilol 25 mg tablet 50 mg feeding tube BID 06/02/23 08/03/23 clonidine HCl 0.3 mg tablet 0.3 mg feeding tube TID 06/02/23 08/03/23 insulin glargine 100 unit/mL 31 unit subcut DAILY 06/02/23 08/03/23 subcutaneous solution magnesium hydroxide 400 mg/5 mL 30 ml feeding tube HS PRN 06/02/23 08/03/23 oral suspension (Milk of Magnesia) Constipation ondansetron HCl 4 mg tablet 8 mg feeding tube Q6H PRN nausea 06/02/23 08/03/23 Dakin's Solution 1 applic topical BID 08/03/23 08/03/23 Glucagon (HCl) Emergency Kit 1 ml subcut DAILY PRN .bS less 08/03/23 08/03/23 than 60 amlodipine 5 mg tablet (Norvasc) 10 mg feeding tube QAM 08/03/23 08/03/23 ciprofloxacin HCl 500 mg tablet 500 mg feeding tube Q12H 08/03/23 08/03/23 ferrous sulfate 325 mg feeding tube DAILY 08/03/23 08/03/23 fluticasone propionate 50 1 spray intranasal BID 08/03/23 08/03/23 mcg/actuation nasal spray,suspension insulin lispro 100 unit/mL 2 unit subcut Q4H 08/03/23 08/03/23 subcutaneous solution (Humalog U-100 Insulin) magnesium citrate (Citroma oral 296 ml feeding tube DAILY PRN 08/03/23 08/03/23 solution) constipaton metoclopramide HCl 10 mg tablet 10 mg feeding tube Q6H PRN 08/03/23 08/03/23 nausea/vomiting metronidazole 500 mg tablet 500 mg feeding tube Q12H 08/03/23 08/03/23 omeprazole 20 mg capsule,delayed 20 mg feeding tube DAILY 08/03/23 08/03/23 release Allergies Allergy/AdvReac Type Severity Reaction Status Date / Time No Known Allergies Allergy Verified 09/15/23 03:57 Review of Systems Review of Systems: All systems reviewed & are unremarkable except as noted in HPI and below PMFSH Past Medical History Medical History Acute on chronic anemia Benign prostatic hyperplasia Coronary artery disease Encephalopathy Hemorrhagic stroke (03/2023) Hypertension Intracranial hemorrhage Occult blood in stools Seizure Type 2 diabetes mellitus Vascular dementia Surgical History Surgical History 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 History of cardiac catheterization History of coronary artery stent placement History of percutaneous endoscopic gastrostomy History of tracheostomy Status post ventriculo-peritoneal shunt placement Family History Family History Other Family history unknown Social History Social History Social History: Healthcare power of insurance attorney: Ivory Hassan, sister. Code status: Full code. Smoking status: Never smoker Alcohol intake: never Substance use: never Substance use type: does not use Spiritual care concerns: No Exam Narrative: APPEARANCE: Well appearing, nonverbal HEAD: normocephalic, atraumatic. EYES: PERRLA/EOMI, conjunctivae clear. NOSE: Normal no drainage EARS:TMS clear with good light reflex. THROAT: Pharynx clear, no exudate. NECK: Supple. No adenopathy, no masses. RESPIRATO
--- NOTE | 2023-10-20 20:29 | PM.IMHP ---
H&P: HPI History of Present Illness Date/Time: 10/20/23 20:29 Chief Complaint: HYPOXIA Narrative: This is a 58 yo male with PMHx significant for obesity, stroke, bed ridden, non verbal, recurrent aspiration pneumonia,chronic indwelling Kinney catheter, senior living resident was brought to ED after having episode of emesis then developed low oxygen saturation. Patient is unable to give any hx.In ED patient was found tachycardic had low grade temp. Preliminary work up was significant for Ua with WBC present. Patient has been started on broad spectrum antibiotics. EXAMINATION: XR chest 1V portable Exam Date/Time: 10/20/2023 19:40 CDT HISTORY: SOB Comparison: 09/15/2023. RESULT: Lines, tubes, and devices: G-tube over the stomach. VICE PRESIDENT OF MARKETING shunt tubing traverses the right chest. Lungs and pleura: Clear. Cardiomediastinal silhouette: Stable. Other: No acute osseous or upper abdominal finding. IMPRESSION: No acute cardiopulmonary process. Review of Systems Review of Systems: ROS unobtainable: Yes unobtainable due to medical condition (stroke, non verbal) [facility] Past Medical History Medical History Acute on chronic anemia Benign prostatic hyperplasia Coronary artery disease Encephalopathy Hemorrhagic stroke (03/2023) Hypertension Intracranial hemorrhage Occult blood in stools Seizure Type 2 diabetes mellitus Vascular dementia Surgical History Surgical History 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 History of cardiac catheterization History of coronary artery stent placement History of percutaneous endoscopic gastrostomy History of tracheostomy Status post ventriculo-peritoneal shunt placement Family History Family History Other Family history unknown Social History Social History Social History: Healthcare power of meat clerk: Ivory Hassan, sister. Code status: Full code. Smoking status: Never smoker Alcohol intake: never Substance use: never Substance use type: does not use Spiritual care concerns: No Meds Home Medications and Allergies Home Medications Medication Instructions Recorded Confirmed Type acetaminophen 500 mg capsule 1,000 mg feeding tube Q6H PRN Pain 06/02/23 10/21/23 History (Scale Score 1-3) atorvastatin 80 mg tablet 80 mg feeding tube HS 06/02/23 10/21/23 History bisacodyl 10 mg rectal suppository 10 mg RECTAL DAILY PRN Constipation 06/02/23 10/21/23 History carvedilol 25 mg tablet 25 mg feeding tube BID 06/02/23 10/21/23 History clonidine HCl 0.3 mg tablet 0.3 mg feeding tube TID 06/02/23 10/21/23 History insulin glargine 100 unit/mL 45 unit subcut DAILY 06/02/23 10/21/23 History subcutaneous solution magnesium hydroxide 400 mg/5 mL 30 ml feeding tube HS PRN 06/02/23 10/21/23 History oral suspension (Milk of Magnesia) Constipation ondansetron HCl 4 mg tablet 8 mg feeding tube Q6H PRN nausea 06/02/23 10/21/23 History aspirin 81 mg chewable tablet 81 mg feeding tube DAILY #30 tabs 06/23/23 10/21/23 Rx (Children's Aspirin) Dakin's Solution 1 applic topical BID 08/03/23 10/21/23 History Glucagon (HCl) Emergency Kit 1 ml subcut DAILY PRN .bS less 08/03/23 10/21/23 History than 50 amlodipine 5 mg tablet (Norvasc) 10 mg feeding tube QAM 08/03/23 10/21/23 History ferrous sulfate 325 mg feeding tube DAILY 08/03/23 10/21/23 History fluticasone propionate 50 1 spray intranasal BID 08/03/23 10/21/23 History mcg/actuation nasal spray,suspension insulin lispro 100 unit/mL 5 unit subcut Q8H 08/03/23 10/21/23 History subcutaneous solution (Humalog U-100 Insulin) magnesium citrate (Citroma oral 296 ml feeding tube DAILY PRN 08/03/23 10/21/23 History solution) constipaton metoclopramide HCl 10 mg tablet 10 mg feeding
--- NOTE | 2023-10-20 21:00 | PC.NURSE ---
oral suction at this time
--- NOTE | 2023-10-20 21:34 | PC.NURSE ---
update given to wilma morrell [phone]
--- NOTE | 2023-10-20 21:52 | PC.NURSE ---
[facility]
--- NOTE | 2023-10-20 22:23 | ADMGEN ---
This patient, Mendel Kelly, was admitted to IMU Room 214-01. Patient/family oriented to hospital policies and general routines including ID bracelet, bed and alarms, visiting hours, pain management, procedures, bathroom and other care routines, personal items, smoking policy, room service/diet, and visiting hours. Information on how to activate the Rapid Response Team has been discussed. Patient/Family are encouraged to report perceived risks to care and to ask questions if they do not understand what they are told or what they should do.
[2023-10-20] MEDS: metroNIDAZOLE 500 MG/ISO 100ML 500 MG/100 ML BAG 100 MG IVPB (23:04)
[2023-10-20] MEDS: SODIUM CHLORIDE 0.9% IV 250 ML 25 ML (23:50)
[2023-10-21] VITALS (17 sets, daily range): BP systolic 138–179; BP diastolic 57–80; PULSE 115–132; RESP 12–24; TEMP 36–36.6; O2SAT 92–100; BMI 31.6
[2023-10-21] MEDS: VANCOMYCIN 1,250 MG/NS 250 ML 1,250 MG/250 ML BAG 166.67 MG IVPB ×2 (01:10→02:36)
[2023-10-21 05:01] LABS: Estimated CRCL calculation 129 ml/min; Estimated Glomerular Filt Rate > 60
[2023-10-21 06:18] LABS: Glucose Point of Care 222 mg/dl (65-105)
[2023-10-21 11:27] LABS: Glucose Point of Care 259 mg/dl (65-105)
[2023-10-21] MEDS: VANCOMYCIN 1,500 MG/NS 500 ML 1,500 MG/500 ML BAG 250 MG IVPB (12:06)
--- NOTE | 2023-10-21 13:27 | PM.IMPN ---
Progress Note: A&P Assessment and Plan (1) Chronic indwelling Kinney catheter: Code(s): Z97.8 - Presence of other specified devices Status: Acute (2) Aspiration pneumonia: Code(s): J69.0 - Pneumonitis due to inhalation of food and vomit Status: Acute (3) Pulmonary embolism: Code(s): I26.99 - Other pulmonary embolism without acute cor pulmonale Status: Acute (4) Sepsis: Code(s): A41.9 - Sepsis, unspecified organism Status: Acute Plan UTI/aspiration pneumonia IV fluid resuscitation Monitor lactic acid levels Repeat CBC CMP Two sets of Blood cultures urine cultures TTE is indicated CXR Pneumonia versus pneumonitis Monitor albumin' Monitoring of mental status. Steroids suggested if septic shock on his positive fluid resuscitation and vasopressors. IV antibiotics on vanc, Flagyl, ceftriaxone DM Optimize medications insulin and Lantus started Routine glucose monitoring. Watch for Hypoglycemia. 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 History of anemia 8.3 continue iron supplement. History of gastric reflux continue omeprazole Subjective Date/time seen: 10/21/23 13:27 Interval history: Unable to obtain Review of Systems Review of Systems: ROS unobtainable: Yes unobtainable due to medical condition Exam Narrative: GENERAL: Sick looking HEAD: Normocephalic, atraumatic. NECK: Supple. No adenopathy, no masses. RESPIRATORY: respirations nonlabored. , CARDIOVASCULAR: Regular rate and rhythm without murmurs, Amputated toe ABDOMINAL: Soft, nontender, nondistended, SKIN: Warm, dry, NEURO: A&O X2 Objective Data Vital Signs Vital Signs: Vital Signs - 24 hr 10/20/23 18:40 10/20/23 19:27 10/20/23 19:29 Temperature 37.7 C H Pulse Rate 124 H 117 H Respiratory Rate 26 H 23 H 25 H Blood Pressure 156/68 H Pulse Oximetry 98 Oxygen Delivery Room Air Fraction of Inspired Oxygen 10/20/23 19:32 10/20/23 18:45 10/20/23 19:00 Temperature Pulse Rate 114 H 113 H 113 H Respiratory Rate 27 H 25 H 22 H Blood Pressure 138/73 149/74 H Pulse Oximetry 99 99 Oxygen Delivery Fraction of Inspired Oxygen 10/20/23 19:30 10/20/23 19:45 10/20/23 20:00 Temperature Pulse Rate 116 H 119 H 118 H Respiratory Rate 25 H 24 H 27 H Blood Pressure 136/82 128/81 137/78 Pulse Oximetry 97 97 Oxygen Delivery Fraction of Inspired Oxygen 10/20/23 20:15 10/20/23 20:30 10/20/23 20:45 Temperature Pulse Rate 118 H 120 H 116 H Respiratory Rate 30 H 30 H 29 H Blood Pressure 138/78 138/76 135/75 Pulse Oximetry 93 Oxygen Delivery Fraction of Inspired Oxygen 10/20/23 21:00 10/20/23 22:00 10/21/23 00:00 Temperature 36.2 C L 36.6 C Pulse Rate 113 H 109 H 116 H Respiratory Rate 29 H 12 12 Blood Pressure 115/61 132/63 148/65 H Pulse Oximetry 99 100 Oxygen Delivery Fraction of Inspired Oxygen 10/21/23 00:00 10/21/23 00:00 10/21/23 02:00 Temperature Pulse Rate 118 H 116 H 118 H Respiratory Rate Blood Pressure Pulse Oximetry 98 Oxygen Delivery Room Air Fraction of Inspired Oxygen 10/21/23 04:00 10/21/23 04:00 10/21/23 04:00 Temperature 36.3 C L Pulse Rate 125 H 124 H 123 H Respiratory Rate 12 20 Blood Pressure 146/72 H Pulse Oximetry 98 97 Oxygen Delivery Room Air Fraction of Inspired Oxygen 10/21/23 06:36 10/21/23 08:37 10/21/23 09:08 Temperature 36.1 C L Pulse Rate 129 H 132 H Respiratory Rate 20 Blood Pressure 179/72 H Pulse Oximetry 100 99 Oxygen Delivery Room Air Fraction of Inspired Oxygen 21 10/21/23 08:00 10/21/23 08:00 10/21/23 10:00 Temperature Pu
[2023-10-21] MEDS: SOD HYPOCHLORITE 1/4 STRENGTH 473 ML 1 APPLIC TOPICAL (15:32)
[2023-10-21] MEDS: carvediloL 25 MG TABLET FEED TUBE (15:32)
[2023-10-21 18:35] LABS: Glucose Point of Care 228 mg/dl (65-105)
[2023-10-21] MEDS: FLUTICASONE PROPIONATE 0.05% NA SPR 16 GM BTL (*BKC) 1 SPRAY NASAL (18:52)
[2023-10-21 20:26] LABS: Hemoglobin A1C 7.3 % (<5.7)
[2023-10-21] MEDS: ATORVASTATIN 40 MG TABLET 80 MG FEED TUBE (20:27)
[2023-10-22] VITALS (21 sets, daily range): BP systolic 144–153; BP diastolic 59–72; PULSE 10–123; RESP 20–24; TEMP 35.6–37.2; O2SAT 92–100
[2023-10-22] MEDS: VANCOMYCIN 1,500 MG/NS 500 ML 1,500 MG/500 ML BAG 250 MG IVPB ×2 (00:35→12:41)
[2023-10-22 00:53] LABS: Glucose Point of Care 217 mg/dl (65-105)
[2023-10-22] MEDS: SOD HYPOCHLORITE 1/4 STRENGTH 473 ML 1 APPLIC TOPICAL ×2 (01:29→08:30)
[2023-10-22 05:00] LABS: Estimated CRCL calculation 174 ml/min; Estimated Glomerular Filt Rate > 60
[2023-10-22 06:33] LABS: Glucose Point of Care 206 mg/dl (65-105)
[2023-10-22] MEDS: INSULIN ASPART (*BKC) 100 UNITS/ML SUB-Q (06:35)
[2023-10-22] MEDS: amLODIPine BESYLATE 5 MG TABLET 10 MG FEED TUBE (08:29)
[2023-10-22] MEDS: carvediloL 25 MG TABLET FEED TUBE ×2 (08:29→16:24)
[2023-10-22] MEDS: METOCLOPRAMIDE HCL 10 MG TABLET FEED TUBE ×2 (08:29→20:36)
[2023-10-22] MEDS: FLUTICASONE PROPIONATE 0.05% NA SPR 16 GM BTL (*BKC) 1 SPRAY NASAL ×2 (08:30→16:24)
[2023-10-22] MEDS: ASPIRIN 81 MG CHEWABLE TABLET FEED TUBE (08:30)
[2023-10-22] MEDS: LANSOPRAZOLE ODT 30 MG TAB.RAP.DR FEED TUBE (08:30)
[2023-10-22] MEDS: INSULIN GLARGINE (*BKC) 100 UNITS/ML 45 UNITS SUB-Q (08:30)
[2023-10-22] MEDS: FERROUS SULFATE LIQUID 325 MG/7.4 ML ELIXIR FEED TUBE (08:30)
[2023-10-22 09:38] LABS: Hematocrit 27.3 % (42.0-52.0); Mean Corpuscular HGB Conc 29.3 g/dl (32-36); Mean Corpuscular Hemoglobin 26.5 pg (26-34); Mean Corpuscular Volume 90.4 fl (80-100); Mean Platelet Volume 9.5 fl (7.4-10.4); Platelet Count Result 452 k/mm3 (150-375); Red Blood Count 3.02 M/mm3 (4.6-6.20); Red Cell Distribution Width 19.4 % (11.5-14.5); White Blood Count 13.8 K/mm3 (4.5-10.0)
[2023-10-22 09:52] LABS: Alanine Aminotransferase 39 U/L (6-50); Albumin Level 2.9 g/dL (3.5-5.1); Alkaline Phosphatase 114 U/L (38-126); Anion Gap 6 mmol/L (4-12); Aspartate Amino Transferase 57 U/L (17-59); Bilirubin,Total 0.8 mg/dL (0.2-1.3); Blood Urea Nitrogen 17 mg/dL (9-20); Calcium 8.3 mg/dL (8.4-10.2); Carbon Dioxide 28 mmol/L (22-30); Chloride 103 mmol/L (98-107); Estimated CRCL calculation 174 ml/min; Estimated Glomerular Filt Rate > 60; Glucose 205 mg/dL (65-110); Potassium 4.5 mmol/L (3.4-5.0); Sodium 137 mmol/L (137-145)
[2023-10-22 11:46] LABS: Vancomycin Trough 18.6 ug/mL (10.0-20.0)
[2023-10-22 12:01] LABS: Glucose Point of Care 151 mg/dl (65-105)
--- NOTE | 2023-10-22 12:30 | PM.IMPN ---
Progress Note: A&P Assessment and Plan (1) Chronic indwelling Kinney catheter: Code(s): Z97.8 - Presence of other specified devices Status: Acute (2) Aspiration pneumonia: Code(s): J69.0 - Pneumonitis due to inhalation of food and vomit Status: Acute (3) Pulmonary embolism: Code(s): I26.99 - Other pulmonary embolism without acute cor pulmonale Status: Acute (4) Sepsis: Code(s): A41.9 - Sepsis, unspecified organism Status: Acute Plan UTI/aspiration pneumonia IV fluid resuscitation Monitor lactic acid levels Repeat CBC CMP Two sets of Blood cultures negative urine cultures gram-negative bacilli CXR Pneumonia versus pneumonitis Monitor albumin' Monitoring of mental status. Steroids suggested if septic shock on his positive fluid resuscitation and vasopressors. IV antibiotics on ceftriaxone DM Optimize medications insulin hold Lantus Routine glucose monitoring. Watch for Hypoglycemia. HB A1c levels pending Antiplatelet therapy with aspirin Vegetative state which is chronic HTN Optimize BP meds resume carvedilol, amlodipine will hold clonidine antiplatelet therapy as advised Keeping BMI less than 25 Advised low-salt History of hyperlipidemia continue atorvastatin. History of anemia 8.3 continue iron supplement. History of gastric reflux continue omeprazole Subjective Date/time seen: 10/22/23 12:30 Interval history: Still poorly responsive had couple of episodes of nausea and vomiting when the tube feeding was started currently all feedings at hold Review of Systems Review of Systems: ROS unobtainable: Yes unobtainable due to medical condition Exam Narrative: GENERAL: Sick looking HEAD: Normocephalic, atraumatic. NECK: Supple. No adenopathy, no masses. RESPIRATORY: respirations nonlabored. , CARDIOVASCULAR: Regular rate and rhythm without murmurs, Amputated toe ABDOMINAL: Soft, nontender, nondistended, SKIN: Warm, dry, NEURO: A&O X1 Objective Data Vital Signs Vital Signs: Vital Signs - 24 hr 10/21/23 14:00 10/21/23 15:42 10/21/23 16:00 Temperature 36.6 C Pulse Rate 128 H 128 H 125 H Respiratory Rate 22 H Blood Pressure 141/57 H Pulse Oximetry 97 Oxygen Delivery Fraction of Inspired Oxygen 10/21/23 16:00 10/21/23 18:00 10/21/23 19:07 Temperature 36.6 C Pulse Rate 115 H 121 H Respiratory Rate 24 H Blood Pressure 138/73 Pulse Oximetry 92 Oxygen Delivery Room Air Fraction of Inspired Oxygen 10/21/23 20:00 10/21/23 20:00 10/21/23 22:00 Temperature Pulse Rate 117 H 117 H 121 H Respiratory Rate 20 Blood Pressure Pulse Oximetry 92 Oxygen Delivery Room Air Fraction of Inspired Oxygen 21 10/22/23 00:00 10/22/23 00:00 10/22/23 00:42 Temperature 37.2 C Pulse Rate 121 H 121 H 123 H Respiratory Rate 20 24 H Blood Pressure 145/71 H Pulse Oximetry 92 93 Oxygen Delivery Room Air Fraction of Inspired Oxygen 10/22/23 02:00 10/22/23 05:38 10/22/23 04:00 Temperature 36.6 C Pulse Rate 123 H 119 H 120 H Respiratory Rate 23 H Blood Pressure 146/59 H Pulse Oximetry 98 Oxygen Delivery Fraction of Inspired Oxygen 10/22/23 04:00 10/22/23 06:00 10/22/23 07:35 Temperature 35.6 C L Pulse Rate 119 H 122 H 119 H Respiratory Rate 23 H 22 H Blood Pressure 153/71 H Pulse Oximetry 97 99 Oxygen Delivery Room Air Fraction of Inspired Oxygen 10/22/23 08:29 10/22/23 08:00 10/22/23 10:00 Temperature Pulse Rate 10 L 118 H 115 H Respiratory Rate Blood Pressure Pulse Oximetry Oxygen Delivery Fraction of Inspired Oxygen 10/22/23 08:00 10/22/23 11:46 Temperature 36.1 C L Pulse Rate 115 H 109 H Respiratory Rate 22 H 22 H Blood Pressure 147/72 H Pulse Oximetry 99 99 Oxygen Delivery Room Air Fraction of Inspired Oxygen Intake/Output Intake/Output: Intake & Output 10/19/23 10/20/23 10/21/2310/21
[2023-10-22 18:52] LABS: Hemoglobin A1C 7.2 % (<5.7)
[2023-10-22 18:54] LABS: Glucose Point of Care 115 mg/dl (65-105)
[2023-10-22] MEDS: ATORVASTATIN 40 MG TABLET 80 MG FEED TUBE (20:36)
[2023-10-22 23:41] LABS: Glucose Point of Care 93 mg/dl (65-105)
[2023-10-23] VITALS (16 sets, daily range): BP systolic 137–157; BP diastolic 62–75; PULSE 88–120; RESP 18–22; TEMP 36.3–36.6; O2SAT 91–100
[2023-10-23] MEDS: SOD HYPOCHLORITE 1/4 STRENGTH 473 ML 1 APPLIC TOPICAL ×3 (03:19→19:55)
--- NOTE | 2023-10-23 05:01 | PC.NURSE ---
Received orders from Dr. Weldon to resume skilled nursing tube feedings of Fibersource HN. Start @ rate of 35 and advance to skilled nursing rate of 70. Also start water flushes at 150ml and advance to skilled nursing orders of 200ml q4 hours if tolerated. check residuals.
[2023-10-23 05:48] LABS: Glucose Point of Care 102 mg/dl (65-105)
[2023-10-23 06:42] LABS: Hematocrit 25.8 % (42.0-52.0); Hemoglobin 7.9 g/dL (14.0-18.0); Mean Corpuscular HGB Conc 30.6 g/dl (32-36); Mean Corpuscular Hemoglobin 27.2 pg (26-34); Mean Platelet Volume 9.6 fl (7.4-10.4); Platelet Count Result 419 k/mm3 (150-375); Red Cell Distribution Width 19.1 % (11.5-14.5); White Blood Count 9.5 K/mm3 (4.5-10.0)
[2023-10-23 07:26] LABS: Alanine Aminotransferase 40 U/L (6-50); Albumin Level 3.1 g/dL (3.5-5.1); Alkaline Phosphatase 103 U/L (38-126); Anion Gap 9 mmol/L (4-12); Aspartate Amino Transferase 51 U/L (17-59); Bilirubin,Total 0.8 mg/dL (0.2-1.3); Blood Urea Nitrogen 11 mg/dL (9-20); Calcium 8.4 mg/dL (8.4-10.2); Carbon Dioxide 24 mmol/L (22-30); Chloride 104 mmol/L (98-107); Estimated CRCL calculation 181 ml/min; Estimated Glomerular Filt Rate > 60; Glucose 104 mg/dL (65-110); Potassium 3.7 mmol/L (3.4-5.0); Sodium 137 mmol/L (137-145)
--- NOTE | 2023-10-23 08:24 | PCNFU ---
Nutrition Follow-Up Complete: 1. Inability to meet nutrition needs PO related to dysphagia, CVA as evidenced by need for full enteral nutrition support 2. Increased protein energy needs related to pressure injuries as evidenced by wound report Goal: Meet estimated nutrition needs - Not progressing due to vomiting. Continue with same goal Pt current nutrition is NPO. Nutrition recommendation: Start tube feeding at trickle rate: Glucerna 1.2 @ 10 ml/h with water flushes 30 ml q 4 hours as tolerated. HOLD for vomiting. End goal is Glucerna 1.2 @ 70 ml/h with flushes 125 ml q 4 hours. Last recorded weight is 121 kg. Bowel Motility: +1 BM 10/22/23 Labs Reviewed: Hgb 7.9, Hct 25.8, Alb 3.1, Cre 0.5 Meds Noted: D5, rocephin, insulin, Zofran Skin: Stage 4 pressure injury sacrum. Deep tissue pressure injury L hip. Additional Notes: Discussed with MD. Pt still vomiting, tube feeds have not been started. Will start at trickle and advance to goal TOLERATED. RN aware. Goal: Glucerna 1.2 @ 70 ml/h with flushes 125 ml q 4 hours. 1848 kcal (~80% EER), 92 g protein, 1240 ml free water. Total water with flushes 1990 ml/d. Address pressure injuries once patient is tolerating tube feeds at goal rate. Monitoring intakes, weights, labs, tube feeding tolerance, wound healing, plan of care Follow up Thursday and Thursday
--- NOTE | 2023-10-23 08:32 | PCDIET ---
Tube feeding recommendation: Start tube feeding at trickle rate: Glucerna 1.2 @ 10 ml/h with water flushes 30 ml q 4 hours as tolerated. HOLD for vomiting. End goal is Glucerna 1.2 @ 70 ml/h with flushes 125 ml q 4 hours.
[2023-10-23] MEDS: FLUTICASONE PROPIONATE 0.05% NA SPR 16 GM BTL (*BKC) 1 SPRAY NASAL ×2 (08:52→17:26)
[2023-10-23] MEDS: LANSOPRAZOLE ODT 30 MG TAB.RAP.DR FEED TUBE (08:52)
[2023-10-23] MEDS: ASPIRIN 81 MG CHEWABLE TABLET FEED TUBE (08:53)
[2023-10-23] MEDS: FERROUS SULFATE LIQUID 325 MG/7.4 ML ELIXIR FEED TUBE (08:53)
[2023-10-23] MEDS: carvediloL 25 MG TABLET FEED TUBE ×2 (08:53→17:26)
[2023-10-23] MEDS: amLODIPine BESYLATE 5 MG TABLET 10 MG FEED TUBE (08:53)
[2023-10-23 11:39] LABS: Glucose Point of Care 106 mg/dl (65-105)
--- NOTE | 2023-10-23 12:04 | PM.IMPN ---
Progress Note: A&P Assessment and Plan (1) Chronic indwelling Kinney catheter: Code(s): Z97.8 - Presence of other specified devices Status: Acute (2) Aspiration pneumonia: Code(s): J69.0 - Pneumonitis due to inhalation of food and vomit Status: Acute (3) Pulmonary embolism: Code(s): I26.99 - Other pulmonary embolism without acute cor pulmonale Status: Acute (4) Sepsis: Code(s): A41.9 - Sepsis, unspecified organism Status: Acute Plan UTI/aspiration pneumonia IV fluid resuscitation Monitor lactic acid levels Repeat CBC CMP Two sets of Blood cultures negative urine cultures gram-negative bacilli CXR Pneumonia versus pneumonitis Monitor albumin' Monitoring of mental status. Steroids suggested if septic shock on his positive fluid resuscitation and vasopressors. IV antibiotics on ceftriaxone Patient not tolerating feeding tube continues to have nausea and vomited will try again DM Optimize medications insulin hold Lantus Routine glucose monitoring. Watch for Hypoglycemia. HB A1c levels pending Antiplatelet therapy with aspirin Vegetative state which is chronic HTN Optimize BP meds resume carvedilol, amlodipine will hold clonidine antiplatelet therapy as advised Keeping BMI less than 25 Advised low-salt History of hyperlipidemia continue atorvastatin. History of anemia 8.3 continue iron supplement. History of gastric reflux continue omeprazole Subjective Date/time seen: 10/23/23 12:04 Interval history: Patient is still in a vegetative state for responsive Review of Systems Review of Systems: ROS unobtainable: Yes unobtainable due to medical condition Exam Narrative: GENERAL: Sick looking HEAD: Normocephalic, atraumatic. NECK: Supple. No adenopathy, no masses. RESPIRATORY: respirations nonlabored. , CARDIOVASCULAR: Regular rate and rhythm without murmurs, Amputated toe ABDOMINAL: Soft, nontender, nondistended, SKIN: Warm, dry, NEURO: A&O X1 Objective Data Vital Signs Vital Signs: Vital Signs - 24 hr 10/22/23 14:00 10/22/23 15:31 10/22/23 16:00 Temperature 36.6 C Pulse Rate 106 H 110 H 108 H Respiratory Rate 22 H Blood Pressure 144/70 H Pulse Oximetry 100 Oxygen Delivery 10/22/23 16:00 10/22/23 18:48 10/22/23 18:00 Temperature 36.1 C L Pulse Rate 108 H 104 H 103 H Respiratory Rate 22 H 22 H Blood Pressure 148/69 H Pulse Oximetry 100 99 Oxygen Delivery Room Air 10/22/23 20:00 10/22/23 20:00 10/22/23 21:58 Temperature Pulse Rate 104 H 105 H 105 H Respiratory Rate 22 H Blood Pressure Pulse Oximetry 99 Oxygen Delivery Room Air 10/22/23 23:31 10/22/23 23:47 10/23/23 00:00 Temperature 36.1 C L Pulse Rate 108 H 108 H 107 H Respiratory Rate 22 H 22 H Blood Pressure 147/59 H Pulse Oximetry 100 100 Oxygen Delivery Room Air 10/23/23 02:00 10/23/23 03:33 10/23/23 03:34 Temperature 36.4 C L Pulse Rate 112 H 113 H 113 H Respiratory Rate 20 20 Blood Pressure 157/67 H Pulse Oximetry 100 100 Oxygen Delivery Room Air 10/23/23 04:00 10/23/23 05:57 10/23/23 07:34 Temperature 36.3 C L Pulse Rate 115 H 115 H 119 H Respiratory Rate 20 Blood Pressure 151/69 H Pulse Oximetry 96 Oxygen Delivery 10/23/23 08:53 10/23/23 11:43 Temperature 36.6 C Pulse Rate 120 H 111 H Respiratory Rate 20 Blood Pressure 146/62 H Pulse Oximetry 92 Oxygen Delivery Intake/Output Intake/Output: Intake & Output 10/20/23 10/21/23 10/22/23 10/23/23 23:59 23:59 23:59 23:59 Intake Total 1050 550 500 200 Output Total 3241 681 1271 Balance 0690 -500 -275 -1000 Meds/Results Medications: Active Medications Generic Name Dose Route Start Last Admin Trade Name Freq PRN Reason Stop Dose Admin Acetaminophen 1,000 mg 10/21/23 13:36 Acetaminophen 500 Mg Tablet FEED TUBE Q6H PRN Pain (Scale Score 1-3) Amlodipine Besylate 10 mg
[2023-10-23 15:32] LABS: Glucose Point of Care 93 mg/dl (65-105)
[2023-10-23 17:40] LABS: Glucose Point of Care 115 mg/dl (65-105)
--- NOTE | 2023-10-23 18:10 | PC.NURSE ---
This patient, Mendel Kelly, was transferred to [facility] on 10/23/23 at 1805. Personal belongings sent with patient. Report given to Leann KEY. Appropriate documentation sent with patient. Family Notified of room change.
--- NOTE | 2023-10-23 18:17 | ADMGEN ---
This patient, Mendel Kelly, was admitted to Medical Room 349-01 from IMU Room 214/01. Patient/family oriented to hospital policies and general routines including ID bracelet, bed and alarms, visiting hours, pain management, procedures, bathroom and other care routines, personal items, smoking policy, room service/diet, and visiting hours. Information on how to activate the Rapid Response Team has been discussed. Patient/Family are encouraged to report perceived risks to care and to ask questions if they do not understand what they are told or what they should do.
[2023-10-23] MEDS: ACETAMINOPHEN 500 MG TABLET 1000 MG FEED TUBE (19:53)
[2023-10-23] MEDS: ATORVASTATIN 40 MG TABLET 80 MG FEED TUBE (19:54)
[2023-10-23 23:43] LABS: Glucose Point of Care 100 mg/dl (65-105)
[2023-10-24] VITALS (7 sets, daily range): BP systolic 116–159; BP diastolic 60–74; PULSE 100–112; RESP 20; TEMP 37.1–37.2; O2SAT 93–100
[2023-10-24 05:37] LABS: Glucose Point of Care 124 mg/dl (65-105)
[2023-10-24] MEDS: amLODIPine BESYLATE 5 MG TABLET 10 MG FEED TUBE (08:45)
[2023-10-24] MEDS: LANSOPRAZOLE ODT 30 MG TAB.RAP.DR FEED TUBE (08:46)
[2023-10-24] MEDS: carvediloL 25 MG TABLET FEED TUBE ×2 (08:46→17:18)
[2023-10-24] MEDS: ASPIRIN 81 MG CHEWABLE TABLET FEED TUBE (08:46)
[2023-10-24] MEDS: FERROUS SULFATE LIQUID 325 MG/7.4 ML ELIXIR FEED TUBE (10:01)
[2023-10-24] MEDS: SOD HYPOCHLORITE 1/4 STRENGTH 473 ML 1 APPLIC TOPICAL ×2 (10:01→20:12)
[2023-10-24] MEDS: FLUTICASONE PROPIONATE 0.05% NA SPR 16 GM BTL (*BKC) 1 SPRAY NASAL ×2 (11:00→18:21)
[2023-10-24 12:16] LABS: Glucose Point of Care 161 mg/dl (65-105)
[2023-10-24 17:55] LABS: Glucose Point of Care 173 mg/dl (65-105)
--- NOTE | 2023-10-24 19:00 | PM.IMPN ---
Progress Note: A&P Assessment and Plan (1) Chronic indwelling Kinney catheter: Code(s): Z97.8 - Presence of other specified devices Status: Acute (2) Acute UTI: Code(s): N39.0 - Urinary tract infection, site not specified Status: Acute Plan Continue to feed that rate. continue antibiotics for UTI. SCDs for DVT prophylaxis. Has anemia. Check CBC BMP in the morning. Full code. Subjective Date/time seen: 10/24/23 19:00 Interval history: No acute overnight events. Nurses not witness patient is to emesis. Review of Systems Review of Systems: All systems reviewed & are unremarkable except as noted in HPI and below (Subjective) Exam Const: General: comfortable and no acute distress Other: Tracks with eyes. Eyes: Pupils: Equal, round and reactive pupils present Resp: Effort & Inspection: normal respiratory effort Auscultation: clear to auscultation bilaterally Cardio: Rate: regular rate Rhythm: regular rhythm GI: GI Palp: Yes Soft to palpation Extrem: General: no edema Objective Data Vital Signs Vital Signs: Vital Signs - 24 hr 10/23/23 20:00 10/23/23 23:26 10/24/23 05:44 Temperature 97.5 F L 98.8 F Pulse Rate 108 H 105 H Respiratory Rate 18 20 Blood Pressure 137/75 139/67 Pulse Oximetry 100 97 Oxygen Delivery Room Air 10/23/23 23:49 10/24/23 08:46 10/24/23 14:00 Temperature 98.9 F Pulse Rate 108 H 106 H Respiratory Rate 20 Blood Pressure 116/60 Pulse Oximetry 99 100 Oxygen Delivery Room Air 10/24/23 17:18 Temperature Pulse Rate 100 Respiratory Rate Blood Pressure Pulse Oximetry Oxygen Delivery Intake/Output Intake/Output: Intake & Output 10/21/23 10/22/23 10/23/23 10/24/23 23:59 23:59 23:59 23:59 Intake Total 550 500 300 730 Output Total 7532 418 4964 1100 Balance -500 -275 -1300 -370 Meds/Results Medications: Active Medications Generic Name Dose Route Start Last Admin Trade Name Freq PRN Reason Stop Dose Admin Acetaminophen 1,000 mg 10/21/23 13:36 10/23/23 19:53 Acetaminophen 500 Mg Tablet FEED TUBE 1,000 mg Q6H PRN Administration Pain (Scale Score 1-3) Amlodipine Besylate 10 mg 10/22/23 09:00 10/24/23 08:45 Amlodipine Besylate 5 Mg Tablet FEED TUBE 10 mg QAM RICHARD Administration Aspirin 81 mg 10/22/23 09:00 10/24/23 08:46 Aspirin 81 Mg Chewable Tablet FEED TUBE 81 mg DAILY RICHARD Administration Atorvastatin Calcium 80 mg 10/21/23 21:00 10/23/23 19:54 Atorvastatin 40 Mg Tablet FEED TUBE 80 mg HS RICHARD Administration Bisacodyl 10 mg 10/21/23 13:36 Bisacodyl 10 Mg Suppository RECTAL DAILY PRN Constipation Carvedilol 25 mg 10/21/23 17:00 10/24/23 17:18 Carvedilol 25 Mg Tablet FEED TUBE 25 mg BID RICHARD Administration Dextrose 12.5 gm 10/21/23 05:04 Dextrose 50% 25 Gm/50 Ml Syringe IV PUSH PRN PRN Hypoglycemia Protocol Ferrous Sulfate 325 mg 10/22/23 09:00 10/24/23 10:01 Ferrous Sulfate Liquid 325 Mg/7.4 Ml Elixir FEED TUBE 11/21/23 08:59 325 mg DAILY RICHARD Administration Fluticasone Propionate 1 spray 10/21/23 17:00 10/24/23 18:21 Fluticasone Propionate 0.05% Na Spr 16 Gm Btl (*Bkc) NASAL 1 spray BID RICHARD Administration Glucagon 1 mg 10/21/23 05:04 Glucagon For Inj 1 Mg Vial IM PRN PRN Hypoglycemia Protocol Glucose 15 gm 10/21/23 05:04 Glucose Oral Gel 15 Gm Of Glucse In 37.5 Gm Tube PO PRN PRN Hypoglycemia Protocol Ceftriaxone Sodium 1 gm in 50 mls @ 100 mls/hr 10/21/23 21:00 10/23/23 20:23 Rocephin 1 Gm/Ns 50 Ml IVPB Infused Q24H RICHARD Infusion Dextrose 1,000 mls @ 100 mls/hr 10/21/23 05:04 Dextrose 5% 1,000 Ml IVPB PRN PRN Hypoglycemia Protocol Insulin Aspart 4 - 8 units 10/21/23 06:00 10/24/23 18:17 Insulin Aspart (*Bkc) 100 Units/Ml SUB-Q Not Given Q6HR [facility] Protocol Insulin Glargine 45 units 0
[2023-10-24] MEDS: ATORVASTATIN 40 MG TABLET 80 MG FEED TUBE (20:10)
[2023-10-24] MEDS: ACETAMINOPHEN 500 MG TABLET 1000 MG FEED TUBE (20:10)
[2023-10-24] MEDS: INSULIN ASPART (*BKC) 100 UNITS/ML SUB-Q (23:13)
[2023-10-24 23:14] LABS: Glucose Point of Care 212 mg/dl (65-105)
[2023-10-25 05:07] VITALS: BP 141/74; PULSE 107; RESP 20; TEMP 37; O2SAT 100
[2023-10-25] MEDS: INSULIN ASPART (*BKC) 100 UNITS/ML SUB-Q ×2 (05:22→12:55)
[2023-10-25 05:24] LABS: Glucose Point of Care 209 mg/dl (65-105)
[2023-10-25 05:31] LABS: Hematocrit 27.7 % (42.0-52.0); Hemoglobin 8.1 g/dL (14.0-18.0); Mean Corpuscular HGB Conc 29.2 g/dl (32-36); Mean Corpuscular Hemoglobin 27.4 pg (26-34); Mean Corpuscular Volume 93.6 fl (80-100); Mean Platelet Volume 9.1 fl (7.4-10.4); Platelet Count Result 394 k/mm3 (150-375); Red Blood Count 2.96 M/mm3 (4.6-6.20); Red Cell Distribution Width 19.5 % (11.5-14.5); White Blood Count 9.3 K/mm3 (4.5-10.0)
[2023-10-25 06:34] LABS: Anion Gap 9 mmol/L (4-12); Blood Urea Nitrogen 14 mg/dL (9-20); Carbon Dioxide 25 mmol/L (22-30); Chloride 103 mmol/L (98-107); Estimated CRCL calculation 177 ml/min; Estimated Glomerular Filt Rate > 60; Glucose 219 mg/dL (65-110); Magnesium 1.8 mg/dL (1.6-2.3); Potassium 4.2 mmol/L (3.4-5.0); Sodium 137 mmol/L (137-145)
[2023-10-25 09:40] VITALS: PULSE 100
[2023-10-25] MEDS: carvediloL 25 MG TABLET FEED TUBE ×2 (09:40→17:46)
[2023-10-25] MEDS: amLODIPine BESYLATE 5 MG TABLET 10 MG FEED TUBE (09:41)
[2023-10-25] MEDS: LANSOPRAZOLE ODT 30 MG TAB.RAP.DR FEED TUBE (09:42)
[2023-10-25] MEDS: FLUTICASONE PROPIONATE 0.05% NA SPR 16 GM BTL (*BKC) 1 SPRAY NASAL ×2 (09:42→17:46)
[2023-10-25] MEDS: ASPIRIN 81 MG CHEWABLE TABLET FEED TUBE (09:42)
[2023-10-25] MEDS: SOD HYPOCHLORITE 1/4 STRENGTH 473 ML 1 APPLIC TOPICAL ×2 (09:55→21:54)
[2023-10-25] MEDS: FERROUS SULFATE LIQUID 325 MG/7.4 ML ELIXIR FEED TUBE (10:08)
[2023-10-25 12:07] LABS: Glucose Point of Care 210 mg/dl (65-105)
[2023-10-25 14:00] VITALS: BP 134/64; PULSE 105; RESP 24; TEMP 37.6; O2SAT 100
[2023-10-25 17:07] LABS: Glucose Point of Care 153 mg/dl (65-105)
--- NOTE | 2023-10-25 17:24 | PM.IMPN ---
Progress Note: A&P Assessment and Plan (1) Chronic indwelling Kinney catheter: Code(s): Z97.8 - Presence of other specified devices Status: Acute (2) Acute UTI: Code(s): N39.0 - Urinary tract infection, site not specified Status: Acute Plan Continue to feed that rate. continue antibiotics for UTI. SCDs for DVT prophylaxis. Has anemia. Check CBC BMP in the morning. Full code. Subjective Date/time seen: 10/25/23 17:24 Interval history: Acute overnight events. Patient does not grimace in pain. Tracks with his eyes. Review of Systems Review of Systems: All systems reviewed & are unremarkable except as noted in HPI and below (Subjective) Exam Const: General: comfortable and no acute distress Other: Tracks with eyes. Eyes: Pupils: Equal, round and reactive pupils present Resp: Effort & Inspection: normal respiratory effort Auscultation: clear to auscultation bilaterally Cardio: Rate: regular rate Rhythm: regular rhythm GI: GI Palp: Yes Soft to palpation Extrem: General: no edema Objective Data Vital Signs Vital Signs: Vital Signs - 24 hr 10/24/23 19:45 10/24/23 20:00 10/24/23 22:44 Temperature 99.0 F Pulse Rate 112 H Respiratory Rate 20 Blood Pressure 159/74 H Pulse Oximetry 93 93 93 Oxygen Delivery Room Air Room Air 10/25/23 05:07 10/25/23 09:40 10/25/23 08:00 Temperature 98.6 F Pulse Rate 107 H 100 Respiratory Rate 20 Blood Pressure 141/74 H Pulse Oximetry 100 Oxygen Delivery Room Air 10/25/23 14:00 Temperature 99.7 F H Pulse Rate 105 H Respiratory Rate 24 H Blood Pressure 134/64 Pulse Oximetry 100 Oxygen Delivery Intake/Output Intake/Output: Intake & Output 10/22/23 10/23/23 10/24/23 10/25/23 23:59 23:59 23:59 23:59 Intake Total 500 762 740 5988 Output Total 775 1600 1100 350 Balance -275 1300 -199 750 Meds/Results Medications: Active Medications Generic Name Dose Route Start Last Admin Trade Name Freq PRN Reason Stop Dose Admin Acetaminophen 1,000 mg 10/21/23 13:36 10/24/23 20:10 Acetaminophen 500 Mg Tablet FEED TUBE 1,000 mg Q6H PRN Administration Pain (Scale Score 1-3) Amlodipine Besylate 10 mg 10/22/23 09:00 10/25/23 09:41 Amlodipine Besylate 5 Mg Tablet FEED TUBE 10 mg QAM RICHARD Administration Aspirin 81 mg 10/22/23 09:00 10/25/23 09:42 Aspirin 81 Mg Chewable Tablet FEED TUBE 81 mg DAILY RICHARD Administration Atorvastatin Calcium 80 mg 10/21/23 21:00 10/24/23 20:10 Atorvastatin 40 Mg Tablet FEED TUBE 80 mg HS RICHARD Administration Bisacodyl 10 mg 10/21/23 13:36 Bisacodyl 10 Mg Suppository RECTAL DAILY PRN Constipation Carvedilol 25 mg 10/21/23 17:00 10/25/23 09:40 Carvedilol 25 Mg Tablet FEED TUBE 25 mg BID RICHARD Administration Dextrose 12.5 gm 10/21/23 05:04 Dextrose 50% 25 Gm/50 Ml Syringe IV PUSH PRN PRN Hypoglycemia Protocol Ferrous Sulfate 325 mg 10/22/23 09:00 10/25/23 10:08 Ferrous Sulfate Liquid 325 Mg/7.4 Ml Elixir FEED TUBE 11/21/23 08:59 325 mg DAILY RICHARD Administration Fluticasone Propionate 1 spray 10/21/23 17:00 10/25/23 09:42 Fluticasone Propionate 0.05% Na Spr 16 Gm Btl (*Bkc) NASAL 1 spray BID RICHARD Administration Glucagon 1 mg 10/21/23 05:04 Glucagon For Inj 1 Mg Vial IM PRN PRN Hypoglycemia Protocol Glucose 15 gm 10/21/23 05:04 Glucose Oral Gel 15 Gm Of Glucse In 37.5 Gm Tube PO PRN PRN Hypoglycemia Protocol Ceftriaxone Sodium 1 gm in 50 mls @ 100 mls/hr 10/21/23 21:00 10/24/23 20:40 Rocephin 1 Gm/Ns 50 Ml IVPB Infused Q24H RICHARD Infusion Dextrose 1,000 mls @ 100 mls/hr 10/21/23 05:04 Dextrose 5% 1,000 Ml IVPB PRN PRN Hypoglycemia Protocol Insulin Aspart 4 - 8 units 10/21/23 06:00 10/25/23 12:55 Insulin Aspart (*Bkc) 100 Units/Ml SUB-Q 4 units Q6HR RICHARD Administration Mainor
[2023-10-25 17:46] VITALS: PULSE 102
[2023-10-25] MEDS: ATORVASTATIN 40 MG TABLET 80 MG FEED TUBE (21:53)
[2023-10-25 22:00] VITALS: BP 151/74; PULSE 103; RESP 20; TEMP 36.3; O2SAT 100
[2023-10-26 05:30] LABS: Glucose Point of Care 206 mg/dl (65-105)
[2023-10-26 05:30] LABS: Glucose Point of Care 200 mg/dl (65-105)
[2023-10-26] MEDS: INSULIN ASPART (*BKC) 100 UNITS/ML SUB-Q ×3 (05:37→17:32)
[2023-10-26 05:43] LABS: Glucose Point of Care 207 mg/dl (65-105)
[2023-10-26 06:00] VITALS: BP 138/70; PULSE 107; RESP 20; TEMP 36.8; O2SAT 99
[2023-10-26 07:38] LABS: Basophils Percent Auto 0.4 % (0.2-1.2); Eosinophils Absolute Auto 0.3 K/mm3 (0-0.3); Hematocrit 26.4 % (42.0-52.0); Hemoglobin 7.8 g/dL (14.0-18.0); Immature Granulocyte Absolute 0.07 K/mm3 (0.00-0.031); Immature Granulocyte Percent A 0.7 % (0-0.5); Lymphocytes Absolute Auto 2.01 K/mm3 (0.9-3.2); Lymphocytes Percent Auto 18.9 % (18.3-44.2); Mean Corpuscular HGB Conc 29.5 g/dl (32-36); Mean Corpuscular Hemoglobin 26.7 pg (26-34); Mean Corpuscular Volume 90.4 fl (80-100); Mean Platelet Volume 8.6 fl (7.4-10.4); Monocytes Absolute Auto 0.8 K/mm3 (0.1-0.6); Monocytes Percent Auto 7.1 % (2.6-8.5); Neutrophils Absolute Auto 7.5 K/mm3 (1.3-6.7); Neutrophils Percent Auto 69.9 % (45.5-73.1); Nucleated Red Blood Cells Perc 0.2 % (0.0-0.2); Platelet Count Result 410 k/mm3 (150-375); Red Blood Count 2.92 M/mm3 (4.6-6.20); Red Cell Distribution Width 19.3 % (11.5-14.5); White Blood Count 10.7 K/mm3 (4.5-10.0)
[2023-10-26 07:50] LABS: Anion Gap 5 mmol/L (4-12); Blood Urea Nitrogen 12 mg/dL (9-20); Calcium 8.5 mg/dL (8.4-10.2); Carbon Dioxide 28 mmol/L (22-30); Chloride 102 mmol/L (98-107); Estimated CRCL calculation 177 ml/min; Estimated Glomerular Filt Rate > 60; Glucose 208 mg/dL (65-110); Magnesium 1.8 mg/dL (1.6-2.3); Potassium 4.4 mmol/L (3.4-5.0); Sodium 135 mmol/L (137-145)
[2023-10-26 07:58] LABS: Platelet Estimate Adequate (Adequate)
[2023-10-26 08:03] LABS: Anisocytosis 1+; Hypochromasia 1+; Schistocytes Rare
[2023-10-26 08:04] LABS: Atypical Lymphocytes Present
[2023-10-26 08:44] VITALS: PULSE 100
[2023-10-26] MEDS: carvediloL 25 MG TABLET FEED TUBE ×2 (08:44→17:17)
[2023-10-26] MEDS: ASPIRIN 81 MG CHEWABLE TABLET FEED TUBE (08:44)
[2023-10-26] MEDS: LANSOPRAZOLE ODT 30 MG TAB.RAP.DR FEED TUBE (08:44)
[2023-10-26] MEDS: amLODIPine BESYLATE 5 MG TABLET 10 MG FEED TUBE (08:44)
[2023-10-26] MEDS: FLUTICASONE PROPIONATE 0.05% NA SPR 16 GM BTL (*BKC) 1 SPRAY NASAL ×2 (08:45→17:18)
[2023-10-26] MEDS: FERROUS SULFATE LIQUID 325 MG/7.4 ML ELIXIR FEED TUBE (08:45)
[2023-10-26] MEDS: SOD HYPOCHLORITE 1/4 STRENGTH 473 ML 1 APPLIC TOPICAL ×2 (08:45→20:29)
[2023-10-26 12:37] LABS: Glucose Point of Care 210 mg/dl (65-105)
[2023-10-26] MEDS: CEFTAZIDIME/AVIBACTAM 2.5 GM in SODIUM CHLORIDE 0.9% IV 100 ML 37.33 ML IVPB (13:01)
--- NOTE | 2023-10-26 13:23 | PM.IMPN ---
Progress Note: A&P Assessment and Plan (1) Chronic indwelling Kinney catheter: Code(s): Z97.8 - Presence of other specified devices Status: Acute (2) Aspiration pneumonia: Code(s): J69.0 - Pneumonitis due to inhalation of food and vomit Status: Acute (3) Persistent vegetative state: Code(s): R40.3 - Persistent vegetative state Status: Chronic (4) Complicated UTI (urinary tract infection): Code(s): N39.0 - Urinary tract infection, site not specified Status: Acute Plan This is a 58-year-old male resides at [facility] with past medical history obesity, history of stroke now in vegetative state bed-bound and nonverbal, intracranial hemorrhage, history of recurrent aspiration pneumonia, chronic indwelling Kinney catheter, CAD, hypertension, insulin-dependent diabetes mellitus, decubitus ulcer, who presents from [facility] with reports of nausea vomiting and tachycardia. Urinalysis on admission also abnormal. Admitted on 08/02/2023 # tachycardia/nausea vomiting/aspiration pneumonia/complicated UTI with Pseudomonas -initially placed on vanc Flagyl and ceftriaxone for aspiration. This was switched to ceftriaxone. Otherwise does not appear to be septic. -on 10/25 he has mild leukocytosis. On this day we are also getting sensitivities for the previously recorded Gram-negative bacilli in the urine culture. Reported by ID pharmacist it is Deshawn is díaz resistant. Our only option for complicated UTI due to chronic indwelling Kinney catheter is ceftazidime avibactam. Requested nurse changed the Kinney per protocol. Will plan for a 5 day course and if no complications and leukocytosis resolved then the patient can be discharged safely. -mild tachycardia, resume BACTERIOLOGY TEACHER clonidine # insulin-dependent diabetes mellitus -continue Accu-Cheks q.6 hours -holding BACTERIOLOGY TEACHER glargine 45 units daily. If his blood sugars are consistently high and he is tolerating tube feeds we can restart this. -BACTERIOLOGY TEACHER lispro 5 units t.i.d. also on hold. -currently receiving sliding scale Chronic Conditions -bed-bound, history of stroke: Continue BACTERIOLOGY TEACHER atorvastatin and aspirin -history of hypertension: Continue BACTERIOLOGY TEACHER amlodipine. Continue BACTERIOLOGY TEACHER carvedilol. Mildly elevated, resume BACTERIOLOGY TEACHER clonidine -history of CAD: Resume aspirin -chronic decubitus ulcer: Wound care consulted. F/E/N: saline lock IV, replace lytes as needed, continue tube feeds GI prophylaxis: Continue BACTERIOLOGY TEACHER PPI DVT prophylaxis: Has a history of intracranial hemorrhage. Already bed-bound and does not receive pharmacological DVT prophylaxis at his [facility]. Will not alter this. SCDs only. Lines: Peripheral IV, chronic wound on Kinney catheter changed this admission Code Status: Full code Dispo: Stable on medical floor. Treat for 5 days for Pseudomonas UTI Heart Failure MIPS: Does not have heart failure Note to the patient: The Century Cures Act makes medical notes like these available to patients in the interest of transparency. Please be advised this is a medical document. It is intended for ngzz-tr-xhya communication. It is written in medical language and may contain unfamiliar abbreviations or verbiage. Components may appear blunt or direct. Medical documents are intended to carry relevant information, facts as evident, and the clinical opinion of the practitioner at the time of the encounter. This note was generated by a speech recognition system and may contain inherent errors or omissions not intended by the user. Grammatical errors, random word insertions, deletions, pronoun errors and incomplete sentences are occasional consequences of this technology due to software limitations. Not all errors are caught or corrected. If there are questions or concerns about the content of this note or information contained within the body of this dictation they should be addressed directly wit
[2023-10-26 14:00] VITALS: BP 159/77; PULSE 112; RESP 20; TEMP 36.1; O2SAT 100
[2023-10-26 17:17] VITALS: PULSE 100
[2023-10-26] MEDS: cloNIDine HCL 0.1 MG TABLET 0.3 MG FEED TUBE (17:18)
[2023-10-26 17:26] LABS: Glucose Point of Care 228 mg/dl (65-105)
[2023-10-26] MEDS: ATORVASTATIN 40 MG TABLET 80 MG FEED TUBE (20:27)
[2023-10-26] MEDS: CEFTAZIDIME/AVIBACTAM 2.5 GM in SODIUM CHLORIDE 0.9% IV 100 ML IVPB (20:33)
[2023-10-26 21:51] VITALS: BP 151/88; PULSE 109; RESP 20; TEMP 35.8; O2SAT 100
[2023-10-27] MEDS: INSULIN ASPART (*BKC) 100 UNITS/ML SUB-Q ×2 (00:38→12:32)
[2023-10-27 00:43] LABS: Glucose Point of Care 247 mg/dl (65-105)
[2023-10-27 06:00] VITALS: BP 164/85; PULSE 106; RESP 20; TEMP 36.8; O2SAT 100
[2023-10-27] MEDS: CEFTAZIDIME/AVIBACTAM 2.5 GM in SODIUM CHLORIDE 0.9% IV 100 ML IVPB ×3 (06:03→20:32)
[2023-10-27 06:18] LABS: Glucose Point of Care 199 mg/dl (65-105)
[2023-10-27 08:33] LABS: Basophils Percent Auto 0.3 % (0.2-1.2); Eosinophils Absolute Auto 0.5 K/mm3 (0-0.3); Eosinophils Percent Auto 3.3 % (0-4.4); Hematocrit 26.7 % (42.0-52.0); Hemoglobin 8.1 g/dL (14.0-18.0); Immature Granulocyte Absolute 0.15 K/mm3 (0.00-0.031); Immature Granulocyte Percent A 1.1 % (0-0.5); Lymphocytes Percent Auto 13.2 % (18.3-44.2); Mean Corpuscular HGB Conc 30.3 g/dl (32-36); Mean Platelet Volume 8.8 fl (7.4-10.4); Monocytes Absolute Auto 0.9 K/mm3 (0.1-0.6); Monocytes Percent Auto 6.4 % (2.6-8.5); Neutrophils Absolute Auto 10.3 K/mm3 (1.3-6.7); Neutrophils Percent Auto 75.7 % (45.5-73.1); Nucleated Red Blood Cells Perc 0.1 % (0.0-0.2); Platelet Count Result 411 k/mm3 (150-375); Red Cell Distribution Width 19.5 % (11.5-14.5); White Blood Count 13.7 K/mm3 (4.5-10.0)
[2023-10-27 08:47] LABS: Alanine Aminotransferase 18 U/L (6-50); Albumin Level 3.3 g/dL (3.5-5.1); Alkaline Phosphatase 122 U/L (38-126); Anion Gap 8 mmol/L (4-12); Aspartate Amino Transferase 25 U/L (17-59); Bilirubin,Total 0.5 mg/dL (0.2-1.3); Blood Urea Nitrogen 16 mg/dL (9-20); Calcium 8.4 mg/dL (8.4-10.2); Carbon Dioxide 25 mmol/L (22-30); Chloride 102 mmol/L (98-107); Estimated CRCL calculation 177 ml/min; Estimated Glomerular Filt Rate > 60; Glucose 206 mg/dL (65-110); Magnesium 1.8 mg/dL (1.6-2.3); Potassium 4.3 mmol/L (3.4-5.0); Sodium 135 mmol/L (137-145)
[2023-10-27 09:00] LABS: Glucose Point of Care 192 mg/dl (65-105)
[2023-10-27 09:15] LABS: Procalcitonin 0.1 ng/mL
[2023-10-27 09:18] VITALS: PULSE 104
[2023-10-27] MEDS: LANSOPRAZOLE ODT 30 MG TAB.RAP.DR FEED TUBE (09:18)
[2023-10-27] MEDS: amLODIPine BESYLATE 5 MG TABLET 10 MG FEED TUBE (09:18)
[2023-10-27] MEDS: carvediloL 25 MG TABLET FEED TUBE ×2 (09:18→16:38)
[2023-10-27] MEDS: cloNIDine HCL 0.1 MG TABLET 0.3 MG FEED TUBE ×3 (09:21→16:38)
[2023-10-27] MEDS: FERROUS SULFATE LIQUID 325 MG/7.4 ML ELIXIR FEED TUBE (09:21)
[2023-10-27] MEDS: ASPIRIN 81 MG CHEWABLE TABLET FEED TUBE (09:21)
[2023-10-27] MEDS: FLUTICASONE PROPIONATE 0.05% NA SPR 16 GM BTL (*BKC) 1 SPRAY NASAL ×2 (09:24→16:43)
--- NOTE | 2023-10-27 09:37 | PCNFU ---
Nutrition Follow-Up Complete: 1. Inability to meet nutrition needs PO related to dysphagia, CVA as evidenced by need for full enteral nutrition support 2. Increased protein energy needs related to pressure injuries as evidenced by wound report Meet estimated nutrition needs - Goal is being met Goal: Pt current nutrition is Glucerna 1.2 @ 70 ml/h with H2O flushes 125 ml q 4 hours. Nutrition recommendation: No new nutrition recommendations. Continue with current tube feeding order and nutrition care plan Last recorded weight is 115 kg. Bowel Motility: Last BM 10/27/23 Labs Reviewed: Hgb 8.1, Hct 26.7, Alb 3.3, Na 135, Cre 0.5, Glu 199 Meds Noted: Rocephin, insulin, Zofran Skin: Stage 4 sacrum DTI hip Additional Notes: Tolerating tube feeding at goal, 70 ml/h. Residuals at 5 ml. Having bowel movements. Tube feeding has not been charted for a few days but in communication with RN, pt has been getting it consistently and is now tolerating at goal. Monitoring intakes, weights, labs, tube feeding tolerance, wound healing, plan of care Follow up Thursday and Thursday
[2023-10-27 12:29] LABS: Glucose Point of Care 214 mg/dl (65-105)
[2023-10-27 14:00] VITALS: BP 129/67; PULSE 89; RESP 20; TEMP 36; O2SAT 100
[2023-10-27] MEDS: SOD HYPOCHLORITE 1/4 STRENGTH 473 ML 1 APPLIC TOPICAL (15:00)
[2023-10-27 16:38] VITALS: PULSE 96
--- NOTE | 2023-10-27 18:01 | PM.IMPN ---
Progress Note: A&P Assessment and Plan (1) Chronic indwelling Kinney catheter: Code(s): Z97.8 - Presence of other specified devices Status: Acute (2) Aspiration pneumonia: Code(s): J69.0 - Pneumonitis due to inhalation of food and vomit Status: Acute (3) Persistent vegetative state: Code(s): R40.3 - Persistent vegetative state Status: Chronic (4) Complicated UTI (urinary tract infection): Code(s): N39.0 - Urinary tract infection, site not specified Status: Acute Plan This is a 58-year-old male resides at [facility] with past medical history obesity, history of stroke now in vegetative state bed-bound and nonverbal, intracranial hemorrhage, history of recurrent aspiration pneumonia, chronic indwelling Kinney catheter, CAD, hypertension, insulin-dependent diabetes mellitus, decubitus ulcer, who [facility] from [facility] with reports of nausea vomiting and tachycardia. Urinalysis on admission also abnormal. Admitted on 08/02/2023 10/27/2023 update: No evidence of sepsis but is leukocytosis increased. Spoke with pharmacist again and Elan is continuing to check for sensitivities of the Pseudomonas. Continue ceftazidime may be backed in. # tachycardia/nausea vomiting/aspiration pneumonia/complicated UTI with Pseudomonas -initially placed on vanc Flagyl and ceftriaxone for aspiration. This was switched to ceftriaxone. Otherwise does not appear to be septic. -on 10/25 he has mild leukocytosis. On this day we are also getting sensitivities for the previously recorded Gram-negative bacilli in the urine culture. Reported by ID pharmacist it is Deshawn is díaz resistant. Our only option for complicated UTI due to chronic indwelling Kinney catheter is ceftazidime avibactam. Requested nurse changed the Kinney per protocol. Will plan for a 5 day course and if no complications and leukocytosis resolved then the patient can be discharged safely. -mild tachycardia, resume BENCH ASSEMBLER clonidine # insulin-dependent diabetes mellitus -continue Accu-Cheks q.6 hours -holding BENCH ASSEMBLER glargine 45 units daily. If his blood sugars are consistently high and he is tolerating tube feeds we can restart this. -BENCH ASSEMBLER lispro 5 units t.i.d. also on hold. -currently receiving sliding scale Chronic Conditions -bed-bound, history of stroke: Continue BENCH ASSEMBLER atorvastatin and aspirin -history of hypertension: Continue BENCH ASSEMBLER amlodipine. Continue BENCH ASSEMBLER carvedilol. Mildly elevated, resume BENCH ASSEMBLER clonidine -history of CAD: Resume aspirin -chronic decubitus ulcer: Wound care consulted. F/E/N: saline lock IV, replace lytes as needed, continue tube feeds GI prophylaxis: Continue BENCH ASSEMBLER PPI DVT prophylaxis: Has a history of intracranial hemorrhage. Already bed-bound and does not receive pharmacological DVT prophylaxis at his [facility]. Will not alter this. SCDs only. Lines: Peripheral IV, chronic wound on Kinney catheter changed this admission Code Status: Full code Dispo: Stable on medical floor. Treat for 5 days for Pseudomonas UTI Heart Failure MIPS: Does not have heart failure Note to the patient: The Cures Act makes medical notes like these available to patients in the interest of transparency. Please be advised this is a medical document. It is intended for buom-av-qapm communication. It is written in medical language and may contain unfamiliar abbreviations or verbiage. Components may appear blunt or direct. Medical documents are intended to carry relevant information, facts as evident, and the clinical opinion of the practitioner at the time of the encounter. This note was generated by a speech recognition system and may contain inherent errors or omissions not intended by the user. Grammatical errors, random word insertions, deletions, pronoun errors and incomplete sentences are occasional consequences of this technology due to software li
[2023-10-27 18:18] LABS: Glucose Point of Care 157 mg/dl (65-105)
[2023-10-27] MEDS: ATORVASTATIN 40 MG TABLET 80 MG FEED TUBE (20:31)
[2023-10-27 22:00] VITALS: BP 131/60; PULSE 83; RESP 20; TEMP 36.1; O2SAT 100
[2023-10-28 05:18] LABS: Glucose Point of Care 167 mg/dl (65-105)
[2023-10-28 06:00] VITALS: BP 138/61; PULSE 97; RESP 20; TEMP 36.7; O2SAT 100
[2023-10-28] MEDS: SOD HYPOCHLORITE 1/4 STRENGTH 473 ML 1 APPLIC TOPICAL ×2 (06:18→16:08)
[2023-10-28] MEDS: CEFTAZIDIME/AVIBACTAM 2.5 GM in SODIUM CHLORIDE 0.9% IV 100 ML IVPB ×3 (06:18→21:13)
--- NOTE | 2023-10-28 07:26 | PM.IMPN ---
Progress Note: A&P Assessment and Plan (1) Chronic indwelling Kinney catheter: Code(s): Z97.8 - Presence of other specified devices Status: Acute (2) Aspiration pneumonia: Code(s): J69.0 - Pneumonitis due to inhalation of food and vomit Status: Acute (3) Persistent vegetative state: Code(s): R40.3 - Persistent vegetative state Status: Chronic (4) Complicated UTI (urinary tract infection): Code(s): N39.0 - Urinary tract infection, site not specified Status: Acute Plan This is a 58-year-old male resides at [facility] with past medical history obesity, history of stroke now in vegetative state bed-bound and nonverbal, intracranial hemorrhage, history of recurrent aspiration pneumonia, chronic indwelling Kinney catheter, CAD, hypertension, insulin-dependent diabetes mellitus, decubitus ulcer, who presents from assisted with reports of nausea vomiting and tachycardia. Urinalysis on admission also abnormal. Admitted on 08/02/2023 #sepsis without shock -leukocytosis and tachycardia resolved. # nausea vomiting/aspiration pneumonia/complicated UTI with Pseudomonas -initially placed on vanc Flagyl and ceftriaxone for aspiration. This was switched to ceftriaxone. -10/19 urine cx growing pseudomonas aeruginosa. sensitive to gent and amikacin. spoke with ID pharmacist Elan. gent no longer recommended, amikacin levels are send out. started on ceftazidime/avibactam on 10/25. complete 5 days ending on 09/28 then discharge is stable. # insulin-dependent diabetes mellitus -continue Accu-Cheks q.6 hours -holding MAIL CARRIER glargine 45 units daily. If his blood sugars are consistently high and he is tolerating tube feeds we can restart this. -MAIL CARRIER lispro 5 units t.i.d. also on hold. -currently receiving sliding scale Chronic Conditions -bed-bound, history of stroke: Continue MAIL CARRIER atorvastatin and aspirin -history of hypertension: Continue MAIL CARRIER amlodipine, coreg, clonidine -history of CAD: aspirin -chronic decubitus ulcer: Wound care consulted. F/E/N: saline lock IV, replace lytes as needed, continue tube feeds GI prophylaxis: Continue MAIL CARRIER PPI DVT prophylaxis: Has a history of intracranial hemorrhage. Already bed-bound and does not receive pharmacological DVT prophylaxis at his assisted. Will not alter this. SCDs only. Lines: Peripheral IV, chronic wound on Kinney catheter changed this admission Code Status: Full code Dispo: Stable on medical floor. Treat for 5 days for Pseudomonas UTI Heart Failure MIPS: Does not have heart failure Note to the patient: The Century Cures Act makes medical notes like these available to patients in the interest of transparency. Please be advised this is a medical document. It is intended for [id number]-gr-[id number] communication. It is written in medical language and may contain unfamiliar abbreviations or verbiage. Components may appear blunt or direct. Medical documents are intended to carry relevant information, facts as evident, and the clinical opinion of the practitioner at the time of the encounter. This note was generated by a speech recognition system and may contain inherent errors or omissions not intended by the user. Grammatical errors, random word insertions, deletions, pronoun errors and incomplete sentences are occasional consequences of this technology due to software limitations. Not all errors are caught or corrected. If there are questions or concerns about the content of this note or information contained within the body of this dictation they should be addressed directly with author for clarification. The file time of this note does not necessarily represent the time the patient was seen. Subjective Date/time seen: 10/28/23 07:26 Interval history: NAOE. making semi formed/loose BM per nurse Maura. no other reports. pt tracks with eyes. Review of Syst
[2023-10-28 08:34] LABS: Basophils Percent Auto 0.4 % (0.2-1.2); Eosinophils Absolute Auto 0.5 K/mm3 (0-0.3); Hematocrit 23.3 % (42.0-52.0); Immature Granulocyte Absolute 0.09 K/mm3 (0.00-0.031); Immature Granulocyte Percent A 0.9 % (0-0.5); Lymphocytes Absolute Auto 1.65 K/mm3 (0.9-3.2); Lymphocytes Percent Auto 17.2 % (18.3-44.2); Mean Platelet Volume 8.8 fl (7.4-10.4); Monocytes Absolute Auto 0.7 K/mm3 (0.1-0.6); Monocytes Percent Auto 6.8 % (2.6-8.5); Neutrophils Absolute Auto 6.7 K/mm3 (1.3-6.7); Neutrophils Percent Auto 69.7 % (45.5-73.1); Platelet Count Result 348 k/mm3 (150-375); Red Blood Count 2.59 M/mm3 (4.6-6.20); Red Cell Distribution Width 19.3 % (11.5-14.5); White Blood Count 9.6 K/mm3 (4.5-10.0)
[2023-10-28 08:45] LABS: Anion Gap 6 mmol/L (4-12); Blood Urea Nitrogen 23 mg/dL (9-20); Calcium 8.1 mg/dL (8.4-10.2); Carbon Dioxide 28 mmol/L (22-30); Chloride 101 mmol/L (98-107); Estimated CRCL calculation 151 ml/min; Estimated Glomerular Filt Rate > 60; Glucose 187 mg/dL (65-110); Magnesium 1.8 mg/dL (1.6-2.3); Potassium 4.2 mmol/L (3.4-5.0); Sodium 135 mmol/L (137-145)
[2023-10-28 09:04] VITALS: PULSE 98
[2023-10-28] MEDS: cloNIDine HCL 0.1 MG TABLET 0.3 MG FEED TUBE ×3 (09:04→17:27)
[2023-10-28] MEDS: carvediloL 25 MG TABLET FEED TUBE ×2 (09:04→17:27)
[2023-10-28] MEDS: amLODIPine BESYLATE 5 MG TABLET 10 MG FEED TUBE (09:04)
[2023-10-28] MEDS: LANSOPRAZOLE ODT 30 MG TAB.RAP.DR FEED TUBE (09:04)
[2023-10-28] MEDS: FERROUS SULFATE LIQUID 325 MG/7.4 ML ELIXIR FEED TUBE (09:04)
[2023-10-28] MEDS: ASPIRIN 81 MG CHEWABLE TABLET FEED TUBE (09:04)
[2023-10-28] MEDS: FLUTICASONE PROPIONATE 0.05% NA SPR 16 GM BTL (*BKC) 1 SPRAY NASAL ×2 (09:05→16:09)
[2023-10-28 09:08] LABS: Procalcitonin 0.1 ng/mL
[2023-10-28 09:21] LABS: Glucose Point of Care 174 mg/dl (65-105)
[2023-10-28 11:51] LABS: Glucose Point of Care 201 mg/dl (65-105)
[2023-10-28] MEDS: INSULIN ASPART (*BKC) 100 UNITS/ML SUB-Q (12:23)
[2023-10-28 14:24] VITALS: BP 126/55; PULSE 82; RESP 20; TEMP 36.5; O2SAT 97
[2023-10-28 17:27] VITALS: PULSE 82
[2023-10-28 17:55] LABS: Glucose Point of Care 158 mg/dl (65-105)
[2023-10-28 19:33] VITALS: BP 124/54; PULSE 78; RESP 18; TEMP 36.5; O2SAT 99
[2023-10-28] MEDS: ATORVASTATIN 40 MG TABLET 80 MG FEED TUBE (21:13)
[2023-10-28 21:49] VITALS: O2SAT 99
[2023-10-28 23:55] LABS: Glucose Point of Care 190 mg/dl (65-105)
[2023-10-29] VITALS (11 sets, daily range): BP systolic 108–147; BP diastolic 50–68; PULSE 81–95; RESP 14–20; TEMP 36.4–37.2; O2SAT 98–100
[2023-10-29] MEDS: CEFTAZIDIME/AVIBACTAM 2.5 GM in SODIUM CHLORIDE 0.9% IV 100 ML IVPB ×3 (05:41→23:45)
[2023-10-29] MEDS: SOD HYPOCHLORITE 1/4 STRENGTH 473 ML 1 APPLIC TOPICAL ×2 (05:44→18:20)
[2023-10-29 06:08] LABS: Glucose Point of Care 161 mg/dl (65-105)
[2023-10-29] MEDS: carvediloL 25 MG TABLET FEED TUBE ×2 (08:58→17:07)
[2023-10-29] MEDS: LANSOPRAZOLE ODT 30 MG TAB.RAP.DR FEED TUBE (08:58)
[2023-10-29] MEDS: ASPIRIN 81 MG CHEWABLE TABLET FEED TUBE (08:59)
[2023-10-29] MEDS: amLODIPine BESYLATE 5 MG TABLET 10 MG FEED TUBE (08:59)
[2023-10-29] MEDS: cloNIDine HCL 0.1 MG TABLET 0.3 MG FEED TUBE ×3 (08:59→17:07)
[2023-10-29] MEDS: FERROUS SULFATE LIQUID 325 MG/7.4 ML ELIXIR FEED TUBE (08:59)
[2023-10-29] MEDS: FLUTICASONE PROPIONATE 0.05% NA SPR 16 GM BTL (*BKC) 1 SPRAY NASAL ×2 (08:59→17:08)
--- NOTE | 2023-10-29 10:04 | PM.IMPN ---
Progress Note: A&P Assessment and Plan (1) Chronic indwelling Kinney catheter: Code(s): Z97.8 - Presence of other specified devices Status: Acute (2) Aspiration pneumonia: Code(s): J69.0 - Pneumonitis due to inhalation of food and vomit Status: Acute (3) Persistent vegetative state: Code(s): R40.3 - Persistent vegetative state Status: Chronic (4) Complicated UTI (urinary tract infection): Code(s): N39.0 - Urinary tract infection, site not specified Status: Acute Plan This is a 58-year-old male resides at [facility] with past medical history obesity, history of stroke now in vegetative state bed-bound and nonverbal, intracranial hemorrhage, history of recurrent aspiration pneumonia, chronic indwelling Kinney catheter, CAD, hypertension, insulin-dependent diabetes mellitus, decubitus ulcer, who presents from shelter with reports of nausea vomiting and tachycardia. Urinalysis on admission also abnormal. Admitted on 08/02/2023 #sepsis without shock -leukocytosis and tachycardia resolved. Patient afebrile, blood pressure stable # nausea vomiting/aspiration pneumonia/complicated UTI with Pseudomonas -initially placed on vanc Flagyl and ceftriaxone for aspiration. This was switched to ceftriaxone. -10/19 urine cx growing pseudomonas aeruginosa. sensitive to gent and amikacin. spoke with ID pharmacist Elan. gent no longer recommended, amikacin levels are send out. started on ceftazidime/avibactam on 10/25. complete 5 days ending on 10/29 then discharge is stable. # insulin-dependent diabetes mellitus -continue Accu-Cheks q.6 hours -holding TACTICAL RESPONSE GROUP OFFICER glargine 45 units daily. If his blood sugars are consistently high and he is tolerating tube feeds we can restart this. -TACTICAL RESPONSE GROUP OFFICER lispro 5 units t.i.d. also on hold. -currently receiving sliding scale Chronic anemia Hemoglobin is trending down Follow-up stool guaiac, iron panel, reticulocyte Chronic Conditions -bed-bound, history of stroke: Continue TACTICAL RESPONSE GROUP OFFICER atorvastatin and aspirin -history of hypertension: Continue TACTICAL RESPONSE GROUP OFFICER amlodipine, coreg, clonidine -history of CAD: aspirin -chronic decubitus ulcer: Wound care consulted. F/E/N: saline lock IV, replace lytes as needed, continue tube feeds GI prophylaxis: Continue TACTICAL RESPONSE GROUP OFFICER PPI DVT prophylaxis: Has a history of intracranial hemorrhage. Already bed-bound and does not receive pharmacological DVT prophylaxis at his shelter. Will not alter this. SCDs only. Lines: Peripheral IV, chronic wound on Kinney catheter changed this admission Code Status: Full code Dispo: Stable on medical floor. Treat for 5 days for Pseudomonas UTI Subjective Date/time seen: 10/29/23 10:04 Interval history: Patient is afebrile, blood pressure stable, pulse ox 100% on room air, patient is nonverbal, does not have obvious distress, no new issue events over the night Exam Narrative: GENERAL: Sick looking HEAD: Normocephalic, atraumatic. NECK: Supple. No adenopathy, no masses. RESPIRATORY: respirations nonlabored. , CARDIOVASCULAR: Regular rate and rhythm without murmurs, Amputated toe ABDOMINAL: Soft, nontender, nondistended, SKIN: Warm, dry, NEURO: A&O X1 Objective Data Vital Signs Vital Signs: Vital Signs - 24 hr 10/28/23 14:24 10/28/23 17:27 10/28/23 19:33 Temperature 97.7 F 97.7 F Pulse Rate 82 82 78 Respiratory Rate 20 18 Blood Pressure 126/55 L 124/54 L Pulse Oximetry 97 99 Oxygen Delivery 10/28/23 20:00 10/28/23 21:49 10/29/23 05:48 Temperature 97.7 F Pulse Rate 95 Respiratory Rate 18 Blood Pressure 147/68 H Pulse Oximetry 99 100 Oxygen Delivery Room Air Room Air 10/29/23 08:58 Temperature Pulse Rate 92 Respiratory Rate Blood Pressure Pulse Oximetry Oxygen Delivery Intake/Output Intake/Output: Intake & Output 10/26/23 10/27/23 10/28/23 10/29/23 23:59 23:59 23:59 23:59 Intake Total 1200.9 0119 4520
[2023-10-29 10:17] LABS: Hematocrit 23.1 % (42.0-52.0); Mean Corpuscular HGB Conc 29.9 g/dl (32-36); Mean Corpuscular Hemoglobin 26.7 pg (26-34); Mean Corpuscular Volume 89.5 fl (80-100); Platelet Count Result 355 k/mm3 (150-375); Red Blood Count 2.58 M/mm3 (4.6-6.20); Red Cell Distribution Width 19.1 % (11.5-14.5); White Blood Count 8.3 K/mm3 (4.5-10.0)
[2023-10-29 10:25] LABS: Immature Reticulocyte Fraction 39.5 % (3.0-15.9); Reticulocyte Hemoglobin Conten 26.1 pg (28.2-36.6); Reticulocyte Percent 3.93 % (0.7-4.3)
[2023-10-29 10:29] LABS: Anion Gap 4 mmol/L (4-12); Blood Urea Nitrogen 17 mg/dL (9-20); Calcium 8.4 mg/dL (8.4-10.2); Carbon Dioxide 30 mmol/L (22-30); Chloride 103 mmol/L (98-107); Estimated CRCL calculation 171 ml/min; Estimated Glomerular Filt Rate > 60; Glucose 243 mg/dL (65-110); Magnesium 1.8 mg/dL (1.6-2.3); Potassium 4.2 mmol/L (3.4-5.0); Sodium 137 mmol/L (137-145)
[2023-10-29 10:33] LABS: Iron 50 ug/dL (49-181)
[2023-10-29 10:42] LABS: Percent Iron Saturation 31 % (20-50)
[2023-10-29 10:50] LABS: Hemoglobin 6.9 g/dL (14.0-18.0)
[2023-10-29 12:34] LABS: Glucose Point of Care 233 mg/dl (65-105)
[2023-10-29] MEDS: INSULIN ASPART (*BKC) 100 UNITS/ML SUB-Q (13:02)
[2023-10-29] MEDS: SODIUM CHLORIDE 0.9% IV 250 ML 30 ML IV CONT (13:09)
--- NOTE | 2023-10-29 15:01 | PC.NURSE ---
Vitals charted at 1342 by Yael in [facility] where charted at the wrong time. Vitals are unable to be edited. She charted them at the correct time.
[2023-10-29 17:26] LABS: Glucose Point of Care 186 mg/dl (65-105)
[2023-10-29] MEDS: ATORVASTATIN 40 MG TABLET 80 MG FEED TUBE (21:00)
[2023-10-29 23:43] LABS: Glucose Point of Care 197 mg/dl (65-105)
[2023-10-30 05:41] VITALS: BP 143/69; PULSE 93; RESP 16; TEMP 36.1; O2SAT 98
[2023-10-30 05:54] LABS: Glucose Point of Care 217 mg/dl (65-105)
[2023-10-30] MEDS: INSULIN ASPART (*BKC) 100 UNITS/ML SUB-Q ×3 (06:05→23:26)
[2023-10-30] MEDS: CEFTAZIDIME/AVIBACTAM 2.5 GM in SODIUM CHLORIDE 0.9% IV 100 ML IVPB ×3 (06:05→21:42)
[2023-10-30] MEDS: SOD HYPOCHLORITE 1/4 STRENGTH 473 ML 1 APPLIC TOPICAL ×2 (06:06→18:01)
[2023-10-30 09:06] VITALS: PULSE 88
[2023-10-30] MEDS: ASPIRIN 81 MG CHEWABLE TABLET FEED TUBE (09:06)
[2023-10-30] MEDS: amLODIPine BESYLATE 5 MG TABLET 10 MG FEED TUBE (09:06)
[2023-10-30] MEDS: carvediloL 25 MG TABLET FEED TUBE ×2 (09:06→16:58)
[2023-10-30] MEDS: FERROUS SULFATE LIQUID 325 MG/7.4 ML ELIXIR FEED TUBE (09:06)
[2023-10-30] MEDS: LANSOPRAZOLE ODT 30 MG TAB.RAP.DR FEED TUBE (09:06)
[2023-10-30] MEDS: cloNIDine HCL 0.1 MG TABLET 0.3 MG FEED TUBE ×3 (09:07→16:59)
[2023-10-30] MEDS: FLUTICASONE PROPIONATE 0.05% NA SPR 16 GM BTL (*BKC) 1 SPRAY NASAL ×2 (09:08→16:59)
[2023-10-30 09:59] LABS: Basophils Percent Auto 0.3 % (0.2-1.2); Eosinophils Absolute Auto 0.2 K/mm3 (0-0.3); Eosinophils Percent Auto 1.8 % (0-4.4); Hematocrit 27.1 % (42.0-52.0); Hemoglobin 8.4 g/dL (14.0-18.0); Immature Granulocyte Absolute 0.07 K/mm3 (0.00-0.031); Immature Granulocyte Percent A 0.8 % (0-0.5); Lymphocytes Absolute Auto 1.51 K/mm3 (0.9-3.2); Lymphocytes Percent Auto 16.2 % (18.3-44.2); Mean Corpuscular Hemoglobin 27.5 pg (26-34); Mean Corpuscular Volume 88.6 fl (80-100); Mean Platelet Volume 8.9 fl (7.4-10.4); Monocytes Absolute Auto 0.7 K/mm3 (0.1-0.6); Monocytes Percent Auto 7.2 % (2.6-8.5); Neutrophils Absolute Auto 6.9 K/mm3 (1.3-6.7); Neutrophils Percent Auto 73.7 % (45.5-73.1); Nucleated Red Blood Cells Perc 0.2 % (0.0-0.2); Platelet Count Result 324 k/mm3 (150-375); Red Blood Count 3.06 M/mm3 (4.6-6.20); Red Cell Distribution Width 18.5 % (11.5-14.5); White Blood Count 9.3 K/mm3 (4.5-10.0)
--- NOTE | 2023-10-30 10:08 | PM.IMPN ---
Progress Note: A&P Assessment and Plan (1) Chronic indwelling Kinney catheter: Code(s): Z97.8 - Presence of other specified devices Status: Acute (2) Aspiration pneumonia: Code(s): J69.0 - Pneumonitis due to inhalation of food and vomit Status: Acute (3) Persistent vegetative state: Code(s): R40.3 - Persistent vegetative state Status: Chronic (4) Complicated UTI (urinary tract infection): Code(s): N39.0 - Urinary tract infection, site not specified Status: Acute Plan This is a 58-year-old male resides at [facility] with past medical history obesity, history of stroke now in vegetative state bed-bound and nonverbal, intracranial hemorrhage, history of recurrent aspiration pneumonia, chronic indwelling Kinney catheter, CAD, hypertension, insulin-dependent diabetes mellitus, decubitus ulcer, who presents from intermediate with reports of nausea vomiting and tachycardia. Urinalysis on admission also abnormal. Admitted on 08/02/2023 sepsis without shock -leukocytosis and tachycardia resolved. Patient afebrile, blood pressure stable nausea vomiting/aspiration pneumonia/complicated UTI with Pseudomonas -initially placed on vanc Flagyl and ceftriaxone for aspiration. This was switched to ceftriaxone. -10/19 urine cx growing pseudomonas aeruginosa. sensitive to gent and amikacin. spoke with ID pharmacist Elan. gent no longer recommended, amikacin levels are send out. started on ceftazidime/avibactam on 10/25. complete 5 days ending on 10/29 insulin-dependent diabetes mellitus -continue Accu-Cheks q.6 hours -holding SUPERVISOR ENDLESS TRACK VEHICLE glargine 45 units daily. If his blood sugars are consistently high and he is tolerating tube feeds we can restart this. -SUPERVISOR ENDLESS TRACK VEHICLE lispro 5 units t.i.d. also on hold. -currently receiving sliding scale Chronic anemia Hemoglobin is trending down HB 6.9 received 1 PRBC 06/30 Follow-up stool guaiac, iron panel wnl. reticulocyte 39% high Chronic Conditions -bed-bound, history of stroke: Continue SUPERVISOR ENDLESS TRACK VEHICLE atorvastatin and aspirin -history of hypertension: Continue SUPERVISOR ENDLESS TRACK VEHICLE amlodipine, coreg, clonidine -history of CAD: aspirin -chronic decubitus ulcer: Wound care consulted. F/E/N: saline lock IV, replace lytes as needed, continue tube feeds GI prophylaxis: Continue SUPERVISOR ENDLESS TRACK VEHICLE PPI DVT prophylaxis: Has a history of intracranial hemorrhage. Already bed-bound and does not receive pharmacological DVT prophylaxis at his intermediate. Will not alter this. SCDs only. Lines: Peripheral IV, chronic wound on Kinney catheter changed this admission Code Status: Full code Dispo: Stable on medical floor. Treat for 5 days for Pseudomonas UTI Plan discharge patient tomorrow if hemoglobin stable, negative stool guaiac Subjective Date/time seen: 10/30/23 10:08 Interval history: Patient is afebrile, blood pressure stable, pulse ox 100% on room air, patient is nonverbal, does not have obvious distress, received 1 pack RBC yesterday, hemoglobin stable, blood pressure stable. Exam Narrative: GENERAL: Ill-appearing in no acute distress. Obesity - EYES: EOMI. Anicteric. - HENT: Moist mucous membranes. - LUNGS: Clear to auscultation bilaterally, no wheezing, rhonchi, or rales. - CARDIOVASCULAR: Regular rate and rhythm. No murmur. No JVD. - ABDOMEN: Soft, non-tender and non-distended. No palpable masses. On NG tube feeding - EXTREMITIES: No edema. Peripheral pulses 2+. Non-tender. - NEUROLOGIC: No focal neurological deficits. CN II-XII grossly intact. - PSYCHIATRIC not oriented x 3. Lethargic mood and affect. - SKIN: No rashes or lesions. Warm. - LYMPH: No cervical lymphadenopathy. Objective Data Vital Signs Vital Signs: Vital Signs - 24 hr 10/29/23 13:26 10/29/23 14:00 10/29/23 13:42 Temperature 98.6 F 98.4 F 98.4 F Pulse Rate 92 91 88 Respiratory Rate 18 20 20 Blood Pressure 128/50 L 120/58 L 120/55 L Pulse Oximetry 98 100 100 Oxygen Delivery
[2023-10-30 10:09] LABS: Anion Gap 5 mmol/L (4-12); Blood Urea Nitrogen 14 mg/dL (9-20); Calcium 8.5 mg/dL (8.4-10.2); Carbon Dioxide 29 mmol/L (22-30); Chloride 103 mmol/L (98-107); Estimated CRCL calculation 177 ml/min; Estimated Glomerular Filt Rate > 60; Glucose 237 mg/dL (65-110); Potassium 4.3 mmol/L (3.4-5.0); Sodium 137 mmol/L (137-145)
--- NOTE | 2023-10-30 10:43 | PCNFU ---
Nutrition Follow-Up Complete: 1. Inability to meet nutrition needs PO related to dysphagia, CVA as evidenced by need for full enteral nutrition support 2. Increased protein energy needs related to pressure injuries as evidenced by wound report Goal: Meet estimated nutrition needs Patient is meeting. No new goal. Pt current nutrition is Glucerna 1.2 at 70 ml/hr. Last recorded weight is 115 kg, up from 112 kg on admit. Bowel Motility: +BM reported 10/26 Labs Reviewed: Glu 243, Cr 0.5 Meds Noted: Rocephin, Lantus, NovoLog, Reglan. Skin: DTI left hip, stage IV sacrum. Additional Notes: Patient remains on tube feedings of Glucerna 1.2 at 70 ml/hr. Tolerating feedings well tolerated and at goal. Flush 125 ml q 4 hours. Agree with diet orders. Monitoring intakes, weights, labs, tube feeding tolerance, wound healing, plan of care Follow up Thursday and Thursday
[2023-10-30 12:08] LABS: Glucose Point of Care 233 mg/dl (65-105)
[2023-10-30 15:39] VITALS: BP 136/58; PULSE 79; RESP 20; TEMP 36.2; O2SAT 95
[2023-10-30] MEDS: MAGNESIUM HYDROXIDE SUSP 30 ML UDC FEED TUBE ×2 (15:54→16:58)
[2023-10-30 16:58] VITALS: PULSE 84
[2023-10-30 20:00] VITALS: PULSE 84; RESP 20; O2SAT 95
[2023-10-30] MEDS: ATORVASTATIN 40 MG TABLET 80 MG FEED TUBE (21:42)
[2023-10-30 22:00] VITALS: BP 147/74; PULSE 85; RESP 20; TEMP 36.6; O2SAT 100
[2023-10-30 23:24] LABS: Glucose Point of Care 222 mg/dl (65-105)
[2023-10-31 04:59] LABS: Basophils Percent Auto 0.3 % (0.2-1.2); Eosinophils Absolute Auto 0.3 K/mm3 (0-0.3); Eosinophils Percent Auto 2.9 % (0-4.4); Hemoglobin 9.3 g/dL (14.0-18.0); Immature Granulocyte Absolute 0.07 K/mm3 (0.00-0.031); Immature Granulocyte Percent A 0.8 % (0-0.5); Lymphocytes Percent Auto 17.8 % (18.3-44.2); Mean Corpuscular Hemoglobin 27.4 pg (26-34); Mean Corpuscular Volume 91.2 fl (80-100); Mean Platelet Volume 8.9 fl (7.4-10.4); Monocytes Absolute Auto 0.6 K/mm3 (0.1-0.6); Neutrophils Absolute Auto 6.4 K/mm3 (1.3-6.7); Neutrophils Percent Auto 71.2 % (45.5-73.1); Platelet Count Result 346 k/mm3 (150-375); Red Cell Distribution Width 18.6 % (11.5-14.5)
[2023-10-31 05:11] LABS: Anion Gap 4 mmol/L (4-12); Blood Urea Nitrogen 13 mg/dL (9-20); Calcium 8.7 mg/dL (8.4-10.2); Carbon Dioxide 29 mmol/L (22-30); Chloride 103 mmol/L (98-107); Estimated CRCL calculation 215 ml/min; Estimated Glomerular Filt Rate > 60; Glucose 228 mg/dL (65-110); Potassium 4.4 mmol/L (3.4-5.0); Sodium 136 mmol/L (137-145)
[2023-10-31 06:00] VITALS: BP 143/47; PULSE 90; RESP 20; TEMP 36.1; O2SAT 99
[2023-10-31] MEDS: SOD HYPOCHLORITE 1/4 STRENGTH 473 ML 1 APPLIC TOPICAL (06:07)
[2023-10-31] MEDS: INSULIN ASPART (*BKC) 100 UNITS/ML SUB-Q ×2 (06:08→12:24)
[2023-10-31] MEDS: BISACODYL 10 MG SUPPOSITORY RECTAL (06:08)
[2023-10-31] MEDS: CEFTAZIDIME/AVIBACTAM 2.5 GM in SODIUM CHLORIDE 0.9% IV 100 ML IVPB (06:08)
[2023-10-31 06:34] LABS: Glucose Point of Care 216 mg/dl (65-105)
[2023-10-31 09:42] VITALS: PULSE 100
[2023-10-31] MEDS: amLODIPine BESYLATE 5 MG TABLET 10 MG FEED TUBE (09:42)
[2023-10-31] MEDS: carvediloL 25 MG TABLET FEED TUBE (09:42)
[2023-10-31] MEDS: cloNIDine HCL 0.1 MG TABLET 0.3 MG FEED TUBE (09:43)
[2023-10-31] MEDS: FERROUS SULFATE LIQUID 325 MG/7.4 ML ELIXIR FEED TUBE (09:43)
[2023-10-31] MEDS: ASPIRIN 81 MG CHEWABLE TABLET FEED TUBE (09:43)
[2023-10-31] MEDS: LANSOPRAZOLE ODT 30 MG TAB.RAP.DR FEED TUBE (09:43)
--- NOTE | 2023-10-31 10:01 | PM.IMPN ---
Progress Note: A&P Assessment and Plan (1) Chronic indwelling Kinney catheter: Code(s): Z97.8 - Presence of other specified devices Status: Acute (2) Aspiration pneumonia: Code(s): J69.0 - Pneumonitis due to inhalation of food and vomit Status: Acute (3) Persistent vegetative state: Code(s): R40.3 - Persistent vegetative state Status: Chronic (4) Complicated UTI (urinary tract infection): Code(s): N39.0 - Urinary tract infection, site not specified Status: Acute Plan This is a 58-year-old male resides at [facility] with past medical history obesity, history of stroke now in vegetative state bed-bound and nonverbal, intracranial hemorrhage, history of recurrent aspiration pneumonia, chronic indwelling Kinney catheter, CAD, hypertension, insulin-dependent diabetes mellitus, decubitus ulcer, who [facility] from [facility] with reports of nausea vomiting and tachycardia. Urinalysis on admission also abnormal. Admitted on 08/02/2023 sepsis without shock -leukocytosis and tachycardia resolved. Patient afebrile, blood pressure stable Sepsis has resolved nausea vomiting/aspiration pneumonia/complicated UTI with Pseudomonas -initially placed on vanc Flagyl and ceftriaxone for aspiration. This was switched to ceftriaxone. -10/19 urine cx growing pseudomonas aeruginosa. sensitive to gent and amikacin. spoke with ID pharmacist Elan. gent no longer recommended, amikacin levels are send out. started on ceftazidime/avibactam on 10/25. complete 5 days ending on 10/29 insulin-dependent diabetes mellitus -continue Accu-Cheks q.6 hours -holding CRM MARKETING ANALYST glargine 45 units daily. If his blood sugars are consistently high and he is tolerating tube feeds we can restart this. -CRM MARKETING ANALYST lispro 5 units t.i.d. also on hold. -currently receiving sliding scale Reduce glargine to 20 units after discharge, continue insulin sliding scale after discharge Chronic anemia HB 6.9 received 1 PRBC 06/30 Follow-up stool guaiac, iron panel wnl. reticulocyte 39% high hb 9.3 on 10/30, no active bleeding Chronic Conditions -bed-bound, history of stroke: Continue CRM MARKETING ANALYST atorvastatin and aspirin -history of hypertension: Continue CRM MARKETING ANALYST amlodipine, coreg, clonidine -history of CAD: aspirin -chronic decubitus ulcer: Wound care consulted. Patient is ready to be discharged today Subjective Date/time seen: 10/31/23 10:02 Interval history: Patient is afebrile, blood pressure stable, pulse ox 100% on room air, patient is nonverbal, does not have obvious distress, , hemoglobin stable and is trending up, blood pressure stable. Patient is afebrile Exam Narrative: GENERAL: Ill-appearing in no acute distress. Obesity - EYES: EOMI. Anicteric. - HENT: Moist mucous membranes. - LUNGS: Clear to auscultation bilaterally, no wheezing, rhonchi, or rales. - CARDIOVASCULAR: Regular rate and rhythm. No murmur. No JVD. - ABDOMEN: Soft, non-tender and non-distended. No palpable masses. On NG tube feeding - EXTREMITIES: No edema. Peripheral pulses 2+. Non-tender. - NEUROLOGIC: No focal neurological deficits. CN II-XII grossly intact. - PSYCHIATRIC not oriented x 3. Lethargic mood and affect. - SKIN: No rashes or lesions. Warm. - LYMPH: No cervical lymphadenopathy. Objective Data Vital Signs Vital Signs: Vital Signs - 24 hr 10/30/23 15:39 10/30/23 16:58 10/30/23 20:00 Temperature 97.1 F L Pulse Rate 79 84 84 Respiratory Rate 20 20 Blood Pressure 136/58 L Pulse Oximetry 95 95 Oxygen Delivery Room Air Fraction of Inspired Oxygen 21 10/30/23 22:00 10/31/23 06:00 10/31/23 09:42 Temperature 97.9 F 97.0 F L Pulse Rate 85 90 100 Respiratory Rate 20 20 Blood Pressure 147/74 H 143/47 H Pulse Oximetry 100 99 Oxygen Delivery Fraction of Inspired Oxygen Intake/Output Intake/Output: Intake & Output 10/28/23 10/29/23 10/30/23 10/31/23 23:59 23:59 23:59 23:59 Intake To
--- NOTE | 2023-10-31 10:05 | PM.DS ---
DS: Admitting Diagnosis Discharge Date 10/30 Admitting Diagnosis (1) Chronic indwelling Kinney catheter: Code(s): Z97.8 - Presence of other specified devices Status: Acute (2) Aspiration pneumonia: Code(s): J69.0 - Pneumonitis due to inhalation of food and vomit Status: Acute (3) Persistent vegetative state: Code(s): R40.3 - Persistent vegetative state Status: Chronic (4) Complicated UTI (urinary tract infection): Code(s): N39.0 - Urinary tract infection, site not specified Status: Acute DS: Discharge Diagnosis Discharge Diagnosis (1) Chronic indwelling Kinney catheter: Code(s): Z97.8 - Presence of other specified devices Status: Acute (2) Aspiration pneumonia: Code(s): J69.0 - Pneumonitis due to inhalation of food and vomit Status: Acute (3) Persistent vegetative state: Code(s): R40.3 - Persistent vegetative state Status: Chronic (4) Complicated UTI (urinary tract infection): Code(s): N39.0 - Urinary tract infection, site not specified Status: Acute DS: Summary Hospital Course Hospital Course: Per H&P, This is a 58 yo male with PMHx significant for obesity, stroke, bed ridden, non verbal, recurrent aspiration pneumonia,chronic indwelling Kinney catheter, custodial resident was brought to ED after having episode of emesis then developed low oxygen saturation. Patient is unable to give any hx.In ED patient was found tachycardic had low grade temp. Preliminary work up was significant for Ua with WBC present. Patient has been started on broad spectrum antibiotics. The following med issues have been addressed during hospitalization The following med issues have been addressed during hospitalization sepsis without shock -leukocytosis and tachycardia resolved. Patient afebrile, blood pressure stable Sepsis has resolved nausea vomiting/aspiration pneumonia/complicated UTI with Pseudomonas -initially placed on vanc Flagyl and ceftriaxone for aspiration. This was switched to ceftriaxone. -10/19 urine cx growing pseudomonas aeruginosa. sensitive to gent and amikacin. spoke with ID pharmacist Elan. gent no longer recommended, amikacin levels are send out. started on ceftazidime/avibactam on 10/25. complete 5 days ending on 10/29 insulin-dependent diabetes mellitus -continue Accu-Cheks q.6 hours -holding HOUSE SUPERVISOR glargine 45 units daily. If his blood sugars are consistently high and he is tolerating tube feeds we can restart this. -HOUSE SUPERVISOR lispro 5 units t.i.d. also on hold. -currently receiving sliding scale Reduce glargine to 20 units after discharge, continue insulin sliding scale after discharge Chronic anemia HB 6.9 received 1 PRBC 06/30 Follow-up stool guaiac, iron panel wnl. reticulocyte 39% high hb 9.3 on 10/30, no active bleeding Chronic Conditions -bed-bound, history of stroke: Continue HOUSE SUPERVISOR atorvastatin and aspirin -history of hypertension: Continue HOUSE SUPERVISOR amlodipine, coreg, clonidine -history of CAD: aspirin -chronic decubitus ulcer: Wound care consulted. Patient is ready to be discharged today Time Spent with Patient Time attestation: Total time spent providing and/or coordinating discharge services: Exam Narrative: GENERAL: Ill-appearing in no acute distress. Obesity - EYES: EOMI. Anicteric. - HENT: Moist mucous membranes. - LUNGS: Clear to auscultation bilaterally, no wheezing, rhonchi, or rales. - CARDIOVASCULAR: Regular rate and rhythm. No murmur. No JVD. - ABDOMEN: Soft, non-tender and non-distended. No palpable masses. On NG tube feeding - EXTREMITIES: No edema. Peripheral pulses 2+. Non-tender. - NEUROLOGIC: No focal neurological deficits. CN II-XII grossly intact. - PSYCHIATRIC not oriented x 3. Lethargic mood and affect. - SKIN: No rashes or lesions. Warm. - LYMPH: No cervical lymphadenopathy. DS: Data Data Completed and Pending Labs on day of discharge: Labs from last 24 hours 06
[2023-10-31 12:16] LABS: Glucose Point of Care 221 mg/dl (65-105)
[2023-10-31] MEDS: FLUTICASONE PROPIONATE 0.05% NA SPR 16 GM BTL (*BKC) 1 SPRAY NASAL (12:24)
[2023-10-31 12:57] LABS: SARS-CoV-2 RNA PCR Negative (Negative)
--- NOTE | 2023-10-31 13:48 | PC.NURSE ---
Update given by phone to Ivory STONE at 1230 to regarding transfer back to [facility] today
--- NOTE | 2023-10-31 13:53 | PC.NURSE ---
Update was given to Ivory STONE at 1230 regarding patient being transferred back to [facility] today.
--- NOTE | 2023-10-31 14:48 | PC.NURSE ---
[employer] Project Manager called [facility] regarding poultry picker of bed in [phone] at 1445 on 10/31/2023. Termination number [id number]
== END 2023-10-31 13:16 | DRG 466 ==
LOC: ANHED 20:26 → ANHIMU 21:06 → ANH3MED 10-23 18:06
PROVIDERS: General Practice; Internal Medicine; Admitting Provider Internal Medicine; Emergency Provider Emergency Medicine; PCP Internal Medicine; Visit Provider Hospitalist
DX: T83.511A Infection and inflammatory reaction due to indwelling urethral catheter, initial encounter (principal); A41.9 Sepsis, unspecified organism; J69.0 Pneumonitis due to inhalation of food and vomit; J18.9 Pneumonia, unspecified organism; N39.0 Urinary tract infection, site not specified; I25.10 Atherosclerotic heart disease of native coronary artery without angina pectoris; I10 Essential (primary) hypertension; D64.9 Anemia, unspecified; E11.9 Type 2 diabetes mellitus without complications; E78.5 Hyperlipidemia, unspecified; E66.9 Obesity, unspecified; N40.0 Benign prostatic hyperplasia without lower urinary tract symptoms; R40.3 Persistent vegetative state; K21.9 Gastro-esophageal reflux disease without esophagitis; B96.5 Pseudomonas (aeruginosa) (mallei) (pseudomallei) as the cause of diseases classified elsewhere; F01.50 Vascular dementia, unspecified severity, without behavioral disturbance, psychotic disturbance, mood disturbance, and anxiety; Z20.822 Contact with and (suspected) exposure to COVID-19; Z11.52 Encounter for screening for COVID-19; Z98.2 Presence of cerebrospinal fluid drainage device; Z79.4 Long term (current) use of insulin; Z86.73 Personal history of transient ischemic attack (TIA), and cerebral infarction without residual deficits; Z95.5 Presence of coronary angioplasty implant and graft; Z89.422 Acquired absence of other left toe(s); Z93.1 Gastrostomy status; Z74.01 Bed confinement status
CPT/HCPCS: 36415; 36430; 71045; 80048; 80053; 80202; 81001; 82565; 82948; 83036; 83540; 83550; 83605; 83735; 84145; 85025; 85027; 85046; 85610; 85730; 86850; 86900; 86901; 86923; 87040; 87077; 87086; 87088; 87186; 87635; 87637; 94640; 96361; 96365; 96374; 96375; 99285; A9270; G0378; J0696; J0714; J1815; J1836; J3370; J7030; J7050; P9016

== ENCOUNTER 2023-12-21 08:05 | Emergency (ER) | payer OTHER, SELFPAY ==
[2023-12-21] VITALS (12 sets, daily range): BP systolic 186–205; BP diastolic 90–103; PULSE 119–126; RESP 10–28; TEMP 36.4; O2SAT 94–100
--- NOTE | ~2023-12-21 | XR_ITS ---
EXAMINATION: XR chest 1V portable DATE: 12/21/2023 09:01 INDICATION: Possible aspiration TECHNIQUE: frontal view of the chest was obtained. COMPARISON: Chest radiograph dated 10/20/2023 FINDINGS: The lungs remain clear with no focal airspace opacities, pulmonary edema, pleural effusion or pneumot horax. The cardiomediastinal silhouette is normal. Likely ventriculoperitoneal shunt catheter project ing over the right side of the neck, chest and upper abdomen. Degenerative skeletal changes at the bi lateral shoulders and thoracic spine. IMPRESSION: 1. No acute cardiopulmonary disease. Reviewed, dictated and finalized at location [facility].
--- NOTE | 2023-12-21 08:40 | ECG_ITS ---
Test Date: 2023-12-21 08:48:48 Measurements Intervals [place] Rate: 120 P: 59 MD: 135 QRS: 60 QRSD: 103 T: -23 QT: 309 QTc: 437 Interpretive Statements SINUS TACHYCARDIA NONSPECIFIC T-WAVE ABNORMALITY ABNORMAL RHYTHM ECG No previous ECG available for comparison Electronically Signed On 12-21-2023 12:32:49 CDT by Jarred Murry M.D.
--- NOTE | 2023-12-21 08:44 | ED.NAVMDI ---
HPI - Nausea/Vomiting/Diarrhea General Chief complaint: Nausea/Vomiting/Diarrhea Stated complaint: ?aspirated Time Seen by Provider: 12/21/23 08:41 History of Present Illness HPI Narrative: Pt presents from local [place] after having emesis x 2 overnight. Pt has CP and is non verbal and is paraplegic so can't provide a history. Related Data Home Medications Medication Instructions Recorded Confirmed acetaminophen 500 mg capsule 1,000 mg feeding tube Q6H PRN Pain 06/02/23 10/21/23 (Scale Score 1-3) atorvastatin 80 mg tablet 80 mg feeding tube HS 06/02/23 10/21/23 bisacodyl 10 mg rectal suppository 10 mg RECTAL DAILY PRN Constipation 06/02/23 10/21/23 carvedilol 25 mg tablet 25 mg feeding tube BID 06/02/23 10/21/23 clonidine HCl 0.3 mg tablet 0.3 mg feeding tube TID 06/02/23 10/21/23 magnesium hydroxide 400 mg/5 mL 30 ml feeding tube HS PRN 06/02/23 10/21/23 oral suspension (Milk of Magnesia) Constipation ondansetron HCl 4 mg tablet 8 mg feeding tube Q6H PRN nausea 06/02/23 10/21/23 Dakin's Solution 1 applic topical BID 08/03/23 10/21/23 Glucagon (HCl) Emergency Kit 1 ml subcut DAILY PRN .bS less 08/03/23 10/21/23 than 50 amlodipine 5 mg tablet (Norvasc) 10 mg feeding tube QAM 08/03/23 10/21/23 ferrous sulfate 325 mg feeding tube DAILY 08/03/23 10/21/23 fluticasone propionate 50 1 spray intranasal BID 08/03/23 10/21/23 mcg/actuation nasal spray,suspension magnesium citrate (Citroma oral 296 ml feeding tube DAILY PRN 08/03/23 10/21/23 solution) constipaton metoclopramide HCl 10 mg tablet 10 mg feeding tube Q6H PRN 08/03/23 10/21/23 nausea/vomiting omeprazole 20 mg capsule,delayed 20 mg feeding tube DAILY 08/03/23 10/21/23 release gentamicin 0.1 % topical ointment See Rx Instructions .Route .COMPLEX 10/21/23 10/21/23 ondansetron 4 mg disintegrating 8 mg PO Q6H PRN nausea and vomiting 10/21/23 10/21/23 tablet silver sulfadiazine 1 % topical See Rx Instructions .Route .COMPLEX 10/21/23 10/21/23 cream tramadol 50 mg tablet 50 mg PO BID 10/21/23 10/21/23 Allergies Allergy/AdvReac Type Severity Reaction Status Date / Time No Known Allergies Allergy Verified 09/15/23 03:57 Review of Systems Review of Systems: ROS unobtainable: Yes unobtainable due to mental status PMFSH Past Medical History Medical History Acute on chronic anemia Benign prostatic hyperplasia Coronary artery disease Encephalopathy Hemorrhagic stroke (03/2023) Hypertension Intracranial hemorrhage Occult blood in stools Seizure Type 2 diabetes mellitus Vascular dementia Surgical History Surgical History 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 History of cardiac catheterization History of coronary artery stent placement History of percutaneous endoscopic gastrostomy History of tracheostomy Status post ventriculo-peritoneal shunt placement Family History Family History Other Family history unknown Social History Social History Social History: Healthcare power of db2 systems programmer: Ivory Hassan, sister. Code status: Full code. Smoking status: Never smoker Alcohol intake: never Substance use: never Substance use type: does not use Spiritual care concerns: No Exam Const: General: no acute distress Nutritional Appearance: well nourished Orientation/consciousness: patient oriented x3 Limitations: no limitations HENMT: Head: normal to inspection Resp: Effort & Inspection: normal respiratory effort Auscultation: clear to auscultation bilaterally Cardio: Rate: regular rate Rhythm: regular rhythm GI: GI Palp: Yes Soft to palpation and No Tenderness to palpation present (GI) Auscultation: normal bowel sounds Skin: General skin exam: normal color Rashes: no rashes Wounds: no wounds Extr
[2023-12-21 08:49] LABS: Basophils Percent Auto 0.2 % (0.2-1.2); Eosinophils Absolute Auto 0.1 K/mm3 (0-0.3); Hematocrit 33.2 % (42.0-52.0); Hemoglobin 10.5 g/dL (14.0-18.0); Immature Granulocyte Absolute 0.06 K/mm3 (0.00-0.031); Immature Granulocyte Percent A 0.5 % (0-0.5); Lymphocytes Absolute Auto 1.39 K/mm3 (0.9-3.2); Lymphocytes Percent Auto 11.5 % (18.3-44.2); Mean Corpuscular HGB Conc 31.6 g/dl (32-36); Mean Corpuscular Hemoglobin 27.4 pg (26-34); Mean Corpuscular Volume 86.7 fl (80-100); Mean Platelet Volume 8.6 fl (7.4-10.4); Monocytes Absolute Auto 0.6 K/mm3 (0.1-0.6); Monocytes Percent Auto 4.8 % (2.6-8.5); Neutrophils Absolute Auto 9.9 K/mm3 (1.3-6.7); Platelet Count Result 347 k/mm3 (150-375); Red Blood Count 3.83 M/mm3 (4.6-6.20); Red Cell Distribution Width 16.8 % (11.5-14.5); White Blood Count 12.1 K/mm3 (4.5-10.0)
[2023-12-21 08:52] LABS: Add Urine Microscopic? YES; Appearance Urine Clear (Clear); Bilirubin Urine Negative (Negative); Blood Urine Non-Hemolyzed Trace (Negative); Color Urine Yellow (Yellow); Glucose Urine UA Trace mg/dL (Negative); Ketones Urine Trace mg/dL (Negative); Leukocyte Esterase Ur 1+ LEU/UL (Negative); Nitrate Urine Negative (Negative); Protein Urine 3+ mg/dL (Negative); Specific Grav Ur 1.019 (1.001-1.035)
[2023-12-21 08:56] LABS: Bacteria Urine None Seen /hpf; Non Pathogenic Casts 0-2; Squamous Epithelial Cell Urine None Seen /hpf (Few); WBC Urine 51-100 /hpf (0-3)
[2023-12-21 08:59] LABS: Alanine Aminotransferase 22 U/L (6-50); Albumin Level 3.6 g/dL (3.5-5.1); Alkaline Phosphatase 138 U/L (38-126); Anion Gap 9 mmol/L (4-12); Aspartate Amino Transferase 34 U/L (17-59); Bilirubin,Total 0.6 mg/dL (0.2-1.3); Blood Urea Nitrogen 14 mg/dL (9-20); Calcium 9.1 mg/dL (8.4-10.2); Carbon Dioxide 30 mmol/L (22-30); Chloride 93 mmol/L (98-107); Estimated CRCL calculation 200 ml/min; Estimated Glomerular Filt Rate > 60; Glucose 278 mg/dL (65-110); Lipase 41 U/L (23-300); Potassium 4.7 mmol/L (3.4-5.0); Sodium 132 mmol/L (137-145)
[2023-12-21] MEDS: SODIUM CHLORIDE 0.9% IV 1,000 ML 999 ML IV CONT (09:09)
[2023-12-21] MEDS: ONDANSETRON INJ 4 MG/2 ML VIAL IV PUSH (09:10)
--- NOTE | 2023-12-21 11:57 | PC.NURSE ---
ems arrives at 1150 to take patient back to [facility]
== END 2023-12-21 11:58 | disposition home or self-care (01) ==
PROVIDERS: Emergency Provider Emergency Medicine; PCP Internal Medicine
DX: R11.10 Vomiting, unspecified (principal); G82.20 Paraplegia, unspecified; F01.50 Vascular dementia, unspecified severity, without behavioral disturbance, psychotic disturbance, mood disturbance, and anxiety; I25.10 Atherosclerotic heart disease of native coronary artery without angina pectoris; I10 Essential (primary) hypertension; E11.9 Type 2 diabetes mellitus without complications; D64.9 Anemia, unspecified; N40.0 Benign prostatic hyperplasia without lower urinary tract symptoms; Z86.73 Personal history of transient ischemic attack (TIA), and cerebral infarction without residual deficits; Z79.899 Other long term (current) drug therapy; Z79.82 Long term (current) use of aspirin; Z79.4 Long term (current) use of insulin; R00.0 Tachycardia, unspecified; R94.31 Abnormal electrocardiogram [ECG] [EKG]
CPT/HCPCS: 36415; 71045; 80053; 81001; 83690; 85025; 87077; 87086; 87088; 93005; 96361; 96374; 99284; J2405; J7030

== ENCOUNTER 2024-01-19 18:49 | Emergency (ER) | payer OTHER, SELFPAY ==
--- NOTE | ~2024-01-19 | CT_ITS ---
EXAMINATION: CT abdomen pelvis w con DATE: 01/19/2024 23:25 INDICATION: Abdominal pain vomiting TECHNIQUE: Computed tomography (CT) of the abdomen and pelvis was performed with 100 mL Omnipaque-350 intravenous contrast. Automated exposure control and iterative reconstruction technique were employe d. The dose-length product was 1651.49 mGy-cm. COMPARISON: 08/02/2023. FINDINGS: Exam limited by beam hardening from arm down positioning and body habitus. Lower thorax: Mild cardiomegaly. Moderate coronary artery calcification. Liver: Normal. Biliary/Gallbladder: Gallbladder is normal. No bile duct dilation. Pancreas: No mass or duct dilation. Spleen: Normal. Adrenals:No mass. Kidneys: No suspicious mass, obstructing stone, or hydronephrosis. GI tract: G-tube, in good position. The stomach is air-filled and mildly distended. No small bowel di lation. Moderate volume of colonic feces. Air-filled, dilated transverse colon. The rectum is dilated to 6.2 cm by formed stool, with surrounding inflammatory change and presacral edema. Appendix not co nfidently visualized, normal in the prior study, no pericecal inflammatory change to suggest appendic itis. Mesentery/Peritoneum: No ascites, mass, or free air. HOUSE SITTER shunt tubing terminates in the right lower qu adrant. Retroperitoneum: No mass. Pelvis: Pelvic organs are within normal limits. Soft Tissues: Large soft tissue defect over the left hip without suspicious underlying osseous change . Sacral decubitus ulcer extending to bone. Moderate sized fat-containing umbilical hernia which con tains a loop of the HOUSE SITTER shunt tubing. 2.0 x 7.0 cm rim-enhancing gas and fluid collection extending fr om the urethra just distal to the prostate anteriorly superficial to the base of penis into the subcu taneous fat. Bones: New sclerosis and erosions in the distal sacrum/coccyx.. IMPRESSION: Air-filled mildly distended stomach. Correlate with G-tube function. Air-filled segmental dilation of the transverse colon. Possible fecal impaction with adjacent inflammatory changes that may be related to the sacral process or early stercoral colitis. HOUSE SITTER shunt tubing herniates into the umbilical hernia. Correlate with shunt function. 2.0 x 7.0 cm gas and fluid collection in the subcutaneous fat anterior to the pubic symphysis, extend ing from the urethra, may represent urethral injury or periurethral/prostatic abscess. Sacral decubitus ulcer extending to bone with findings concerning for osteomyelitis in the distal sac rum/coccyx. Large left hip ulcer without definitive findings of osteomyelitis. Reviewed, dictated and finalized at location [facility]. IMPRESSION: Air-filled mildly distended stomach. Correlate with G-tube function. Air-filled segmental dilation of the transverse colon. Possible fecal impaction with adjacent inflammatory changes that may be related to the sacral process or early stercoral colitis. HOUSE SITTER shunt tubing herniates into the umbilical hernia. Correlate with shunt funct ion. 2.0 x 7.0 cm gas and fluid collection in the subcutaneous fat anterior to the p ubic symphysis, extending from the urethra, may represent urethral injury or pe riurethral/prostatic abscess. Sacral decubitus ulcer extending to bone with findings concerning for osteomyel itis in the distal sacrum/coccyx. Large left hip ulcer without definitive findings of osteomyelitis.
[2024-01-19 18:55] VITALS: BP 136/88; PULSE 123; RESP 18; TEMP 36.5; O2SAT 100
[2024-01-19 19:51] LABS: Lactic Acid Reflex 1.5 mmol/L (0.7-2.0)
[2024-01-19 19:52] LABS: Alanine Aminotransferase 23 U/L (6-50); Albumin Level 3.7 g/dL (3.5-5.1); Alkaline Phosphatase 164 U/L (38-126); Anion Gap 9 mmol/L (4-12); Aspartate Amino Transferase 37 U/L (17-59); Bilirubin,Total 0.5 mg/dL (0.2-1.3); Blood Urea Nitrogen 17 mg/dL (9-20); Calcium 9.2 mg/dL (8.4-10.2); Carbon Dioxide 33 mmol/L (22-30); Chloride 94 mmol/L (98-107); Estimated CRCL calculation 127 ml/min; Estimated Glomerular Filt Rate > 60; Glucose 170 mg/dL (65-110); Lipase 41 U/L (23-300); Potassium 4.3 mmol/L (3.4-5.0); Sodium 136 mmol/L (137-145)
--- NOTE | 2024-01-19 20:03 | PC.NURSE ---
multiple attempts at IV access without success.
[2024-01-19 20:04] LABS: Troponin I 0.013 ng/mL (0.000-0.034)
[2024-01-19 20:16] LABS: Add Urine Microscopic? YES; Appearance Urine Turbid (Clear); Bacteria Urine 4+ /hpf; Bilirubin Urine Negative (Negative); Blood Urine Negative (Negative); Color Urine Dark Yellow (Yellow); Glucose Urine UA Negative (Negative); Hyaline Casts Urine Present /lpf; Ketones Urine 1+ mg/dL (Negative); Leukocyte Esterase Ur Trace LEU/UL (Negative); Mucus Urine Present /lpf; Need Manual Microscopic Reviewed; Nitrate Urine Negative (Negative); Non Pathogenic Casts >20; Protein Urine 2+ mg/dL (Negative); Squamous Epithelial Cell Urine None Seen /hpf (Few); WBC Urine 21-50 /hpf (0-3); pH Urine 8.5 (5.0-9.0)
[2024-01-19 20:18] VITALS: BP 143/87; PULSE 121; O2SAT 100
[2024-01-19 20:19] LABS: Influenza A QL RT-PCR Negative (Negative); Influenza B QL RT-PCR Negative (Negative); RSV RNA, RT-PCR Negative (Negative); SARS-CoV-2 RNA PCR Negative (Negative)
[2024-01-19 20:21] LABS: Procalcitonin 0.1 ng/mL
--- NOTE | 2024-01-19 20:30 | ED.GENADULT ---
HPI - General Adult General Chief complaint: Nausea/Vomiting/Diarrhea Stated complaint: ?BOWEL OBSTRUCTION, N/V X 2 DAYS Time Seen by Provider: 01/19/24 18:57 History of Present Illness HPI narrative: Patient is a 58-year-old gentleman who presents emergency department with chief complaint of nausea vomiting for the last 2 days. Patient is a resident of local nursing facility it is tube feeds is baseline nonverbal and history is very limited. Per the facility the patient has had multiple bouts of vomiting has had aspiration pneumonia before in the past as a persistent vegetative state. Related Data Home Medications Medication Instructions Recorded Confirmed acetaminophen 500 mg capsule 1,000 mg feeding tube Q6H PRN Pain 06/02/23 10/21/23 (Scale Score 1-3) atorvastatin 80 mg tablet 80 mg feeding tube HS 06/02/23 10/21/23 bisacodyl 10 mg rectal suppository 10 mg RECTAL DAILY PRN Constipation 06/02/23 10/21/23 carvedilol 25 mg tablet 25 mg feeding tube BID 06/02/23 10/21/23 clonidine HCl 0.3 mg tablet 0.3 mg feeding tube TID 06/02/23 10/21/23 magnesium hydroxide 400 mg/5 mL 30 ml feeding tube HS PRN 06/02/23 10/21/23 oral suspension (Milk of Magnesia) Constipation ondansetron HCl 4 mg tablet 8 mg feeding tube Q6H PRN nausea 06/02/23 10/21/23 Dakin's Solution 1 applic topical BID 08/03/23 10/21/23 Glucagon (HCl) Emergency Kit 1 ml subcut DAILY PRN .bS less 08/03/23 10/21/23 than 50 amlodipine 5 mg tablet (Norvasc) 10 mg feeding tube QAM 08/03/23 10/21/23 ferrous sulfate 325 mg feeding tube DAILY 08/03/23 10/21/23 fluticasone propionate 50 1 spray intranasal BID 08/03/23 10/21/23 mcg/actuation nasal spray,suspension magnesium citrate (Citroma oral 296 ml feeding tube DAILY PRN 08/03/23 10/21/23 solution) constipaton metoclopramide HCl 10 mg tablet 10 mg feeding tube Q6H PRN 08/03/23 10/21/23 nausea/vomiting omeprazole 20 mg capsule,delayed 20 mg feeding tube DAILY 08/03/23 10/21/23 release gentamicin 0.1 % topical ointment See Rx Instructions .Route .COMPLEX 10/21/23 10/21/23 ondansetron 4 mg disintegrating 8 mg PO Q6H PRN nausea and vomiting 10/21/23 10/21/23 tablet silver sulfadiazine 1 % topical See Rx Instructions .Route .COMPLEX 10/21/23 10/21/23 cream tramadol 50 mg tablet 50 mg PO BID 10/21/23 10/21/23 Allergies Allergy/AdvReac Type Severity Reaction Status Date / Time No Known Allergies Allergy Verified 09/15/23 03:57 Review of Systems Review of Systems: A 10 system review of systems was completed on the patient and is negative except for what is stated in the HPI. Nursing and ancillary documentation was reviewed. COUNT INCLUDES THE [facility] Past Medical History Medical History Acute on chronic anemia Benign prostatic hyperplasia Coronary artery disease Encephalopathy Hemorrhagic stroke (03/2023) Hypertension Intracranial hemorrhage Occult blood in stools Seizure Type 2 diabetes mellitus Vascular dementia Surgical History Surgical History 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 History of cardiac catheterization History of coronary artery stent placement History of percutaneous endoscopic gastrostomy History of tracheostomy Status post ventriculo-peritoneal shunt placement Family History Family History Other Family history unknown Social History Social History Social History: Healthcare power of trial attorney: Ivory Hassan, sister. Code status: Full code. Smoking status: Never smoker Alcohol intake: never Substance use: never Substance use type: does not use Spiritual care concerns: No Exam Narrative: GENERAL:ill -appearing, and in no acute distress. HEAD: Normocephalic, atraumatic. EYES: PERRLA and EOMI.
[2024-01-19 21:32] LABS: Basophils Percent Auto 0.3 % (0.2-1.2); Eosinophils Absolute Auto 0.2 K/mm3 (0-0.3); Eosinophils Percent Auto 1.5 % (0-4.4); Hematocrit 37.8 % (42.0-52.0); Hemoglobin 11.7 g/dL (14.0-18.0); Immature Granulocyte Absolute 0.06 K/mm3 (0.00-0.031); Immature Granulocyte Percent A 0.5 % (0-0.5); Lymphocytes Absolute Auto 2.12 K/mm3 (0.9-3.2); Lymphocytes Percent Auto 19.3 % (18.3-44.2); Mean Corpuscular Hemoglobin 26.4 pg (26-34); Mean Corpuscular Volume 85.1 fl (80-100); Mean Platelet Volume 8.7 fl (7.4-10.4); Monocytes Absolute Auto 0.8 K/mm3 (0.1-0.6); Monocytes Percent Auto 7.4 % (2.6-8.5); Neutrophils Absolute Auto 7.8 K/mm3 (1.3-6.7); Platelet Count Result 431 k/mm3 (150-375); Red Blood Count 4.44 M/mm3 (4.6-6.20); Red Cell Distribution Width 17.3 % (11.5-14.5)
[2024-01-19 21:42] LABS: INR 1.1
[2024-01-19 21:43] LABS: Partial Thromboplastin Time 29.8 Seconds (22.3-36.8)
[2024-01-19] MEDS: ONDANSETRON INJ 4 MG/2 ML VIAL IV PUSH (22:57)
[2024-01-19] MEDS: SODIUM CHLORIDE 0.9% IV 1,000 ML 999 ML IV CONT (22:57)
[2024-01-19 23:00] VITALS: BP 169/83; PULSE 122; O2SAT 99
[2024-01-20] MEDS: CEFEPIME 2 GM/NS 50 ML 2 GM/50 ML BAG IVPB (01:08)
[2024-01-20] MEDS: LACTATED RINGERS 1,000 ML 999 ML IV CONT (01:08)
--- NOTE | 2024-01-20 02:05 | PC.NURSE ---
Pt linens changed, wounds cleaned and redressed, arshad catheter placed, and pt repositioned.
[2024-01-20 02:06] VITALS: BP 141/74; PULSE 116; RESP 20; O2SAT 100
[2024-01-20] MEDS: VANCOMYCIN 1,250 MG/NS 250 ML 1,250 MG/250 ML BAG 166.67 MG IVPB ×2 (02:13→03:46)
[2024-01-20 03:46] VITALS: BP 156/78; PULSE 116; RESP 20; O2SAT 100
[2024-01-20 04:15] VITALS: BP 168/79; PULSE 118; O2SAT 100
== END 2024-01-20 04:45 | disposition short-term general hospital (02) ==
PROVIDERS: Emergency Medicine; Emergency Provider Student in an Organized Health Care Education/Training Program; PCP Internal Medicine
DX: E11.69 Type 2 diabetes mellitus with other specified complication (principal); M46.28 Osteomyelitis of vertebra, sacral and sacrococcygeal region; Z20.822 Contact with and (suspected) exposure to COVID-19; F01.50 Vascular dementia, unspecified severity, without behavioral disturbance, psychotic disturbance, mood disturbance, and anxiety; I25.10 Atherosclerotic heart disease of native coronary artery without angina pectoris; D64.9 Anemia, unspecified; N40.0 Benign prostatic hyperplasia without lower urinary tract symptoms; Z86.73 Personal history of transient ischemic attack (TIA), and cerebral infarction without residual deficits; Z93.1 Gastrostomy status; Z95.5 Presence of coronary angioplasty implant and graft; Z89.429 Acquired absence of other toe(s), unspecified side; Z79.82 Long term (current) use of aspirin; Z79.899 Other long term (current) drug therapy; Z79.4 Long term (current) use of insulin; R93.49 Abnormal radiologic findings on diagnostic imaging of other urinary organs
CPT/HCPCS: 36415; 74177; 80053; 81001; 83605; 83690; 84145; 84484; 85025; 85610; 85730; 87040; 87077; 87086; 87088; 87181; 87637; 96361; 96365; 96366; 96367; 96374; 99285; J0692; J2405; J3370; J7030; J7120; Q9967